=== PATIENT | male | born 1935 | race Caucasian/White ===

== ENCOUNTER 2016-05-22 22:28 | Inpatient (IN) | payer OTHER ==
[2016-05-22] MEDS ORDERED: ONDANSETRON 4 MG/2 ML VIAL IVP ONE (22:32)
[2016-05-22] MEDS ORDERED: NS 500 ML IV ONE (22:32)
[2016-05-22] MEDS ORDERED: NITROGLYCERIN 0.4 MG BTL SL ONE (22:33)
--- NOTE | 2016-05-22 22:38 | CPEKG ---
Heart Rate: 103 RR Interval: 583 P-R Interval: 168 QRSD Interval: 88 QT Interval: 360 QTC Interval: 471 P [place]: 0 QRS [place]: -56 T Wave [place]: 25 EKG Severity - ABNORMAL ECG - EKG Impression: SINUS TACHYCARDIA EKG Impression: PROBABLE INFERIOR INFARCT, OLD EKG Impression: CONSIDER ANTERIOR INFARCT EKG Impression: RIGHT ATRIAL ENLARGEMENT. Electronically Signed By: Cristiano Mata 23-May-2016 15:26:22
--- NOTE | 2016-05-22 22:40 | EDPHY ---
H & P HPI/ROS: HPI CHIEF COMPLAINT: Chest pain, shortness of breath, cardiac alert by EMS, STEMI HISTORY OF PRESENT ILLNESS: this patient 80-year-old male significant past medical history for coronary artery disease with 2 stents in 1999, obstructive sleep apnea, obesity, diabetes, hypertension who presents to the emergency room by EMS from assisted living facility where he lives independently with left- sided chest pressure. EMS performed an EKG in field and it showed ST elevation MD specifically in lead V1, V2, V3 with ST depression very subtle into 3 and aVF concerning for an acute ST-elevation MD. There is brought to the emergency room ER room to emergently by EMS he did receive 2 nitroglycerin in route his blood pressure was in the 200s initially however his blood pressure improved to the 160s. he now complains of left- sided chest pressure 5/10. It does not radiate he does have associated nausea with that he denies numbness or tingling. Past Medical History: Hypertension, hyperlipidemia, coronary artery disease with stents, obesity, wear CPAP at night, no daily oxygen, Past Surgical History: stent placement 1999 Social History: denies drugs alcohol tobacco products Family History: noncontributory ROS REVIEW OF SYSTEMS: A comprehensive 10 point review of systems is otherwise negative aside from elements mentioned in the history of present illness. Exam Constitutional no acute distress, triage nursing summary reviewed, vital signs reviewed, awake/alert. Eyes normal conjunctivae and sclera, EOMI, PERRLA. HENT normal inspection, atraumatic, moist mucus membranes, no epistaxis, neck supple/ no meningismus, no raccoon eyes. Respiratory clear to auscultation bilaterally, normal breath sounds, no respiratory distress, no wheezing. Cardiovascular rate normal, regular rhythm, no murmur, no edema, distal pulses normal. Gastrointestinal soft, non-tender, no rebound, no guarding, normal bowel sounds, no distension, no pulsatile mass. Genitourinary no CVA tenderness. Musculoskeletal no midline vertebral tenderness, full range of motion, no calf swelling, no tenderness of extremities, no meningismus, good pulses, neurovascularly intact. Skin pink, warm, & dry, no rash, skin atraumatic. Neurologic awake, alert and oriented x 3, AAOx3, moves all 4 extremities equally, motor intact, sensory intact, CN II-XII intact, normal cerebellar, normal vision, normal speech. Psychiatric normal mood/affect. Heme/Lymph/Immune no lymphadenopathy. Differential Diagnosis: includes but is not limited to in a particular order, ST elevation MD, ACS, CHF, pulmonary embolism, pneumonia, pneumothorax, PE Medical Decision Making: this patient was a STEMI activation in the field, upon arrival to the emergency room complaining of left-sided chest pressure he has an EKG that shows subtle ST depression to 3 in aVF and very little ST elevation in V1 V2 V3. given the patient's chest discomfort he will be prepped for cardiac catheterization. Re-evaluation: 1038: At this time I have ordered this patient IV fluids, IV morphine IV Zofran for pain control another dose of nitroglycerin his blood pressure this time is 160 systolic he does complain of left-sided chest pressure EKG interpretation by me on record in [facility] system. Impression Time of EKG [address] depression 2 in lead 2 3 AVF very subtle less than 1 mm, also shows very subtle ST elevation in V1 V2 V3 less than 1 mm. It is also noted he has S1 Q3 T3 on EKG this is similar to previous EKG however there was not a T-wave inversion seen on lead 3. This EKG does appear similar to previous EKG. Patient did receive full-dose aspirin and 2 nitroglycerin prior to arrival his pain is 5/10. I will medicate him with another dose of nitroglycerin IV Zofran IV morphine and re-evaluate him while we wait on Cardiology to evaluate him. 2250: Dr. Patterson with cardiology is at bedside evaluating the patient. ED x-ray chest one view: cardiomegaly, lung vega clear, this is a similar chest x-ray compared to his old x-ray 09/14/2014. 2309: This patient is being taken to the cardiac catheterization lab with Dr. Patterson for concern out of chest pain and ischemia. Source: Patient, EMS - Medical/Surgical History Hx Asthma: No Hx Chronic Respiratory Disease: Yes Hx Diabetes: Yes Hx Cardiac Disease: No Hx Renal Disease: No Hx Cirrhosis: No Hx Alcoholism: No Hx HIV/AIDS: No Hx Splenectomy or Spleen Trauma: No Other PMH: iddm,giant cell temporalartinitiis,appendectomy, on oxygen - Social History Smoking Status: Former smoker Constitutional: Initial Vital Signs Temperature (C) 36.6 C 05/22/16 22:28 Heart Rate 106 H 11/30/16 22:28 Respiratory Rate 16 05/22/16 22:28 Blood Pressure 163/86 H 05/22/16 22:28 O2 Sat (%) 93 05/22/16 22:28 O2 Delivery Mode Room Air O2 (L/minute) 2 Allergies/Adverse Reactions: atorvastatin calcium [From Lipitor] Allergy (Mild, Verified 05/22/16 22:38) Other-Enter Comments lisinopril [Lisinopril] Allergy (Mild, Verified 05/22/16 22:38) Diarrhea Home Medications: Medication Instructions Recorded Gemfibrozil [Lopid 600 MG (*)] 600 mg PO BIDAC 10/12/09 Cholecalciferol Vit D3 [Vitamin D3 1,000 units PO DAILY 04/01/14 (*)] Cyanocobalamin [Vitamin B12 (*)] 1,000 mcg PO DAILY 04/01/14 Insulin Regular, Human [HUMULIN R] 75 unit SC BID@,04/01/14 Insulin Regular, Human [HUMULIN R] 100 unit SC DAILY@08 04/01/14 Metformin HCl [Metformin 1000 mg] 1,000 mg PO BIDMEAL 04/01/14 Multivitamins [Multivitamin (*)] 1 tab PO DAILY 04/01/14 Tamsulosin HCl [Flomax 0.4 MG (*)] 0.4 mg PO HS 04/01/14 Docusate Sodium [Colace 100 MG (*)] 100 mg PO BID #14 cap 04/08/14 Losartan Potassium [Cozaar 50 mg 50 mg PO DAILY 01/31/16 (*)] Pravastatin Sodium [Pravachol] 40 mg PO DAILY 01/31/16 predniSONE [Vonnie] 5 mg PO DAILY 01/31/16 Ondansetron Odt [Zofran Odt] 4 mg PO Q4PRN PRN #20 tab 02/02/16 Medical Decision Making - Data Points Laboratory Results: Laboratory Results 05/22/16 22:43 05/22/16 22:43 05/22/16 05/22/16 22:53 22:43 WBC 6.99 10^3/uL (3.80-9.50) RBC 5.02 10^6/uL (4.40-6.38) Hgb 15.8 g/dL (13.7-17.5) Hct 44.9 % (40.0-51.0) MCV 89.4 fL (81.5-99.8) MCH 31.5 pg (27.9-34.1) MCHC 35.2 g/dL (32.4-36.7) RDW 12.1 % (11.5-15.2) Plt Count 287 10^3/uL (150-400) MPV 9.8 fL (8.7-11.7) Neut % (Auto) 60.5 % (39.3-74.2) Lymph % (Auto) 26.0 % (15.0-45.0) [place] % (Auto) 10.4 % (4.5-13.0) Eos % (Auto) 1.4 % (0.6-7.6) Baso % (Auto) 1.0 % (0.3-1.7) Nucleat RBC Rel Count 0.0 % (0.0-0.2) Absolute Neuts (auto) 4.22 10^3/uL (1.70-6.50) Absolute Lymphs (auto) 1.82 10^3/uL (1.00-3.00) Absolute Monos (auto) 0.73 10^3/uL (0.30-0.80) Absolute Eos (auto) 0.10 10^3/uL (0.03-0.40) Absolute Basos (auto) 0.07 10^3/uL (0.02-0.10) Absolute Nucleated RBC 0.00 10^3/uL (0-0.01) Immature Gran % 0.7 % (0.0-1.1) Immature Gran # 0.05 10^3/uL (0.00-0.10) PT 14.6 SEC REJ (12.0-15.0) INR 1.15 REJ (0.83-1.16) APTT 29.1 SEC REJ (23.0-38.0) D-Dimer Pending Sodium 138 mEq/L (134-144) Potassium 4.5 mEq/L (3.5-5.2) Chloride 103 mEq/L (97-110) Carbon Dioxide 22 mEq/l (22-31) Anion Gap 18 mEq/L (8-20) BUN 22 mg/dL (7-23) Creatinine 1.1 mg/dL (0.7-1.3) Estimated GFR > 60 Glucose 262 H mg/dL (70-100) Calcium 9.7 mg/dL (8.5-10.4) Magnesium 2.0 mg/dL (1.6-2.3) Total Bilirubin 0.9 mg/dL (0.1-1.4) Conjugated Bilirubin 0.4 mg/dL (0.0-0.5) Unconjugated Bilirubin 0.5 mg/dL (0.0-1.1) AST 33 IU/L (17-59) ALT 34 IU/L (21-72) Alkaline Phosphatase 77 IU/L (38-126) Creatine Kinase 70 IU/L (0-224) CK-MB (CK-2) Fraction Pending Troponin I Pending NT-Pro-B Natriuret Pep Pending Total Protein 6.9 g/dL (6.3-8.2) Albumin 4.0 g/dL (3.5-5.0) Lipase 190.0 IU/L (23-300) Medications Given: Discontinued Medications Sodium Chloride (Ns) 500 mls @ 0 mls/hr IV ONCE ONE PRN Reason: As Directed Stop: 05/22/16 22:33 Last Admin: 05/22/16 22:46 Dose: 500 mls Nitroglycerin (Nitrostat) 0.4 mg SL EDNOW ONE Stop: 05/22/16 22:34 Last Admin: 05/22/16 22:46 Dose: 0.4 mg Ondansetron HCl (Zofran) 4 mg IVP EDNOW ONE Stop: 05/22/16 22:33 Last Admin: 05/22/16 22:32 Dose: 4 mg Departure - Departure Disposition: [facility] Inpatient Acute Clinical Impression: Chest pain Qualifiers: Chest pain type: unspecified Qualifier Code: (R07.9) Chest pain, unspecified Condition: Fair
[2016-05-22 22:47] LABS: % IMMATURE GRANULYOCYTES 0.7 % (0.0-1.1); ABSOLUTE IMMATURE GRANULOCYTES 0.05 10^3/uL (0.00-0.10); ADD DIFF? NO; ADD MORPH? NO; ADD SCAN? NO; ATYPICAL LYMPHOCYTE FLAG 0 (0-99); FRAGMENT RBC FLAG 0 (0-99); HEMATOCRIT 44.9 % (40.0-51.0); HEMOGLOBIN 15.8 g/dL (13.7-17.5); LEFT SHIFT FLG 0 (0-99); LIPEMIA HEMOLYSIS FLAG 90 (0-99); MEAN CELL HEMOGLOBIN 31.5 pg (27.9-34.1); MEAN CELL HEMOGLOBIN CONCENTR. 35.2 g/dL (32.4-36.7); MEAN CELL VOLUME 89.4 fL (81.5-99.8); MEAN PLATELET VOLUME 9.8 fL (8.7-11.7); PLATELET CLUMPS FLAG 0 (0-99); PLATELET COUNT 287 10^3/uL (150-400); RED BLOOD CELL COUNT 5.02 10^6/uL (4.40-6.38); RED CELL DISTRIBUTION WIDTH 12.1 % (11.5-15.2)
[2016-05-22] MEDS ORDERED: LIDOCAINE 1% 30 ML SDV ONE (22:48)
[2016-05-22] MEDS ORDERED: fentaNYL 100 MCG/2 ML INJ ONE ×2 (22:49→23:32)
[2016-05-22] MEDS ORDERED: IOPAMIDOL (ISOVUE 370) 100 ML BTL IV ONE ×2 (22:50→23:31)
[2016-05-22] MEDS ORDERED: BIVALIRUDIN 250 MG/5 ML VIAL IV ONE (22:50)
[2016-05-22] MEDS ORDERED: MIDAZOLAM 2 MG/2 ML VIAL ONE (22:52)
[2016-05-22 22:59] LABS: ALANINE AMINOTRANSFERASE 34 IU/L (21-72); ALKALINE PHOSPHATASE 77 IU/L (38-126); ANION GAP 18 mEq/L (8-20); ASPARTATE AMINOTRANSFERASE 33 IU/L (17-59); BILIRUBIN,TOTAL 0.9 mg/dL (0.1-1.4); BILIRUBIN-CONJUGATED 0.4 mg/dL (0.0-0.5); BILIRUBIN-UNCONJUGATED 0.5 mg/dL (0.0-1.1); CALCIUM 9.7 mg/dL (8.5-10.4); CARBON DIOXIDE 22 mEq/l (22-31); CHLORIDE 103 mEq/L (97-110); CREATININE 1.1 mg/dL (0.7-1.3); GLOMERULAR FILTRATION RATE > 60; GLUCOSE 262 mg/dL (70-100); POTASSIUM 4.5 mEq/L (3.5-5.2); SODIUM 138 mEq/L (134-144); TOTAL PROTEIN 6.9 g/dL (6.3-8.2)
[2016-05-22 23:06] LABS: APTT 29.1 SEC (23.0-38.0); INR 1.15 (0.83-1.16); PROTIME(PATIENT) 14.6 SEC (12.0-15.0)
[2016-05-22] MEDS ORDERED: LABETALOL HCL 5 MG/ML 20 ML MDV ONE (23:31)
[2016-05-22] MEDS ORDERED: NITROGLYCERIN/D5W/250 ML BOTTLE IV ONE (23:38)
[2016-05-22] MEDS ORDERED: HEPARIN 10,000 UNIT/10 ML MDV ONE (23:55)
[2016-05-23] MEDS ORDERED: ATROPINE SULFATE 1 MG/10 ML SYR IVP PRN (00:18)
[2016-05-23] MEDS ORDERED: NITROGLYCERIN 0.4 MG BTL SL PRN (00:18)
[2016-05-23] MEDS ORDERED: OXYCODONE/APAP 5/325 TAB PO PRN (00:18)
[2016-05-23] MEDS ORDERED: HYDROCODONE/APAP 5/325 TAB PO PRN (00:18)
[2016-05-23] MEDS ORDERED: HEPARIN 10,000 UNIT/10 ML MDV IVP PRN (00:24)
[2016-05-23] MEDS ORDERED: HEPARIN 10,000 UNIT/10 ML MDV IVP ONE (00:24)
[2016-05-23] MEDS ORDERED: HEPARIN/DEXTROSE 500 ML IV SCH (00:30)
--- NOTE | 2016-05-23 01:20 | GHP ---
[f rep st] HISTORY AND PHYSICAL DATE OF ADMISSION: 05/22/2016 CHIEF COMPLAINT: We have been asked by Dr. Bearden to evaluate Mr. Mao with chest pain and an elevated troponin. HISTORY OF PRESENT ILLNESS: Mr. Mao is an 80-year-old gentleman with known coronary artery disease status post stenting of his left anterior descending coronary artery in 1999 who presented with a chest pain syndrome. The patient was in his usual state of health until the evening of admission when he started to experience chest pain while watching TV. The chest pain was described as a pressure in his chest radiating into his left arm. The chest pain was associated with nausea and diaphoresis but not emesis. When the chest discomfort did not improve he called EMS and was brought to the emergency department for further evaluation. In the emergency department he had an EKG performed, which demonstrated sinus tachycardia at a heart rate of 103. The patient had inferior ST-segment depression but no acute ST-segment elevation. His initial troponin returned elevated at 0.1. We are consulted to help in the further management of this patient. The patient was continuing to have symptoms of chest pain at the time of interview. The patient denies a previous history of chest pain, other than in 1999 when he was treated with percutaneous coronary intervention. The patient reports limited physical activity. He does have risk factors including age, hypertension, hyperlipidemia, and diabetes mellitus. PAST MEDICAL HISTORY: 1. Coronary artery disease. a. Status post stenting of his left anterior descending coronary artery in 1999. b. Nuclear stress test in March of 2015 demonstrated no evidence of ischemia or infarction and preserved left ventricular systolic function. 2. Hypertension. 3. Hyperlipidemia. 4. Diabetes mellitus requiring insulin. MEDICATIONS: Please see medicine reconciliation form. ALLERGIES: 1. Lipitor. 2. Lisinopril. SOCIAL HISTORY: The patient lives at home. He does not smoke. FAMILY HISTORY: Noncontributory. REVIEW OF SYSTEMS: A 10-point review of systems is negative except as noted in HPI. PHYSICAL EXAM: GENERAL: Patient is resting in the bed. He appears to be in mild distress at this time. VITAL SIGNS: Temperature is afebrile, pulse is 106 , blood pressure 163/86, SaO2 93% on room air. HEENT: Normocephalic, atraumatic. Extraocular muscles intact. Could not appreciate JVD secondary to neck plethora. LUNGS: Clear to auscultation. CARDIOVASCULAR: Regular rate and rhythm S1, S2. Could not appreciate any murmurs, rubs, or gallops. ABDOMEN : Obese, distended, nontender. EXTREMITIES: Mild lower extremity edema. SKIN : No evidence of rashes. NEURO: Patient is awake, alert, and oriented x3. Remainder of exam was abbreviated given acute nature of patient's condition. LABORATORY: Sodium 138, potassium 4.5, chloride 103, CO2 22, BUN 22, creatinine 1.1. Troponin 0.10. INR is 1.15. White blood cell count 6.99, hemoglobin 15.8, hematocrit 44.9, platelet count 287. ASSESSMENT AND PLAN: Mr. Mao is an 80-year-old gentleman with: 1. Acute coronary syndrome. Patient has known coronary artery disease. He presents with recurrent chest pain similar to his previous angina. His EKG demonstrates no acute ST elevation, however, patient does have inferior ST- segment depression. His initial troponin is mildly elevated. The patient has continued to have mild chest discomfort at this time. Reviewed risks and benefits of cardiac catheterization for risk stratification. We will arrange to have this performed immediately. 2. Hyperlipidemia. Patient is on pravastatin. We will plan on continuing current therapy and obtaining a fasting lipid profile to evaluate management. 3. Hypertension. Patient was markedly hypertensive on his way into the hospital with systolic blood pressures in the 200s. Patient reports his blood pressure has been previously well controlled. We will plan on initiating therapy with labetalol. Patient does report previous allergy to lisinopril. 4. Diabetes mellitus. Patient has a history of type 2 diabetes mellitus. He is on insulin therapy with 70/30. Will consult hospice to help with management. /[id number]/MODL MTDD
[2016-05-23 01:22] LABS: % IMMATURE GRANULYOCYTES 0.7 % (0.0-1.1); ABSOLUTE IMMATURE GRANULOCYTES 0.06 10^3/uL (0.00-0.10); ADD DIFF? NO; ADD MORPH? NO; ADD SCAN? NO; ATYPICAL LYMPHOCYTE FLAG 0 (0-99); FRAGMENT RBC FLAG 0 (0-99); HEMATOCRIT 38.9 % (40.0-51.0); HEMOGLOBIN 13.9 g/dL (13.7-17.5); LEFT SHIFT FLG 0 (0-99); LIPEMIA HEMOLYSIS FLAG 90 (0-99); MEAN CELL HEMOGLOBIN CONCENTR. 35.7 g/dL (32.4-36.7); MEAN CELL VOLUME 92.4 fL (81.5-99.8); MEAN PLATELET VOLUME 9.8 fL (8.7-11.7); PLATELET CLUMPS FLAG 0 (0-99); PLATELET COUNT 245 10^3/uL (150-400); RED BLOOD CELL COUNT 4.21 10^6/uL (4.40-6.38); RED CELL DISTRIBUTION WIDTH 12.1 % (11.5-15.2)
[2016-05-23 01:31] LABS: INR 1.01 (0.83-1.16); PROTIME(PATIENT) 13.2 SEC (12.0-15.0)
[2016-05-23 01:32] LABS: APTT 58.7 SEC (23.0-38.0)
[2016-05-23 04:35] LABS: % IMMATURE GRANULYOCYTES 0.7 % (0.0-1.1); ABSOLUTE IMMATURE GRANULOCYTES 0.06 10^3/uL (0.00-0.10); ADD DIFF? NO; ADD MORPH? NO; ADD SCAN? NO; ATYPICAL LYMPHOCYTE FLAG 0 (0-99); FRAGMENT RBC FLAG 0 (0-99); HEMATOCRIT 39.9 % (40.0-51.0); HEMOGLOBIN 13.9 g/dL (13.7-17.5); LEFT SHIFT FLG 0 (0-99); LIPEMIA HEMOLYSIS FLAG 90 (0-99); MEAN CELL HEMOGLOBIN 31.7 pg (27.9-34.1); MEAN CELL HEMOGLOBIN CONCENTR. 34.8 g/dL (32.4-36.7); MEAN CELL VOLUME 91.1 fL (81.5-99.8); MEAN PLATELET VOLUME 9.7 fL (8.7-11.7); PLATELET CLUMPS FLAG 0 (0-99); PLATELET COUNT 257 10^3/uL (150-400); RED BLOOD CELL COUNT 4.38 10^6/uL (4.40-6.38); RED CELL DISTRIBUTION WIDTH 12.2 % (11.5-15.2)
[2016-05-23 05:00] LABS: ANION GAP 16 mEq/L (8-20); CARBON DIOXIDE 23 mEq/l (22-31); CHLORIDE 106 mEq/L (97-110); GLOMERULAR FILTRATION RATE > 60; GLUCOSE 224 mg/dL (70-100); SODIUM 141 mEq/L (134-144)
[2016-05-23] MEDS: ONDANSETRON 4 MG/2 ML VIAL IVP PRN (05:36)
--- NOTE | 2016-05-23 06:35 | DX ---
AP Portable Chest May 22, 2016 Indication: Cardiac alert. Comparison: September 14, 2014. Findings: Lungs are clear. No significant pulmonary edema. No consolidation or effusion. Right lower lobe area of patchy density appears improved compared to the prior x-ray. Appearance of widening of t he mediastinum is also unchanged. Impression: Overall improved since August 2014 without acute cardiopulmonary process radiographically.
[2016-05-23] MEDS ORDERED: METOCLOPRAMIDE 10 MG/2 ML VIAL IVP ONE (07:09)
[2016-05-23] MEDS ORDERED: INSULIN REGULAR HUMAN 100 UNIT in NS 100 ML IV PRN (07:38)
[2016-05-23] MEDS ORDERED: NITROGLYCERIN/DEXTROSE 250 ML IV SCH (08:00)
[2016-05-23] MEDS ORDERED: NS 1,000 ML IV ONE (08:28)
[2016-05-23] MEDS ORDERED: INSULIN REGULAR HUMAN 100 UNIT in NS 100 ML IV ONE (08:28)
[2016-05-23] MEDS ORDERED: MUPIROCIN 2% 22 GM OINT NS ONE (08:28)
[2016-05-23] MEDS ORDERED: AMINOCAPROIC ACID 5 GM/20 ML VIAL IV ONE (08:28)
[2016-05-23] MEDS ORDERED: CITRATE DEXTROSE SOLN 500 ML BAG MISC ONE (08:28)
[2016-05-23] MEDS ORDERED: ceFAZolin 3 GM in D5W 100 ML IV ONE (08:28)
[2016-05-23] MEDS ORDERED: VERAPAMIL 5 MG, NITROGLYCERIN 2.5 MG, HEPARIN 500 UNIT, SODIUM BICARBONATE 0.2 MEQ in L... MISC ONE (08:28)
[2016-05-23] MEDS ORDERED: PHENYLEPHRINE HCL 50 MG in NS 250 ML IV ONE (08:28)
[2016-05-23] MEDS ORDERED: MANNITOL 25% 12.5 GM/50 ML VIAL IV ONE (08:28)
[2016-05-23] MEDS ORDERED: SODIUM BICARBONATE 20 MEQ, LIDOCAINE 1% 10 ML in NORMOSOL-R 1,000 ML MISC ONE (08:28)
[2016-05-23] MEDS ORDERED: NOREPINEPHRINE BITARTRATE 16 MG in NS 250 ML IV ONE (08:28)
--- NOTE | 2016-05-23 08:30 | CPIP ---
[f rep st] INVASIVE CARDIAC PROCEDURE DATE OF PROCEDURE: 05/22/2016 PROCEDURE: 1. Coronary angiography. 2. Left ventriculography. 3. Placement of intra-aortic balloon pump. INDICATION: Acute coronary syndrome with elevated troponin. ACCESS: Patient was prepped and draped in sterile fashion. 1% lidocaine was used to anesthetize the right inguinal region. A 6-Gabonese introducer sheath was placed selectively in the right common femo ral artery via modified Seldinger technique. The 6-Gabonese introducer sheath was later exchanged for an 8-Gabonese introducer sheath, the exchange wire technique. CORONARY ANGIOGRAPHY: A 5-Gabonese JL4 was advanced to the left main coronary artery and images obtain ed. The left main coronary artery bifurcated into an LAD and circumflex coronary arteries. The left main coronary artery appeared free of any significant disease. The left anterior descending coronar y artery is diffusely diseased. In the mid 1 segment, there was a single discrete 90% stenosis prese nt. In the mid 2 segment, there is a single discrete 80% stenosis present, and in the distal vessel there is a single discrete 70% stenosis present. The 2nd diagonal artery was the largest of the diag onal arteries. It had a proximal 70% stenosis present. The circumflex coronary artery was dominant. The circumflex coronary artery was a large vessel. The circumflex coronary artery had an ostial 50 % stenosis present, followed by proximal 80% stenosis, followed by a mid 70% stenosis. The 1st OM ar joanne was a large vessel. The 1st OM artery was subtotally occluded with JORDAN-3 flow. A 5-Gabonese JR4 was advanced to the right coronary artery was obtained. The right coronary artery was nondominant. The right coronary artery had a proximal 70% stenosis present. LEFT VENTRICULOGRAPHY: A 6-Gabonese pigtail catheter was advanced in the left ventricle and images obt ained. Left ventricle was normal in size with reduced systolic function. Estimated ejection fractio n was 40%. Anterior apical segments were hypokinetic. His left ventricular end-diastolic pressure i s elevated at 24 mmHg. INTRA-AORTIC BALLOON PUMP PLACEMENT: Intra-aortic balloon pump was placed via the right common femor al artery. A 40 cc intra-aortic balloon pump was placed without difficulty. COMPLICATIONS: None. CONCLUSIONS: 1. Three-vessel coronary artery disease. 2. Reduced left ventricular systolic function with an estimated ejection fraction of 40%. 3. Status post successful placement of intra-aortic balloon pump. 4. Plan is for surgical evaluation. /[id number]/MODL
[2016-05-23] MEDS ORDERED: ASPIRIN 81 MG CHEWABLE TAB PO SCH (09:00)
[2016-05-23] MEDS ORDERED: MUPIROCIN 2% 22 GM OINT NS SCH (09:00)
[2016-05-23] MEDS ORDERED: niCARdipine/NACL 200 ML IV SCH (09:00)
[2016-05-23] MEDS ORDERED: LABETALOL HCL 200 MG TAB PO SCH (09:00)
[2016-05-23] MEDS ORDERED: ALBUMIN 5% 250 ML BOTTLE IV ONE (09:32)
[2016-05-23] MEDS ORDERED: AMINOCAPROIC ACID 5 GM/20 ML VIAL ONE (09:33)
[2016-05-23] MEDS ORDERED: PROTAMINE SULFATE 50 MG/5 ML VIAL IVP ONE ×2 (09:33→14:34)
[2016-05-23] MEDS ORDERED: ADENOSINE 6 MG/2 ML VIAL ONE (09:33)
[2016-05-23] MEDS ORDERED: LIDOCAINE 2% 100 MG/5 ML SYR IVP ONE (09:33)
[2016-05-23] MEDS ORDERED: MILRINONE/DEXTROSE/100 ML BAG IV ONE (09:33)
[2016-05-23] MEDS ORDERED: niCARdipine/NACL/200 ML BAG IV ONE (09:33)
[2016-05-23] MEDS ORDERED: AMIODARONE HCL 150 MG/3 ML VIAL ONE (09:33)
[2016-05-23] MEDS ORDERED: CALCIUM CHLORIDE 1 GM/10 ML INJ ONE (09:33)
[2016-05-23] MEDS ORDERED: POTASSIUM Cl (KCl) 20 MEQ/50 ML BAG IV ONE (09:33)
[2016-05-23] MEDS ORDERED: NA BICARBONATE 50 MEQ/50 ML VIAL ONE ×2 (09:33→20:19)
[2016-05-23] MEDS ORDERED: DOPamine/DEXTROSE/250 ML BAG IV ONE (09:33)
[2016-05-23] MEDS ORDERED: methylPREDNISolone SOD SUCC 1 GM/8 ML VIAL ONE (09:34)
[2016-05-23] MEDS ORDERED: ceFAZolin 1 GM VIAL ONE (09:34)
[2016-05-23] MEDS ORDERED: HEPARIN 10,000 UNIT/10 ML MDV ONE ×2 (09:34→10:56)
[2016-05-23] MEDS ORDERED: MAGNESIUM SULFATE 1 GM/2 ML VIAL ONE (09:34)
[2016-05-23] MEDS: PRAVASTATIN SODIUM 40 MG TAB PO SCH (09:51)
--- NOTE | 2016-05-23 10:39 | US ---
Bilateral Duplex Carotid Sonography Clinical Indications: Syncope. Precardiac bypass surgery evaluation. Technique: The cervical portions of the carotid and vertebral arteries were imaged and interrogated by color and pulsed Doppler. Spectral analysis was performed. Findings: Right Carotid: The common carotid artery, bifurcation, and origin of the internal and external carot id artery are well imaged. Doppler velocity estimates and color Doppler spectra are normal. No evid ence of flow-limiting stenosis. Peak ICA systolic velocity is 93 cm/sec. Peak CCA systolic velocity i s 92 cm/sec. The ICA to CCA ratio is 1. There is moderate plaque at the bulb without flow-limiting st enosis. Left Carotid: The common carotid artery, bifurcation, and origin of the internal and external caroti d artery are well imaged. Doppler velocity estimates and color Doppler spectra are normal. No evide nce of flow-limiting stenosis. Peak ICA systolic velocity is 83 cm/sec. Peak CCA systolic velocity is 113 cm per second. The ICA to CCA ratio is 0.7. Again, moderate plaque is identified at the bulb, wi thout flow-limiting stenosis. Interestingly, for both carotid arteries, there is reversal of flow below the neutral velocity line d uring diastole. Query aortic insufficiency? Vertebral Arteries: Antegrade flow is shown by pulsed Doppler of each vertebral artery. Impression: 1. Bilateral plaque at the carotid bulb without flow-limiting carotid stenosis. 2. Reversal of flow during diastole for both carotid arteries. Query aortic insufficiency? Measurement of carotid stenosis is based on velocity parameters that correlate the residual internal carotid diameter with [place] Symptomatic Carotid Endarterectomy Trial (NASCET) based stenosis levels.
[2016-05-23 10:46] LABS: HEMOGLOBIN A1C 8.4 % (4.0-6.0)
--- NOTE | 2016-05-23 10:46 | GCON ---
[f rep st] CONSULTATION CRITICAL CARE CONSULTATION. DATE OF CONSULTATION: 05/23/2016 REFERRING PHYSICIAN: Davidson Patterson MD CHIEF COMPLAINT: Chest pain. HISTORY OF PRESENT ILLNESS: This 80-year-old male had coronary artery stenting to his left anterior descending artery in year 1999. He had no chest pain or problems since then, although he has been ve ry sedentary. He has had some problems with his hips and does use a cane. Patient was on a cruise l ast week where he developed some nausea and epigastric discomfort that was different than his previou s angina. Upon returning he did develop radiating chest pain going to his left arm that felt like a pressure and he also had nausea and diaphoresis but no emesis and no shortness of breath. He came to the Emergency Room, where he had some ST-segment depression. He was taken to the carpenter labor supervisor by Dr. Decker and 3-vessel coronary disease was found. His troponin is elevated. He denies shortness of evaristo th or wheezing. There has been no orthopnea or paroxysmal nocturnal dyspnea, but he did notice some pedal edema after returning from his cruise. The patient's risk factors include diabetes mellitus, h yperlipidemia, hypertension, and obstructive sleep apnea. He does use a CPAP mask at night. His cullen betes mellitus is taken care by an acid crane operator at the [facility] in [place]. The viola ent is obese and as noted above exerts himself very little. PAST MEDICAL HISTORY: 1. Coronary artery disease with a stent to his left anterior descending artery in the year 1999. 2. Hypertension. 3. Hyperlipidemia. 4. Diabetes mellitus type 1. 5. 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 This was fr om a fall. ALLERGIES TO MEDICATIONS: Lipitor and lisinopril. SOCIAL HISTORY: The patient has a 20 pack-year history of smoking tobacco, having quit 50 years ago. 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 He has no hobby exposure. He does not drink excessive alcohol or use any illicit drugs. FAMILY HISTORY: Without diabetes mellitus or early arteriosclerotic vascular disease. REVIEW OF SYSTEMS: Otherwise noncontributory x11 points. PHYSICAL EXAMINATION: GENERAL: The patient is relatively comfortable but states that he has 1 or 2/ 10 chest pain still at this point. Blood pressure is 108/56 with a pulse of 96, respiratory rate of 15, and an oxygen saturation of 94% on room air. He is afebrile. SKIN: Normal. HEAD: Without ext ernal evidence of trauma. EYES: Fundi not visualized. EARS: Canals clear. NOSE: Without septal deviation or polyps. MOUTH and PHARYNX: Clear without lesions. NECK: Supple. CHEST: Clear to au scultation and percussion. HEART: PMI 5th intercostal space, midclavicular line. S1 and S2 are nor mal. There is no S3, S4, or murmur. ABDOMEN: Soft, without organomegaly or masses. There is no te nderness. EXTREMITIES: Full range of motion without clubbing or cyanosis and I do not see any edema now that the patient complained of a few days ago. DATABASE: Chest x-ray shows clear lungs. The chemistry panel is normal except for blood sugar that has been elevated at 224 and 262 here and both flows are fasting. INR is 1.0. White blood count 830 0 with hematocrit of 39, and platelets of 257,000. IMPRESSION: 1. Three-vessel coronary artery disease. 2. Obesity. 3. Diabetes mellitus with poor control. 4. Hypertension. 5. Hyperlipidemia. 6. Obstructive sleep apnea. PLAN: The patient is going for surgery with Dr. Johnson and will have a bypass. Hemoglobin A1c is inna ng obtained. It is difficult to know whether he has any lung disease from his smoking with his left very limited exertion. It may take a bit longer than usual to get him off the ventilator. Blood sug ars will be controlled with intravenous insulin drip following his surgery. /[id number]/MODL
[2016-05-23] MEDS ORDERED: MIDAZOLAM 2 MG/2 ML VIAL ONE (12:04)
[2016-05-23] MEDS ORDERED: fentaNYL 250 MCG/5 ML INJ ONE ×2 (12:14→12:15)
[2016-05-23] MEDS ORDERED: PROPOFOL 200 MG/20 ML VIAL ONE (12:15)
[2016-05-23] MEDS ORDERED: ROCURONIUM 100 MG/10 ML VIAL ONE (12:16)
[2016-05-23] MEDS ORDERED: LIDOCAINE 2% 5 ML SDV ONE (12:16)
[2016-05-23] MEDS ORDERED: SUCCINYLCHOLINE CHLORIDE*ANESTHESIA ONLY*200 MG/10 ML SYR IVP ONE (12:20)
--- NOTE | 2016-05-23 12:24 | ECHO ---
[id number] + + [address] : : [place] [address] : : [phone] + + Adult Echocardiographic Report + -----+ :Name: ANDREEA MICHELLE RStudy Date: 05/23/2016 10:11 AM : : Hospital Admission Number: [id number] Location : 254: :: 1935 Gender: Male Height: 71 in : :Age: 80 yrs Race: WH Weight: 280 lb : :Reason For Study: Eval LV Fx / Valves : : BSA: 2.4 meters2 : :History: Pre OP CABG : + -----+ MMode/2D Measurements & Calculations IVSd: 1.00 cm LVIDd: 4.8 cm FS: 25.9 % Ao root diam: LVPWd: 1.2 cm LVIDs: 3.6 cm EDV(Teich): 3.6 cm 110.0 ml ACS: 1.9 cm ESV(Teich): 54.2 ml LA dimension: EF(Teich): 50.7 % 3.0 cm LVOT diam: 2.1 cmLVLd ap4: 7.9 cm SV(MOD-sp4): LVOT area: EDV(MOD-sp4): 30.0 ml 3.5 cm2 80.0 ml LVLs ap4: 7.2 cm ESV(MOD-sp4): 50.0 ml EF(MOD-sp4): 37.5 % Normal Measurement Values: + + :LVIDd (3.5-5.7cm) IVSd (0.6-1.1cm) LVPWd (0.6-1.1cm) Aortic Root (2.0-3.7cm)Left Atrium (1.5-4.0cm): :LV Vol(d) (76-115ml) LV Vol(s) (29-48ml) Ejec Fraction (50-65%)PV Duane (0.6- 1.2m/s) TV Duane (0.4-1.0m/s) : :MV E Duane (0.8-1.0m/s)MV A Duane (0.3-1.0m/s)LVOT Duane (0.7-1.2m/s) Asc Ao Duane ( 0.9-1.8m/s) : + + Doppler Measurements & Calculations MV E max duane: MV V2 max: Ao V2 max: AI max duane: 50.3 cm/sec 131.5 cm/sec 617.0 cm/sec 224.0 cm/sec MV A max duane: MV max PG: Ao max PG: AI max P.5 cm/sec 6.9 mmHg 64.6 mmHg 20.1 mmHg MV E/A: 0.43 MV V2 mean: Ao mean P.8 cm/sec 14.2 mmHg MV mean PG: Ao V2 mean: 2.4 mmHg 179.1 cm/sec MV V2 VTI: 25.8 cmAo V2 VTI: 49.2 cm MVA(VTI): 2.4 cm2 PRISCILA(I,D): 1.3 cm2 LV V1 mean PG: SV(LVOT): 62.7 ml PA V2 max: 4.0 mmHg 112.7 cm/sec LV V1 mean: PA max P.1 cm/sec 5.1 mmHg LV V1 VTI: 18.1 cm Left Ventricle The left ventricle is normal in size. There is normal left ventricular wall thickness. An intracavitary gradient is present. The peak velocity in the AV / LVOT CW is 6.47 m/s with a PG of 167 mmHg. Ejection Fraction = 35-40%. There is left ventricular apical akinesis. Right Ventricle The right ventricle is normal in size and function. Atria The left atrial size is normal. Right atrial size is normal. The interatrial septum is intact with no evidence for an atrial septal defect. Mitral Valve There is mild mitral annular calcification. There is systolic anterior motion of the mitral valve. There is no mitral valve stenosis. There is trace to mild mitral regurgitation. Tricuspid Valve Normal tricuspid valve. No tricuspid regurgitation. Aortic Valve Mild Aortic Valve Calcification. There is no aortic stenosis. There is mild chordal calcification. There is no aortic insufficiency. Pulmonic Valve The pulmonic valve is normal in structure and function. There is no pulmonic valvular regurgitation. Great Vessels The aortic root is normal size. Pericardium/Pleural trivial pericardial effusion. Conclusion Normal LV size. Moderately reduced LV systolic function at = 35-40%. An intracavitary gradient is present. The peak velocity in the AV / LVOT CW is 6.47 m/s with a PG of 167 mmHg. This is associated with chordal OLY. The right ventricle is normal in size and function. There is mild mitral annular calcification. There is trace to mild mitral regurgitation. Normal tricuspid valve Mild Aortic Valve Calcification There is no aortic stenosis. There is mild chordal calcification. The aortic root is normal size. There is systolic anterior motion of the mitral valve. trivial pericardial effusion. There is left ventricular apical akinesis. Final Reading Physician: Julisa Fernandez signed on 05/23/2016 12:23 PM Ordering Physician: Davidson Patterson Performed By: Ho Phan, PARAMJITCS
[2016-05-23] MEDS ORDERED: VERAPAMIL 5 MG/2 ML VIAL ONE (12:32)
[2016-05-23] MEDS ORDERED: SKIN ADHESIVE (DERMABOND) 1 EACH TP ONE (12:32)
[2016-05-23] MEDS ORDERED: MINERAL OIL 10 ML VIAL TP ONE (12:32)
[2016-05-23] MEDS ORDERED: PAPAVERINE HCL 60 MG/2 ML SDV ONE (12:32)
[2016-05-23] MEDS ORDERED: HYDROCORTISONE 100 MG/2 ML VIAL ONE (13:23)
[2016-05-23] MEDS ORDERED: ROCURONIUM 50 MG/5 ML VIAL ONE (13:36)
[2016-05-23] MEDS ORDERED: ESMOLOL HCL 100 MG/10 ML VIAL IV ONE (16:15)
[2016-05-23] MEDS ORDERED: ESMOLOL/NACL 250 ML IV SCH (17:00)
[2016-05-23] MEDS ORDERED: PROPOFOL/EMULSION 500 MG/50 ML BOTTLE IV ONE (17:10)
[2016-05-23] MEDS ORDERED: PROPOFOL/EMULSION 1,000 MG/100 ML BOTTLE IV ONE (17:29)
[2016-05-23] MEDS ORDERED: POTASSIUM Cl (KCl) 50 ML IV PRN (17:33)
[2016-05-23] MEDS ORDERED: METOCLOPRAMIDE 10 MG/2 ML VIAL IVP PRN (17:33)
[2016-05-23] MEDS ORDERED: MAGNESIUM HYDROXIDE 30 ML UDCUP PO PRN (17:33)
[2016-05-23] MEDS ORDERED: BISACODYL 10 MG SUPP PR PRN (17:33)
[2016-05-23] MEDS ORDERED: MAGNESIUM SULF 2 GM/WATER 50 ML IV ONE (17:33)
[2016-05-23] MEDS ORDERED: MEPERIDINE 25 MG/ML SYR IVP PRN (17:33)
[2016-05-23] MEDS ORDERED: PANTOPRAZOLE SODIUM 40 MG in NS 100 ML IV ONE (17:33)
[2016-05-23] MEDS ORDERED: CEPACOL LOZENGE PO PRN (17:33)
[2016-05-23] MEDS ORDERED: POLYETHYLENE GLYCOL 3350 17 GM PKT PO PRN (17:33)
[2016-05-23] MEDS ORDERED: SODIUM CL NASAL 45 ML BTL EACHNARE PRN (17:33)
[2016-05-23] MEDS ORDERED: ONDANSETRON DISINTEGRATING 4 MG TAB PO PRN (17:33)
[2016-05-23] MEDS ORDERED: ACETAMINOPHEN 325 MG TAB PO PRN (17:33)
[2016-05-23] MEDS ORDERED: LACTULOSE 20 GM/30 ML UDCUP PO PRN (17:33)
[2016-05-23] MEDS ORDERED: NS 1,000 ML IV SCH (17:45)
--- NOTE | 2016-05-23 19:05 | POSTOPPROG ---
Post Op Note Date of Operation: 05/23/16 Surgeon: William Johnson Buckle Assembler: Gerardo Anesthesiologist: Humble Anesthesia: GET(General Endotracheal) Pre-op Diagnosis: AMI, ischemic CM,CHF Post-op Diagnosis: same w Severe TR post pump Procedure: CAB 5 FLIMA-LAD, SVG-Dg, [id number],PLCX EVH TVA Inf/Abcess present in the surg proc area at time of surgery?: No EBL: 500-1000 Drains: Other (3 blakes)
--- NOTE | 2016-05-23 19:12 | DX ---
Chest, Single View May 23, 2016 History: Needle count. Comparison: May 22, 2016. Findings: Postsurgical changes are seen of open heart surgery and valvular replacement. Multiple va scular clips are seen overlying the mediastinum. No evidence for a radiopaque density to indicate a retained needle. An image was obtained of the needle as well confirming no radiopaque density that h ad the appearance of a needle. Life support tubes and lines are seen in place. No evidence for a pn eumothorax. The heart size is enlarged. Calcifications are seen in the aorta indicating atheroscler otic disease. Impression: No evidence for a radiopaque density to indicate a retained needle. Results called to the OR at 1848 hours on May 23, 2016.
--- NOTE | 2016-05-23 19:28 | CPEKG ---
Heart Rate: 73 RR Interval: 822 P-R Interval: 204 QRSD Interval: 90 QT Interval: 432 QTC Interval: 476 P Gazelle: 59 QRS Gazelle: 235 T Wave Gazelle: 129 EKG Severity - ABNORMAL ECG - EKG Impression: SINUS RHYTHM EKG Impression: RIGHT AXIS DEVIATION EKG Impression: LOW VOLTAGE THROUGHOUT EKG Impression: BORDERLINE R WAVE PROGRESSION, ANTERIOR LEADS EKG Impression: ABNORMAL T, CONSIDER ISCHEMIA, LATERAL LEADS EKG Impression: BORDERLINE PROLONGED QT INTERVAL Electronically Signed By: Alna Ingram 24-May-2016 11:36:38
[2016-05-23] MEDS: ALBUMIN 5% 250 ML IV PRN ×2 (19:30→20:13)
[2016-05-23 19:42] LABS: BASE EXCESS -6.6 mEq/L (-2.5-2.5); BICARBONATE 20 mEq/L (22-26); MEASURED OXYGEN SATURATION 96 % (92-95); PCO2 45 mmHg (34-38); PO2 99 mmHg (65-75); TCO2 21 mEq/L (23-27)
[2016-05-23 19:49] LABS: END TIDAL CO2 42; O2 CONCENTRATIION 60 % (0-100); P/F RATIO 165 RATIO; PATIENT RATE 25; SIMV YES
[2016-05-23 19:50] LABS: PIP 30.7; PRESSURE SUPPORT 7
--- NOTE | 2016-05-23 20:01 | DX ---
Chest, Single View, May 23, 2016 History: Status post open heart surgery. Intraaortic balloon pump. Findings: Postsurgical changes are seen of open heart surgery and valvular replacement. Heart size is enlarged. The pulmonary vascularity is mildly prominent. There is mild interstitial prominence bilat erally. Bilateral chest tubes are seen and a mediastinal drainage tube. No evidence for pneumothorax. Intraao rtic balloon pump is seen with its tip at the aortic arch. ET tube is seen in place with its tip 5.5 cm from the papito. Right IJ central line is seen in place with its tip in the superior vena cava. Impression: Postsurgical changes of a open heart surgery as above. Cardiomegaly with pulmonary vascul ar congestion and mild pulmonary edema. Life-support tubes and lines as above.
[2016-05-23] MEDS: ceFAZolin 3 GM in D5W 100 ML IV SCH (20:09)
--- NOTE | 2016-05-23 20:13 | GOP ---
[f rep st] OPERATIVE REPORT DATE OF OPERATION: 05/23/2016 SURGEON: William Johnson DO BLACK TOPPER: Aracelis Bazzi ANESTHESIA: [facility] [place]. PREOPERATIVE DIAGNOSIS: 1. Acute myocardial infarction with post infarction angina and ischemic cardiomyopathy with suggesti on of pseudo outflow tract obstruction due to hyperdynamic inferior basilar ventricular function. 2. Severe 3 vessel disease. 3. Morbid obesity. 4. Congestive heart failure with ischemic cardiomyopathy with an ejection fraction of approximately 30-35%. POSTOPERATIVE DIAGNOSIS: 1. Acute myocardial infarction with post infarction angina and ischemic cardiomyopathy with suggesti on of pseudo outflow tract obstruction due to hyperdynamic inferior basilar ventricular function. 2. Severe 3 vessel disease. 3. Morbid obesity. 4. Congestive heart failure with ischemic cardiomyopathy with an ejection fraction of approximately 30-35%. 5. Evidence of severe tricuspid insufficiency after coming off cardiopulmonary bypass and subsequent reinstitution of bypass with repair of the tricuspid valve. PROCEDURE PERFORMED: 1. Coronary bypass grafting x5 with free left internal mammary artery to the LAD with the proximal b rought off the vein graft to the diagonal. 2. A saphenous vein graft to the diagonal with the hui brought off the vein graft to the posterior lateral circumflex. 3. Saphenous vein graft to the 1st OM sequential to 2nd OM. 4. Vein graft to the posterior lateral circumflex. 5. Tricuspid valve annuloplasty with a #32 Murguia annuloplasty ring. 6. Endoscopic vein harvest. FINDINGS: Patient presented with what was thought to be ST-elevation myocardial infarction, and was taken to the blender laborer the night before surgery. He was found to have severe 3 vessel disease with at least moderate to moderate severe LV dysfunction. Subsequent echo in the morning revealed moderate MR as well as severe left ventricular outflow tract obstruction due to chordal OLY without evidence o f septal thickening and likely due to apical infarction and hyperdynamic basilar segments. He was on a balloon pump with ongoing chest pain and nitroglycerin, and was taken to the operating room urgent ly, at which time, he was intubated, monitoring lines were placed, and he was prepped and draped in s terile classical manner. Intraoperative transesophageal echo performed by Dr. Palmer confirmed the pr esence of OLY, likely due to hyperdynamic basilar segments and no evidence of septal hypertroph. A s ternotomy was performed. He was heparinized, cannulated in standard fashion. Cardiopulmonary bypass was begun after endoscopic vein was harvested from the left leg by Aracelis Bazzi, who 1st assisted throughout the procedure. There was evidence of plaque in the ascending aorta, and we cannulated pro ximal to that with echo guidance, avoiding any area of thickening or plaque. We were able to cross-c lamp the aorta and give antegrade and subsequently retrograde cardioplegia, topical hypothermia and s ystemic cooling. Initially, we grafted a posterior lateral circumflex vessel which was a 2.2 mm vess el with moderately diffuse disease with a good quality vein which was brought off the ascending aorta . We then proceeded with sequentially grafting the 1st and 2nd OM vessels which were 1.5 and 1.9 mm in diameter with good flow. That was brought off the ascending aorta in standard fashion. We then g rafted the diagonal which was a 1.4 mm vessel, and brought that off the hui of the vein graft to the posterior lateral circumflex due to a very huge pulmonary artery and marked amount of fat on his hea rt, necessitating extra length on the graft. It seated perfectly without any tension. We had taken the mammary down which was a good quality vessel; however, it was adherent to the bone and had to be resected as a free graft due to its dense adherence due to inflammation apparently from previous brok en ribs. For that reason, we had a short segment which was good quality and grafted to the distal LA D and then brought off the hui of the vein graft to the diagonal. We then removed the cross-clamp w ith suction on the ascending aortic vent. The patient spontaneously resumed cardiac activity. Dr. Jo Ann chacon came in and re-reviewed the echo and felt that by slowing his heart rate and filling him, that t he OLY was almost completely eliminated, and the hopes were that with resumption of his apical and an terior wall function, that the outflow tract obstruction would diminish. He still had mild to modera te MR, and at this point, the tricuspid valve was interrogated by Dr. Palmer and was found to have sev ere torrential TR. This was not appreciated preoperatively, and for that reason, we reinstituted byp ass with bicaval cannulas and tapes. We did not cross clamp the patient, him, and then di d an through which we secured a 32 mm Murguia annuloplasty ring with excellent coaptation of the leaflets. The atrium was closed. The patient was refilled and easily weaned from bypass. Ec ho revealed trace tricuspid insufficiency, mild to moderate MR, and an ejection fraction of 35%. Hep german was reversed with protamine. The cannula was removed and oversewn. Two ventricular pacing wire s, 2 pleural and 1 mediastinal drain were placed. The thymic fat and pericardium were closed. Chest was closed in standard fashion. Patient was returned to ICU in critical condition. DESCRIPTION OF PROCEDURE: /[id number]/MODL
[2016-05-23] MEDS ORDERED: NA BICARBONATE 50 MEQ/50 ML VIAL IV ONE (20:30)
[2016-05-23 21:31] LABS: BASE EXCESS -4.6 mEq/L (-2.5-2.5); BICARBONATE 20 mEq/L (22-26); MEASURED OXYGEN SATURATION 96 % (92-95); PCO2 38 mmHg (34-38); PO2 87 mmHg (65-75); TCO2 21 mEq/L (23-27)
[2016-05-23 21:34] LABS: O2 CONCENTRATIION 40 % (0-100); P/F RATIO 217 RATIO; PATIENT RATE 29; PRESSURE SUPPORT 7; SIMV YES
[2016-05-23 21:57] LABS: HEMATOCRIT 24.5 % (40.0-51.0); HEMOGLOBIN 8.2 g/dL (13.7-17.5)
[2016-05-23] MEDS ORDERED: ALBUMIN 5% 250 ML IV ONE (22:00)
[2016-05-23] MEDS: SENNOSIDES/DOCUSATE SODIUM TAB PO SCH (22:20)
[2016-05-23 23:34] LABS: HEMATOCRIT 29.3 % (40.0-51.0); HEMOGLOBIN 9.8 g/dL (13.7-17.5)
[2016-05-23] MEDS: MUPIROCIN 2% 22 GM OINT NS SCH (23:40)
[2016-05-24] MEDS: ONDANSETRON 4 MG/2 ML VIAL IVP PRN (00:04)
[2016-05-24] MEDS: fentaNYL 100 MCG/2 ML INJ IVP PRN ×4 (00:04→20:44)
[2016-05-24] MEDS ORDERED: ALBUMIN 5% 250 ML IV SCH (01:00)
[2016-05-24 02:15] LABS: HEMOGLOBIN 8.1 g/dL (13.7-17.5)
[2016-05-24] MEDS: ceFAZolin 3 GM in D5W 100 ML IV SCH (02:51)
[2016-05-24] MEDS: INSULIN REGULAR HUMAN 100 UNIT in NS 100 ML IV SCH ×2 (02:51→21:33)
[2016-05-24] MEDS: NOREPINEPHRINE BITARTRATE 16 MG in NS 250 ML IV SCH ×2 (02:52→10:25)
[2016-05-24 02:54] LABS: INR 1.69 (0.83-1.16); PROTIME(PATIENT) 19.9 SEC (12.0-15.0)
[2016-05-24 02:56] LABS: APTT 71.7 SEC (23.0-38.0)
[2016-05-24 05:08] LABS: HEMOGLOBIN 8.8 g/dL (13.7-17.5); MEAN CELL HEMOGLOBIN 31.7 pg (27.9-34.1); MEAN CELL HEMOGLOBIN CONCENTR. 33.8 g/dL (32.4-36.7); MEAN CELL VOLUME 93.5 fL (81.5-99.8); RED BLOOD CELL COUNT 2.78 10^6/uL (4.40-6.38); RED CELL DISTRIBUTION WIDTH 13.9 % (11.5-15.2)
[2016-05-24] MEDS: ASPIRIN 81 MG CHEWABLE TAB PO SCH (05:34)
[2016-05-24 05:42] LABS: ANION GAP 16 mEq/L (8-20); CALCIUM 6.4 mg/dL (8.5-10.4); CARBON DIOXIDE 22 mEq/l (22-31); CHLORIDE 117 mEq/L (97-110); CREATININE 1.4 mg/dL (0.7-1.3); GLOMERULAR FILTRATION RATE 49; GLUCOSE 143 mg/dL (70-100); POTASSIUM 4.9 mEq/L (3.5-5.2); SODIUM 150 mEq/L (134-144)
[2016-05-24] MEDS ORDERED: ASPIRIN 81 MG CHEWABLE TAB TUBE PRN (06:00)
[2016-05-24 08:17] LABS: BASE EXCESS -5.6 mEq/L (-2.5-2.5); BICARBONATE 19 mEq/L (22-26); MEASURED OXYGEN SATURATION 91 % (92-95); PCO2 37 mmHg (34-38); PO2 65 mmHg (65-75); TCO2 20 mEq/L (23-27)
[2016-05-24 08:19] LABS: O2 CONCENTRATIION 50 % (0-100); P/F RATIO 130 RATIO; PATIENT RATE 32; PRESSURE SUPPORT 7; SIMV YES
[2016-05-24 08:35] LABS: APTT 31.8 SEC (23.0-38.0); INR 1.4 (0.83-1.16); PROTIME(PATIENT) 17.1 SEC (12.0-15.0)
[2016-05-24] MEDS: SENNOSIDES/DOCUSATE SODIUM TAB PO SCH ×2 (08:55→19:58)
[2016-05-24] MEDS: PRAVASTATIN SODIUM 40 MG TAB PO SCH (08:55)
--- NOTE | 2016-05-24 09:10 | SOAPPROG ---
<Jamal Jacobs - Last Filed: 05/24/16 09:08> SOAP Progress Note Assessment/Plan: POD#1: 1. CABGx5 (Free FRANK-LAD, SVG-D1, Sequential SVG-OM1-OM2, SVG-PL) 2. TV repair with #32 Murguia annuloplasty 3. EVH Objective: Vital Signs Temp Pulse Resp BP Pulse Ox 37.6 C 81 29 H 97/38 L 91 L 05/24/16 09:00 05/24/16 09:00 05/24/16 09:00 05/24/16 09:00 05/24/16 09:00 Laboratory Results 05/24/16 04:55 05/24/16 04:55 05/23/16 05/24/16 05/25/16 05:59 05:59 05:59 Intake Total 147 3883 Output Total 770 4300 265 Balance -623 -417 -265 PT 17.1 SEC (12.0-15.0) H 05/24/16 08:00 INR 1.40 (0.83-1.16) H 05/24/16 08:00 ICD10 Worksheet Patient Problems: Problems Problem Status Diagnosed Acute blood loss anemia Acute CAD, multiple vessel Acute Chest pain Acute Chronic Disease Mgmt/Transitional Care Acute Fall Acute Intracranial hemorrhage Acute Ischemic cardiomyopathy Acute Mitral insufficiency Acute S/P CABG x 5 Acute 05/23/16 S/P tricuspid valve repair Acute 05/23/16 Scalp laceration Acute Severe tricuspid regurgitation Acute Obesity (BMI 30-39.9) Chronic <William Johnson - Last Filed: 05/24/16 10:46> SOAP Progress Note Assessment/Plan: Assessment: Plan: 05/24/16 10:45 CXR w blood in pleura coagulopathy corrrected will take back to wash out and eval for any omgoing source of bleeding daughter at bedside and agreeds Objective: Vital Signs Temp Pulse Resp BP Pulse Ox 37.6 C 83 29 H 113/44 L 92 05/24/16 10:00 05/24/16 10:00 05/24/16 10:00 05/24/16 10:00 05/24/16 10:00 Laboratory Results 05/24/16 04:55 05/24/16 04:55 05/23/16 05/24/16 05/25/16 05:59 05:59 05:59 Intake Total 147 0273 486 Output Total 770 5774 650 Balance -653 -359 -854 PT 17.1 SEC (12.0-15.0) H 05/24/16 08:00 INR 1.40 (0.83-1.16) H 05/24/16 08:00
[2016-05-24] MEDS ORDERED: SODIUM BICARBONATE 50 MEQ/50 ML SYR IVP ONE (09:18)
[2016-05-24] MEDS ORDERED: FUROSEMIDE 40 MG/4 ML VIAL IVP ONE ×2 (09:19→20:30)
[2016-05-24] MEDS ORDERED: FUROSEMIDE 40 MG/4 ML VIAL ONE ×2 (09:22→20:27)
[2016-05-24] MEDS ORDERED: NA BICARBONATE 50 MEQ/50 ML VIAL ONE (09:22)
[2016-05-24] MEDS ORDERED: NA BICARBONATE 50 MEQ/50 ML VIAL IV ONE (10:00)
[2016-05-24] MEDS: MUPIROCIN 2% 22 GM OINT NS SCH ×2 (10:08→21:32)
--- NOTE | 2016-05-24 10:34 | DX ---
Portable AP Supine Chest May 24, 2016 5:23 a.m. Clinical History: 80-year-old male in the ICU, status post open heart surgery. Comparison Study: Chest, dated May 23, 2016, at 7:46 p.m. Findings: Again noted are postoperative changes following median sternotomy and a cardiac valvular re placement. The distal tip of the intraaortic balloon pump is at the level of the aortic arch. Mediast inal drain, telemetry monitoring lead lines, an endotracheal tube, and a right IJ central venous cath eter are stable in positioning. The cardiac and mediastinal silhouette remain enlarged. The pulmonary vasculature is redistributed. There is a "haziness" in the right hemithorax, likely reflecting some posterior-layering pleural fluid, although some superimposed infiltrate and/or atelectasis is not exc luded. There is also left lower lobe opacity. There is no pneumothorax. Impression: 1. Postoperative change following open heart surgery with stable positioning of the interventional de vices, and stable cardiac and mediastinal silhouette enlargement. 2. Pulmonary vascular redistribution with new "haziness" in the right hemithorax suggestive of some p osterior-layering pleural fluid, although atelectasis and/or infiltrate is not excluded. 3. Left basilar subsegmental atelectasis.
[2016-05-24] MEDS: ceFAZolin 2 GM/DEXTROSE 100 ML IV SCH ×2 (10:41→17:14)
[2016-05-24] MEDS ORDERED: fentaNYL 100 MCG/2 ML INJ ONE (10:57)
[2016-05-24] MEDS ORDERED: MIDAZOLAM 2 MG/2 ML VIAL ONE ×2 (10:58)
[2016-05-24] MEDS ORDERED: PHENYLEPHRINE HCL 100 MCG/ML SYR ONE (11:00)
[2016-05-24] MEDS ORDERED: epHEDrine SULFATE 10 MG/ML SYR ONE ×2 (11:00)
[2016-05-24] MEDS ORDERED: VASOPRESSIN 20 UNIT/ML VIAL ONE (11:01)
[2016-05-24] MEDS ORDERED: HYDROCORTISONE 100 MG/2 ML VIAL ONE (11:03)
[2016-05-24] MEDS ORDERED: SODIUM BICARBONATE 50 MEQ/50 ML SYR ONE (11:28)
[2016-05-24] MEDS ORDERED: VANCOMYCIN 1 GM VIAL IV ONE (11:28)
--- NOTE | 2016-05-24 13:27 | POSTOPPROG ---
Post Op Note Date of Operation: 05/24/16 Surgeon: William Johnson Felt Finishing Supervisor: Reynaldo Anesthesia: GET(General Endotracheal) Pre-op Diagnosis: right hemothorax Procedure: reexploration Inf/Abcess present in the surg proc area at time of surgery?: No EBL: Greater than 1000
[2016-05-24] MEDS ORDERED: ceFAZolin 2 GM/DEXTROSE 100 ML IV SCH (14:00)
--- NOTE | 2016-05-24 14:00 | GOP ---
[f rep st] OPERATIVE REPORT DATE OF OPERATION: 05/24/2016 SURGEON: William Johnson DO TRANSITIONAL KINDERGARTEN TEACHER: JOSE Roldan. ANESTHESIOLOGIST: Tyrell Jackson MD. PREOPERATIVE DIAGNOSIS: Right hemothorax with suspected ongoing mediastinal bleeding. POSTOPERATIVE DIAGNOSIS: No evidence of bleeding; however, evidence of right hemothorax. PROCEDURE PERFORMED: FINDINGS: DESCRIPTION OF PROCEDURE: Patient had persistent oozing from the chest tubes. Chest x-ray suggested right hemothorax. For that reason, we took the patient back with the family's permission for re-exp loration. He was prepped and draped in sterile classical manner. The sternum was reopened, and we w ere met with approximately 2 L of clotted blood in the right chest. The pericardium was closed. The re was no intrapericardial bleeding or clot noted. No evidence of tamponade. Chest was copiously ir rigated. All surgical sites were inspected. I presume that he bled from a chest wall site, but at t he present time there was no ongoing bleeding. The chest was reclosed in the standard fashion with a Margauxek weave due to his obesity and osteoporosis, and returned to ICU in stable condition. /[id number]/MODL
[2016-05-24 14:01] LABS: HEMATOCRIT 22.4 % (40.0-51.0); HEMOGLOBIN 7.7 g/dL (13.7-17.5); MEAN CELL HEMOGLOBIN 31.2 pg (27.9-34.1); MEAN CELL HEMOGLOBIN CONCENTR. 34.4 g/dL (32.4-36.7); MEAN CELL VOLUME 90.7 fL (81.5-99.8); RED BLOOD CELL COUNT 2.47 10^6/uL (4.40-6.38); RED CELL DISTRIBUTION WIDTH 14.8 % (11.5-15.2)
--- NOTE | 2016-05-24 14:08 | PDINTPN ---
[facility] Director Progress Note Assessment/Plan: Assessment: #CABG X 5 and TV annuloplasty , bleeding Friday and back to surgery with 1L of blood in the right chest but no active bleeding source found #Respiratory Failure on vent at 60% FI02 #ROSEANNA #Obesity #DM #HTN #Hyperlipidemia #Remote TBI after a fall with punctate ICB Plan: Not able to extubate at this time Recheck labs sent Insulin drip Not on any sedation, has prn fentanyl 05/24/16 14:09 Subjective: quiet, not on any sedation. Objective: Vital Signs Temp Pulse Resp BP Pulse Ox 37.7 C 90 25 H 117/45 L 92 05/24/16 13:00 05/24/16 13:00 05/24/16 13:00 05/24/16 13:00 05/24/16 13:00 Laboratory Results 05/24/16 13:55 05/24/16 04:55 05/23/16 05/24/16 05/25/16 05:59 05:59 05:59 Intake Total 147 3883 1128 Output Total 770 4300 1475 Balance -623 -417 -347 PT 17.1 SEC (12.0-15.0) H 05/24/16 08:00 INR 1.40 (0.83-1.16) H 05/24/16 08:00 Physical Exam - Physical Exam General Appearance: no apparent distress EENT: ET tube Neck: non-tender Respiratory: lungs clear Cardiac/Chest: regular rate, rhythm Abdomen: other (obese) Back: Normal inspection Skin: warm/dry Lymphatic: no adenopathy Extremities: non-tender, No pedal edema Neuro/Psych: cognition abnormalities ICD10 Worksheet Patient Problems: Problems Problem Status Diagnosed Acute blood loss anemia Acute CAD, multiple vessel Acute Chest pain Acute Chronic Disease Mgmt/Transitional Care Acute Fall Acute Intracranial hemorrhage Acute Ischemic cardiomyopathy Acute Mitral insufficiency Acute S/P CABG x 5 Acute 05/23/16 S/P tricuspid valve repair Acute 05/23/16 Scalp laceration Acute Severe tricuspid regurgitation Acute Obesity (BMI 30-39.9) Chronic
[2016-05-24] MEDS ORDERED: NS 500 ML IV PRN (14:13)
[2016-05-24] MEDS ORDERED: DEXMEDETOMIDINE HCL 400 MCG in NS 100 ML IV SCH (14:30)
--- NOTE | 2016-05-24 14:31 | DX ---
Portable Chest, Single View, May 24, 2016 History: Status post exploration of chest. Follow up pulmonary status. Comparison: 24 May 2016 and 23 May 2016. Findings: Postsurgical changes are seen of open heart surgery. New skin jonatan are seen in the midli ne and sternotomy wire. Heart size is enlarged. The mediastinum is widened which could be secondary t o postoperative appearance, stable. Mediastinal drainage tube remains in place in the midline. Aortic balloon pump is seen with its tip at the aortic arch. ET tube and right IJ catheter in stable positi on. Interstitial prominence is seen bilaterally and peribronchial wall thickening. Mild opacification is seen in both lung bases with stable aeration. Bilateral chest tubes are seen in place with no celina dence for pneumothorax. Impression: New midline skin jonatan and sternotomy wires. Otherwise postoperative changes appear sta ble with stable cardiomegaly and prominence of the mediastinum. Life-support tubes and lines are stab le. Stable aeration. Probable atelectasis in both lung bases and pulmonary edema.
[2016-05-24 14:59] LABS: BASE EXCESS -4.7 mEq/L (-2.5-2.5); BICARBONATE 20 mEq/L (22-26); MEASURED OXYGEN SATURATION 94 % (92-95); PCO2 38 mmHg (34-38); PO2 71 mmHg (65-75); TCO2 21 mEq/L (23-27)
[2016-05-24 15:00] LABS: O2 CONCENTRATIION 60 % (0-100); P/F RATIO 118 RATIO; PATIENT RATE 28; PRESSURE SUPPORT 10; SIMV YES
[2016-05-24 16:13] LABS: HEMATOCRIT 28.3 % (40.0-51.0); HEMOGLOBIN 9.9 g/dL (13.7-17.5)
[2016-05-24] MEDS ORDERED: LIDOCAINE 1% 30 ML SDV ONE (16:19)
[2016-05-24 16:28] LABS: INR 1.28 (0.83-1.16)
[2016-05-24] MEDS: PANTOPRAZOLE SODIUM 40 MG TAB PO SCH (18:33)
[2016-05-25] MEDS: fentaNYL 100 MCG/2 ML INJ IVP PRN ×6 (00:03→13:15)
[2016-05-25] MEDS: ceFAZolin 2 GM/DEXTROSE 100 ML IV SCH (02:13)
[2016-05-25 02:29] LABS: % IMMATURE GRANULYOCYTES 0.6 % (0.0-1.1); ABSOLUTE IMMATURE GRANULOCYTES 0.08 10^3/uL (0.00-0.10); ABSOLUTE NRBC COUNT 0.13 10^3/uL (0-0.01); ADD DIFF? NO; ADD MORPH? NO; ADD SCAN? NO; ATYPICAL LYMPHOCYTE FLAG 0 (0-99); FRAGMENT RBC FLAG 0 (0-99); HEMATOCRIT 24.3 % (40.0-51.0); HEMOGLOBIN 8.6 g/dL (13.7-17.5); LEFT SHIFT FLG 30 (0-99); LIPEMIA HEMOLYSIS FLAG 90 (0-99); MEAN CELL HEMOGLOBIN 31.3 pg (27.9-34.1); MEAN CELL HEMOGLOBIN CONCENTR. 35.4 g/dL (32.4-36.7); MEAN CELL VOLUME 88.4 fL (81.5-99.8); MEAN PLATELET VOLUME 10.5 fL (8.7-11.7); PLATELET CLUMPS FLAG 10 (0-99); PLATELET COUNT 102 10^3/uL (150-400); RED BLOOD CELL COUNT 2.75 10^6/uL (4.40-6.38); RED CELL DISTRIBUTION WIDTH 15.7 % (11.5-15.2)
[2016-05-25 02:44] LABS: ANION GAP 15 mEq/L (8-20); CALCIUM 6.3 mg/dL (8.5-10.4); CARBON DIOXIDE 23 mEq/l (22-31); CHLORIDE 118 mEq/L (97-110); GLOMERULAR FILTRATION RATE 32; GLUCOSE 116 mg/dL (70-100); POTASSIUM 3.7 mEq/L (3.5-5.2); SODIUM 152 mEq/L (134-144)
[2016-05-25] MEDS ORDERED: POTASSIUM Cl (KCl) 100 ML IV ONE (03:30)
[2016-05-25 04:58] LABS: BASE EXCESS -1.4 mEq/L (-2.5-2.5); BICARBONATE 22 mEq/L (22-26); MEASURED OXYGEN SATURATION 95 % (92-95); PCO2 34 mmHg (34-38); PO2 76 mmHg (65-75); TCO2 23 mEq/L (23-27)
[2016-05-25 04:59] LABS: END TIDAL CO2 31; O2 CONCENTRATIION 60 % (0-100); P/F RATIO 126 RATIO; PATIENT RATE 31; PRESSURE SUPPORT 10; SIMV YES
[2016-05-25 05:00] LABS: PIP 26
[2016-05-25] MEDS: HEPARIN 5,000 UNIT/0.5 ML SYR SC SCH ×3 (05:23→22:32)
[2016-05-25] MEDS ORDERED: POTASSIUM Cl (KCl) 50 ML IV ONE ×2 (06:30→12:30)
--- NOTE | 2016-05-25 08:11 | PDINTPN ---
Tongue Lining Stitcher Progress Note Assessment/Plan: Assessment: #CABG X 5 and TV annuloplasty , bleeding Friday and back to surgery with 1L of blood in the right chest but no active bleeding source found. 500ml out of chest tubes overnight. BP soft on 8 of levophed. CVP is 8. #Respiratory Failure on vent at 60% FI02. he overbreathes the vent with his own TV only 200-400ml. No ET secretions. CXR slightly fluffy and ET tube too high #ROSEANNA #Obesity and very deconditioned, no walking at all before his surgery #DM controlled with IV insulin #HTN #Hyperlipidemia #Remote TBI after a fall with punctate ICB Plan: IV albumin Not able to extubate at this time Recheck labs sent Insulin drip On precedex at .3, has prn fentanyl Start albuterol Advance ET tube 2cm 05/25/16 08:13 05/25/16 08:14 Subjective: Mild sternal pain Objective: Vital Signs Temp Pulse Resp BP Pulse Ox 38.0 C 82 36 H 109/39 L 96 05/25/16 07:00 05/25/16 07:00 05/25/16 07:00 05/25/16 07:00 05/25/16 07:00 Laboratory Results 05/25/16 02:20 05/25/16 02:20 05/24/16 05/25/16 05/26/16 05:59 05:59 05:59 Intake Total 3883 2974 Output Total 4300 3525 Balance -417 -551 PT 16.0 SEC (12.0-15.0) H 05/24/16 16:00 INR 1.28 (0.83-1.16) H 05/24/16 16:00 Physical Exam - Physical Exam General Appearance: mild distress EENT: ET tube Neck: non-tender Respiratory: lungs clear Cardiac/Chest: regular rate, rhythm Abdomen: non-tender, soft Back: Normal inspection Skin: warm/dry Lymphatic: no adenopathy Extremities: non-tender, pedal edema (trace edema) Neuro/Psych: alert ICD10 Worksheet Patient Problems: Problems Problem Status Diagnosed Acute blood loss anemia Acute CAD, multiple vessel Acute Chest pain Acute Chronic Disease Mgmt/Transitional Care Acute Fall Acute Intracranial hemorrhage Acute Ischemic cardiomyopathy Acute Mitral insufficiency Acute S/P CABG x 5 Acute 05/23/16 S/P tricuspid valve repair Acute 05/23/16 Scalp laceration Acute Severe tricuspid regurgitation Acute Obesity (BMI 30-39.9) Chronic
[2016-05-25] MEDS: PANTOPRAZOLE SODIUM 40 MG TAB PO SCH (08:20)
[2016-05-25] MEDS: SENNOSIDES/DOCUSATE SODIUM TAB PO SCH ×2 (08:20→19:32)
[2016-05-25] MEDS: PRAVASTATIN SODIUM 40 MG TAB PO SCH (08:20)
[2016-05-25] MEDS: ASPIRIN 81 MG CHEWABLE TAB PO SCH (08:20)
--- NOTE | 2016-05-25 08:29 | SOAPPROG ---
SOAP Progress Note Assessment/Plan: POD#2: 1. CABGx5 (Free FRANK-LAD, SVG-D1, Sequential SVG-OM1-OM2, SVG-PL) 2. TV repair with #32 Murguia annuloplasty 3. EVH LLE POD#1: 1. Exploration and washout of chest, closure Problem List: 1. Acute ND, severe 3VD, post-infarction angina s/p urgent CABGx5 - IABP d/c yesterday without incident - Continue to wean Levophed (8 mcgs) as tolerated 2. Torrential TVR discovered intra-operatively s/p repair with #32 Murguia annuloplasty and subsequent trace TVR - Surgically stable - Coumadin with INR goal 2-3 x 3 months when appropriate 3. Ventilator dependent respiratory failure - Currently on 60% FIO2 without adequate spontaneous breathing - continue weaning management as per pulmonology 4. Acute blood loss anemia with coagulopathy s/p multiple blood product transfusions with re-exploration and washout of chest without signs of active bleeding - H/H stable post exploration - continue to monitor 5. MAGUI with adequate renal function - Monitor Cr, maintain higher perfusion pressures, avoid nephrotoxic medications 6. ICM with systolic (EF 30%) and diastolic dysfunction and class IV heart failure - CVP 10 this AM with decent UOP and no signs of overt fluid overload - Lasix/Fluids prn - Heart failure medications in future as tolerated 7. 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 - Stable as per intra-op ECHO and deemed unnecessary for surgical repair - will re-evaluate with future ECHO Subjective: Intubated Objective: Vital Signs Temp Pulse Resp BP Pulse Ox 38.0 C 82 36 H 109/39 L 96 05/25/16 07:00 05/25/16 07:00 05/25/16 07:00 05/25/16 07:00 05/25/16 07:00 Laboratory Results 05/25/16 02:20 05/25/16 02:20 05/24/16 05/25/16 05/26/16 05:59 05:59 05:59 Intake Total 3883 2974 Output Total 4300 0655 Balance -417 -551 PT 16.0 SEC (12.0-15.0) H 05/24/16 16:00 INR 1.28 (0.83-1.16) H 05/24/16 16:00 Physical Exam - Physical Exam General Appearance: mild distress Neck: normal inspection Respiratory: lungs clear, No crackles, No rhonchi, No wheezing Cardiac/Chest: regular rate, rhythm Abdomen: non-tender, soft, distended Skin: normal color, warm/dry Neuro/Psych: other (Follows commands ) ICD10 Worksheet Patient Problems: Problems Problem Status Diagnosed Acute blood loss anemia Acute CAD, multiple vessel Acute Chest pain Acute Chronic Disease [facility]/Transitional Care Acute Fall Acute Intracranial hemorrhage Acute Ischemic cardiomyopathy Acute Mitral insufficiency Acute S/P CABG x 5 Acute 05/23/16 S/P tricuspid valve repair Acute 05/23/16 Scalp laceration Acute Severe tricuspid regurgitation Acute Obesity (BMI 30-39.9) Chronic
[2016-05-25] MEDS: MUPIROCIN 2% 22 GM OINT NS SCH (08:44)
[2016-05-25] MEDS: ALBUMIN 5% 250 ML IV PRN ×2 (08:45→16:07)
[2016-05-25] MEDS: PANTOPRAZOLE SODIUM 40 MG in NS 100 ML IV SCH (08:48)
--- NOTE | 2016-05-25 09:08 | DX ---
Portable Chest May 25, 2016 at 0616 Hours History: Post coronary artery bypass. Comparison: May 24, 2016. Findings: Moderate enlargement of the cardiac silhouette and mediastinum again noted. Right internal jugular line in the superior vena cava. Endotracheal tube above the papito. Mediastinal clips and med jeremie sternotomy wires. Chest tubes bilateral lung bases. Mediastinal drain midthoracic region. No pneu mothorax. Mild pulmonary venous hypertension. Impression: Multiple tubes and lines without pneumothorax.
[2016-05-25] MEDS ORDERED: FUROSEMIDE 40 MG/4 ML VIAL IVP ONE (10:00)
[2016-05-25] MEDS ORDERED: POTASSIUM Cl (KCl) 20 MEQ/50 ML BAG IV ONE (10:18)
[2016-05-25] MEDS ORDERED: ALBUTEROL 60 PUFFS/8 GM MDI IH SCH (12:00)
[2016-05-25] MEDS ORDERED: ALBUTEROL 5 MG/ML INH 20 ML BTL IH SCH (12:00)
[2016-05-25] MEDS: ALBUTEROL 60 PUFFS/8 GM MDI IH SCH ×3 (12:14→20:03)
[2016-05-25] MEDS: fentaNYL/NACL 100 ML IV SCH (13:26)
[2016-05-25] MEDS: ACETAMINOPHEN 650 MG SUPP PR PRN ×2 (15:15→21:51)
[2016-05-25 16:38] LABS: HEMATOCRIT 26.5 % (40.0-51.0); HEMOGLOBIN 9.2 g/dL (13.7-17.5); MEAN CELL HEMOGLOBIN 30.9 pg (27.9-34.1); MEAN CELL HEMOGLOBIN CONCENTR. 34.7 g/dL (32.4-36.7); MEAN CELL VOLUME 88.9 fL (81.5-99.8); RED BLOOD CELL COUNT 2.98 10^6/uL (4.40-6.38); RED CELL DISTRIBUTION WIDTH 15.9 % (11.5-15.2)
[2016-05-25 16:55] LABS: ANION GAP 16 mEq/L (8-20); CALCIUM 6.3 mg/dL (8.5-10.4); CARBON DIOXIDE 23 mEq/l (22-31); CHLORIDE 119 mEq/L (97-110); GLOMERULAR FILTRATION RATE 32; GLUCOSE 102 mg/dL (70-100); SODIUM 154 mEq/L (134-144)
--- NOTE | 2016-05-25 19:14 | GPN ---
[f rep st] PROCEDURE NOTE DATE OF PROCEDURE: 05/24/2016 TIME OF PROCEDURE: Approximately 4 in the afternoon. PROCEDURE: Left radial arterial line placement. INDICATION: Requested by Dr. Johnson to place a radial arterial line in the patient secondary to ongoi ng need for pressors and no invasive arterial monitoring. DESCRIPTION OF PROCEDURE: The arterial line was discussed with the patient, who consented. The left wrist was placed in the ex tended position, over a roll, and secured to a board with tape. The wrist was carefully prepped with chlorhexidine and then draped out with 2 sterile towels. 1% lidocaine local anesthesia was infiltrat ed into the area. A 20-gauge Arrow short catheter, arterial line was used. The 1st attempt albert bloo d, but was unable to be advanced. On the 2nd attempt, there was good blood flow. The wire slid easily and the catheter entered easily into the radial artery. There was good wave form on the monitor. Th e catheter was sutured in place with 0 silk, secured with Opsite and tape. The patient's vital signs remained stable throughout. After the arterial line was placed, his left hand remained warm, with g ood capillary refill. COMPLICATIONS: None. PROCEDURE DURATION: 25 minutes. /[id number]/MODL
[2016-05-25] MEDS ORDERED: AMIODARONE HCL 150 MG/100 ML BAG (1.5 MG/ML) IV ONE (21:09)
[2016-05-25] MEDS ORDERED: HALOPERIDOL LACT 5 MG/ML INJ IM ONE (21:30)
[2016-05-25] MEDS ORDERED: AMIODARONE A.FIB-LOAD DOSE(ORDER 1/3) IV ONE (21:30)
[2016-05-25] MEDS ORDERED: AMIODARONE A.FIB-6HR INFSN (ORDER 2/3) IV ONE (21:30)
[2016-05-26] MEDS ORDERED: AMIODARONE A.FIB-18HR INFSN (ORDER 3/3) IV ONE (03:30)
[2016-05-26] MEDS: ALBUTEROL 60 PUFFS/8 GM MDI IH SCH ×5 (04:05→23:49)
[2016-05-26 05:13] LABS: BASE EXCESS -6.4 mEq/L (-2.5-2.5); BICARBONATE 18 mEq/L (22-26); MEASURED OXYGEN SATURATION 97 % (92-95); PCO2 36 mmHg (34-38); PO2 98 mmHg (65-75); TCO2 19 mEq/L (23-27)
[2016-05-26 05:15] LABS: END TIDAL CO2 35; O2 CONCENTRATIION 50 % (0-100); P/F RATIO 196 RATIO; PATIENT RATE 30; PIP 25; PRESSURE SUPPORT 10; SIMV YES
[2016-05-26 05:18] LABS: HEMATOCRIT 27.8 % (40.0-51.0); HEMOGLOBIN 9.4 g/dL (13.7-17.5); MEAN CELL HEMOGLOBIN 30.4 pg (27.9-34.1); MEAN CELL HEMOGLOBIN CONCENTR. 33.8 g/dL (32.4-36.7); RED BLOOD CELL COUNT 3.09 10^6/uL (4.40-6.38)
[2016-05-26] MEDS: HEPARIN 5,000 UNIT/0.5 ML SYR SC SCH ×3 (05:25→21:22)
[2016-05-26 05:41] LABS: ANION GAP 17 mEq/L (8-20); CALCIUM 6.4 mg/dL (8.5-10.4); CARBON DIOXIDE 20 mEq/l (22-31); CHLORIDE 120 mEq/L (97-110); CREATININE 1.9 mg/dL (0.7-1.3); GLOMERULAR FILTRATION RATE 34; GLUCOSE 173 mg/dL (70-100); POTASSIUM 4.1 mEq/L (3.5-5.2); SODIUM 153 mEq/L (134-144)
--- NOTE | 2016-05-26 08:20 | DX ---
Portable AP Upright Chest, at 6:17 a.m. Clinical History: 80-year-old male in the ICU for postop evaluation after open heart surgery. Comparison Study: Chest, dated May 25, 2016, at 6:16 a.m. Findings: The patient is rotated to the left. Telemetry monitoring lead lines are present. The endotr acheal tube, the right IJ central venous catheter, a central mediastinal drain, and bilateral chest t ubes are stable, as are median sternotomy wires and midline skin jonatan. The cardiac and mediastinal silhouette remains enlarged. There is a "haziness" over the right lower hemithorax, suggestive of so me posterior-layering pleural fluid; superimposed atelectasis and/or infiltrate at the lung bases not excluded. There is mild pulmonary venous hypertension. There is no pneumothorax. Impression: Radiographically similar to yesterday's study.
--- NOTE | 2016-05-26 08:24 | PDINTPN ---
Screener Operator Progress Note Assessment/Plan: Assessment: #CABG X 5 and TV annuloplasty , bleeding Friday and back to surgery with 1L of blood in the right chest but no active bleeding source found. BP soft on 2.5 of levophed. CVP is 9. #Respiratory Failure on vent at 40% FI02. He overbreathes the vent. No ET secretions. CXR still slightly fluffy and ET tube too high, but weight only up 1.5Kg. 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 with punctate ICB #New atrial flutter on amiodarone Plan: Start CPAP after decreasing the fentanyl from 100, and work to extubate this AM Recheck labs sent Insulin drip Off precedex which decreased his BP some Start albuterol Advance ET tube 2cm Nutrition: If he can be extubated he will be able to eat, if not will need a dobhoff 05/26/16 08:25 Subjective: Sleepy but nods and shakes his head Objective: Vital Signs Temp Pulse Resp BP Pulse Ox 37.9 C 107 H 27 H 130/51 H 97 05/26/16 08:00 05/26/16 08:00 05/26/16 08:00 05/26/16 08:00 05/26/16 08:00 Laboratory Results 05/26/16 05:00 05/26/16 05:00 05/25/16 05/26/16 05/27/16 05:59 05:59 05:59 Intake Total 4788 0767 Output Total 2638 0325 Balance -551 92 PT 16.0 SEC (12.0-15.0) H 05/24/16 16:00 INR 1.28 (0.83-1.16) H 05/24/16 16:00 Physical Exam - Physical Exam General Appearance: no apparent distress EENT: ET tube Neck: non-tender Respiratory: decreased breath sounds Cardiac/Chest: irregularly irregular, other (atrial flutter) Abdomen: non-tender, soft, other (obese) Back: Normal inspection Skin: warm/dry Lymphatic: no adenopathy Extremities: non-tender, No pedal edema Neuro/Psych: alert ICD10 Worksheet Patient Problems: Problems Problem Status Diagnosed Acute blood loss anemia Acute CAD, multiple vessel Acute Chest pain Acute Chronic Disease Mgmt/Transitional Care Acute Fall Acute Intracranial hemorrhage Acute Ischemic cardiomyopathy Acute Mitral insufficiency Acute S/P CABG x 5 Acute 05/23/16 S/P tricuspid valve repair Acute 05/23/16 Scalp laceration Acute Severe tricuspid regurgitation Acute Obesity (BMI 30-39.9) Chronic
[2016-05-26] MEDS: PANTOPRAZOLE SODIUM 40 MG in NS 100 ML IV SCH (09:00)
--- NOTE | 2016-05-26 09:19 | SOAPPROG ---
SOAP Progress Note Assessment/Plan: POD#3: 1. CABGx5 (Free FRANK-LAD, SVG-D1, Sequential SVG-OM1-OM2, SVG-PL) 2. TV repair with #32 Murguia annuloplasty 3. EVH LLE POD#4: 1. Exploration and washout of chest, closure Problem List: 1. Acute [place], severe 3VD, post-infarction angina s/p urgent CABGx5 - Adequate BP with Levophed 2.5 mcgs - will wean off - ASA - Statin/BB when appropriate 2. Torrential TVR discovered intra-operatively s/p repair with #32 Murguia annuloplasty and subsequent trace TVR - Will order f/u 2D ECHO Friday to re-evaluate - Coumadin with INR goal 2-3 x 3 months when appropriate 3. Ventilator dependent respiratory failure - Currently on 40% FIO2 with adequate spontaneous breathing for CPAP trial 4. Acute blood loss anemia with coagulopathy s/p multiple blood product transfusions with re-exploration and washout of chest without signs of active bleeding - H/H stable post exploration - continue to monitor 5. MAGUI with adequate renal function - Maintain higher perfusion pressures, avoid nephrotoxic medications - Monitor 6. ICM with systolic (EF 30%) and diastolic dysfunction and class IV heart failure - No signs of overt fluid overload - Lasix/Fluids prn - Heart failure medications in future as tolerated 7. 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 Post-op AF/Flutter - Continue amio gtt for - Consider CV 05/26/16 09:16 Subjective: Intubated Objective: Vital Signs Temp Pulse Resp BP Pulse Ox 37.9 C 94 31 H 136/55 H 96 05/26/16 09:00 05/26/16 09:00 05/26/16 09:00 05/26/16 09:00 05/26/16 09:00 Laboratory Results 05/26/16 05:00 05/26/16 05:00 05/25/16 05/26/16 05/27/16 05:59 05:59 05:59 Intake Total 2974 7577 Output Total 3525 2365 150 Balance -551 92 -150 PT 16.0 SEC (12.0-15.0) H 05/24/16 16:00 INR 1.28 (0.83-1.16) H 05/24/16 16:00 Physical Exam - Physical Exam General Appearance: no apparent distress Neck: normal inspection Respiratory: lungs clear, No crackles, No rhonchi, No wheezing Cardiac/Chest: other (Flutter) Abdomen: non-tender, soft, distended Skin: normal color Extremities: pedal edema (+1 B/L) Neuro/Psych: other (Follows commands) ICD10 Worksheet Patient Problems: Problems Problem Status Diagnosed Acute blood loss anemia Acute CAD, multiple vessel Acute Chest pain Acute Chronic Disease Mgmt/Transitional Care Acute Fall Acute Intracranial hemorrhage Acute Ischemic cardiomyopathy Acute Mitral insufficiency Acute S/P CABG x 5 Acute 05/23/16 S/P tricuspid valve repair Acute 05/23/16 Scalp laceration Acute Severe tricuspid regurgitation Acute Obesity (BMI 30-39.9) Chronic
[2016-05-26 09:31] LABS: BASE EXCESS -4.6 mEq/L (-2.5-2.5); BICARBONATE 20 mEq/L (22-26); MEASURED OXYGEN SATURATION 95 % (92-95); PCO2 37 mmHg (34-38); PO2 83 mmHg (65-75); TCO2 21 mEq/L (23-27)
[2016-05-26] MEDS: ASPIRIN 81 MG CHEWABLE TAB PO SCH (09:31)
[2016-05-26] MEDS: PRAVASTATIN SODIUM 40 MG TAB PO SCH (09:31)
[2016-05-26] MEDS: SENNOSIDES/DOCUSATE SODIUM TAB PO SCH ×2 (09:31→20:32)
[2016-05-26 09:34] LABS: CPAP YES; END TIDAL CO2 35; O2 CONCENTRATIION 40 % (0-100); P/F RATIO 207 RATIO; PATIENT RATE 31; PRESSURE SUPPORT 10
[2016-05-26] MEDS: IPRATROPIUM/ALBUTEROL 3 ML DEYVIAL IH SCH ×2 (11:11→17:41)
[2016-05-26] MEDS ORDERED: FLUMAZENIL 0.5 MG/5 ML MDV IVP ONE ×2 (16:23→17:00)
[2016-05-26] MEDS ORDERED: ALBUMIN 5% 500 ML BOTTLE IV ONE (16:28)
[2016-05-26] MEDS ORDERED: LIDOCAINE 1% 30 ML SDV MISC ONE (16:49)
[2016-05-26] MEDS ORDERED: LIDOCAINE 2% JELLY 5 ML TUBE TP ONE (16:49)
[2016-05-26] MEDS ORDERED: LIDOCAINE 2% JELLY 20 ML (UROJECT) ONE (16:55)
[2016-05-26] MEDS ORDERED: LIDOCAINE 1% 5 ML SDV ONE (16:55)
[2016-05-26] MEDS ORDERED: ALBUMIN 5% 500 ML IV ONE (17:00)
[2016-05-26] MEDS ORDERED: MIDAZOLAM 2 MG/2 ML VIAL IVP ONE (17:00)
[2016-05-26] MEDS ORDERED: ETOMIDATE 20 MG/10 ML VIAL IV ONE (17:00)
--- NOTE | 2016-05-26 17:21 | DX ---
Portable Chest May 26, 2016 at 1635 Hours History: Endotracheal tube placement. Comparison: Earlier today Findings: Endotracheal tube is 5 cm above the papito. Right internal jugular line in the superior nessa a cava. Moderate enlargement of the cardiac silhouette and mediastinum persist status post cardiac winters rgery. Median sternotomy wires, mediastinal clips, skin jonatan, and bilateral lower lobe chest tubes again noted. Small bilateral pleural effusions suspected. No pneumothorax. Impressions: 1. Endotracheal tube 5 cm above the papito. 2. Multiple tubes and lines without pneumothorax.
--- NOTE | 2016-05-26 17:27 | GPN ---
[f rep st] PROCEDURE NOTE DATE OF PROCEDURE: 05/26/2016 PREOPERATIVE DIAGNOSIS: Possible pneumonia. POSTOPERATIVE DIAGNOSIS: Some thick mucus in the left mainstem bronchus without clear evidence of pn eumonia. No endobronchial lesions seen. SUMMARY: The entire procedure was done using supplemental oxygen 100% on the ventilator. It was det ermined that there was not a risk to the staff for infection doing this in a nonnegative pressure kristin m. A proper timeout was done prior to the procedure to identify the patient and the procedure. He r eceived no supplemental conscious sedation. The fiberoptic bronchoscope was inserted through the existing endotracheal tube, and lower trachea, c l[place], and all segmental bronchi were visualized. The right lung was relatively clear except for lulú e irritated mucosa, presumably from suctioning through the endotracheal tube. There was thick white mucus present in the left mainstem, a small amount, and this was suctioned and sent for culture and s ensitivity. There was no blood loss. The patient tolerated the procedure well and his O2 saturation stayed above 95% during the entire pro cedure. He is being recovered in room 252. /[id number]/MODL
[2016-05-26] MEDS ORDERED: POTASSIUM Cl (KCl) 50 ML IV ONE ×3 (17:30→23:30)
[2016-05-26] MEDS ORDERED: FUROSEMIDE 40 MG/4 ML VIAL IVP ONE (18:00)
[2016-05-26] MEDS ORDERED: PROTOCOL POTASSIUM 1 DOSE MISC PRN (18:08)
[2016-05-26] MEDS: ACETAMINOPHEN 650 MG SUPP PR PRN (18:32)
[2016-05-26 18:49] LABS: BASE EXCESS -3.4 mEq/L (-2.5-2.5); BICARBONATE 20 mEq/L (22-26); MEASURED OXYGEN SATURATION 96 % (92-95); PCO2 36 mmHg (34-38); PO2 90 mmHg (65-75); TCO2 21 mEq/L (23-27)
[2016-05-26 18:51] LABS: END TIDAL CO2 32; O2 CONCENTRATIION 50 % (0-100); P/F RATIO 180 RATIO; SIMV YES
[2016-05-26 18:52] LABS: PATIENT RATE 37; PRESSURE SUPPORT 10
[2016-05-26] MEDS ORDERED: ETOMIDATE 40 MG/20 ML INJ ONE (19:05)
[2016-05-26] MEDS ORDERED: MIDAZOLAM 2 MG/2 ML VIAL ONE (19:06)
[2016-05-26] MEDS ORDERED: FUROSEMIDE 40 MG/4 ML VIAL ONE (20:04)
[2016-05-26] MEDS: AMIODARONE HCL 200 ML IV SCH (20:05)
[2016-05-26 20:20] LABS: HEMATOCRIT 31.3 % (40.0-51.0); HEMOGLOBIN 10.6 g/dL (13.7-17.5); MEAN CELL HEMOGLOBIN 30.8 pg (27.9-34.1); MEAN CELL HEMOGLOBIN CONCENTR. 33.9 g/dL (32.4-36.7); RED BLOOD CELL COUNT 3.44 10^6/uL (4.40-6.38); RED CELL DISTRIBUTION WIDTH 16.5 % (11.5-15.2)
[2016-05-26 20:38] LABS: ANION GAP 16 mEq/L (8-20); CALCIUM 6.7 mg/dL (8.5-10.4); CARBON DIOXIDE 21 mEq/l (22-31); CHLORIDE 123 mEq/L (97-110); CREATININE 1.7 mg/dL (0.7-1.3); GLOMERULAR FILTRATION RATE 39; GLUCOSE 128 mg/dL (70-100); SODIUM 156 mEq/L (134-144)
[2016-05-26] MEDS: INSULIN REGULAR HUMAN 100 UNIT in NS 100 ML IV SCH (20:55)
[2016-05-26] MEDS: fentaNYL/NACL 100 ML IV SCH (21:20)
[2016-05-27] MEDS: ACETAMINOPHEN 650 MG SUPP PR PRN ×2 (01:14→07:55)
[2016-05-27] MEDS ORDERED: FUROSEMIDE 40 MG/4 ML VIAL IVP ONE (03:00)
[2016-05-27] MEDS: ALBUTEROL 60 PUFFS/8 GM MDI IH SCH ×5 (04:04→20:34)
[2016-05-27 04:12] LABS: HEMATOCRIT 32.3 % (40.0-51.0); MEAN CELL HEMOGLOBIN CONCENTR. 34.1 g/dL (32.4-36.7); RED BLOOD CELL COUNT 3.55 10^6/uL (4.40-6.38); RED CELL DISTRIBUTION WIDTH 16.8 % (11.5-15.2)
[2016-05-27 04:24] LABS: ANION GAP 14 mEq/L (8-20); CALCIUM 6.9 mg/dL (8.5-10.4); CARBON DIOXIDE 23 mEq/l (22-31); CHLORIDE 124 mEq/L (97-110); CREATININE 1.8 mg/dL (0.7-1.3); GLOMERULAR FILTRATION RATE 36; GLUCOSE 103 mg/dL (70-100); POTASSIUM 4.1 mEq/L (3.5-5.2); SODIUM 157 mEq/L (134-144)
[2016-05-27 04:39] LABS: BASE EXCESS -2.6 mEq/L (-2.5-2.5); BICARBONATE 20 mEq/L (22-26); MEASURED OXYGEN SATURATION 95 % (92-95); PCO2 30 mmHg (34-38); PO2 82 mmHg (65-75); TCO2 21 mEq/L (23-27)
[2016-05-27 04:40] LABS: ASSIST CONTROL YES; O2 CONCENTRATIION 40 % (0-100); P/F RATIO 205 RATIO
[2016-05-27] MEDS: HEPARIN 5,000 UNIT/0.5 ML SYR SC SCH ×3 (05:47→21:33)
[2016-05-27] MEDS: AMIODARONE HCL 200 ML IV SCH ×2 (05:55→15:50)
--- NOTE | 2016-05-27 07:51 | SOAPPROG ---
SOAP Progress Note Assessment/Plan: Assessment: POD#4 Urgent CABGx5 (Free FRANK-LAD, SVG-D1, sequential SVG-OM1-OM2, SVG-PLC), TVA #32 MC3 ring, IABP 1:1. POD#3 Take back for expl, washout right CED. Sternal closure w Maria Victoria auguste. Acute [place], severe 3VD, post-infarction angina/IABP - s/p urgent CABGx5 compl by bleeding into rt chest requiring take-back. IABP support x 24h. Low dose pressor support thru yest. Secondary prevention with baby ASA, BB as allowed by BP and statin when eating well. ICM with systolic (EF 30%) and diastolic dysfunction (EDP 25) and class IV heart failure - No sig fluid overload. Diuresing well on bolus lasix. Staggered intro of heart failure regimen as appropriate. Torrential TR - Post CPB. Amenable to annuloplasty. Antithrombotic prophylaxis with Coumadin to INR 2-3 x 3 months when further along into recovery. 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 Surveillance per cardiology. Postoperative respiratory failure - Ventilator dependent. FIO2 40%. High minute ventilation. Bronch yest. Some thick mucus suctioned. No overt PNA. Nebs, mucolytics, steroids as per Pulm. Acute expected blood loss anemia with coagulopathy - Requiring massive transfusion and take back for expl bleeding. No active bleeding seen. No further transfusions since 12/4. H/H > 10/30 maintained. Postoperative MAGUI with electrolyte imbalance - Peak Cr of 2 on POD#2. Assoc w persistent hypernatremia (150 range). Likely prerenal while coagulopathic and actively bleeding. Care w fluid management. Post-op AF/Flutter - Variable ventricular rates. Started on Amio. Adjunctive BB as allowed by BP. [id number] score of 6. Antithrombotic prophylaxis as per TVA. DM2 - Suboptimal control by preop A1c of 8.4%. Postop hyperglycemia managed with insulin gtt. Plan: D5W at 100ml/h. Cont IV amio at 0.5mg/h. Sedation/vent per pulm. Nutrition per DHT. 05/27/16 07:44 Subjective: Intubated and sedated. Responsive to simple commands. ARBOLEDA. Objective: Vital Signs Temp Pulse Resp BP Pulse Ox 38.6 C H 108 H 36 H 127/53 H 91 L 05/27/16 06:00 05/27/16 06:00 05/27/16 06:00 05/27/16 06:00 05/27/16 06:00 Laboratory Results 05/27/16 03:58 05/27/16 03:58 05/26/16 05/27/16 05/28/16 05:59 05:59 05:59 Intake Total 2457 1778.8 Output Total 2365 3530 Balance 92 -1751.2 PT 16.0 SEC (12.0-15.0) H 05/24/16 16:00 INR 1.28 (0.83-1.16) H 05/24/16 16:00 Successfully weaned off levo yest. Extubated yest morning but then reintubated late afternoon for inc WOB. No sig findings per bronch. FIO2 40%. RRs 30s. CXR-> Small bilat pl effusions vs atelectasis, pl tubes appear in good position. CTOP thinning. Persistent AFl w VVR. No hypotension. Improved fluid balance. Stable Cr. Elev Na. Physical Exam - Physical Exam General Appearance: no apparent distress Respiratory: lungs clear (vent), other (blakes x 3 y-d to pleurovac, thin serosang drainage, no air leak) Cardiac/Chest: other (AFl w 2-4:1 block; Sternum grossly stable. Sternotomy and LLE venot CDI) Abdomen: soft Skin: warm/dry Extremities: swelling (1+ gen) ICD10 Worksheet Patient Problems: Problems Problem Status Diagnosed Acute blood loss anemia Acute CAD, multiple vessel Acute Chest pain Acute Chronic Disease Mgmt/Transitional Care Acute Fall Acute Intracranial hemorrhage Acute Ischemic cardiomyopathy Acute Mitral insufficiency Acute Postoperative atrial fibrillation Acute S/P CABG x 5 Acute 05/23/16 S/P tricuspid valve repair Acute 05/23/16 Scalp laceration Acute Severe tricuspid regurgitation Acute Obesity (BMI 30-39.9) Chronic
[2016-05-27] MEDS: PANTOPRAZOLE SODIUM 40 MG in NS 100 ML IV SCH (07:55)
[2016-05-27] MEDS: D5W 1,000 ML IV SCH ×2 (08:30→21:26)
--- NOTE | 2016-05-27 08:39 | DX ---
Portable Chest, Single View May 27, 2016 5:55 am Indication: In-patient. Follow up effusions. Comparison: May 26, 2016. Findings: The ET tube, right IJ central venous line, bilateral chest tubes, mediastinal drain, midlin e skin jonatan and mediastinal wire are all unchanged. Bibasilar groundglass opacities, likely representing a combination of atelectasis and small bilateral pleural effusions, are unchanged. Moderate cardiomegaly is unchanged. Impression: 1. Support devices in good position. 2. Bibasilar atelectasis and probable small bilateral pleural effusions are unchanged.
--- NOTE | 2016-05-27 09:31 | PDINTPN ---
Professor Of Genetics Progress Note Assessment/Plan: Assessment: #CABG X 5 and TV annuloplasty , bleeding Friday and back to surgery with 1L of blood in the right chest but no active bleeding source found. Off pressors. CVP is 10. #Respiratory Failure on vent at 40% FI02. Re-intubated last night. Minimal thick secretions on bronch. He overbreathes the vent, CO2 down, still has a high minute ventilation. No ET secretions. On Fentanyl PRN. 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 with punctate ICB #New atrial flutter on amiodarone. Rate OK Renal/Hypernatremia: Cr and Na up slightly: No edema, weight at pre-op Plan: Continue insulin, amiodarone gtts. Start D5. Continue on vent, unlikely to extubate today given high minute ventilation Place feeding tube, start TF and Free H2O. Follow Na and Cr D/W RN, RT, Dr. Johnson 45 minutes CC time. 05/27/16 09:47 Subjective: Intubated, sedated. Responds appropriately to simple questions. Objective: Vital Signs Temp Pulse Resp BP Pulse Ox 38.5 C H 96 31 H 94/44 L 94 05/27/16 08:56 05/27/16 08:56 05/27/16 08:56 05/27/16 08:56 05/27/16 08:56 Laboratory Results 05/27/16 03:58 05/27/16 03:58 05/26/16 05/27/16 05/28/16 05:59 05:59 05:59 Intake Total 2457 1778.8 Output Total 2365 3530 600 Balance 92 -1751.2 -600 PT 16.0 SEC (12.0-15.0) H 05/24/16 16:00 INR 1.28 (0.83-1.16) H 05/24/16 16:00 CXR: Basilar atelectasis, small right effusion. ETT OK. Images reviewed Laboratory Tests 05/27/16 04:30 pCO2 30 L pO2 82 H Total CO2 21 L ABG pH 7.45 O2 Concentration % 40 Set Respiration Rate 18 Tidal Volume 600 Physical Exam - Physical Exam General Appearance: other (sedated but arousable) EENT: normal ENT inspection Neck: full range of motion, normal inspection Respiratory: lungs clear, normal breath sounds Cardiac/Chest: regular rate, rhythm, No edema, No JVD Abdomen: normal bowel sounds, non-tender, soft Skin: normal color, warm/dry Extremities: normal inspection Neuro/Psych: oriented x 3 (sedated), motor weakness (moves all 4 extremities), No alert ICD10 Worksheet Patient Problems: Problems Problem Status Diagnosed Acute blood loss anemia Acute CAD, multiple vessel Acute Chest pain Acute Chronic Disease Mgmt/Transitional Care Acute Fall Acute Intracranial hemorrhage Acute Ischemic cardiomyopathy Acute Mitral insufficiency Acute Postoperative atrial fibrillation Acute S/P CABG x 5 Acute 05/23/16 S/P tricuspid valve repair Acute 05/23/16 Scalp laceration Acute Severe tricuspid regurgitation Acute Obesity (BMI 30-39.9) Chronic
--- NOTE | 2016-05-27 10:09 | WOCRNPDOC ---
WOCRN Advanced Assessment Note - Skin Integrity Problem, Advanced Assess Sacrum Pressure Injury Dressing Type: Open to Air Nena Wound Tissue: Erythema (extending about 2 cm cirucumferentially nena wound) , Non-blanching Site Measurement - Head-to-Toe Length X Width X Depth (cm): 4.5x8x0 Pressure Injury Stage: Deep Tissue Injury (DTI) Pressure Injury Present on Admit: No Skin Integrity Problem Comment: Area involves both the coccyx and the sacrum. Large area of non blanching purple skin. Agressive offloading at all times. Bariatric bed ordered. Covered with Digitick sacrum. Anni and Josselin Rn's in room for care. Bilateral heels non erythematic. Per RN's Juanito no skin issues on face/mouth.
[2016-05-27] MEDS: POTASSIUM Cl (KCl) 50 ML IV PRN ×2 (11:39→17:40)
[2016-05-27] MEDS: ASPIRIN 81 MG CHEWABLE TAB PO SCH (15:43)
[2016-05-27] MEDS: predniSONE 1 MG TAB PO SCH (15:43)
[2016-05-27] MEDS: SENNOSIDES/DOCUSATE SODIUM TAB PO SCH (15:43)
--- NOTE | 2016-05-27 17:43 | DX ---
Abdomen - single view dated May 27, 2016 17:07 Indication: Feeding tube placement. Comparison: Abdominal series dated April 11, 2014 and chest radiographs from earlier today. Findings: A feeding tube has been placed. The tip overlies the cardiac segment of the stomach. The ET tube, mediastinal drain, bilateral chest tubes, cardiomegaly, and mild interstitial edema are all un changed. Impression: Feeding tube tip in stomach.
[2016-05-27] MEDS: INSULIN REGULAR HUMAN 100 UNIT in NS 100 ML IV SCH (20:41)
[2016-05-27] MEDS: fentaNYL 100 MCG/2 ML INJ IVP PRN (21:33)
[2016-05-27] MEDS ORDERED: POTASSIUM Cl (KCl) 50 ML IV ONE (23:30)
[2016-05-28] MEDS: POTASSIUM Cl (KCl) 50 ML IV PRN ×2 (00:11→05:00)
[2016-05-28] MEDS: SENNOSIDES/DOCUSATE SODIUM TAB PO SCH ×2 (00:12→10:08)
[2016-05-28] MEDS: ALBUTEROL 60 PUFFS/8 GM MDI IH SCH ×6 (00:15→20:35)
[2016-05-28] MEDS: fentaNYL/NACL 100 ML IV SCH ×2 (02:54→23:52)
[2016-05-28] MEDS: AMIODARONE HCL 200 ML IV SCH (02:56)
[2016-05-28 04:25] LABS: BASE EXCESS -1.5 mEq/L (-2.5-2.5); BICARBONATE 21 mEq/L (22-26); MEASURED OXYGEN SATURATION 97 % (92-95); PCO2 32 mmHg (34-38); PO2 99 mmHg (65-75); TCO2 22 mEq/L (23-27)
[2016-05-28 04:30] LABS: ASSIST CONTROL YES; END TIDAL CO2 30; O2 CONCENTRATIION 40 % (0-100); P/F RATIO 247 RATIO; TOTAL RATE 34
[2016-05-28 04:34] LABS: HEMOGLOBIN 10.5 g/dL (13.7-17.5); MEAN CELL HEMOGLOBIN 30.9 pg (27.9-34.1); MEAN CELL HEMOGLOBIN CONCENTR. 33.9 g/dL (32.4-36.7); MEAN CELL VOLUME 91.2 fL (81.5-99.8); RED BLOOD CELL COUNT 3.4 10^6/uL (4.40-6.38)
[2016-05-28 04:50] LABS: ANION GAP 12 mEq/L (8-20); CALCIUM 7.5 mg/dL (8.5-10.4); CARBON DIOXIDE 23 mEq/l (22-31); CHLORIDE 124 mEq/L (97-110); CREATININE 1.6 mg/dL (0.7-1.3); GLOMERULAR FILTRATION RATE 42; GLUCOSE 121 mg/dL (70-100); POTASSIUM 3.9 mEq/L (3.5-5.2); SODIUM 155 mEq/L (134-144)
[2016-05-28 05:11] LABS: INR 1.59 (0.83-1.16)
[2016-05-28] MEDS: HEPARIN 5,000 UNIT/0.5 ML SYR SC SCH (05:44)
--- NOTE | 2016-05-28 08:28 | SOAPPROG ---
SOAP Progress Note Assessment/Plan: Assessment: POD#5 Urgent CABGx5 (Free FRANK-LAD, SVG-D1, sequential SVG-OM1-OM2, SVG-PLC), TVA #32 MC3 ring, IABP 1:1. POD#4 Take back for expl, washout right CED. Sternal closure w Maria Victoria auguste. Acute [place], severe 3VD, post-infarction angina/IABP - s/p urgent CABGx5 compl by bleeding into rt chest requiring take-back. IABP support x 24h. Low dose pressor support x 72h. Secondary prevention with baby ASA, BB as allowed by BP and statin when eating well. ICM with systolic (EF 30%) and diastolic dysfunction (EDP 25) and class IV heart failure - No sig fluid overload. Diuresing well on bolus lasix. Staggered intro of heart failure regimen as appropriate. Torrential TR - Post CPB. Amenable to annuloplasty. Antithrombotic prophylaxis with Eliquis x 3 months. 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 Surveillance per cardiology. Postoperative respiratory failure - Ventilator dependent. FIO2 40%. Persistent high minute ventilation. Probable trach/PEG if unable to extubate next 24- 48hrs. Some thick mucus suctioned per bronch. No overt PNA. Sputum cx neg. Nebs , mucolytics, steroids as per Pulm. Acute expected blood loss anemia with coagulopathy - Requiring massive transfusion and take back for expl bleeding. No active bleeding seen. No further transfusions since 12/4. Remains mildly autoanticoagulated with stable H /H > 10/30. Postoperative MAGUI with electrolyte imbalance - Peak Cr of 2 on POD#2. Assoc w persistent hypernatremia (150 range). Likely prerenal while coagulopathic and actively bleeding. Care w fluid management. Post-op AF/Flutter - Variable ventricular rates. Started on Amio. Adjunctive BB as allowed by BP. [id number] score of 6. Antithrombotic prophylaxis as per TVA. DM2 - Suboptimal control by preop A1c of 8.4%. Postop hyperglycemia managed with insulin gtt. Plan: D/C Vwires. Blakes to bulb suction. Cont D5W at 100ml/h. Switch IV access to PICC. Cont nutrition/pills per DHT. Transition IV amio to 400mg BID tube. Begin Eliquis 5 mg BID tonight. Sedation/vent/?trach per pulm. 05/28/16 08:17 Subjective: Lightly sedated on vent. Opens eyes, responds to simple commands. Objective: Vital Signs Temp Pulse Resp BP Pulse Ox 38.4 C H 132 H 36 H 131/62 H 97 05/28/16 07:00 05/28/16 07:00 05/28/16 07:00 05/28/16 07:00 05/28/16 07:00 Laboratory Results 05/28/16 04:18 05/28/16 04:18 05/27/16 05/28/16 05/29/16 05:59 05:59 05:59 Intake Total 1778.8 2900.7 Output Total 3530 2723 Balance -1751.2 177.7 PT 19.0 SEC (12.0-15.0) H 05/28/16 04:18 INR 1.59 (0.83-1.16) H 05/28/16 04:18 Rhythm AF/Fl w episodic RVR. Well tolerated. Vent FIO2 40% with RR 30s. TFs started and rate advancement in progress. CXR -> bibasilar atelectasis, pl tubes in good position. I/Os balanced. Cr cont to normalize. CTOP dissipating. Physical Exam - Physical Exam General Appearance: no apparent distress Respiratory: lungs clear (vent), other (Blakes x 3 y-d to pleurovac, serosang drainage, no AL) Cardiac/Chest: tachycardia (Afib/flutter), other (Sternum grossly stable. Sternal dressing CDI. LLE venot CDI) Abdomen: soft Skin: warm/dry Extremities: swelling (1+ gen) ICD10 Worksheet Patient Problems: Problems Problem Status Diagnosed Acute blood loss anemia Acute CAD, multiple vessel Acute Chest pain Acute Chronic Disease Mgmt/Transitional Care Acute Fall Acute Intracranial hemorrhage Acute Ischemic cardiomyopathy Acute Mitral insufficiency Acute Postoperative atrial fibrillation Acute S/P CABG x 5 Acute 05/23/16 S/P tricuspid valve repair Acute 05/23/16 Scalp laceration Acute Severe tricuspid regurgitation Acute Obesity (BMI 30-39.9) Chronic
--- NOTE | 2016-05-28 09:03 | DX ---
Portable AP Semiupright Chest May 28, 2016 5:56 a.m. Clinical History: 80-year-old male with chest congestion, atelectasis, and bilateral pleural effusion s, presenting for follow up. Comparison Study: Chest, dated May 27, 2016. Findings: The patient is slightly rotated to the left. The numerous interventional and monitoring dev ices are stable in position, with the exception that a Dobbhoff tube has been placed, extending infer iorly off the edge of the radiograph; however, it follows a normal anatomic course to the stomach. Th e cardiac and mediastinal silhouette remains prominent. There are bibasilar areas of pleuroparenchyma l consolidation which are stable. The pulmonary vasculature is stable. There are a couple of old heal ed left-sided rib fractures. Impression: Interim placement of a Dobbhoff feeding tube since yesterday's study; otherwise, no signi ficant interval change.
[2016-05-28] MEDS: D5W 1,000 ML IV SCH ×2 (09:45→21:05)
[2016-05-28] MEDS ORDERED: MAGNESIUM HYDROXIDE 30 ML UDCUP TUBE PRN (09:54)
[2016-05-28] MEDS ORDERED: ONDANSETRON DISINTEGRATING 4 MG TAB TUBE PRN (09:55)
[2016-05-28] MEDS: ASPIRIN 81 MG CHEWABLE TAB TUBE SCH (10:05)
[2016-05-28] MEDS: LANSOPRAZOLE SUSP 30MG/10ML UDSYR (Adult) TUBE SCH (10:06)
[2016-05-28] MEDS: AMIODARONE HCL 200 MG TAB TUBE SCH ×2 (10:06→21:06)
[2016-05-28] MEDS: SENNOSIDES 17.6 MG/10 ML UDL TUBE SCH ×2 (10:08→21:06)
[2016-05-28] MEDS: predniSONE 1 MG TAB PO SCH (10:14)
--- NOTE | 2016-05-28 11:47 | PDINTPN ---
[employer] Progress Note Assessment/Plan: Assessment: #CABG X 5 and TV annuloplasty , bleeding Friday and back to surgery with 1L of blood in the right chest but no active bleeding source found. Off pressors. CVP is 12. #Respiratory Failure on vent at 40% FI02. Re-intubated 05/26. Minimal thick secretions on bronch. He overbreathes the vent, CO2 down, still has a high minute ventilation. No ET secretions. On Fentanyl PRN. 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 with punctate ICB #New atrial flutter on amiodarone. Rate OK MAGUI: Cr stable, UO good. Renal/Hypernatremia: Cr and Na up slightly: No edema, weight at pre-op Plan: Continue insulin, amiodarone gtts. Continue D5, free H2O via dobhoff. Continue on vent, unlikely to extubate today given high minute ventilation Continue TF and Free H2O. Follow Na and Cr. Repeat lily D/W RN, RT, Dr. Johnson 40 minutes CC time. 05/28/16 11:52 Subjective: Intubated, sedated Objective: Vital Signs Temp Pulse Resp BP Pulse Ox 38.3 C 128 H 32 H 120/56 L 97 05/28/16 11:00 05/28/16 11:00 05/28/16 11:00 05/28/16 11:00 05/28/16 11:00 Laboratory Results 05/28/16 04:18 05/28/16 04:18 05/27/16 05/28/16 05/29/16 05:59 05:59 05:59 Intake Total 1778.8 2900.7 100 Output Total 3530 2723 270 Balance -1751.2 177.7 -170 PT 19.0 SEC (12.0-15.0) H 05/28/16 04:18 INR 1.59 (0.83-1.16) H 05/28/16 04:18 Laboratory Tests 05/28/16 04:18 pCO2 32 L pO2 99 H Total CO2 22 L ABG pH 7.44 O2 Concentration % 40 Respiration Rate 34 Set Respiration Rate 18 Assist Control YES Tidal Volume 600 CXR: No change. Images reviewed Physical Exam - Physical Exam General Appearance: no apparent distress, other (sedated), No alert EENT: normal ENT inspection Neck: normal inspection, No thyromegaly Respiratory: lungs clear, No respiratory distress Cardiac/Chest: regular rate, rhythm, edema (2+) Abdomen: non-tender, soft, organomegaly Skin: normal color, warm/dry Extremities: non-tender Neuro/Psych: No alert, No normal mood/affect ICD10 Worksheet Patient Problems: Problems Problem Status Diagnosed Acute blood loss anemia Acute CAD, multiple vessel Acute Chest pain Acute Chronic Disease Mgmt/Transitional Care Acute Fall Acute Intracranial hemorrhage Acute Ischemic cardiomyopathy Acute Mitral insufficiency Acute Postoperative atrial fibrillation Acute S/P CABG x 5 Acute 05/23/16 S/P tricuspid valve repair Acute 05/23/16 Scalp laceration Acute Severe tricuspid regurgitation Acute Obesity (BMI 30-39.9) Chronic
[2016-05-28] MEDS ORDERED: FUROSEMIDE 40 MG/4 ML VIAL IVP ONE (11:52)
[2016-05-28] MEDS: INSULIN REGULAR HUMAN 100 UNIT in NS 100 ML IV SCH (12:39)
[2016-05-28] MEDS: ACETAMINOPHEN 325 MG TAB TUBE PRN ×2 (13:19→20:22)
[2016-05-28] MEDS: INSULIN REGULAR HUMAN 100 UNIT/ML SC SCH ×2 (16:41→21:14)
[2016-05-28 17:49] LABS: POTASSIUM 4.1 mEq/L (3.5-5.2)
--- NOTE | 2016-05-28 19:33 | DX ---
Portable Semiupright AP Chest May 28, 2016, 1857 hours History: Assess new peripherally inserted central catheter. Findings: Telemetry leads obscure the chest. New peripherally inserted central catheter of the left arm terminates at the junction of superior vena cava and right atrium. Right jugular central cathet er reaches the superior vena cava. Endotracheal tube and esophagoenteric tube are unchanged. Bilate ral chest tubes and substernal drain are present. Sternotomy wires and skin clips overlie a large he art shadow. Bibasilar pulmonary consolidation is mild. Impression: New peripherally inserted central catheter of the left arm is ready to use. IR Call
--- NOTE | 2016-05-28 19:35 | IR ---
Ultrasound-guided Peripherally Inserted Central Catheter History: Acute myocardial infarction, ischemic cardiomyopathy, congestive heart failure, severe tric uspid regurgitation. Technique: Procedure was performed with the patient in the hospital bed. Following informed consent, the left arm was prepped and draped in sterile fashion. 1% Xylocaine was used for local anesthetic. All elements of maximal sterile barrier technique including cap, mask, sterile gown, sterile gloves , large sterile sheet, hand hygiene, and 2% chlorhexidine for cutaneous antisepsis, followed. Ultraso und transducer was placed in sterile sleeve and used for real time imaging guidance to enter the basi lic vein. Sterile coupling gel was used. 0.018 measuring wire was passed centrally, and the internal jugular vein was assessed sonographically to exclude retrograde malposition. A skin razia with scalp el blade was followed by removing the access needle. A 6.5-St Helenian peel-away sheath was followed by a 6-[place] Helenian triple lumen central catheter, trimmed to 51 cm length. The length of catheter was estimated from external measurements. The hub of the catheter was fixed to the skin using a sterile StatLock a dhesive device, and a sterile dressing was applied. The catheter irrigated easily. A portable chest radiograph was requested and will be reported separately. Findings: No sonographic evidence of malposition in the internal jugular vein. Impression: Ultrasound-guided 6-St Helenian triple lumen peripherally inserted central catheter; radiograp hic confirmation is pending. - - - - - - - - - - - - - - - - - - - - - - - - - - - - - - - - - - - - - - - - - - - (Crosscutting measures: Current medications, including all known prescriptions, [id number] med ications, herbal medications, and nutritional supplements are listed in the medical record. The viola ent does not smoke.) IR Call
[2016-05-28] MEDS: APIXABAN 5 MG TAB TUBE SCH (21:06)
[2016-05-28] MEDS: INSULIN GLARGINE 100 UNITS/ML SYRINGE SC SCH (21:13)
[2016-05-28] MEDS: fentaNYL 100 MCG/2 ML INJ IVP PRN (21:31)
[2016-05-29] MEDS: ALBUTEROL 60 PUFFS/8 GM MDI IH SCH ×7 (00:30→23:45)
[2016-05-29 00:55] LABS: POTASSIUM 4.2 mEq/L (3.5-5.2)
[2016-05-29] MEDS: INSULIN REGULAR HUMAN 100 UNIT/ML SC SCH ×5 (04:01→21:26)
[2016-05-29] MEDS: ACETAMINOPHEN 325 MG TAB TUBE PRN ×2 (04:37→19:34)
[2016-05-29 05:01] LABS: BASE EXCESS -2.2 mEq/L (-2.5-2.5); BICARBONATE 22 mEq/L (22-26); MEASURED OXYGEN SATURATION 96 % (92-95); PCO2 40 mmHg (34-38); PO2 90 mmHg (65-75); TCO2 23 mEq/L (23-27)
[2016-05-29 05:03] LABS: ASSIST CONTROL YES; END TIDAL CO2 40; O2 CONCENTRATIION 35 % (0-100); P/F RATIO 257 RATIO; TOTAL RATE 25
[2016-05-29] MEDS: fentaNYL/NACL 100 ML IV SCH (05:12)
[2016-05-29 05:16] LABS: HEMATOCRIT 30.8 % (40.0-51.0); HEMOGLOBIN 9.9 g/dL (13.7-17.5); MEAN CELL HEMOGLOBIN 30.1 pg (27.9-34.1); MEAN CELL HEMOGLOBIN CONCENTR. 32.1 g/dL (32.4-36.7); MEAN CELL VOLUME 93.6 fL (81.5-99.8); RED BLOOD CELL COUNT 3.29 10^6/uL (4.40-6.38); RED CELL DISTRIBUTION WIDTH 16.8 % (11.5-15.2)
[2016-05-29 05:46] LABS: ALANINE AMINOTRANSFERASE 98 IU/L (21-72); ALBUMIN 2.3 g/dL (3.5-5.0); ALKALINE PHOSPHATASE 529 IU/L (38-126); ANION GAP 12 mEq/L (8-20); ASPARTATE AMINOTRANSFERASE 150 IU/L (17-59); CALCIUM 8.1 mg/dL (8.5-10.4); CARBON DIOXIDE 25 mEq/l (22-31); CHLORIDE 116 mEq/L (97-110); CREATININE 1.6 mg/dL (0.7-1.3); GLOMERULAR FILTRATION RATE 42; GLUCOSE 270 mg/dL (70-100); POTASSIUM 4.2 mEq/L (3.5-5.2); SODIUM 149 mEq/L (134-144); TOTAL PROTEIN 4.6 g/dL (6.3-8.2)
[2016-05-29] MEDS: D5W 1,000 ML IV SCH (05:49)
--- NOTE | 2016-05-29 08:02 | SOAPPROG ---
<Jamal Jacobs - Last Filed: 05/29/16 07:58> SOAP Progress Note Assessment/Plan: POD#6: 1. CABGx5 (Free FRANK-LAD, SVG-D1, Sequential SVG-OM1-OM2, SVG-PL) 2. TV repair with #32 Murguia annuloplasty 3. EVH LLE POD#5: 1. Exploration and washout of chest, closure Problem List: 1. Acute [place], severe 3VD, post-infarction angina s/p urgent CABGx5 - BB/ASA 2. Torrential TVR discovered intra-operatively s/p repair with #32 Murguia annuloplasty and subsequent trace TVR - Eliquis as per AF for AC 3. Ventilator dependent respiratory failure - Currently on 35% FIO2 with controlled mechanical ventilation - CPAP trial for extubation - if fails, will need trach 4. Acute blood loss anemia with coagulopathy s/p multiple blood product transfusions with re-exploration and washout of chest without signs of active bleeding - H/H stable 5. MAGUI with adequate renal function - Recovering - Avoid nephrotoxic medications - Monitor 6. ICM with systolic (EF 30%) and diastolic dysfunction and class IV heart failure - Lasix/Fluids prn - Heart failure medications in future as tolerated 7. 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 Post-op AF/Flutter - Amio/BB/Eliquis - possible CV in future 9. h/o DM with hyperglycemia - Insulin management per gyn 05/26/16 09:16 05/29/16 07:58 Subjective: Intubated/Sedated Objective: Vital Signs Temp Pulse Resp BP Pulse Ox 38.1 C 118 H 24 H 120/58 L 97 05/29/16 06:00 05/29/16 07:47 05/29/16 06:00 05/29/16 06:00 05/29/16 07:47 Microbiology 05/26/16 16:50 - Final Sputum, Induced/Suctioned Sputum Culture - Final Laboratory Results 05/29/16 05:00 05/29/16 05:00 05/28/16 05/29/16 05/30/16 05:59 05:59 05:59 Intake Total 2900.7 4845 Output Total 2723 2445 Balance 177.7 2400 PT 19.0 SEC (12.0-15.0) H 05/28/16 04:18 INR 1.59 (0.83-1.16) H 05/28/16 04:18 Physical Exam - Physical Exam General Appearance: no apparent distress Neck: normal inspection Respiratory: other (Vented, on 35% without distress ) Cardiac/Chest: other (Flutter) Abdomen: soft Skin: normal color Neuro/Psych: other (Follows commands / Moves all 4 extremities ) ICD10 Worksheet Patient Problems: Problems Problem Status Diagnosed Acute blood loss anemia Acute CAD, multiple vessel Acute Chest pain Acute Chronic Disease Mgmt/Transitional Care Acute Fall Acute Intracranial hemorrhage Acute Ischemic cardiomyopathy Acute Mitral insufficiency Acute Postoperative atrial fibrillation Acute S/P CABG x 5 Acute 05/23/16 S/P tricuspid valve repair Acute 05/23/16 Scalp laceration Acute Severe tricuspid regurgitation Acute Obesity (BMI 30-39.9) Chronic <William Johnson - Last Filed: 05/29/16 11:45> SOAP Progress Note Assessment/Plan: Assessment: Plan: 05/29/16 11:44 d/w daughter not ready for extubation will try tomorrow, if fails trach should survive and return to meaningful life w some rehab Objective: Vital Signs Temp Pulse Resp BP Pulse Ox 38.1 C 118 H 24 H 120/58 L 97 05/29/16 06:00 05/29/16 07:47 05/29/16 06:00 05/29/16 06:00 05/29/16 07:47 Microbiology 05/26/16 16:50 - Final Sputum, Induced/Suctioned Sputum Culture - Final Laboratory Results 05/29/16 05:00 05/29/16 05:00 05/28/16 05/29/16 05/30/16 05:59 05:59 05:59 Intake Total 2900.7 4845 Output Total 2723 2445 Balance 177.7 2400 PT 19.0 SEC (12.0-15.0) H 05/28/16 04:18 INR 1.59 (0.83-1.16) H 05/28/16 04:18
[2016-05-29] MEDS: INSULIN GLARGINE 100 UNITS/ML SYRINGE SC SCH ×2 (08:38→20:33)
[2016-05-29] MEDS: FUROSEMIDE 40 MG/4 ML VIAL IVP SCH ×2 (08:38→15:11)
[2016-05-29] MEDS: AMIODARONE HCL 200 MG TAB TUBE SCH ×2 (08:38→19:33)
[2016-05-29] MEDS: ASPIRIN 81 MG CHEWABLE TAB TUBE SCH (08:38)
[2016-05-29] MEDS: SENNOSIDES 17.6 MG/10 ML UDL TUBE SCH ×2 (08:38→19:33)
[2016-05-29] MEDS: predniSONE 1 MG TAB TUBE SCH (08:38)
[2016-05-29] MEDS: APIXABAN 5 MG TAB TUBE SCH ×2 (08:39→19:33)
[2016-05-29] MEDS: METOPROLOL TARTRATE 25 MG TAB TUBE SCH ×2 (08:39→19:33)
[2016-05-29] MEDS: LANSOPRAZOLE SUSP 30MG/10ML UDSYR (Adult) TUBE SCH (08:41)
[2016-05-29] MEDS ORDERED: METOPROLOL TARTRATE 25 MG TAB PO SCH (09:00)
--- NOTE | 2016-05-29 09:02 | DX ---
AP Portable Chest May 29, 2016 0432 hours Clinical Indication: Effusions, atelectasis, and congestion. Comparison: May 28, 2016, 1856 hours. Findings: Multiple lines and leads are again seen over the chest. The right chest tube is unchanged. There is no pneumothorax. There are bibasilar effusions with atelectatic change. Endotracheal tube is in good position in the mid papito. The feeding tube terminates off the edge of the film. Other over lying wires are present. Mediastinal wires and midline jonatan are noted. Moderate cardiomegaly is ag ain present. The central line in the left neck has been removed. Impression: 1. Lines and tubes are in good position and interval removal of right IJ central line. 2. Bibasilar consolidation and pleural effusions, unchanged.
--- NOTE | 2016-05-29 09:39 | PDINTPN ---
[employer] Progress Note Assessment/Plan: Assessment: #CABG X 5 and TV annuloplasty , bleeding Friday and back to surgery with 1L of blood in the right chest but no active bleeding source found. Off pressors. CVP is 12. #Respiratory Failure on vent at 40% FI02. Re-intubated 05/26. Tolerating CPAP trial, but minute ventilation is a bit high. #ROSEANNA #Obesity and very deconditioned, no walking at all before his surgery #DM: Blood sugars elevated on change from IV to sq insulin #HTN at home #Hyperlipidemia #Remote TBI after a fall with punctate ICB #New atrial flutter on amiodarone. Rate [place] MAGUI: Cr stable, UO good. Renal/Hypernatremia: Cr and Na up slightly: No edema, weight at pre-op Plan: Continue amiodarone gtt. Increase free H2O via Dobhoff Restart metformin, increase insulin consider extubation today or tomorrow if he continues to do well on CPAP. D/W RN, RT, Dr. Johnson 40 minutes CC time. 05/29/16 09:39 Subjective: intubated. Coming off sedation. No complaints Objective: Vital Signs Temp Pulse Resp BP Pulse Ox 38.1 C 118 H 24 H 120/58 L 97 05/29/16 06:00 05/29/16 07:47 05/29/16 06:00 05/29/16 06:00 05/29/16 07:47 Microbiology 05/26/16 16:50 - Final Sputum, Induced/Suctioned Sputum Culture - Final Laboratory Results 05/29/16 05:00 05/29/16 05:00 05/28/16 05/29/16 05/30/16 05:59 05:59 05:59 Intake Total 2900.7 4845 Output Total 2723 2445 Balance 177.7 2400 PT 19.0 SEC (12.0-15.0) H 05/28/16 04:18 INR 1.59 (0.83-1.16) H 05/28/16 04:18 chest x-ray: Stable basilar infiltrate/effusions, Unchanged. Images reviewed Laboratory Tests 05/29/16 04:55 pCO2 40 H pO2 90 H ABG pH 7.36 Set Respiration Rate 18 Assist Control YES Tidal Volume 600 Physical Exam - Physical Exam General Appearance: alert, no apparent distress EENT: normal ENT inspection Neck: normal inspection Respiratory: crackles (bases) Cardiac/Chest: regular rate, rhythm, edema ( trace) Abdomen: normal bowel sounds, non-tender, soft Skin: normal color, warm/dry Extremities: normal inspection Neuro/Psych: alert, No motor weakness ICD10 Worksheet Patient Problems: Problems Problem Status Diagnosed Acute blood loss anemia Acute CAD, multiple vessel Acute Chest pain Acute Chronic Disease [facility]/Transitional Care Acute Fall Acute Intracranial hemorrhage Acute Ischemic cardiomyopathy Acute Mitral insufficiency Acute Postoperative atrial fibrillation Acute S/P CABG x 5 Acute 05/23/16 S/P tricuspid valve repair Acute 05/23/16 Scalp laceration Acute Severe tricuspid regurgitation Acute Obesity (BMI 30-39.9) Chronic
[2016-05-29] MEDS: fentaNYL 100 MCG/2 ML INJ IVP PRN ×3 (12:50→23:42)
[2016-05-29] MEDS: HYDROCODONE/APAP 5/325 TAB TUBE PRN (12:51)
[2016-05-29 13:15] LABS: POTASSIUM 4.8 mEq/L (3.5-5.2)
[2016-05-29] MEDS: ALTEPLASE 2 MG VIAL IVP PRN (15:47)
[2016-05-29 18:59] LABS: POTASSIUM 4.4 mEq/L (3.5-5.2)
[2016-05-29] MEDS ORDERED: FUROSEMIDE 40 MG/4 ML VIAL IVP ONE (20:58)
[2016-05-30] MEDS: INSULIN REGULAR HUMAN 100 UNIT/ML SC SCH ×6 (02:11→22:32)
[2016-05-30] MEDS: ALBUTEROL 60 PUFFS/8 GM MDI IH SCH ×5 (04:15→21:00)
[2016-05-30 04:42] LABS: HEMATOCRIT 30.5 % (40.0-51.0); HEMOGLOBIN 9.9 g/dL (13.7-17.5); MEAN CELL HEMOGLOBIN 30.7 pg (27.9-34.1); MEAN CELL HEMOGLOBIN CONCENTR. 32.5 g/dL (32.4-36.7); MEAN CELL VOLUME 94.4 fL (81.5-99.8); RED BLOOD CELL COUNT 3.23 10^6/uL (4.40-6.38); RED CELL DISTRIBUTION WIDTH 16.6 % (11.5-15.2)
[2016-05-30 05:06] LABS: ANION GAP 13 mEq/L (8-20); CALCIUM 8.5 mg/dL (8.5-10.4); CARBON DIOXIDE 28 mEq/l (22-31); CHLORIDE 114 mEq/L (97-110); CREATININE 1.7 mg/dL (0.7-1.3); GLOMERULAR FILTRATION RATE 39; GLUCOSE 126 mg/dL (70-100); POTASSIUM 3.8 mEq/L (3.5-5.2); SODIUM 151 mEq/L (134-144)
[2016-05-30 05:15] LABS: BASE EXCESS 2.4 mEq/L (-2.5-2.5); BICARBONATE 26 mEq/L (22-26); MEASURED OXYGEN SATURATION 96 % (92-95); PCO2 43 mmHg (34-38); PO2 86 mmHg (65-75); TCO2 28 mEq/L (23-27)
[2016-05-30 05:17] LABS: CPAP YES; END TIDAL CO2 42; O2 CONCENTRATIION 35 % (0-100); P/F RATIO 245 RATIO; PATIENT RATE 31; PRESSURE SUPPORT 10
[2016-05-30] MEDS ORDERED: POTASSIUM Cl (KCl) 50 ML IV ONE (07:33)
[2016-05-30] MEDS: FUROSEMIDE 40 MG/4 ML VIAL IVP SCH (07:40)
[2016-05-30] MEDS: SENNOSIDES 17.6 MG/10 ML UDL TUBE SCH ×2 (07:41→20:43)
[2016-05-30] MEDS: METOPROLOL TARTRATE 25 MG TAB TUBE SCH ×2 (07:42→20:43)
[2016-05-30] MEDS: LANSOPRAZOLE SUSP 30MG/10ML UDSYR (Adult) TUBE SCH (07:42)
[2016-05-30] MEDS: predniSONE 1 MG TAB TUBE SCH (07:42)
[2016-05-30] MEDS: ASPIRIN 81 MG CHEWABLE TAB TUBE SCH (07:43)
[2016-05-30] MEDS: AMIODARONE HCL 200 MG TAB TUBE SCH ×2 (07:43→20:42)
[2016-05-30] MEDS: APIXABAN 5 MG TAB TUBE SCH ×2 (07:43→20:42)
--- NOTE | 2016-05-30 08:09 | DX ---
Portable Chest, 6:12 a.m., 2 views Clinical Indications: Followup pleural effusion, post open heart surgery Comparison: yesterday 4:32 a.m. Findings: Since the right basilar chest tube has been removed, there is little if any change in righ t lower lung zone density associated with costophrenic angle blunting. The heart remains enlarged and the vascularity remains plethoric. A feeding tube remains in place with tip now seen in the stomach. A left arm PICC line remains in place with tip at the cavoatrial junction. Median sternotomy wires a nd midline skin jonatan remain in place. Impression: Little if any change since yesterday.
--- NOTE | 2016-05-30 08:55 | SOAPPROG ---
SOAP Progress Note Assessment/Plan: Assessment: POD#7 Urgent CABGx5 (Free FRANK-LAD, SVG-D1, sequential SVG-OM1-OM2, SVG-PLC), TVA #32 MC3 ring, IABP 1:1. POD#6 Take back for expl, washout right CED. Sternal closure w Maria Victoria auguste. Nutrition per DHT. IV access per LUE PICC. Acute [place], severe 3VD, post-infarction angina/IABP - s/p urgent CABGx5 compl by bleeding into rt chest requiring take-back. IABP support x 24h. Low dose pressor support x 72h. Tubes and wires out. Secondary prevention with baby ASA, BB as allowed by BP and statin when eating well. ICM with systolic (EF 30%) and diastolic dysfunction (EDP 25) and class IV heart failure - No sig fluid overload. Diuresing well on bolus lasix. Staggered intro of heart failure regimen as appropriate. Torrential TR - Post CPB. Amenable to annuloplasty. Antithrombotic prophylaxis with Eliquis x 3 months. 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 Surveillance per cardiology. Postoperative respiratory failure - Ventilator dependent. FIO2 35-40%. Persistent high minute ventilation limiting CPAP trials. Probable trach/PEG if unable to extubate next 24hrs. Some thick mucus suctioned per bronch. No overt PNA. Sputum cx neg. Nebs, mucolytics, steroids as per Pulm. Acute expected blood loss anemia with coagulopathy - Requiring massive transfusion and take back for expl bleeding. No active bleeding seen. No further transfusions since 12/4. Remains mildly autoanticoagulated with stable H /H > 9/30. Postoperative MAGUI with electrolyte imbalance - Peak Cr of 2 on POD#2. Assoc w persistent hypernatremia (150 range). Likely prerenal while coagulopathic and actively bleeding. Care w fluid management. Post-op AF/Flutter - Variable ventricular rates. Started on Amio. Adjunctive BB as allowed by BP. [id number] score of 6. Antithrombotic prophylaxis as per TVA. DM2 - Suboptimal control by preop A1c of 8.4%. Postop hyperglycemia managed with insulin gtt, transitioning to basal insulin per ICU. Plan: Agree with inc free water flushes instead of D5W. Hold diuresis. Cont amio 400mg BID tube. Cont Eliquis 5 mg BID tonight. Vent wean/?trach per pulm. 05/30/16 08:49 Subjective: Off sedation, on vent. Alert, NAD, nodding head appropriately to questions, compliant with simple commands, MAEE Objective: Vital Signs Temp Pulse Resp BP Pulse Ox 38.1 C 116 H 28 H 107/65 96 05/30/16 07:55 05/30/16 08:00 05/30/16 07:55 05/30/16 07:55 05/30/16 08:00 Laboratory Results 05/30/16 04:30 05/30/16 04:30 05/29/16 05/30/16 05/31/16 05:59 05:59 05:59 Intake Total 4845 2944 Output Total 2445 4445 100 Balance 2400 -1501 -100 PT 19.0 SEC (12.0-15.0) H 05/28/16 04:18 INR 1.59 (0.83-1.16) H 05/28/16 04:18 Rhythm predom AFl. Periodic RVR without sustained hypotension. BP still a bit labile for BB. Vent 35% FIO2. CPAP alt w AC. Vigorous diuresis on BID lasix w climbing BUN/Cr. Wt overall neg 2kg. Holding CVP 10-14. CXR -> bibasilar atelectasis Physical Exam - Physical Exam General Appearance: no apparent distress Respiratory: lungs clear (vent) Cardiac/Chest: tachycardia, other (Sternum grossly stable. Sternotomy and LLE venotomy CDI. Sternot jonatan intact) Abdomen: soft Skin: warm/dry Extremities: other (no visible swelling) ICD10 Worksheet Patient Problems: Problems Problem Status Diagnosed Acute blood loss anemia Acute CAD, multiple vessel Acute Chest pain Acute Chronic Disease Mgmt/Transitional Care Acute Fall Acute Intracranial hemorrhage Acute Ischemic cardiomyopathy Acute Mitral insufficiency Acute Postoperative atrial fibrillation Acute S/P CABG x 5 Acute 05/23/16 S/P tricuspid valve repair Acute 05/23/16 Scalp laceration Acute Severe tricuspid regurgitation Acute Obesity (BMI 30-39.9) Chronic
--- NOTE | 2016-05-30 09:52 | PDINTPN ---
Back Joiner Progress Note Assessment/Plan: Assessment: #CABG X 5 and TV annuloplasty , bleeding Friday and back to surgery with 1L of blood in the right chest but no active bleeding source found. Off pressors. CVP is 7. #Respiratory Failure on vent at 40% FI02. Re-intubated 05/26. Tolerating CPAP trial, but minute ventilation is still a bit high. #ROSEANNA #Obesity and very deconditioned, no walking at all before his surgery #DM: Blood sugars better but still elevated on change from IV to sq insulin. 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 Rate [place] MAGUI: Cr stable, UO good. Renal/Hypernatremia: Cr and Na up slightly: No edema, weight at pre-op Plan: Continue amiodarone gtt. Continue free H2O via Dobhoff Will resume metformin, follow renal fx. consider extubation today or tomorrow if he continues to do well on CPAP. D/W RN, RT, Dr. Johnson 45 minutes CC time. 05/30/16 09:56 05/30/16 10:59 Subjective: Intubated, feels OK, a bit dyspneic on CPAP when sitting up in chair. Objective: Vital Signs Temp Pulse Resp BP Pulse Ox 38.1 C 112 H 28 H 98/54 L 96 05/30/16 07:55 05/30/16 09:00 05/30/16 09:00 05/30/16 09:00 05/30/16 09:00 Laboratory Results 05/30/16 04:30 05/30/16 04:30 05/29/16 05/30/16 05/31/16 05:59 05:59 05:59 Intake Total 4845 2944 Output Total 2445 4445 300 Balance 2400 -1501 -300 PT 19.0 SEC (12.0-15.0) H 05/28/16 04:18 INR 1.59 (0.83-1.16) H 05/28/16 04:18 CXR: Slightly improved bases. Images reviewed Laboratory Tests 05/30/16 05:00 pCO2 43 H pO2 86 H Total CO2 28 H ABG pH 7.41 ABG O2 Saturation 96 H End Tidal CO2 42 PEEP 5 CPAP YES Physical Exam - Physical Exam General Appearance: alert, no apparent distress EENT: normal ENT inspection, ET tube Neck: normal inspection Respiratory: lungs clear, normal breath sounds Cardiac/Chest: regular rate, rhythm, No edema Abdomen: normal bowel sounds, non-tender, soft Skin: normal color, warm/dry Extremities: normal inspection Neuro/Psych: alert, motor weakness (improved diffuse weakness) ICD10 Worksheet Patient Problems: Problems Problem Status Diagnosed Acute blood loss anemia Acute CAD, multiple vessel Acute Chest pain Acute Chronic Disease [facility]/Transitional Care Acute Fall Acute Intracranial hemorrhage Acute Ischemic cardiomyopathy Acute Mitral insufficiency Acute Postoperative atrial fibrillation Acute S/P CABG x 5 Acute 05/23/16 S/P tricuspid valve repair Acute 05/23/16 Scalp laceration Acute Severe tricuspid regurgitation Acute Obesity (BMI 30-39.9) Chronic
[2016-05-30] MEDS: INSULIN GLARGINE 100 UNITS/ML SYRINGE SC SCH ×2 (10:02→20:46)
--- NOTE | 2016-05-30 14:05 | WOCRNPDOC ---
WOCRN Advanced Assessment Note - Skin Integrity Problem, Advanced Assess Sacrum Pressure Injury Dressing Type: Allevyn Life Exudate Amount: Minimal Exudate Characteristic(s): Serosanguinous Integumentary Issue Intervention: Visualized Under Dressing Nena Wound Tissue: Erythema Nena Wound Swelling: None Wound Bed Color: [place], Purple Wound Bed Constitution: Smooth Tissue Site Measurement - Head-to-Toe Length X Width X Depth (cm): 2.5x3x0.1 (open area ) 5x7x0 (DTI) Pressure Injury Stage: Deep Tissue Injury (DTI) Pressure Injury Present on Admit: No Skin Integrity Problem Comment: Evolving DTI now with a partial thickness opening. Continue to offload aggressively. Pt on Bariatric TAPS with [facility] Bariatric Bed from [facility]. Cassidy CORTES in room assisted with care. Wound care will round 06/03 or 06/04 to reassess.
[2016-05-30] MEDS: fentaNYL 100 MCG/2 ML INJ IVP PRN ×2 (15:10→17:09)
[2016-05-30 18:16] LABS: POTASSIUM 4.2 mEq/L (3.5-5.2)
[2016-05-30] MEDS: metFORMIN HCL 500 MG TAB PO SCH (18:29)
[2016-05-30] MEDS: ACETAMINOPHEN 325 MG TAB TUBE PRN (19:41)
[2016-05-31] MEDS: ALBUTEROL 60 PUFFS/8 GM MDI IH SCH ×7 (00:14→23:57)
[2016-05-31 01:13] LABS: POTASSIUM 3.7 mEq/L (3.5-5.2)
[2016-05-31] MEDS ORDERED: POTASSIUM Cl (KCl) 50 ML IV ONE ×2 (02:14→19:07)
[2016-05-31] MEDS: INSULIN REGULAR HUMAN 100 UNIT/ML SC SCH ×6 (02:19→22:02)
[2016-05-31] MEDS: HYDROCODONE/APAP 5/325 TAB TUBE PRN ×2 (02:59→08:13)
[2016-05-31 04:44] LABS: BASE EXCESS 3.6 mEq/L (-2.5-2.5); BICARBONATE 27 mEq/L (22-26); CPAP YES; MEASURED OXYGEN SATURATION 95 % (92-95); PCO2 40 mmHg (34-38); PO2 80 mmHg (65-75); TCO2 28 mEq/L (23-27)
[2016-05-31 04:45] LABS: END TIDAL CO2 42; O2 CONCENTRATIION 35 % (0-100); P/F RATIO 228 RATIO; PATIENT RATE 32; PRESSURE SUPPORT 7
[2016-05-31 05:59] LABS: ANION GAP 11 mEq/L (8-20); CALCIUM 8.9 mg/dL (8.5-10.4); CARBON DIOXIDE 31 mEq/l (22-31); CHLORIDE 116 mEq/L (97-110); CREATININE 1.9 mg/dL (0.7-1.3); GLOMERULAR FILTRATION RATE 34; GLUCOSE 145 mg/dL (70-100); POTASSIUM 4.1 mEq/L (3.5-5.2); SODIUM 154 mEq/L (134-144)
--- NOTE | 2016-05-31 07:56 | SOAPPROG ---
SOAP Progress Note Assessment/Plan: POD#8: 1. CABGx5 (Free FRANK-LAD, SVG-D1, Sequential SVG-OM1-OM2, SVG-PL) 2. TV repair with #32 Murguia annuloplasty 3. EVH LLE POD#7: 1. Exploration and washout of chest, closure Problem List: 1. Acute [place], severe 3VD, post-infarction angina s/p urgent CABGx5 - BB d/c due to hypotension - Continue Eliquis for antithrombotic therapy 2. Torrential TVR discovered intra-operatively s/p repair with #32 Murguia annuloplasty and subsequent trace TVR - Eliquis for AC 3. Ventilator dependent respiratory failure - Currently on controlled mechanical ventilation - Extubation trial today and trach if fails 4. Acute blood loss anemia with coagulopathy s/p multiple blood product transfusions with re-exploration and washout of chest without signs of active bleeding - H/H stable 5. MAGUI - Lasix held d/t rising BUN/Cr - Avoid nephrotoxic medications - Monitor 6. ICM with systolic (EF 30%) and diastolic dysfunction and class IV heart failure - Lasix/Fluids prn - Heart failure medications in future as tolerated 7. 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 Post-op AF/Flutter - Amio/Eliquis - possible CV in future 9. h/o DM with hyperglycemia - Management per past due accounts clerk 05/26/16 09:16 05/29/16 07:58 05/31/16 07:50 Subjective: No pain. Objective: Vital Signs Temp Pulse Resp BP Pulse Ox 38.3 C 127 H 27 H 90/57 L 95 05/31/16 06:00 05/31/16 06:00 05/31/16 06:00 05/31/16 06:00 05/31/16 06:00 Laboratory Results 05/30/16 04:30 05/31/16 05:33 05/30/16 05/31/16 06/01/16 05:59 05:59 05:59 Intake Total 2944 2234 Output Total 4486 2225 Balance -1501 9 PT 19.0 SEC (12.0-15.0) H 05/28/16 04:18 INR 1.59 (0.83-1.16) H 05/28/16 04:18 Physical Exam - Physical Exam General Appearance: no apparent distress Neck: normal inspection Respiratory: other (Tachypneic ) Cardiac/Chest: other (Flutter) Abdomen: soft Skin: normal color, warm/dry Extremities: No swelling Neuro/Psych: alert (Follows commands / Moves all extremities) ICD10 Worksheet Patient Problems: Problems Problem Status Diagnosed Acute blood loss anemia Acute CAD, multiple vessel Acute Chest pain Acute Chronic Disease [facility]/Transitional Care Acute Fall Acute Intracranial hemorrhage Acute Ischemic cardiomyopathy Acute Mitral insufficiency Acute Postoperative atrial fibrillation Acute S/P CABG x 5 Acute 05/23/16 S/P tricuspid valve repair Acute 05/23/16 Scalp laceration Acute Severe tricuspid regurgitation Acute Obesity (BMI 30-39.9) Chronic
[2016-05-31] MEDS: LANSOPRAZOLE SUSP 30MG/10ML UDSYR (Adult) TUBE SCH (08:13)
[2016-05-31] MEDS: INSULIN GLARGINE 100 UNITS/ML SYRINGE SC SCH ×2 (08:13→20:04)
[2016-05-31] MEDS: SENNOSIDES 17.6 MG/10 ML UDL TUBE SCH ×2 (08:13→20:03)
[2016-05-31] MEDS: metFORMIN HCL 500 MG TAB PO SCH ×2 (08:14→18:17)
[2016-05-31] MEDS: predniSONE 1 MG TAB TUBE SCH (08:14)
[2016-05-31] MEDS: APIXABAN 5 MG TAB TUBE SCH ×2 (08:14→20:03)
[2016-05-31] MEDS: AMIODARONE HCL 200 MG TAB TUBE SCH ×2 (08:14→20:03)
[2016-05-31] MEDS: ASPIRIN 81 MG CHEWABLE TAB TUBE SCH (08:14)
--- NOTE | 2016-05-31 08:22 | DX ---
Portable Chest May 31, 2016 0608 hours History: Right pleural effusion. Dyspnea. Comparison: May 30, 2016. Findings: Moderate cardiomegaly. Median sternotomy wires and mediastinal clips. Possible small right pleural effusion. Given the differences in technique, there is no significant interval change. Impression: No significant interval change.
[2016-05-31] MEDS ORDERED: ALBUMIN 25% 200 ML IV ONE (09:46)
--- NOTE | 2016-05-31 09:50 | PDINTPN ---
Pulp Bleacher Progress Note Assessment/Plan: Assessment: #CABG X 5 and TV annuloplasty , bleeding Friday and back to surgery with 1L of blood in the right chest but no active bleeding source found. Off pressors. CVP is 7. #Respiratory Failure on vent at 40% FI02. Re-intubated 05/26. Tolerating CPAP trial, but minute ventilation is still a bit high. #ROSEANNA #Obesity and very deconditioned, no walking at all before his surgery #DM: Blood sugars better but still elevated on change from IV to sq insulin. 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 Rate OK MAGUI: Cr stable, UO good. Renal/Hypernatremia: Cr and Na up slightly: No edema, weight at pre-op Plan: Continue amiodarone gtt. Continue free H2O via Dobhoff Will resume metformin, follow renal fx. consider extubation today or tomorrow if he continues to do well on CPAP. D/W RN, RT, Dr. Johnson 45 minutes CC time. 05/30/16 09:56 05/30/16 10:59 Subjective: Feels a bit stronger. Increased cough. Objective: Vital Signs Temp Pulse Resp BP Pulse Ox 38.5 C H 121 H 29 H 94/56 L 94 05/31/16 08:00 05/31/16 08:30 05/31/16 08:00 05/31/16 08:00 05/31/16 08:30 Laboratory Results 05/30/16 04:30 05/31/16 05:33 05/30/16 05/31/16 06/01/16 05:59 05:59 05:59 Intake Total 2944 2234 Output Total 4445 2225 Balance -1501 9 PT 19.0 SEC (12.0-15.0) H 05/28/16 04:18 INR 1.59 (0.83-1.16) H 05/28/16 04:18 CXR: Stable. Images reviewed Physical Exam - Physical Exam General Appearance: alert, no apparent distress EENT: normal ENT inspection, ET tube Neck: normal inspection Respiratory: lungs clear, normal breath sounds Cardiac/Chest: regular rate, rhythm, No edema Abdomen: normal bowel sounds, non-tender Skin: normal color, warm/dry Extremities: normal inspection Neuro/Psych: alert, normal mood/affect, oriented x 3 ICD10 Worksheet Patient Problems: Problems Problem Status Diagnosed Acute blood loss anemia Acute CAD, multiple vessel Acute Chest pain Acute Chronic Disease Mgmt/Transitional Care Acute Fall Acute Intracranial hemorrhage Acute Ischemic cardiomyopathy Acute Mitral insufficiency Acute Postoperative atrial fibrillation Acute S/P CABG x 5 Acute 05/23/16 S/P tricuspid valve repair Acute 05/23/16 Scalp laceration Acute Severe tricuspid regurgitation Acute Obesity (BMI 30-39.9) Chronic
[2016-05-31] MEDS ORDERED: PROPOFOL 200 MG/20 ML VIAL ONE (11:35)
--- NOTE | 2016-05-31 12:12 | PDTEE1 ---
ARACELI Cardioversion Procedure Procedure: Electrical Cardioversion, Transesophageal Echo Indications: Other (atrial flutter) Anticoagulation: Eliquis Procedural Details: Pads were placed in anterior-posterior position. ARACELI probe was advanced and standard images obtained. There is no evidence of left atrial or left atrial appendage thrombus. Synchronized cardioversion attempt #1: 200J Results: Normal sinus rhythm Conclusions: Successful ARACELI Cardioversion Patient Problems: Problems Problem Status Diagnosed Acute blood loss anemia Acute CAD, multiple vessel Acute Chest pain Acute Chronic Disease Mgmt/Transitional Care Acute Fall Acute Intracranial hemorrhage Acute Ischemic cardiomyopathy Acute Mitral insufficiency Acute Postoperative atrial fibrillation Acute S/P CABG x 5 Acute 05/23/16 S/P tricuspid valve repair Acute 05/23/16 Scalp laceration Acute Severe tricuspid regurgitation Acute Obesity (BMI 30-39.9) Chronic
[2016-05-31 18:43] LABS: POTASSIUM 3.8 mEq/L (3.5-5.2)
[2016-06-01] MEDS: HYDROCODONE/APAP 5/325 TAB TUBE PRN ×3 (00:21→22:23)
[2016-06-01] MEDS ORDERED: LIDOCAINE 2% JELLY 20 ML (UROJECT) ONE ×2 (02:51→04:22)
[2016-06-01] MEDS: fentaNYL 100 MCG/2 ML INJ IVP PRN ×4 (02:56→22:40)
[2016-06-01] MEDS: ALBUTEROL 60 PUFFS/8 GM MDI IH SCH ×5 (04:16→19:51)
[2016-06-01] MEDS: INSULIN REGULAR HUMAN 100 UNIT/ML SC SCH ×6 (04:18→22:46)
[2016-06-01 04:32] LABS: BICARBONATE 27 mEq/L (22-26); MEASURED OXYGEN SATURATION 90 % (92-95); PCO2 38 mmHg (34-38); PO2 61 mmHg (65-75); TCO2 28 mEq/L (23-27)
[2016-06-01 04:34] LABS: ASSIST CONTROL YES
[2016-06-01 04:35] LABS: END TIDAL CO2 36; O2 CONCENTRATIION 35 % (0-100); P/F RATIO 174 RATIO; TOTAL RATE 22
[2016-06-01 06:12] LABS: ALANINE AMINOTRANSFERASE 57 IU/L (21-72); ALBUMIN 2.5 g/dL (3.5-5.0); ALKALINE PHOSPHATASE 416 IU/L (38-126); ANION GAP 13 mEq/L (8-20); BILIRUBIN,TOTAL 1.4 mg/dL (0.1-1.4); CALCIUM 8.9 mg/dL (8.5-10.4); CARBON DIOXIDE 29 mEq/l (22-31); CHLORIDE 115 mEq/L (97-110); GLOMERULAR FILTRATION RATE 32; GLUCOSE 149 mg/dL (70-100); POTASSIUM 4.2 mEq/L (3.5-5.2); SODIUM 153 mEq/L (134-144); TOTAL PROTEIN 4.8 g/dL (6.3-8.2)
[2016-06-01 06:13] LABS: ASPARTATE AMINOTRANSFERASE 57 IU/L (17-59)
--- NOTE | 2016-06-01 08:52 | DX ---
Portable Chest June 01, 2016 0617 hours History: Intubated, recent open heart surgery. Comparison: Portable chest May 31, 2016. Findings: Endotracheal tube tip is 5 cm above the papito, in good position. Feeding tube tip extends off the inferior margin of the study. Left PICC tip is last visualized at the cavoatrial junction. H azy bibasilar opacities and mild bibasilar consolidation suggesting effusions and atelectasis are equ ivocally increased. Enlargement of the cardiomediastinal silhouette is stable. The bones are stable. Impression: Equivocal increase in bibasilar atelectasis and small effusions.
--- NOTE | 2016-06-01 08:59 | SOAPPROG ---
SOAP Progress Note Assessment/Plan: Assessment: POD#9 Urgent CABGx5 (Free FRANK-LAD, SVG-D1, sequential SVG-OM1-OM2, SVG-PLC), TVA #32 MC3 ring, IABP 1:1. POD#8 Take back for expl, washout right CED. Sternal closure w jonatan Greer. Nutrition per DHT. IV access per LUE PICC. Acute IA, severe 3VD, post-infarction angina/IABP - s/p urgent CABGx5 compl by bleeding into rt chest requiring take-back. IABP support x 24h. Low dose pressor support x 72h. Tubes and wires out. Secondary prevention with baby ASA, BB as allowed by BP and statin when eating well. ICM with systolic (EF 30%) and diastolic dysfunction (EDP 25) and class IV heart failure - No sig fluid overload. Diuresing well on bolus lasix. Staggered intro of heart failure regimen as appropriate. Torrential TR - Post CPB. Amenable to annuloplasty. Antithrombotic prophylaxis with Eliquis x 3 months. 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 Surveillance per cardiology. Postoperative respiratory failure - Ventilator dependent. FIO2 35-40%. Persistent high minute ventilation limiting CPAP trials. Probable trach/PEG if unable to extubate soon. No overt PNA per BAL sputum. Nebs, mucolytics, steroids as per Pulm. Acute expected blood loss anemia with coagulopathy - Requiring massive transfusion and take back for expl bleeding. No active bleeding seen. No further transfusions since 12/4. H/H > 9/30 maintained. Postoperative MAGUI with electrolyte imbalance - Peak Cr of 2 on POD#2. Assoc w persistent hypernatremia (150 range). Likely prerenal while coagulopathic and actively bleeding. Care w fluid management. Liberalized BP for now. Urology to assess bello drainage for inc hematuria w clots. Post-op AF/Flutter - Variable ventricular rates. Started on Amio. Adjunctive BB stopped d/t BP lability. Successful DC CVSN per cards yest. Amio no longer felt to be indicated. [id number] score of 6. Antithrombotic prophylaxis as per TVA. DM2 - Suboptimal control by preop A1c of 8.4%. Postop hyperglycemia managed with insulin gtt, transitioning to basal insulin per ICU. Plan: Stop amio. Cont Eliquis 5 mg BID. Vent wean/?trach timing per pulm. 06/01/16 08:27 Subjective: Awake, alert, responsive, on vent. Objective: Vital Signs Temp Pulse Resp BP Pulse Ox 36.0 C 75 25 H 123/39 H 98 06/01/16 06:00 06/01/16 08:08 06/01/16 06:00 06/01/16 06:00 06/01/16 08:08 Laboratory Results 05/30/16 04:30 06/01/16 05:08 05/31/16 06/01/16 06/02/16 05:59 05:59 05:59 Intake Total 2234 2182 Output Total 2225 820 Balance 9 1362 PT 19.0 SEC (12.0-15.0) H 05/28/16 04:18 INR 1.59 (0.83-1.16) H 05/28/16 04:18 Successful cardioversion of Aflutter yest. Rare short runs since, generally maintaining HRs 60s-70s. Vent FIO2 35-40%. Tires on CPAP. Os>Is w TFs and inc flushes. Na and renal fx yet to respond. CXR-> bibasilar atelectasis, mild pulm vasc congestion Physical Exam - Physical Exam General Appearance: alert, no apparent distress Respiratory: other (vent) Cardiac/Chest: regular rate, rhythm, other (Sternum grossly stable. Sternotomy and LLE venotomy CDI. Sternal jonatan intact.) Abdomen: soft Skin: warm/dry Extremities: swelling (1+ gen) ICD10 Worksheet Patient Problems: Problems Problem Status Diagnosed Acute blood loss anemia Acute CAD, multiple vessel Acute Chest pain Acute Chronic Disease Mgmt/Transitional Care Acute Fall Acute Intracranial hemorrhage Acute Ischemic cardiomyopathy Acute Mitral insufficiency Acute Postoperative atrial fibrillation Acute S/P CABG x 5 Acute 05/23/16 S/P tricuspid valve repair Acute 05/23/16 Scalp laceration Acute Severe tricuspid regurgitation Acute Obesity (BMI 30-39.9) Chronic
--- NOTE | 2016-06-01 09:13 | PDINTPN ---
Mingler Operator Progress Note Assessment/Plan: Assessment: #CABG X 5 and TV annuloplasty , bleeding Friday and back to surgery with 1L of blood in the right chest but no active bleeding source found. Off pressors. CVP is 8. #Respiratory Failure on vent at 35% FI02. Re-intubated 05/26. Tolerating CPAP trials, but minute ventilation is still a bit high. #ROSEANNA #Obesity and very deconditioned, no walking at all before his surgery #DM: Blood sugars better but still elevated on change from IV to sq insulin. Was on Metformin as outpatient, initially held, now restarted #HTN at home #Hyperlipidemia #Remote TBI after a fall with punctate ICB #New atrial flutter on amiodarone. Cardioverted and in NSR. MAGUI: Cr slightly up, Na down slightly but still high, UO down and having hematuria, I>O. Plan: Continue amiodarone gtt. Continue free H2O via Dobhoff Will increase metformin and Lantus, follow renal fx. Recheck BMP this afternoon, consider lasix. consider extubation today or tomorrow if he continues to do well on CPAP. 40 minutes CC time. 06/01/16 09:19 Subjective: Intubated, a bit dyspneic on vent. Objective: Vital Signs Temp Pulse Resp BP Pulse Ox 36.0 C 75 25 H 123/39 H 98 06/01/16 06:00 06/01/16 08:08 06/01/16 06:00 06/01/16 06:00 06/01/16 08:08 Laboratory Results 05/30/16 04:30 06/01/16 05:08 05/31/16 06/01/16 06/02/16 05:59 05:59 05:59 Intake Total 2234 2182 Output Total 2225 820 Balance 9 1362 PT 19.0 SEC (12.0-15.0) H 05/28/16 04:18 INR 1.59 (0.83-1.16) H 05/28/16 04:18 CXR: Stable. Images reviewed Physical Exam - Physical Exam General Appearance: alert, no apparent distress EENT: normal ENT inspection Neck: normal inspection Respiratory: lungs clear, normal breath sounds Cardiac/Chest: regular rate, rhythm, No edema Abdomen: normal bowel sounds, non-tender Skin: normal color, warm/dry Extremities: normal inspection Neuro/Psych: alert, normal mood/affect, No motor weakness ICD10 Worksheet Patient Problems: Problems Problem Status Diagnosed Acute blood loss anemia Acute CAD, multiple vessel Acute Chest pain Acute Chronic Disease Mgmt/Transitional Care Acute Fall Acute Intracranial hemorrhage Acute Ischemic cardiomyopathy Acute Mitral insufficiency Acute Postoperative atrial fibrillation Acute S/P CABG x 5 Acute 05/23/16 S/P tricuspid valve repair Acute 05/23/16 Scalp laceration Acute Severe tricuspid regurgitation Acute Obesity (BMI 30-39.9) Chronic
[2016-06-01] MEDS ORDERED: INSULIN GLARGINE 100 UNITS/ML SYRINGE SC SCH ×2 (09:19)
[2016-06-01] MEDS: ASPIRIN 81 MG CHEWABLE TAB TUBE SCH (09:49)
[2016-06-01] MEDS: APIXABAN 5 MG TAB TUBE SCH ×2 (09:49→22:23)
[2016-06-01] MEDS: predniSONE 1 MG TAB TUBE SCH (09:50)
[2016-06-01] MEDS: SENNOSIDES 17.6 MG/10 ML UDL TUBE SCH ×2 (09:50→22:23)
[2016-06-01] MEDS: ALBUMIN 25% 100 ML IV SCH ×3 (09:53→22:44)
[2016-06-01] MEDS: LANSOPRAZOLE SUSP 30MG/10ML UDSYR (Adult) TUBE SCH (10:11)
--- NOTE | 2016-06-01 11:31 | PDCARPN ---
Cardiology Progress Note Assessment/Plan: 1. Acute OH, status post CABG x5. Systolic heart failure, left ventricular ejection fraction 30%. 2. Torrential tricuspid regurgitation status post repair of tricuspid valve 3. Atrial fibrillation and atrial flutter post surgery, currently in sinus rhythm 4. Difficult extubation, currently on ventilator, management per Dr. Conti. 5. Renal insufficiency 6. Obesity and deconditioning 7. HTN 8. HLD 9. DM - [id number] Score is 6, on apixaban - currently maintaining sinus rhythm, short episodes of atrial flutter. Will stop amiodarone, if recurrent, will need short-term amiodarone for 1 month - Will start low dose Coreg, up titrate as necessary and tolerated for rate control. Coreg will also help with rate control with atrial arrhythmias. Holding off on Shashank inhibitors at this time because of renal insufficiency. 06/01/16 11:37 Subjective: intubated, awake and alert, communicating with hand gestures. Denies any new complaints. Reviewed/Discussed With: other (CT surgery PA ) Time Spent With Patient: 15 minutes Objective: Vital Signs (8 Hrs) Temp Pulse Resp BP Pulse Ox 06/01/16 08:08 75 98 06/01/16 06:00 36.0 C 73 25 H 123/39 H 99 06/01/16 04:00 36.6 C 68 22 H 106/37 L 94 Intake/Output (24 Hrs) 05/30/16 05/31/16 06/01/16 11:59 11:59 11:59 Intake Total 2944 2234 2182 Output Total 4330 1725 670 Balance -7045 881 8197 Intake: IV Intake (ml) 134 63 Tube Feeding (ml) 2444 1599 1268 Tube Flush (ml) 500 501 851 Output: Urine (ml) 4330 1725 670 Catheter 4330 1725 670 Other: Weight 125.1 kg 123 kg 123 kg Output Comment Catheter Urine has been leaking around bello Bladder Scan Volume (ml) Catheter 370 Result Diagrams: 05/30/16 04:30 06/01/16 05:08 Telemetry: Predominantly sinus rhythm, short episodes of atrial tachycardia/atrial flutter ICD10 Worksheet Patient Problems: Problems Problem Status Diagnosed Acute blood loss anemia Acute CAD, multiple vessel Acute Chest pain Acute Chronic Disease Mgmt/Transitional Care Acute Fall Acute Intracranial hemorrhage Acute Ischemic cardiomyopathy Acute Mitral insufficiency Acute Postoperative atrial fibrillation Acute S/P CABG x 5 Acute 05/23/16 S/P tricuspid valve repair Acute 05/23/16 Scalp laceration Acute Severe tricuspid regurgitation Acute Obesity (BMI 30-39.9) Chronic
--- NOTE | 2016-06-01 12:25 | SOAPPROG ---
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 Reviewed in office cysto pictures prior to the hospital visit today Objective: Vital Signs Temp Pulse Resp BP Pulse Ox 36.0 C 82 30 H 123/39 H 96 06/01/16 06:00 06/01/16 11:35 06/01/16 11:35 06/01/16 06:00 06/01/16 11:35 Laboratory Results 05/30/16 04:30 06/01/16 05:08 05/31/16 06/01/16 06/02/16 05:59 05:59 05:59 Intake Total 2234 2182 Output Total 2225 820 Balance 9 1362 PT 19.0 SEC (12.0-15.0) H 05/28/16 04:18 INR 1.59 (0.83-1.16) H 05/28/16 04:18 Physical Exam - Physical Exam General Appearance: WD/WN, other (intubated sitting in chair) Neck: supple Respiratory: other (intubated) Abdomen: soft Rectal: other (catheter in place) Back: No CVA tenderness Skin: warm/dry Neuro/Psych: oriented x 3 ICD10 Worksheet Patient Problems: Problems Problem Status Diagnosed Acute blood loss anemia Acute Adenocarcinoma of prostate Acute CAD, multiple vessel Acute Chest pain Acute Chronic Disease Mgmt/Transitional Care Acute Fall Acute 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
[2016-06-01 13:32] LABS: POTASSIUM 4.2 mEq/L (3.5-5.2)
[2016-06-01] MEDS: CARVEDILOL 3.125 MG TAB PO SCH ×2 (14:00→20:25)
[2016-06-01] MEDS ORDERED: CARVEDILOL 3.125 MG TAB ONE (14:22)
[2016-06-01 14:35] LABS: ANION GAP 22 mEq/L (8-20); CALCIUM 8.6 mg/dL (8.5-10.4); CARBON DIOXIDE 27 mEq/l (22-31); CHLORIDE 108 mEq/L (97-110); CREATININE 2.2 mg/dL (0.7-1.3); GLOMERULAR FILTRATION RATE 29; GLUCOSE 181 mg/dL (70-100); POTASSIUM 4.2 mEq/L (3.5-5.2); SODIUM 153 mEq/L (134-144)
--- NOTE | 2016-06-01 15:05 | GCON ---
[f rep st] CONSULTATION DATE OF CONSULTATION: 06/01/2016 HISTORY OF PRESENT ILLNESS: This is a gentleman who has undergone cardiovascular surgery and postope ratively, in an anticoagulated state, has had gross hematuria requiring catheterization and inability to irrigate his catheter and provided large urinary retention, and they have asked me to see him. I have reviewed his office charts, and it shows that he has had radiation for prostate cancer and has irradiation cystitis with large hemorrhagic vessels as probably the source of his bleeding related to catheter trauma, irradiation cystitis, and anticoagulation. I have reviewed his cardiac history, an d present review of systems have all been reviewed. PHYSICAL EXAM: GENERAL: He is sitting in a chair, intubated. ABDOMEN: Normal with obesity and lulú e suprapubic tenderness. Catheter 3-way is in place with the irrigating port being capped with a Too olive syringe and the drainage port having a catheter bag. With manipulation of the catheter and irrig ating, I could eventually get the catheter draining. The bladder drained and so postvoid residual wa s 50 mL. I have discussed the findings with them. So, he has had catheter irrigation of clots to evacuate tho se clots, as well as the recommendation to continue catheter drainage and if need be irrigate p.r.n. to empty the clots. I do not feel that he is a candidate at the present time for cystoscopy and fulg uration of any sites in the bladder because of his postop cardiac surgery, anticoagulated state, and irradiation cystitis. /[id number]/MODL
[2016-06-01] MEDS ORDERED: ALBUMIN 5% 500 ML BOTTLE IV ONE (17:54)
[2016-06-01] MEDS ORDERED: ALBUMIN 5% 500 ML IV ONE (18:00)
[2016-06-01] MEDS: metFORMIN HCL 500 MG TAB PO SCH ×2 (18:38→20:24)
[2016-06-01] MEDS ORDERED: DOPamine/DEXTROSE/250 ML BAG IV ONE (19:30)
[2016-06-01] MEDS: ALTEPLASE 2 MG VIAL IVP PRN (19:47)
[2016-06-01] MEDS ORDERED: FUROSEMIDE 40 MG/4 ML VIAL IVP ONE (20:00)
[2016-06-01] MEDS: INSULIN GLARGINE 100 UNITS/ML SYRINGE SC SCH (20:25)
[2016-06-01] MEDS: AMIODARONE HCL 200 MG TAB TUBE SCH (20:25)
[2016-06-02] MEDS: ALBUMIN 25% 100 ML IV SCH ×3 (00:27→14:54)
[2016-06-02] MEDS: ALBUTEROL 60 PUFFS/8 GM MDI IH SCH ×3 (01:19→08:08)
[2016-06-02] MEDS: INSULIN REGULAR HUMAN 100 UNIT/ML SC SCH ×6 (02:08→21:41)
[2016-06-02 05:06] LABS: BASE EXCESS 3.1 mEq/L (-2.5-2.5); BICARBONATE 27 mEq/L (22-26); MEASURED OXYGEN SATURATION 91 % (92-95); PCO2 42 mmHg (34-38); PO2 62 mmHg (65-75); TCO2 29 mEq/L (23-27)
[2016-06-02] MEDS: fentaNYL 100 MCG/2 ML INJ IVP PRN ×2 (05:09→10:44)
[2016-06-02 05:15] LABS: ASSIST CONTROL YES; END TIDAL CO2 38; O2 CONCENTRATIION 40 % (0-100); P/F RATIO 155 RATIO; TOTAL RATE 18
[2016-06-02 05:38] LABS: HEMATOCRIT 25.1 % (40.0-51.0); MEAN CELL HEMOGLOBIN 30.1 pg (27.9-34.1); MEAN CELL HEMOGLOBIN CONCENTR. 31.9 g/dL (32.4-36.7); MEAN CELL VOLUME 94.4 fL (81.5-99.8); RED BLOOD CELL COUNT 2.66 10^6/uL (4.40-6.38); RED CELL DISTRIBUTION WIDTH 15.6 % (11.5-15.2)
[2016-06-02 05:48] LABS: ALBUMIN 2.8 g/dL (3.5-5.0); ANION GAP 15 mEq/L (8-20); CALCIUM 8.7 mg/dL (8.5-10.4); CARBON DIOXIDE 29 mEq/l (22-31); CHLORIDE 110 mEq/L (97-110); CREATININE 2.4 mg/dL (0.7-1.3); GLOMERULAR FILTRATION RATE 26; GLUCOSE 160 mg/dL (70-100); POTASSIUM 4.2 mEq/L (3.5-5.2); SODIUM 150 mEq/L (134-144)
[2016-06-02] MEDS: metFORMIN HCL 500 MG TAB PO SCH (07:32)
--- NOTE | 2016-06-02 08:22 | PDCARPN ---
Cardiology Progress Note Assessment/Plan: 1. Acute OR, status post CABG x5. Systolic heart failure, left ventricular ejection fraction 30%. 2. Torrential tricuspid regurgitation status post repair of tricuspid valve 3. Atrial fibrillation and atrial flutter post surgery, currently in sinus rhythm 4. Difficult extubation, currently on ventilator, management per Dr. Conti. 5. Renal insufficiency 6. Obesity and deconditioning 7. HTN 8. HLD 9. DM 10. Hematuria - [id number] Score is 6, on apixaban (Eliquis). Pt age >80, Cr >1.5, will reduce Eliquis to 2.5 mg BID - currently maintaining sinus rhythm, sp cardioversion. Did not tolerate low dose Coreg. - events over last 24 h noted, developed hematuria and hypotension. - will sign off, please call us if needed. 06/02/16 08:21 Reviewed/Discussed With: other (Dr. Johnson) Objective: Vital Signs (8 Hrs) Temp Pulse Resp BP Pulse Ox 06/02/16 08:12 63 22 H 98 06/02/16 08:00 37.7 C 62 20 117/49 L 99 06/02/16 07:00 36.4 C 65 17 115/51 L 99 06/02/16 06:00 74 20 104/43 L 96 06/02/16 05:00 71 20 111/38 L 96 06/02/16 04:00 36.4 C 60 18 103/49 L 95 06/02/16 03:00 71 20 113/40 L 95 06/02/16 02:00 36.4 C 72 18 105/38 L 94 06/02/16 01:00 73 20 102/46 L 95 Intake/Output (24 Hrs) 05/31/16 06/01/16 06/02/16 11:59 11:59 11:59 Intake Total 2234 2182 4901 Output Total 8204 877 0874 Balance 509 1512 1136 Intake: IV Intake (ml) 134 63 IV Infused (ml) 1285 Albumin 5% 250 ml @ As 250 Directed IV PRN PRN Rx#: [id number] Albumin 25% 100 ml @ As 400 Directed IV Q6HRS [facility] Rx# :[id number] Albumin 5% 500 ml @ As 500 Directed IV ONCE ONE Rx#: [id number] DOPamine/DEXTROSE 250 ml 135 @ Titrate IV CONT [facility] Rx# :[id number] Tube Feeding (ml) 1590 1268 1716 Tube Flush (ml) 937 653 2251 Packed Red Blood Cells ( 350 ml) Output: Urine (ml) 8317 633 6378 Catheter 3241 099 5034 Other: Weight 123 kg 123 kg 124.6 kg Output Comment Catheter Urine has been leaking around bello Bladder Scan Volume (ml) Catheter 370 Result Diagrams: 06/02/16 05:05 06/02/16 05:05 ICD10 Worksheet Patient Problems: Problems Problem Status Diagnosed Acute blood loss anemia Acute Adenocarcinoma of prostate Acute CAD, multiple vessel Acute Chest pain Acute Chronic Disease Mgmt/Transitional Care Acute Fall Acute 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
[2016-06-02] MEDS: predniSONE 1 MG TAB TUBE SCH (08:23)
[2016-06-02] MEDS: ASPIRIN 81 MG CHEWABLE TAB TUBE SCH (08:23)
[2016-06-02] MEDS: LANSOPRAZOLE SUSP 30MG/10ML UDSYR (Adult) TUBE SCH (08:36)
[2016-06-02] MEDS ORDERED: APIXABAN 2.5 MG TAB TUBE SCH (09:00)
--- NOTE | 2016-06-02 09:05 | PDINTPN ---
Concrete Float Maker Progress Note Assessment/Plan: Assessment: #CABG X 5 and TV annuloplasty , bleeding Friday and back to surgery with 1L of blood in the right chest but no active bleeding source found. Off pressors. CVP is 8. #Respiratory Failure on vent at 35% FI02. Re-intubated 05/26. Tolerating CPAP trials, minute ventilation a bit high but improved. #ROSEANNA #Obesity and very deconditioned, no walking at all before his surgery #DM: Blood sugars better but still elevated on change from IV to sq insulin. Was on Metformin as outpatient, initially held, now restarted, but Cr now increased. #HTN at home #Hyperlipidemia #Remote TBI after a fall with punctate ICB #New atrial flutter on amiodarone. Cardioverted and in NSR. MAGUI: Cr slightly up from a day ago, stable since then, Na down slightly with increased TF flushes, but still high, UO down and having hematuria, I>O. Anemia: Likely due to hematuria and hamstring ecchymoses. S/P PRBCx2 06/01 night. Eliquis dose just decreased. Nutrition: On TF. Residuals up today. Plan: Continue amiodarone gtt. Continue free H2O via Dobhoff Transfuse 1 more PRBC Will increase Lantus. Hold metformin due to GFR now <30. Follow renal fx. Will hold TF, follow residuals prior to extubation attempt. Consider extubation today or tomorrow if he continues to do well on CPAP. 40 minutes CC time. 06/02/16 09:22 06/02/16 09:24 Subjective: Intubated, alert. Denies pain. Objective: Vital Signs Temp Pulse Resp BP Pulse Ox 37.7 C 63 22 H 117/49 L 98 06/02/16 08:00 06/02/16 08:12 06/02/16 08:12 06/02/16 08:00 06/02/16 08:12 Laboratory Results 06/02/16 05:05 06/02/16 05:05 06/01/16 06/02/16 06/03/16 05:59 05:59 05:59 Intake Total 2182 4901 Output Total 820 3765 Balance 1362 1136 PT 19.0 SEC (12.0-15.0) H 12/06/16 04:18 INR 1.59 (0.83-1.16) H 05/28/16 04:18 Laboratory Tests 06/02/16 04:55 pCO2 42 H pO2 62 L Total CO2 29 H ABG pH 7.43 Respiration Rate 18 Assist Control YES Tidal Volume 600 Physical Exam - Physical Exam General Appearance: alert, no apparent distress EENT: normal ENT inspection Neck: normal inspection Respiratory: lungs clear, normal breath sounds Cardiac/Chest: regular rate, rhythm, edema Abdomen: normal bowel sounds, non-tender Skin: normal color, warm/dry Extremities: other (hamstring ecchymoses) Neuro/Psych: alert, normal mood/affect, oriented x 3 ICD10 Worksheet Patient Problems: Problems Problem Status Diagnosed Acute blood loss anemia Acute Adenocarcinoma of prostate Acute CAD, multiple vessel Acute Chest pain Acute Chronic Disease Mgmt/Transitional Care Acute Fall Acute 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
--- NOTE | 2016-06-02 09:32 | SOAPPROG ---
Addendum entered and electronically signed by Keyona Carrillo PA 12/ 10:22: Eliquis to be held while actively hematuric. Original Note: SOAP Progress Note Assessment/Plan: Assessment: POD#10 Urgent CABGx5 (Free FRANK-LAD, SVG-D1, sequential SVG-OM1-OM2 , SVG-PLC), TVA #32 MC3 ring, IABP 1:1. POD#9 Take back for expl, washout right CED. Sternal closure w jonatan Greer. Nutrition per DHT. IV access per E PICC. Acute AR, severe 3VD, post-infarction angina/IABP - s/p urgent CABGx5 compl by bleeding into rt chest requiring take-back. IABP support x 24h. Low dose pressor support x 72h. Tubes and wires out. Secondary prevention with baby ASA, BB as allowed by BP and statin when eating well. ICM with systolic (EF 30%) and diastolic dysfunction (EDP 25) and class IV heart failure - No sig fluid overload. Diuresing well on bolus lasix. Staggered intro of heart failure regimen as appropriate. Torrential TR - Post CPB. Amenable to annuloplasty. Antithrombotic prophylaxis with Eliquis x 3 months. 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 Surveillance per cardiology. Postoperative respiratory failure - Ventilator dependent. FIO2 35-40%. Improving tolerance of CPAP trials and pulm planning to extubate today. No overt PNA per BAL sputum. Nebs, mucolytics, steroids as per Pulm. Acute expected blood loss anemia with coagulopathy - Requiring massive transfusion and take back for expl bleeding. Stable H/H 12/4 thru yest when recurrent losses d/t issues. Postoperative MAGUI with electrolyte imbalance - Peak Cr of 2 on POD#2. Assoc w persistent hypernatremia (150 range). Likely prerenal while coagulopathic and actively bleeding. Care w fluid management. Liberalized BP for now. Post-op AF/Flutter - Variable ventricular rates. Started on Amio. Adjunctive BB stopped d/t BP lability. Successful DC CVSN per cards 12/. Amio no longer felt to be indicated. [id number] score of 6. Antithrombotic prophylaxis as per TVA. DM2 - Suboptimal control by preop A1c of 8.4%. Postop hyperglycemia managed with insulin gtt, transitioning to basal insulin per ICU. Hematuria - with clots and urinary retention. 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 Bladder decompression re- established with 3 way bello and irrigation. Transfused 1u PRBC. Cysto when further along into recovery. Plan: Transfuse PRBC x 1. Cont Eliquis 5 mg BID. Extubation per pulm. 06/02/16 09:27 Subjective: Awake and alert on the vent. Thumbs up to extubation plans. Objective: Vital Signs Temp Pulse Resp BP Pulse Ox 37.7 C 65 20 119/46 L 98 06/02/16 08:00 06/02/16 09:00 06/02/16 09:00 06/02/16 09:00 06/02/16 09:00 Laboratory Results 06/02/16 05:05 06/02/16 05:05 06/01/16 06/02/16 06/03/16 05:59 05:59 05:59 Intake Total 2182 4901 Output Total 820 3765 Balance 1362 1136 PT 19.0 SEC (12.0-15.0) H 05/28/16 04:18 INR 1.59 (0.83-1.16) H 05/28/16 04:18 Seen by urology yest. Bello clots cleared and urine flow re-established. Txd 1u PRBC. Holding SR. Improved tolerance of CPAP w decr resp rates. Renal fx yet to plateau. Post transfusion Hct marginal. Physical Exam - Physical Exam General Appearance: alert, no apparent distress Respiratory: lungs clear (vent) Cardiac/Chest: regular rate, rhythm, other (Sternum grossly stable. 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
[2016-06-02] MEDS: SENNOSIDES 17.6 MG/10 ML UDL TUBE SCH ×2 (10:31→21:27)
--- NOTE | 2016-06-02 11:01 | SOAPPROG ---
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 Plan: irrigated cath of clots and discussed issues with staff and family member 06/02/16 11:00 Subjective: post op Objective: Vital Signs Temp Pulse Resp BP Pulse Ox 37.7 C 66 14 119/46 L 93 06/02/16 08:00 06/02/16 10:00 06/02/16 10:00 06/02/16 10:00 06/02/16 10:00 Microbiology 05/31/16 12:00 - Final Sputum, Induced/Suctioned Sputum Culture - Final Laboratory Results 06/02/16 05:05 06/02/16 05:05 06/01/16 06/02/16 06/03/16 05:59 05:59 05:59 Intake Total 2182 4901 Output Total 820 3765 Balance 1362 1136 PT 19.0 SEC (12.0-15.0) H 05/28/16 04:18 INR 1.59 (0.83-1.16) H 05/28/16 04:18 Physical Exam - Physical Exam General Appearance: alert Abdomen: soft ICD10 Worksheet Patient Problems: Problems Problem Status Diagnosed Acute blood loss anemia Acute Adenocarcinoma of prostate Acute CAD, multiple vessel Acute Chest pain Acute Chronic Disease Mgmt/Transitional Care Acute Fall Acute 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
[2016-06-02] MEDS ORDERED: ALBUMIN 25% 100 ML SOLN IV ONE (14:52)
[2016-06-02] MEDS: ALBUTEROL 3 ML DEYVIAL IH SCH ×2 (16:03→22:02)
[2016-06-02 18:05] LABS: ANION GAP 18 mEq/L (8-20); CALCIUM 8.7 mg/dL (8.5-10.4); CARBON DIOXIDE 28 mEq/l (22-31); CHLORIDE 108 mEq/L (97-110); CREATININE 2.5 mg/dL (0.7-1.3); GLOMERULAR FILTRATION RATE 25; GLUCOSE 131 mg/dL (70-100); SODIUM 150 mEq/L (134-144)
[2016-06-02 20:32] LABS: IONIZED CALCIUM 1.21 MMOL/L (1.12-1.30)
[2016-06-02 20:33] LABS: HEMATOCRIT 30.4 % (40.0-51.0)
[2016-06-02 20:45] LABS: ALBUMIN 3.1 g/dL (3.5-5.0); ANION GAP 16 mEq/L (8-20); CALCIUM 8.7 mg/dL (8.5-10.4); CARBON DIOXIDE 28 mEq/l (22-31); CHLORIDE 108 mEq/L (97-110); CREATININE 2.5 mg/dL (0.7-1.3); GLOMERULAR FILTRATION RATE 25; GLUCOSE 132 mg/dL (70-100); MAGNESIUM 2.5 mg/dL (1.6-2.3); SODIUM 148 mEq/L (134-144)
[2016-06-02] MEDS: ONDANSETRON 4 MG/2 ML VIAL IVP PRN (21:26)
[2016-06-02] MEDS: ACETAMINOPHEN 325 MG TAB TUBE PRN (21:27)
[2016-06-02] MEDS: INSULIN GLARGINE 100 UNITS/ML SYRINGE SC SCH (21:28)
[2016-06-02] MEDS ORDERED: PEPPERMINT OIL MISC ONE (21:30)
[2016-06-02] MEDS ORDERED: LIDOCAINE 2% JELLY 20 ML (UROJECT) ONE (22:07)
[2016-06-02] MEDS ORDERED: FUROSEMIDE 40 MG/4 ML VIAL ONE (22:45)
[2016-06-02] MEDS ORDERED: SUCCINYLCHOLINE CHLORIDE*ANESTHESIA ONLY*200 MG/10 ML SYR IVP ONE (23:33)
[2016-06-02] MEDS ORDERED: ETOMIDATE 40 MG/20 ML INJ ONE (23:33)
--- NOTE | 2016-06-03 00:04 | DX ---
Portable Chest at 2333 hours History: Recent open heart surgery, new respiratory distress. Comparison: Portable chest June 01, 2016 at 0617 hours. Findings: Endotracheal tube tip is 5.2 cm above the papito in good position. Left PICC is last visib le at the cavoatrial junction. Feeding tube tip extends off the inferior margin of the study. There i s slight increase in hazy bibasilar opacities, right greater than left, suggesting increasing effusio ns and atelectasis. Enlarged cardiomediastinal silhouette is stable. The bones are stable. Artificial valve and sternotomy wires are noted. Impression: Increasing basilar opacities suggesting increased effusions and atelectasis.
[2016-06-03] MEDS ORDERED: D5W 1/2 NS 1,000 ML IV ONE (00:10)
--- NOTE | 2016-06-03 02:22 | EDPHY ---
Inpatient Procedure Narrative: INTUBATION Procedure: Rapid sequence intubation. Indication for the procedure was hypoxia and respiratory distress. The patient was preoxygenated with 100% oxygen by face mask. The patient was given the following IV medications: Etomidate, succinylcholine, . The patient was orally endotracheally intubated using the glide scope with a 7.5 ETT. Tracheal intubation was confirmed with misting on the tube; breath sounds were auscultated equally bilaterally; appropriate color change with [place] Tidal CO2 detector. Chest X-ray shows ETT in good position. The procedure was performed by myself.
[2016-06-03] MEDS: INSULIN REGULAR HUMAN 100 UNIT/ML SC SCH ×6 (03:12→22:52)
[2016-06-03 04:50] LABS: BASE EXCESS 0.2 mEq/L (-2.5-2.5); BICARBONATE 24 mEq/L (22-26); MEASURED OXYGEN SATURATION 92 % (92-95); PCO2 39 mmHg (34-38); PO2 63 mmHg (65-75); TCO2 25 mEq/L (23-27)
[2016-06-03 04:53] LABS: ASSIST CONTROL YES; O2 CONCENTRATIION 50 % (0-100); P/F RATIO 126 RATIO; TOTAL RATE 18
[2016-06-03] MEDS: ALBUTEROL 60 PUFFS/8 GM MDI IH SCH ×4 (04:56→19:48)
[2016-06-03] MEDS: ALBUTEROL 3 ML DEYVIAL IH SCH (05:13)
[2016-06-03 05:53] LABS: HEMATOCRIT 26.6 % (40.0-51.0); HEMOGLOBIN 8.9 g/dL (13.7-17.5); MEAN CELL HEMOGLOBIN 31.1 pg (27.9-34.1); MEAN CELL HEMOGLOBIN CONCENTR. 33.5 g/dL (32.4-36.7); RED BLOOD CELL COUNT 2.86 10^6/uL (4.40-6.38); RED CELL DISTRIBUTION WIDTH 15.7 % (11.5-15.2)
[2016-06-03 06:15] LABS: ALANINE AMINOTRANSFERASE 40 IU/L (21-72); ALBUMIN 2.8 g/dL (3.5-5.0); ALKALINE PHOSPHATASE 227 IU/L (38-126); ANION GAP 15 mEq/L (8-20); ASPARTATE AMINOTRANSFERASE 29 IU/L (17-59); BILIRUBIN,TOTAL 1.9 mg/dL (0.1-1.4); CARBON DIOXIDE 27 mEq/l (22-31); CHLORIDE 110 mEq/L (97-110); CREATININE 2.8 mg/dL (0.7-1.3); GLOMERULAR FILTRATION RATE 22; GLUCOSE 190 mg/dL (70-100); POTASSIUM 4.2 mEq/L (3.5-5.2); SODIUM 148 mEq/L (134-144); TOTAL PROTEIN 4.9 g/dL (6.3-8.2)
--- NOTE | 2016-06-03 07:47 | SOAPPROG ---
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 irrigated and draining well with maintainence Plan: continues to have catheter and associated hematuria and discussed issues with staff and family member 06/03/16 07:46 Subjective: doing ok, pain minimal on ventilator Objective: Vital Signs Temp Pulse Resp BP Pulse Ox 36.8 C 74 24 H 139/39 H 96 06/03/16 04:00 06/03/16 06:00 06/03/16 06:00 06/03/16 06:00 06/03/16 06:00 Microbiology 05/31/16 12:00 - Final Sputum, Induced/Suctioned Sputum Culture - Final Laboratory Results 06/03/16 05:30 06/03/16 05:30 06/02/16 06/03/16 06/04/16 05:59 05:59 05:59 Intake Total 4901 2388 Output Total 3765 1740 Balance 1136 648 PT 19.0 SEC (12.0-15.0) H 05/28/16 04:18 INR 1.59 (0.83-1.16) H 05/28/16 04:18 Physical Exam - Physical Exam General Appearance: alert Respiratory: other (on vent) Abdomen: soft Male Genitalia: normal genitalia (catheter irrigated well with maintainence) Back: No CVA tenderness Extremities: No calf tenderness Neuro/Psych: alert (responds appropriately to questions) ICD10 Worksheet Patient Problems: Problems Problem Status Diagnosed Acute blood loss anemia Acute Adenocarcinoma of prostate Acute CAD, multiple vessel Acute Chest pain Acute Chronic Disease Mgmt/Transitional Care Acute Fall Acute 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
--- NOTE | 2016-06-03 07:56 | DX ---
Portable Chest, 6:04 a.m. Clinical Indications: Followup pneumonia Comparison: June 02, 2016 Findings: Considering satellite communications operator radiographic technique there is little if any change in pneumonia and bilateral pleural effusions. ET tube and feeding tube remain in place. EKG leads and a left arm PICC line again overlie the chest. Midline sternotomy sutures and a single sternotomy wire remain in place . CABG clips and a valve replacement ring also remain overlying the enlarged heart. Impression: Little if any change.
--- NOTE | 2016-06-03 08:34 | SOAPPROG ---
SOAP Progress Note Assessment/Plan: POD#11: 1. CABGx5 (Free FRANK-LAD, SVG-D1, Sequential SVG-OM1-OM2, SVG-PL) 2. TV repair with #32 Murguia annuloplasty 3. EVH LLE POD#10: 1. Exploration and washout of chest, closure 1. Acute [place], severe 3VD, post-infarction angina s/p urgent CABGx5 - Continue dopamine 3 mcg/kg/min for inotropic support 2. Torrential TVR discovered intra-operatively s/p repair with #32 Murguia annuloplasty and subsequent trace TVR - Eliquis for AC (on hold due to hematuria) 3. Ventilator dependent respiratory failure - Reintubated / (third time) - Plan for tracheostomy 4. Acute blood loss anemia with coagulopathy/hematuria - 1U PRBC this AM - Will continue to monitor 5. ARF - Cr rising likely secondary due to obstructive nephropathy - Continue FC with PRN clot irrigation 6. ICM with systolic (EF 30%) and diastolic dysfunction and class IV heart failure - Lasix/Fluids prn - Heart failure medications in future as tolerated 7. 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 Post-op AF/Flutter s/p CV - Eliquis 2.5 mg BID for AC 9. h/o DM with hyperglycemia - Management per manager of selection and assessment 10. 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 and trauma - FC/PRN irrigation as per urology - Hold AC - Possible future cystoscopy 06/03/16 11:46 Subjective: Pain well-controlled. Objective: Vital Signs Temp Pulse Resp BP Pulse Ox 36.6 C 76 29 H 136/54 H 96 06/03/16 08:00 06/03/16 08:15 06/03/16 08:15 06/03/16 08:00 06/03/16 08:15 Microbiology 05/31/16 12:00 - Final Sputum, Induced/Suctioned Sputum Culture - Final Laboratory Results 06/03/16 05:30 06/03/16 05:30 06/02/16 06/03/16 06/04/16 05:59 05:59 05:59 Intake Total 4901 2388 Output Total 4595 1740 Balance 1136 648 PT 19.0 SEC (12.0-15.0) H 05/28/16 04:18 INR 1.59 (0.83-1.16) H 05/28/16 04:18 Physical Exam - Physical Exam General Appearance: alert, no apparent distress EENT: No scleral icterus (R), No scleral icterus (L) Neck: normal inspection Respiratory: lungs clear, No respiratory distress, No crackles, No rhonchi, No wheezing Cardiac/Chest: regular rate, rhythm Abdomen: non-tender, soft, No distended Skin: normal color, warm/dry Extremities: normal range of motion Neuro/Psych: alert, other (Moves all extremities ) ICD10 Worksheet Patient Problems: Problems Problem Status Diagnosed Acute blood loss anemia Acute Adenocarcinoma of prostate Acute CAD, multiple vessel Acute Chest pain Acute Chronic Disease Mgmt/Transitional Care Acute Fall Acute 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
[2016-06-03] MEDS: LANSOPRAZOLE SUSP 30MG/10ML UDSYR (Adult) TUBE SCH (08:41)
[2016-06-03] MEDS: INSULIN GLARGINE 100 UNITS/ML SYRINGE SC SCH ×2 (08:41→20:37)
[2016-06-03] MEDS: SENNOSIDES 17.6 MG/10 ML UDL TUBE SCH ×2 (08:42→20:29)
[2016-06-03] MEDS: predniSONE 1 MG TAB TUBE SCH (08:42)
[2016-06-03] MEDS: ASPIRIN 81 MG CHEWABLE TAB TUBE SCH (08:42)
[2016-06-03] MEDS ORDERED: 1/2 NS 1,000 ML IV SCH (10:00)
[2016-06-03] MEDS: METOCLOPRAMIDE 10 MG/2 ML VIAL IVP SCH ×3 (10:09→20:39)
[2016-06-03 13:12] LABS: POTASSIUM 3.6 mEq/L (3.5-5.2)
[2016-06-03] MEDS ORDERED: *PHM DO NOT USE-METOCLOPRAMIDE 0.1 MG/ML IV NEWBORN SYR IV SCH (14:00)
[2016-06-03] MEDS: D50W 25 GM/50 ML SYR IVP PRN (14:18)
--- NOTE | 2016-06-03 14:24 | WOCRNPDOC ---
WOCRN Advanced Assessment Note - Skin Integrity Problem, Advanced Assess Sacrum Pressure Injury Dressing Type: [employer] Life Dressing Description: Clean/Dry, Intact Exudate Amount: Minimal Exudate Characteristic(s): Thick Integumentary Issue Intervention: Visualized Under Dressing Nena Wound Tissue: Erythema, Non-blanching Nena Wound Swelling: None Wound Bed Color: Brown, Yellow Wound Bed Constitution: Adhered Slough, Unstable Eschar Wound Edges: Attached Site Measurement - Head-to-Toe Length X Width X Depth (cm): [id number] Pressure Injury Stage: Unstageable Pressure Injury Present on Admit: No Skin Integrity Problem Comment: Deep Tissue injury with rapid evolution into an unstagable pressure injury. There are still dark areas that are deep tissue injury surrounding the slough. Offload sacrum at all times. Turn patient side to side. Heels should be in offloading boots at all times when in bed. Orders adjusted to initiate autolytic debridement of sacral necrosis. Will likely need sharp debridement in the future.
[2016-06-03] MEDS: POTASSIUM Cl (KCl) 50 ML IV PRN ×2 (14:26→14:27)
--- NOTE | 2016-06-03 15:02 | PDINTPN ---
[place] Progress Note Assessment/Plan: Assessment: #CABG X 5 and TV annuloplasty 05/30. #Respiratory Failure, on vent. Re-intubated last p.m.. For tracheostomy tomorrow morning #ROSEANNA -not an issue currently, for trach #Obesity and very deconditioned, no walking at all before his surgery #DM: Blood sugars better but still elevated at times. On insulin coverage. #Hx HTN, Hyperlipidemia #Remote TBI after a fall with punctate ICB #New atrial flutter on amiodarone. Cardioverted and in NSR. #MAGUI: Creatinine rising, 2.8 today. May have a component of ATN associated with surgery verses pre renal? #Anemia: Likely due to hematuria and hamstring ecchymoses. S/P PRBCx2 06/01 night. On Eliquis. No evidence of active bleeding #Nutrition: On TFs, but appears to have an ileus, hypoactive bowel sounds. Plan: Continue amiodarone gtt. Continue free H2O via [place] Continue insulin Will hold TFs for surgery tomorrow, start Reglan tomorrow Tracheostomy in the a.m.. Per Dr. Johnson 40 minutes of critical care time spent directly with the patient. Discussed with cardiovascular surgery, respiratory, family, the ICU multi disciplinary team. Subjective: Re-intubated last night. Sedated, on the ventilator. Objective: Vital Signs Temp Pulse Resp BP Pulse Ox 36.5 C 70 22 H 113/42 L 96 06/03/16 12:00 06/03/16 13:00 06/03/16 13:00 06/03/16 13:00 06/03/16 13:00 Microbiology 05/31/16 12:00 - Final Sputum, Induced/Suctioned Sputum Culture - Final Laboratory Results 06/03/16 05:30 06/03/16 12:45 06/02/16 06/03/16 06/04/16 05:59 05:59 05:59 Intake Total 4901 2388 Output Total 2065 1740 Balance 1136 648 PT 19.0 SEC (12.0-15.0) H 05/28/16 04:18 INR 1.59 (0.83-1.16) H 05/28/16 04:18 Laboratory Tests 06/03/16 06/03/16 06/03/16 04:40 05:30 09:56 pCO2 39 H pO2 63 L ABG pH 7.41 Set Respiration Rate 18 Assist Control YES Tidal Volume 600 PEEP 7 Sodium 148 H Potassium 4.2 Chloride 110 Carbon Dioxide 27 Anion Gap 15 BUN 100 H Creatinine 2.8 H Estimated GFR 22 Glucose 190 H POC Glucose 102 H Calcium 8.0 L Total Bilirubin 1.9 H AST 29 ALT 40 Albumin 2.8 L CXR: Pleural effusions and bibasilar atelectasis/infiltrates persist. About the same from 24 hours previously. ETT in good position. Other lines and tubes in good position. Physical Exam - Physical Exam General Appearance: other (Sedated, on ventilator, appears comfortable) EENT: PERRL/EOMI, ET tube, other (NG feeding tube in place) Neck: No normal inspection (Large neck, excessive tissues) Respiratory: lungs clear (Anteriorly), decreased breath sounds (At bases), other (Some purulent-looking secretions), No rhonchi Cardiac/Chest: regular rate, rhythm (Distant heart tones) Abdomen: distended, No normal bowel sounds (Decreased, few), No soft Male Genitalia: other Skin: warm/dry, pallor Extremities: pedal edema Neuro/Psych: no motor/sensory deficits (Difficult to assess, moves all extremities), cognition abnormalities (Can't assess) ICD10 Worksheet Patient Problems: Problems Problem Status Diagnosed Acute blood loss anemia Acute Adenocarcinoma of prostate Acute CAD, multiple vessel Acute Chest pain Acute Chronic Disease Mgmt/Transitional Care Acute Fall Acute 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
[2016-06-03 19:01] LABS: POTASSIUM 4.3 mEq/L (3.5-5.2)
[2016-06-04 00:12] LABS: GLUCOSE 88 mg/dL (70-100); POTASSIUM 3.7 mEq/L (3.5-5.2)
[2016-06-04] MEDS ORDERED: POTASSIUM Cl (KCl) 50 ML IV ONE (02:28)
[2016-06-04] MEDS: INSULIN REGULAR HUMAN 100 UNIT/ML SC SCH ×6 (03:08→23:27)
[2016-06-04] MEDS: ALBUTEROL 60 PUFFS/8 GM MDI IH SCH ×4 (04:05→22:12)
[2016-06-04 05:15] LABS: BASE EXCESS -5.3 mEq/L (-2.5-2.5); BICARBONATE 19 mEq/L (22-26); MEASURED OXYGEN SATURATION 89 % (92-95); PCO2 35 mmHg (34-38); PO2 61 mmHg (65-75); TCO2 20 mEq/L (23-27)
[2016-06-04 05:16] LABS: ASSIST CONTROL YES; END TIDAL CO2 30; O2 CONCENTRATIION 50 % (0-100); P/F RATIO 122 RATIO; TOTAL RATE 22
[2016-06-04 05:37] LABS: HEMATOCRIT 28.1 % (40.0-51.0); HEMOGLOBIN 9.3 g/dL (13.7-17.5); MEAN CELL HEMOGLOBIN CONCENTR. 33.1 g/dL (32.4-36.7); MEAN CELL VOLUME 93.7 fL (81.5-99.8)
[2016-06-04 05:39] LABS: ANION GAP 16 mEq/L (8-20); CALCIUM 6.7 mg/dL (8.5-10.4); CARBON DIOXIDE 20 mEq/l (22-31); CHLORIDE 111 mEq/L (97-110); CREATININE 2.9 mg/dL (0.7-1.3); GLOMERULAR FILTRATION RATE 21; GLUCOSE 95 mg/dL (70-100); POTASSIUM 4.5 mEq/L (3.5-5.2); SODIUM 142 mEq/L (134-144)
[2016-06-04] MEDS ORDERED: ceFAZolin 3 GM in D5W 100 ML IV ONE (06:00)
[2016-06-04] MEDS: METOCLOPRAMIDE 10 MG/2 ML VIAL IVP SCH ×2 (06:01→18:02)
--- NOTE | 2016-06-04 07:16 | SOAPPROG ---
SOAP Progress Note Assessment/Plan: POD#12: 1. CABGx5 (Free FRANK-LAD, SVG-D1, Sequential SVG-OM1-OM2, SVG-PL) 2. TV repair with #32 Murguia annuloplasty 3. EVH LLE POD#11: 1. Exploration and washout of chest, closure 1. Acute [place], severe 3VD, post-infarction angina s/p urgent CABGx5 - Continue dopamine 3 mcg/kg/min for inotropic support 2. Torrential TVR discovered intra-operatively s/p repair with #32 Murguia annuloplasty and subsequent trace TVR - Eliquis for AC (on hold due to hematuria) 3. Ventilator dependent respiratory failure - Tracheostomy today 4. Acute blood loss anemia with coagulopathy/hematuria - Adequate response to 1U PRBC yesterday 5. ARF - Cr rising likely secondary due to obstructive nephropathy - Continue FC with PRN clot irrigation 6. ICM with systolic (EF 30%) and diastolic dysfunction and class IV heart failure - Lasix/Fluids prn - Heart failure medications in future as tolerated 7. 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 Post-op AF/Flutter s/p CV - Eliquis 2.5 mg BID for AC (currently on hold secondary to hematuria) 9. h/o DM with hyperglycemia - Management per geoint analyst 10. 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 and trauma - FC/PRN irrigation as per urology - Hold AC - Possible future cystoscopy 06/03/16 11:46 06/04/16 07:14 Subjective: Comfortable Objective: Vital Signs Temp Pulse Resp BP Pulse Ox 36.5 C 80 21 H 122/45 H 96 06/03/16 16:00 06/04/16 06:00 06/04/16 06:00 06/04/16 06:00 06/04/16 06:00 Laboratory Results 06/04/16 05:00 06/04/16 05:00 06/03/16 06/04/16 06/05/16 05:59 05:59 05:59 Intake Total 2388 2376 Output Total 1740 1795 Balance 648 581 PT 19.0 SEC (12.0-15.0) H 05/28/16 04:18 INR 1.59 (0.83-1.16) H 05/28/16 04:18 Physical Exam - Physical Exam General Appearance: no apparent distress EENT: No scleral icterus (R), No scleral icterus (L) Neck: normal inspection Respiratory: lungs clear, No respiratory distress Cardiac/Chest: regular rate, rhythm Abdomen: non-tender, soft, No distended Skin: normal color, warm/dry Extremities: pedal edema (Trace edema B/L) Neuro/Psych: alert ICD10 Worksheet Patient Problems: Problems Problem Status Diagnosed Acute blood loss anemia Acute Adenocarcinoma of prostate Acute CAD, multiple vessel Acute Chest pain Acute Chronic Disease Mgmt/Transitional Care Acute Fall Acute 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
[2016-06-04] MEDS ORDERED: fentaNYL 100 MCG/2 ML INJ ONE (07:33)
[2016-06-04] MEDS ORDERED: ROCURONIUM 50 MG/5 ML VIAL ONE (07:39)
[2016-06-04] MEDS ORDERED: VASOPRESSIN 20 UNIT/ML VIAL ONE (07:44)
[2016-06-04] MEDS ORDERED: PROPOFOL/EMULSION 500 MG/50 ML BOTTLE IV ONE (08:00)
--- NOTE | 2016-06-04 09:25 | DX ---
Portable Chest, Single View June 04, 2016 6:27 a.m. Indication: Follow up pleural effusion. Comparison: June 03, 2016. Findings: The ET tube, feeding tube, left PICC, sternotomy wires, and anterior line of surgical clips are all unchanged. Cardiomegaly, mild widening of the mediastinum, cephalization of the pulmonary vasculature, bibasilar consolidation and pleural effusions are all unchanged. Impression: 1. Support devices in good position. 2. Mild CHF and bibasilar consolidation, likely atelectasis, are unchanged. 3. Small pleural effusions, unchanged.
[2016-06-04] MEDS: LANSOPRAZOLE SUSP 30MG/10ML UDSYR (Adult) TUBE SCH (10:09)
[2016-06-04] MEDS: INSULIN GLARGINE 100 UNITS/ML SYRINGE SC SCH ×2 (10:09→21:09)
[2016-06-04] MEDS: SENNOSIDES 17.6 MG/10 ML UDL TUBE SCH ×2 (10:09→21:09)
[2016-06-04] MEDS ORDERED: VANCOMYCIN 1.5 GM in D5W 250 ML IV SCH (10:30)
[2016-06-04] MEDS ORDERED: VANCOMYCIN 1.5 GM in D5W 250 ML IV ONE (10:30)
--- NOTE | 2016-06-04 10:57 | GOP ---
[f rep st] OPERATIVE REPORT DATE OF OPERATION: 06/04/2016 SURGEON: William Johnson DO LUMBER CUTTER: Keyona Carrillo, AUGUST ANESTHESIA: General. PREOPERATIVE DIAGNOSIS: Respiratory failure. POSTOPERATIVE DIAGNOSIS: Respiratory failure. PROCEDURE PERFORMED: Tracheostomy. FINDINGS: DESCRIPTION OF PROCEDURE: Under general anesthetic, the patient's neck was prepped and draped in russ rile classical manner. A transverse incision was placed at the base of the neck. Patient had a very morbidly obese habitus with very short bull neck. We excised down through the pretracheal fascia an d the platysma muscle with the Bovie with suture ligation of any venous bleeders. We then identified the thyroid isthmus, which was divided with the Bovie and oversewn. Because of the intrathoracic na ture of most of his tracheal rings, I grasped the cricoid and excised horizontally below it as the tr acheal cuff was decompressed and did a T incision going inferiorly through the 1st tracheal ring. Co pious secretions, which were malodorous, were removed. We then grasped each edge and placed a long 8 mm nonfenestrated tracheal catheter with a cuff with resumption of general anesthesia and oxygenatio n. No difficulties were encountered. The skin over the lateral edges was reapproximated with nylon sutures. The cuff was doubly secured in place with sutures for the first 48 hours. Patient was retu rned to ICU in stable condition. /[id number]/MODL
[2016-06-04] MEDS: predniSONE 1 MG TAB TUBE SCH (11:04)
[2016-06-04 11:32] LABS: POTASSIUM 5.1 mEq/L (3.5-5.2)
--- NOTE | 2016-06-04 12:26 | DX ---
Portable Supine Abdomen History: Ileus. Comparison: Portable chest June 04, 2016, abdomen May 27, 2016. Findings: Feeding tube tip is in the stomach. There is limited bowel gas. There is mild air distentio n of the cecum, which measures 8 cm. There is no free air. No definite renal or ureteral calcificatio ns are identified. Degenerative change is present in the spine. Atherosclerosis is present. Impression: 1. Limited bowel gas with mild distention of the cecum. 2. Feeding tube tip in the stomach.
--- NOTE | 2016-06-04 12:32 | US ---
Retroperitoneal Ultrasound (Bladder Only Per Request) Indications: Urinary retention. History of prostate cancer and radiation treatment 10 years ago. Comparison: CT abdomen and pelvis April 01, 2014. Findings: The urinary bladder is nearly completely filled with heterogeneous complex material with m ixed echogenicity numerous echogenic foci that may represent gas introduced by the obscured Vargas cat heter balloon. Soft tissue does not have internal blood flow on color Doppler imaging suggesting this all may represent a complex hematoma. The bladder volume is 614 mL. The estimated size of the comple x material within the urinary bladder is 12.5 x 10.4 x 9.0 cm. Ureteral jets could not be visualized. Limited imaging superior to the urinary bladder reveals loculated ascites. Impression: 1. Complex avascular soft tissue fills and distends the urinary bladder. Differential diagnosis inclu manish organized hematoma and less likely malignancy. 2. Limited visualization of complex ascites.
[2016-06-04] MEDS: PIPERACILLIN/TAZO 2.25 GM/DEX 50 ML IV SCH ×2 (12:35→18:02)
[2016-06-04] MEDS ORDERED: IOPAMIDOL (ISOVUE-300) 50 ML VIAL IV ONE ×2 (12:54→12:59)
[2016-06-04] MEDS: PANTOPRAZOLE SODIUM 40 MG in NS 100 ML IV SCH (13:09)
[2016-06-04] MEDS ORDERED: NOREPINEPHRINE BITARTRATE 16 MG in NS 250 ML IV SCH (13:30)
[2016-06-04] MEDS ORDERED: BISACODYL 10 MG SUPP PR ONE (13:55)
--- NOTE | 2016-06-04 14:09 | PDINTPN ---
Pull Worker Progress Note Assessment/Plan: Assessment: #CABG X 5 and TV annuloplasty 05/30. #Respiratory Failure, on vent. Status post tracheostomy #Pneumonia. Purulent secretions. Cultures negative so far, suspect anaerobic pneumonia, aspiration. To start broad-spectrum antibiotics adjusted for renal failure. #Hypotension. Blood pressure is on the low side. On dopamine. #ROSEANNA -not an issue currently, s/p trach #Obesity and very deconditioned, no walking at all before his surgery #DM: Blood sugars better but still elevated at times. On insulin coverage. #Hx HTN, Hyperlipidemia #Remote TBI after a fall with punctate ICB #New atrial flutter on amiodarone. Cardioverted and in NSR. #MAGUI: Creatinine rising, 2.9 today. Urology involved regarding possible bladder outlet obstruction, bleeding, obstructed Vargas, etc. May need surgery. #Anemia: Likely due to hematuria and hamstring ecchymoses. S/P PRBCx2. Eliquis on hold. No evidence of active bleeding other than the hematuria. #Nutrition: TFs on hold, has an ileus, very hypoactive bowel sounds. Plan: Continue vent support, supportive care. For possible bladder surgery. Per Urology. Follow chest x-ray, laboratory, blood gas. Continue dopamine, fluids. Consider renal consult tomorrow if BUN and creatinine continue to rise. 50 minutes of critical care time spent directly with the patient. Discussed with cardiovascular surgery, respiratory, family, the ICU multi disciplinary team. Subjective: Sedated, on the ventilator, status post tracheostomy, weekly arousable and responsive, doing okay. Objective: Vital Signs Temp Pulse Resp BP Pulse Ox 36.9 C 79 24 H 107/37 L 97 06/04/16 10:00 06/04/16 13:15 06/04/16 13:15 06/04/16 13:15 06/04/16 13:15 Laboratory Results 06/04/16 05:00 06/04/16 11:16 06/03/16 06/04/16 06/05/16 05:59 05:59 05:59 Intake Total 2388 2376 Output Total 1740 1795 Balance 648 581 PT 19.0 SEC (12.0-15.0) H 05/28/16 04:18 INR 1.59 (0.83-1.16) H 05/28/16 04:18 Laboratory Tests 06/04/16 06/04/16 05:00 05:10 pCO2 35 pO2 61 L ABG pH 7.36 O2 Concentration % 50 Set Respiration Rate 18 Assist Control YES Tidal Volume 600 End Tidal CO2 30 PEEP 8 Sodium 142 Potassium 4.5 Chloride 111 H Carbon Dioxide 20 L D BUN 87 H Creatinine 2.9 H Glucose 95 Calcium 6.7 L D CXR: Bilateral infiltrates, right greater than left, persist. Large heart. Lines and tubes in appropriate position. Physical Exam - Physical Exam General Appearance: no apparent distress, obese, other (On ventilator, a rales is and responds appropriately.) EENT: PERRL/EOMI, ET tube (Removed, tracheostomy in place now), other (NG in place) Neck: No normal inspection (Trach in place. No bleeding. Some purulent secretions in to) Respiratory: lungs clear (Anteriorly), decreased breath sounds (And excursions. Quiet at the bases), rhonchi (A few central rhonchi are present with inspiration/expiration.), No pleural rub Cardiac/Chest: regular rate, rhythm (Distant heart tones) Abdomen: non-tender, distended, No normal bowel sounds (Very quiet, perhaps a few bowel sounds occasionally. No gas, no BM. 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
--- NOTE | 2016-06-04 14:32 | CT ---
CT pelvis with contrast History: Blood clots in the bladder, abdominal pain, suspect bladder rupture. Technique: 400 mL diluted 10% Isovue-300 in sterile saline was injected via the Vargas catheter into the bladder and then CT imaging of the pelvis was performed. Findings: There is pneumoperitoneum in the anterior mid abdomen measuring 18 x 2.3 cm in axial dimen bekcy. Blood clot in the bladder surrounding the Vargas catheter measuring 12 x 9 x 8 cm with air-fluid level in the bladder. There is contrast extravasating from the bladder into the superior right side into the peritoneal cavity on image 100 series 3, consistent with bladder rupture. There is a large a mount of free fluid throughout the abdomen and pelvis. No bowel obstruction. Residual contrast scatte red within the colon from previous studies. Moderate atherosclerotic calcifications in the aorta and iliac arteries. No significant adenopathy. Partial visualization of the kidneys demonstrates a 7-mm c alyceal calculus in the left kidney. There is degenerative disk disease and facet arthropathy in the lower lumbar spine. Impression: 1. Blood clot in the bladder measuring 12 x 9 x 8 cm, although bladder mass cannot be entirely exclud ed. 2. Bladder leak/rupture along the anterior right superior margin with contrast extravasating into the anterior right side of the peritoneal cavity of the pelvis. 3. Large amount of fluid throughout the abdomen and pelvis, which may represent urine or ascites. 4. Atherosclerotic aortic and iliac arteries without aneurysm. 5. Nonobstructive left nephrolithiasis partially visualized. Findings and recommendations discussed with Dr. William Sands at 1420 hours today. Cosign: Dr. Lance Shipman.
[2016-06-04] MEDS ORDERED: HYDROGEN PEROXIDE 236 ML BOTTLE TP ONE (15:26)
--- NOTE | 2016-06-04 18:06 | SOAPPROG ---
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 reported bladder scan of 1000 ml and sonogram noted no volume in bladder other than clot. Irrigated bladder and no return, CAT cystogram noted air in bladder, air in peritoneum, fluid accumulation in peritoneal cavity and contrast from cystogram around loop of bowel. Plan: bladder perforation and plan for surgical repair and evacuation of clot from bladder. 06/04/16 18:03 Subjective: abdominal pain, on ventilator, reviewed I and O with nursing staff and OR nursing staff Objective: Vital Signs Temp Pulse Resp BP Pulse Ox 35.8 C L 82 25 H 94/43 L 96 06/04/16 17:30 06/04/16 17:30 06/04/16 17:30 06/04/16 17:30 06/04/16 17:00 Laboratory Results 06/04/16 05:00 06/04/16 11:16 06/03/16 06/04/16 06/05/16 05:59 05:59 05:59 Intake Total 2388 2376 Output Total 1740 1795 Balance 648 581 PT 19.0 SEC (12.0-15.0) H 05/28/16 04:18 INR 1.59 (0.83-1.16) H 05/28/16 04:18 Physical Exam - Physical Exam General Appearance: alert Neck: other (trach) Respiratory: other (on vent) Abdomen: distended (tympanitic), guarding, No rebound Male Genitalia: normal genitalia (cath in place, removed and replaced and small clot in eye of cath. 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
[2016-06-04 18:25] LABS: POTASSIUM 5.7 mEq/L (3.5-5.2)
[2016-06-04] MEDS ORDERED: fentaNYL 250 MCG/5 ML INJ ONE (18:46)
[2016-06-04] MEDS ORDERED: PHENYLEPHRINE HCL 100 MCG/ML SYR ONE (18:47)
[2016-06-04] MEDS ORDERED: epHEDrine SULFATE 10 MG/ML SYR ONE (18:48)
[2016-06-04] MEDS ORDERED: CEFAZOLIN 2 GM/DEXTROSE/100 ML BAG IV ONE (19:35)
--- NOTE | 2016-06-04 20:59 | POSTOPPROG ---
Post Op Note Date of Operation: 06/04/16 Surgeon: William Sands [employer] Supervisor: Edouard Anesthesiologist: Jarad Anesthesia: GET(General Endotracheal) Pre-op Diagnosis: bladder perforation, bladder clot, peritoneal urinary ascites related ruptu Post-op Diagnosis: same Indication: same Procedure: closure of bladder, evac clots , evacuate peritoneal urine and fluids Findings: as above--dictated Inf/Abcess present in the surg proc area at time of surgery?: No Complications: none Drains: Other (malecot SP cath and [address] way bello) Specimen(s): none
--- NOTE | 2016-06-04 21:49 | GOP ---
[f rep st] OPERATIVE REPORT DATE OF OPERATION: 06/04/2016 SURGEON: William Sands MD [employer]IES GRADER SURGEON: Alan Nunn MD ANESTHESIA: MD Jarad PREOPERATIVE DIAGNOSIS: Bladder perforation with peritoneal urinoma. POSTOPERATIVE DIAGNOSIS: Bladder perforation with peritoneal urinoma. PROCEDURE PERFORMED: Laparotomy with drainage of 5700 cc of intraperitoneal fluid and open cystotomy of the bladder, evacuation of blood clot from the bladder, placement of a Malecot suprapubic tube, and then closure of the cystotomy and fulguration of a single bladder varix that was bleeding after manipulation of bladder. FINDINGS: Bladder perforation on the right side of the bladder with intraabdominal peritoneal urinary ascites and organized large urinary bladder blood clot. SPECIMENS: Basically the fluid aspirated from his bladder and peritoneum, and evacuation of the clots.. I talked with the family, which I did preoperatively and talked with them postoperatively about the issues at hand, and then follow the patient for his postoperative course. DESCRIPTION OF PROCEDURE: Kateryna underwent general anesthesia after appropriate timeout. He had a midline abdominal incision carried through skin, linea alba, and just above the supraumbilical site. Placed a sump sucker in and then after draining the abdominal cavity of a lot of clear fluid, was able to open the incision up to the suprapubic site and drained out 5700 mL of fluid. At that point, I could easily identify the rupture of the bladder to the right dome area and then opened the top of the bladder so increased cystotomy size, and evacuated all the organized clot out of the bladder. Inspection of bladder had 1 single bleeding telangiectatic vessel at the base after manipulation of the remaining bladder at the base, and the base of the prostate and base of the bladder had extreme radiation changes. The dome of the bladder was quite mobile and thin. So, after evacuating the clots and confirming no bleeding sites in the bladder, placed a Malecot tube in the suprapubic site and brought that out through just above the pubic bone, and it was sewn in place with a 3-0 Vicryl and at the skin sewn in place with an 0 silk, and then the peritoneal space was closed. I elected not to drain that and then irrigated the abdominal cavity. Dr. Nunn performed abdominal exploration and felt that the patient had no significant cholelithiasis or liver abnormality. The colon had significant fecal constipation, and irrigated and made sure there were no bleeding sites or other pathology identified. There was no bowel injury and inspection of the bladder, irrigating it revealed that it was watertight. Then, at that point the linea alba was approximated with #1 PDS and appeared to be not ischemic and not under tension. It was well closed. The subcutaneous fat was hemostatic and then skin jonatan were placed to approximate the skin edges. Sterile dressing placed. Catheters were drained into a bag and irrigated well. A small amount of pinkish color to the fluid on irrigation. At the present time, will elect to keep both catheter draining the bladder and will attempt not to have any irrigation or continuous bladder irrigation in this patient postoperatively. CC: Edouard /[id number]/MODL MTDD
[2016-06-04] MEDS ORDERED: D50W 25 GM/50 ML SYR IVP ONE (22:00)
[2016-06-04 22:09] LABS: BASE EXCESS -13.1 mEq/L (-2.5-2.5); BICARBONATE 15 mEq/L (22-26); MEASURED OXYGEN SATURATION 89 % (92-95); PCO2 41 mmHg (34-38); PO2 64 mmHg (65-75); TCO2 16 mEq/L (23-27)
[2016-06-04 22:10] LABS: ASSIST CONTROL YES; P/F RATIO 91 RATIO
[2016-06-04 22:11] LABS: END TIDAL CO2 38; O2 CONCENTRATIION 70 % (0-100); TOTAL RATE 18
[2016-06-04] MEDS ORDERED: NA BICARBONATE 50 MEQ/50 ML VIAL ONE ×2 (22:16→22:24)
[2016-06-04] MEDS ORDERED: NALOXONE HCL 0.4 MG/ML INJ IVP ONE (22:17)
[2016-06-04] MEDS ORDERED: ALBUMIN 5% 500 ML IV ONE (22:17)
[2016-06-04] MEDS ORDERED: NA BICARBONATE 50 MEQ/50 ML VIAL IV ONE ×2 (22:17→23:45)
[2016-06-04] MEDS ORDERED: NALOXONE HCL 0.4 MG/ML INJ ONE (22:24)
[2016-06-04] MEDS ORDERED: ALBUMIN 5% 500 ML BOTTLE IV ONE (22:24)
[2016-06-04 23:25] LABS: BASE EXCESS -7.9 mEq/L (-2.5-2.5); BICARBONATE 18 mEq/L (22-26); MEASURED OXYGEN SATURATION 92 % (92-95); PCO2 41 mmHg (34-38); PO2 66 mmHg (65-75); TCO2 19 mEq/L (23-27)
[2016-06-04 23:28] LABS: O2 CONCENTRATIION 70 % (0-100); P/F RATIO 94 RATIO; PATIENT RATE 22; SIMV YES
[2016-06-04 23:29] LABS: PIP 30; PRESSURE SUPPORT 10
[2016-06-04] MEDS ORDERED: FUROSEMIDE 40 MG/4 ML VIAL IVP ONE (23:45)
[2016-06-04 23:49] LABS: ANION GAP 15 mEq/L (8-16); CALCIUM 7.5 mg/dL (8.5-10.4); CARBON DIOXIDE 19 mEq/l (22-31); CHLORIDE 112 mEq/L (97-110); CREATININE 3.7 mg/dL (0.7-1.3); GLOMERULAR FILTRATION RATE 16; GLUCOSE 83 mg/dL (70-100); POTASSIUM 4.9 mEq/L (3.5-5.2); SODIUM 146 mEq/L (134-144)
[2016-06-05] MEDS ORDERED: ALBUMIN 5% 250 ML IV ONE ×2 (00:02→00:15)
[2016-06-05] MEDS ORDERED: NA BICARBONATE 50 MEQ/50 ML VIAL IV ONE ×3 (00:30→05:30)
[2016-06-05] MEDS: METOCLOPRAMIDE 10 MG/2 ML VIAL IVP SCH ×4 (00:32→17:10)
[2016-06-05] MEDS: PIPERACILLIN/TAZO 2.25 GM/DEX 50 ML IV SCH ×4 (00:32→17:10)
[2016-06-05 01:21] LABS: BASE EXCESS -4.8 mEq/L (-2.5-2.5); BICARBONATE 20 mEq/L (22-26); HEMATOCRIT 30.5 % (40.0-51.0); HEMOGLOBIN 10.2 g/dL (13.7-17.5); MEASURED OXYGEN SATURATION 90 % (92-95); PCO2 41 mmHg (34-38); PO2 60 mmHg (65-75); TCO2 22 mEq/L (23-27)
[2016-06-05 01:23] LABS: O2 CONCENTRATIION 70 % (0-100); P/F RATIO 85 RATIO; PATIENT RATE 24; PRESSURE SUPPORT 10; SIMV YES
[2016-06-05 01:30] LABS: INR 2.27 (0.83-1.16); PROTIME(PATIENT) 25.2 SEC (12.0-15.0)
[2016-06-05] MEDS ORDERED: NA BICARBONATE 50 MEQ/50 ML VIAL IV PRN (01:30)
--- NOTE | 2016-06-05 01:32 | PDINTPN ---
Short Order Fry Cook Progress Note Assessment/Plan: Assessment: 06-05-16 1330 I was called as the patient is anuric with small amounts of blood from his bello and suprapubic catheter. CVP is 22 and BP supported with pressors. Potassium is down to 4.9 from 5.7 and creatinine has risen from 3.5 to 3.7. Glucose was 45 at 11pm bu up to 96 after D50W. He has received IV bicarbonate with an improvement in his pH to 7.32, and also I increased his vent rate from 22 to 24, with a pC02 still at 41. Renal US does not show hydro, and the bladder is small with small clots. Plan: I was concerned about urinary obstruction from clots causing his anuria, but it is more likely ATN. His CVP has been pushed to 24 and his is off IV maintenance fluids. Will repeat BMP and INR, hold long acting insulin for now and rely on SS insulin. He is in pulmonary edema and may need dialysis to remove fluid tomorrow. #CABG X 5 and TV annuloplasty , bleeding Friday and back to surgery with 1L of blood in the right chest but no active bleeding source found. BP soft on 2.5 of levophed. CVP is 9. #Respiratory Failure on vent at 40% FI02. He overbreathes the vent. No ET secretions. CXR still slightly fluffy and ET tube too high, but weight only up 1.5Kg. 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 with punctate ICB #New atrial flutter on amiodarone Plan: Start CPAP after decreasing the fentanyl from 100, and work to extubate this AM Recheck labs sent Insulin drip Off precedex which decreased his BP some Start albuterol Advance ET tube 2cm Nutrition: If he can be extubated he will be able to eat, if not will need a dobhoff 05/26/16 08:25 06/05/16 01:29 06/05/16 01:32 Objective: Vital Signs Temp Pulse Resp BP Pulse Ox 36.3 C 95 24 H 112/46 L 95 06/04/16 23:00 06/05/16 01:00 06/05/16 01:00 06/05/16 01:00 06/05/16 01:00 Laboratory Results 06/05/16 01:00 06/03/16 06/04/16 06/05/16 05:59 05:59 05:59 Intake Total 2388 2376 1499 Output Total 1740 1795 10 Balance 880 628 6982 PT 19.0 SEC (12.0-15.0) H 05/28/16 04:18 INR 1.59 (0.83-1.16) H 05/28/16 04:18 ICD10 Worksheet Patient Problems: Problems Problem Status Diagnosed Acute blood loss anemia Acute Adenocarcinoma of prostate Acute CAD, multiple vessel Acute Chest pain Acute Chronic Disease Mgmt/Transitional Care Acute Fall Acute 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
[2016-06-05 01:52] LABS: ANION GAP 19 mEq/L (8-16); CALCIUM 7.3 mg/dL (8.5-10.4); CARBON DIOXIDE 21 mEq/l (22-31); CHLORIDE 114 mEq/L (97-110); CREATININE 3.7 mg/dL (0.7-1.3); GLOMERULAR FILTRATION RATE 16; GLUCOSE 77 mg/dL (70-100); POTASSIUM 4.9 mEq/L (3.5-5.2); SODIUM 154 mEq/L (134-144)
[2016-06-05 02:21] LABS: BASE EXCESS -6.2 mEq/L (-2.5-2.5); BICARBONATE 19 mEq/L (22-26); MEASURED OXYGEN SATURATION 92 % (92-95); PCO2 37 mmHg (34-38); PO2 63 mmHg (65-75); TCO2 20 mEq/L (23-27)
[2016-06-05 02:22] LABS: O2 CONCENTRATIION 70 % (0-100); P/F RATIO 90 RATIO; PATIENT RATE 26; PRESSURE SUPPORT 10; SIMV YES
[2016-06-05] MEDS ORDERED: NA BICARBONATE 50 MEQ/50 ML VIAL ONE ×2 (02:31→05:35)
[2016-06-05 03:11] LABS: BASE EXCESS -4.1 mEq/L (-2.5-2.5); BICARBONATE 21 mEq/L (22-26); MEASURED OXYGEN SATURATION 92 % (92-95); PCO2 39 mmHg (34-38); PO2 64 mmHg (65-75); TCO2 22 mEq/L (23-27)
[2016-06-05 03:12] LABS: O2 CONCENTRATIION 70 % (0-100); P/F RATIO 91 RATIO; PATIENT RATE 26; PRESSURE SUPPORT 10; SIMV YES
[2016-06-05] MEDS: ALBUTEROL 60 PUFFS/8 GM MDI IH SCH ×4 (04:05→20:10)
[2016-06-05 04:12] LABS: BASE EXCESS -4.8 mEq/L (-2.5-2.5); BICARBONATE 20 mEq/L (22-26); MEASURED OXYGEN SATURATION 92 % (92-95); PCO2 39 mmHg (34-38); PO2 64 mmHg (65-75); TCO2 21 mEq/L (23-27)
[2016-06-05 04:13] LABS: O2 CONCENTRATIION 70 % (0-100); P/F RATIO 91 RATIO; PATIENT RATE 26; PRESSURE SUPPORT 10
[2016-06-05 04:16] LABS: HEMOGLOBIN 10.3 g/dL (13.7-17.5); MEAN CELL HEMOGLOBIN 30.7 pg (27.9-34.1); MEAN CELL HEMOGLOBIN CONCENTR. 33.2 g/dL (32.4-36.7); MEAN CELL VOLUME 92.3 fL (81.5-99.8); RED BLOOD CELL COUNT 3.36 10^6/uL (4.40-6.38); RED CELL DISTRIBUTION WIDTH 16.4 % (11.5-15.2)
[2016-06-05 04:24] LABS: APTT 44.5 SEC (23.0-38.0); INR 2.37 (0.83-1.16); PROTIME(PATIENT) 26.1 SEC (12.0-15.0)
[2016-06-05 04:37] LABS: ALANINE AMINOTRANSFERASE 35 IU/L (21-72); ALBUMIN 2.7 g/dL (3.5-5.0); ALKALINE PHOSPHATASE 177 IU/L (38-126); ANION GAP 16 mEq/L (8-16); ASPARTATE AMINOTRANSFERASE 66 IU/L (17-59); BILIRUBIN,TOTAL 3.5 mg/dL (0.1-1.4); BILIRUBIN-CONJUGATED 2.9 mg/dL (0.0-0.5); BILIRUBIN-UNCONJUGATED 0.6 mg/dL (0.0-1.1); CALCIUM 7.2 mg/dL (8.5-10.4); CARBON DIOXIDE 22 mEq/l (22-31); CHLORIDE 113 mEq/L (97-110); CREATININE 3.7 mg/dL (0.7-1.3); GLOMERULAR FILTRATION RATE 16; GLUCOSE 78 mg/dL (70-100); POTASSIUM 4.9 mEq/L (3.5-5.2); SODIUM 151 mEq/L (134-144); TOTAL PROTEIN 4.8 g/dL (6.3-8.2)
[2016-06-05] MEDS: INSULIN REGULAR HUMAN 100 UNIT/ML SC SCH ×6 (04:58→22:45)
[2016-06-05 05:16] LABS: BASE EXCESS -5.5 mEq/L (-2.5-2.5); BICARBONATE 19 mEq/L (22-26); MEASURED OXYGEN SATURATION 94 % (92-95); PCO2 38 mmHg (34-38); PO2 74 mmHg (65-75); TCO2 21 mEq/L (23-27)
[2016-06-05 05:17] LABS: SIMV YES
[2016-06-05 05:18] LABS: O2 CONCENTRATIION 70 % (0-100); P/F RATIO 105 RATIO; PATIENT RATE 26; PRESSURE SUPPORT 10
[2016-06-05 06:23] LABS: BASE EXCESS -3.5 mEq/L (-2.5-2.5); BICARBONATE 21 mEq/L (22-26); MEASURED OXYGEN SATURATION 92 % (92-95); PCO2 38 mmHg (34-38); PO2 65 mmHg (65-75); TCO2 22 mEq/L (23-27)
[2016-06-05 06:27] LABS: O2 CONCENTRATIION 70 % (0-100); P/F RATIO 92 RATIO; PATIENT RATE 26; SIMV YES
[2016-06-05 06:28] LABS: PRESSURE SUPPORT 10
[2016-06-05] MEDS ORDERED: AMIODARONE HCL 100 ML IV ONE (07:14)
[2016-06-05] MEDS ORDERED: AMIODARONE HCL 200 ML IV ONE (07:14)
--- NOTE | 2016-06-05 07:16 | SOAPPROG ---
SOAP Progress Note Assessment/Plan: POD #13: CABGx5 (Free FRANK-LAD, SVG-D1, Sequential SVG-OM1-OM2, SVG-PL), TV repair with #32 Murguia annuloplasty, EVH LLE POD #12: Exploration and washout of clots in chest, closure POD #1: Tracheostomy POD #1: Laparotomy, evacuation of fluid/clots, repair of bladder rupture, fulguration of varix, suprapubic catheter placement Drips: Levo 10 mcgs, Dopamine 10 mcgs Bladder perforation with bleeding varix s/p repair with post-op shock - Wean drips as tolerated, monitor ABGs - Surgical mgmt as per urology Bladder perforation with bleeding varix s/p repair - Mgmt as per urology ARF - Monitor, plan for possible HD Post-op AF/Flutter s/p CV now in AF - Amio bolus/gtt - Eliquis 2.5 mg BID for AC (held) Acute blood loss anemia with coagulopathy/bleeding bladder varix/malnutrition - Monitor, tranfuse prn Acute MA, severe 3VD, post-infarction angina s/p urgent CABGx5 - Eliquis for antithrombotic therapy - BB/statin when appropriate Torrential TVR discovered intra-operatively s/p repair with #32 Murguia annuloplasty and subsequent trace TVR - Eliquis (held) for AC 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 - Deemed unnecessary for surgical repair, stable ICM with systolic (EF 30%) and diastolic dysfunction and class IV heart failure - Lasix/Fluids prn - Heart failure medications in future as tolerated h/o DM with hyperglycemia - Management per acoustics teacher Subjective: Comfortable Objective: Vital Signs Temp Pulse Resp BP Pulse Ox 36.3 C 104 H 26 H 107/47 L 95 06/05/16 05:00 06/05/16 06:00 06/05/16 06:00 06/05/16 06:00 06/05/16 06:00 Laboratory Results 06/05/16 04:00 06/05/16 04:00 06/04/16 06/05/16 06/06/16 05:59 05:59 05:59 Intake Total 2376 3902 Output Total 1795 75 30 Balance 581 3827 -30 PT 26.1 SEC (12.0-15.0) H 06/05/16 04:00 INR 2.37 (0.83-1.16) H 06/05/16 04:00 Physical Exam - Physical Exam General Appearance: alert, no apparent distress, obese EENT: No scleral icterus (R), No scleral icterus (L) Neck: normal inspection Respiratory: No respiratory distress Cardiac/Chest: irregularly irregular Abdomen: non-tender, soft, distended, other (SPC in place / Laparotomy site with C/D/I dressing ) Skin: warm/dry Extremities: pedal edema Neuro/Psych: alert ICD10 Worksheet Patient Problems: Problems Problem Status Diagnosed Acute blood loss anemia Acute Adenocarcinoma of prostate Acute CAD, multiple vessel Acute Chest pain Acute Chronic Disease Mgmt/Transitional Care Acute Fall Acute 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
--- NOTE | 2016-06-05 07:28 | SOAPPROG ---
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 Creat reviewed and consider renal sono and bladder sono to assess possible hydronephrosis and / or recurrence of clot Plan: continues to have catheter and associated hematuria, irrigated well by me 06/05/16 07:25 Subjective: no bladder pain, abdomen tender Objective: Vital Signs Temp Pulse Resp BP Pulse Ox 36.3 C 104 H 26 H 107/47 L 95 06/05/16 05:00 06/05/16 06:00 06/05/16 06:00 06/05/16 06:00 06/05/16 06:00 Laboratory Results 06/05/16 04:00 06/05/16 04:00 06/04/16 06/05/16 06/06/16 05:59 05:59 05:59 Intake Total 2376 3902 Output Total 1795 75 30 Balance 581 3827 -30 PT 26.1 SEC (12.0-15.0) H 06/05/16 04:00 INR 2.37 (0.83-1.16) H 06/05/16 04:00 Physical Exam - Physical Exam General Appearance: alert Respiratory: other (ventilator) Abdomen: soft, other (incision dressing ok, tender abdomen yet no rebound or guarding) Male Genitalia: normal genitalia (cath ok, SP site dressing ok) Back: No CVA tenderness Extremities: swelling Neuro/Psych: alert ICD10 Worksheet Patient Problems: Problems Problem Status Diagnosed Acute blood loss anemia Acute Adenocarcinoma of prostate Acute CAD, multiple vessel Acute Chest pain Acute Chronic Disease Mgmt/Transitional Care Acute Fall Acute 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
[2016-06-05 08:17] LABS: BASE EXCESS -3.7 mEq/L (-2.5-2.5); BICARBONATE 21 mEq/L (22-26); MEASURED OXYGEN SATURATION 93 % (92-95); PCO2 36 mmHg (34-38); PO2 65 mmHg (65-75); TCO2 22 mEq/L (23-27)
[2016-06-05 08:18] LABS: ASSIST CONTROL YES; END TIDAL CO2 35; O2 CONCENTRATIION 80 % (0-100); P/F RATIO 81 RATIO
--- NOTE | 2016-06-05 08:42 | DX ---
Portable Chest, Single View June 05, 2016 6:08 a.m. Indication: Follow up pleural effusions. Comparison: Portable chest June 04, 2016. Findings: The ET tube has been removed and a tracheostomy tube has been placed. The feeding tube, lef t PICC, midline sternotomy wires and skin jonatan, and telemetry leads are all unchanged. Moderate cardiomegaly, diffuse pulmonary edema, small bilateral pleural effusions, and bibasilar cons olidation, likely compressive atelectasis, are all unchanged. Impression: 1. New tracheostomy tube. Good aeration. 2. Remainder of support devices in good position. 3. Interstitial edema, small bilateral pleural effusions, and bibasilar compressive atelectasis are u nchanged.
[2016-06-05] MEDS: PANTOPRAZOLE SODIUM 40 MG in NS 100 ML IV SCH (09:31)
[2016-06-05] MEDS: SENNOSIDES 17.6 MG/10 ML UDL TUBE SCH ×2 (09:34→20:50)
[2016-06-05] MEDS: predniSONE 1 MG TAB TUBE SCH (09:34)
[2016-06-05 10:06] LABS: BASE EXCESS -2.2 mEq/L (-2.5-2.5); BICARBONATE 22 mEq/L (22-26); MEASURED OXYGEN SATURATION 94 % (92-95); TCO2 23 mEq/L (23-27)
[2016-06-05 10:07] LABS: ASSIST CONTROL YES; O2 CONCENTRATIION 80 % (0-100)
[2016-06-05 10:09] LABS: P/F RATIO 85 RATIO; PCO2 35 mmHg (34-38); PO2 68 mmHg (65-75)
--- NOTE | 2016-06-05 10:36 | US ---
Ultrasound Abdomen Retroperitoneum Complete Clinical Indications: Bladder rupture post repair. Low urine output. Suspect urinary tract obstructi on. Findings: The right kidney measures 12.5 x 6.6 x 6.7 cm. The left kidney measures 12.9 x 5.8 x 5.8 cm. Both kidneys demonstrate no hydronephrosis, definite shadowing calculi, or perinephric fluid. Ri ght renal cortical thickness 1.1 cm and left renal cortical thickness 1.1 cm. Bilateral renal cortica l thinning. Bladder volume is 25 mL. Within the bladder, there is intraluminal thrombus. The ureteral jets are no t visualized. Minimal right pleural effusion. A small amount of free fluid in the pelvis improved since preoperativ e study. Impression: 1. No hydronephrosis. 2. Bladder is contracted with Vargas in place and demonstrates 25 mL of blood clot within the bladder. 3. Bilateral renal cortical thinning suggesting mild atrophy. 4. Small amount of free fluid in the pelvis improved since previous study. 5. Possible minimal right pleural effusion. Findings and recommendations discussed with patient's nurse at 0158 hours today.
[2016-06-05 11:37] LABS: ANION GAP 17 mEq/L (8-16); CALCIUM 7.1 mg/dL (8.5-10.4); CARBON DIOXIDE 22 mEq/l (22-31); CHLORIDE 112 mEq/L (97-110); CREATININE 3.8 mg/dL (0.7-1.3); GLOMERULAR FILTRATION RATE 15; GLUCOSE 90 mg/dL (70-100); POTASSIUM 4.9 mEq/L (3.5-5.2); SODIUM 151 mEq/L (134-144)
[2016-06-05 12:20] LABS: BASE EXCESS -2.2 mEq/L (-2.5-2.5); BICARBONATE 22 mEq/L (22-26); MEASURED OXYGEN SATURATION 93 % (92-95); PCO2 36 mmHg (34-38); PO2 66 mmHg (65-75); TCO2 23 mEq/L (23-27)
[2016-06-05 12:21] LABS: ASSIST CONTROL YES; END TIDAL CO2 34; O2 CONCENTRATIION 80 % (0-100); P/F RATIO 82 RATIO
[2016-06-05 12:22] LABS: TOTAL RATE 27
[2016-06-05] MEDS ORDERED: D10W 1,000 ML IV PRN (14:27)
[2016-06-05 14:30] LABS: BASE EXCESS -1.7 mEq/L (-2.5-2.5); BICARBONATE 22 mEq/L (22-26); MEASURED OXYGEN SATURATION 93 % (92-95); PCO2 35 mmHg (34-38); PO2 68 mmHg (65-75); TCO2 23 mEq/L (23-27)
[2016-06-05] MEDS ORDERED: AMIODARONE HCL 540 MG in D5W 300 ML IV ONE (14:30)
[2016-06-05 14:37] LABS: O2 CONCENTRATIION 80 % (0-100); P/F RATIO 85 RATIO
[2016-06-05 14:38] LABS: ASSIST CONTROL YES
--- NOTE | 2016-06-05 16:27 | PDINTPN ---
[employer] Progress Note Assessment/Plan: Assessment: #CABG X 5 and TV annuloplasty 05/30. #Respiratory Failure, on vent. Status post tracheostomy. On increased oxygen to 80% since surgery last night #Pneumonia. Purulent secretions. Cultures negative so far, suspect anaerobic pneumonia, aspiration. On broad-spectrum antibiotics adjusted for renal failure. MS growing in sputum. Will hold further vancomycin, continue Zosyn. Plural effusions and atelectasis also present. #Hypotension. Blood pressure is on the low side. On dopamine and Levophed postoperatively. #ROSEANNA -not an issue currently, s/p trach #Obesity and very deconditioned, no walking at all before his surgery #DM: On insulin coverage. #Hx HTN, Hyperlipidemia #Remote TBI after a fall with punctate ICB #New atrial flutter on amiodarone. Cardioverted and in NSR. #MAGUI: Creatinine rising, 3.8 today. Status post bladder repair and abdominal exploration last night. Ruptured bladder with fluid in the abdomen. #Anemia: Likely due to hematuria and hamstring ecchymoses. S/P PRBCx2. Eliquis on hold. No evidence of active bleeding other than the hematuria. #Nutrition: TFs on hold, significant ileus present preoperatively yesterday will be worse now following abdominal surgery. Will start TPN.. Plan: Continue vent support, supportive care. Start TPN. Continue bladder irrigation per Urology Follow chest x-ray, laboratory, blood gas. Continue dopamine, Levophed as needed, fluids. Consider renal consult if BUN and creatinine continue to rise. 55 minutes of critical care time spent directly with the patient. Discussed with cardiovascular surgery, respiratory, family, the ICU multi disciplinary team. Subjective: Sedated, on the ventilator. Arouses weekly, response weekly. Objective: Vital Signs Temp Pulse Resp BP Pulse Ox 36.4 C 92 26 H 111/43 L 94 06/05/16 08:00 06/05/16 14:29 06/05/16 14:00 06/05/16 14:29 06/05/16 14:00 Microbiology 06/03/16 15:57 - Final Sputum, Induced/Suctioned Sputum Culture - Final Staphylococcus Aureus Laboratory Results 06/05/16 04:00 06/05/16 11:05 12/13/16 12/14/16 12/15/16 05:59 05:59 05:59 Intake Total 7566 3902 Output Total 1795 75 680 Balance 581 3827 -680 PT 26.1 SEC (12.0-15.0) H 06/05/16 04:00 INR 2.37 (0.83-1.16) H 06/05/16 04:00 Laboratory Tests 06/05/16 06/05/16 06/05/16 04:00 11:05 14:15 PT 26.1 H INR 2.37 H APTT 44.5 H pCO2 35 pO2 68 ABG pH 7.42 ABG O2 Saturation 93 Set Respiration Rate 26 Assist Control YES Tidal Volume 600 PEEP 5 Creatinine 3.8 H Calcium 7.1 L Random Vancomycin 9.1 CXR: Tracheostomy tube looks good. Other lines and tubes in good position. Bilateral effusions and associated atelectasis and/or infiltrates are present, without significant change compared with yesterday. Physical Exam - Physical Exam General Appearance: no apparent distress, obese, other (Sedated, on ventilator) EENT: PERRL/EOMI, ET tube (Tracheostomy tube), other (NG to suction) Neck: No normal inspection (Large neck. Tracheostomy in place.) Respiratory: lungs clear (Anteriorly), decreased breath sounds (At bases), No rhonchi (Decreased secretions) Cardiac/Chest: regular rate, rhythm (Distant) Abdomen: distended, other (Status post abdominal surgery and bladder repair last night, abdomen bound and dressed, not examined visually.), No normal bowel sounds (Absent), No non-tender (Tender), No soft (Firm) Male Genitalia: other Skin: normal color, warm/dry Lymphatic: no adenopathy Extremities: pedal edema, swelling (Anasarca present) Neuro/Psych: no motor/sensory deficits (Moves all extremities equally), No cognition abnormalities (Responds appropriately at times) ICD10 Worksheet Patient Problems: Problems Problem Status Diagnosed Acute blood loss anemia Acute Adenocarcinoma of prostate Acute CAD, multiple vessel Acute Chest pain Acute Chronic Disease Mgmt/Transitional Care Acute Fall Acute 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
--- NOTE | 2016-06-05 16:49 | WOCRNPDOC ---
WOCRN Advanced Assessment Note - Skin Integrity Problem, Advanced Assess Right Groin Surgical Wound/Incision Dressing Type: Allevyn Life, Honey Alginate Dressing Description: Not Intact, Soiled Exudate Amount: Moderate Exudate Color: Red Exudate Characteristic(s): Sanguinous Integumentary Issue Intervention: Dressing Changed Nena Wound Tissue: Ecchymotic (at distal lumbar/proximal coccyx area adjacent to adherent eschar covering coccyx.), Erythema (Non-blanchable; @ perimeter and bilateral distal buttocks) Wound Bed Color: Brown, Lipscomb, Purple, Red, Yellow Wound Bed Constitution: Smooth Tissue, Adhered Slough, Unstable Eschar Wound Edges: Irregular Site Odor: Slight (musky) Pressure Injury Stage: Unstageable ( ), Deep Tissue Injury (DTI) Skin Integrity Problem Comment: Mixed slough-eschar occluding approx 90% of wound bed surface. Deep Tissue Injury appearance in tissues at distal lumbar/ proximal coccyx, and at bilateral distal buttocks, adjacent to wound margin. Cleaned entire site using sterile gauze and NS to visualize, resulting in active bleeding from exposed portions of base; supervised and assisted dressing change by RNs Ivory and Micha, and assisted w/repositioning patient turn to left side for pressure redistribution.
[2016-06-05] MEDS: NOREPINEPHRINE BITARTRATE 16 MG in D5W 250 ML IV SCH (17:02)
[2016-06-05 17:34] LABS: BICARBONATE 23 mEq/L (22-26); MEASURED OXYGEN SATURATION 93 % (92-95); PCO2 35 mmHg (34-38); PO2 69 mmHg (65-75); TCO2 24 mEq/L (23-27)
[2016-06-05 17:35] LABS: O2 CONCENTRATIION 80 % (0-100); P/F RATIO 86 RATIO; TOTAL RATE 30
[2016-06-05 17:40] LABS: INR 2.72 (0.83-1.16); PROTIME(PATIENT) 29.2 SEC (12.0-15.0)
[2016-06-05 17:41] LABS: APTT 53.1 SEC (23.0-38.0)
[2016-06-05 17:46] LABS: ALANINE AMINOTRANSFERASE 29 IU/L (21-72); ALBUMIN 2.4 g/dL (3.5-5.0); ALKALINE PHOSPHATASE 190 IU/L (38-126); ANION GAP 17 mEq/L (8-16); ASPARTATE AMINOTRANSFERASE 54 IU/L (17-59); BILIRUBIN,TOTAL 2.5 mg/dL (0.1-1.4); CALCIUM 7.2 mg/dL (8.5-10.4); CARBON DIOXIDE 24 mEq/l (22-31); CHLORIDE 110 mEq/L (97-110); CREATININE 3.8 mg/dL (0.7-1.3); GLOMERULAR FILTRATION RATE 15; GLUCOSE 101 mg/dL (70-100); POTASSIUM 4.5 mEq/L (3.5-5.2); SODIUM 151 mEq/L (134-144); TOTAL PROTEIN 4.6 g/dL (6.3-8.2); TRIGLYCERIDE 130 mg/dL (40-150)
[2016-06-05 18:08] LABS: % IMMATURE GRANULYOCYTES 1.1 % (0.0-1.1); ABSOLUTE IMMATURE GRANULOCYTES 0.16 10^3/uL (0.00-0.10); ABSOLUTE NRBC COUNT 0.07 10^3/uL (0-0.01); ADD DIFF? NO; ADD MORPH? NO; ADD SCAN? YES; ATYPICAL LYMPHOCYTE FLAG 0 (0-99); FRAGMENT RBC FLAG 0 (0-99); HEMATOCRIT 29.3 % (40.0-51.0); HEMOGLOBIN 9.8 g/dL (13.7-17.5); LIPEMIA HEMOLYSIS FLAG 80 (0-99); MEAN CELL HEMOGLOBIN 30.1 pg (27.9-34.1); MEAN CELL HEMOGLOBIN CONCENTR. 33.4 g/dL (32.4-36.7); MEAN CELL VOLUME 89.9 fL (81.5-99.8); MEAN PLATELET VOLUME 10.2 fL (8.7-11.7); NRBC-AUTO% 0.5 % (0.0-0.2); PLATELET CLUMPS FLAG 0 (0-99); PLATELET COUNT 394 10^3/uL (150-400); RED BLOOD CELL COUNT 3.26 10^6/uL (4.40-6.38); RED CELL DISTRIBUTION WIDTH 15.9 % (11.5-15.2)
[2016-06-05 18:12] LABS: BILIRUBIN-CONJUGATED 1.8 mg/dL (0.0-0.5); BILIRUBIN-UNCONJUGATED 0.7 mg/dL (0.0-1.1)
[2016-06-05 18:14] LABS: LEFT SHIFT FLG 300 (0-99)
[2016-06-05] MEDS ORDERED: FUROSEMIDE 100 MG/10 ML VIAL ONE ×2 (19:23→22:35)
[2016-06-05] MEDS ORDERED: FUROSEMIDE 40 MG/4 ML VIAL IVP ONE (19:30)
[2016-06-05 19:40] LABS: SCAN POSITIVE
[2016-06-05 20:23] LABS: PLATELET ESTIMATE ADEQUATE (ADEQ)
[2016-06-05 20:24] LABS: TOXIC GRANULATION PRESENT
[2016-06-05 20:25] LABS: POLYCHROMASIA 1+
[2016-06-05 20:29] LABS: LARGE PLATELETS PRESENT
[2016-06-05] MEDS: TPN 1 EA BAG IV SCH (20:50)
[2016-06-05] MEDS ORDERED: FUROSEMIDE 100 MG/10 ML VIAL IVP ONE (23:00)
[2016-06-06] MEDS: METOCLOPRAMIDE 10 MG/2 ML VIAL IVP SCH ×4 (00:11→18:24)
[2016-06-06] MEDS: PIPERACILLIN/TAZO 2.25 GM/DEX 50 ML IV SCH ×4 (00:15→18:24)
[2016-06-06 00:17] LABS: GLUCOSE 148 mg/dL (70-100); POTASSIUM 4.1 mEq/L (3.5-5.2)
[2016-06-06] MEDS: ALBUTEROL 60 PUFFS/8 GM MDI IH SCH ×4 (03:38→20:02)
[2016-06-06] MEDS: INSULIN REGULAR HUMAN 100 UNIT/ML SC SCH ×6 (04:24→23:29)
[2016-06-06 05:02] LABS: BASE EXCESS -2.3 mEq/L (-2.5-2.5); BICARBONATE 21 mEq/L (22-26); MEASURED OXYGEN SATURATION 98 % (92-95); PCO2 34 mmHg (34-38); PO2 107 mmHg (65-75); TCO2 22 mEq/L (23-27)
[2016-06-06 05:04] LABS: ABSOLUTE NRBC COUNT 0.06 10^3/uL (0-0.01); ADD MORPH? NO; ATYPICAL LYMPHOCYTE FLAG 0 (0-99); FRAGMENT RBC FLAG 0 (0-99); HEMATOCRIT 27.8 % (40.0-51.0); HEMOGLOBIN 9.3 g/dL (13.7-17.5); LIPEMIA HEMOLYSIS FLAG 80 (0-99); MEAN CELL HEMOGLOBIN 30.6 pg (27.9-34.1); MEAN CELL HEMOGLOBIN CONCENTR. 33.5 g/dL (32.4-36.7); MEAN CELL VOLUME 91.4 fL (81.5-99.8); MEAN PLATELET VOLUME 10.4 fL (8.7-11.7); NRBC-AUTO% 0.4 % (0.0-0.2); O2 CONCENTRATIION 70 % (0-100); P/F RATIO 152 RATIO; PLATELET CLUMPS FLAG 10 (0-99); PLATELET COUNT 388 10^3/uL (150-400); RED BLOOD CELL COUNT 3.04 10^6/uL (4.40-6.38); RED CELL DISTRIBUTION WIDTH 16.1 % (11.5-15.2); SIMV YES
[2016-06-06 05:05] LABS: PATIENT RATE 26; PRESSURE SUPPORT 10
[2016-06-06 05:08] LABS: LEFT SHIFT FLG 300 (0-99)
[2016-06-06 05:09] LABS: ADD DIFF? YES; ADD SCAN? NO
[2016-06-06 05:14] LABS: INR 2.95 (0.83-1.16); PROTIME(PATIENT) 31.1 SEC (12.0-15.0)
[2016-06-06 05:15] LABS: APTT 60.7 SEC (23.0-38.0)
[2016-06-06 05:47] LABS: LARGE PLATELETS PRESENT; PLATELET ESTIMATE ADEQUATE (ADEQ); POLYCHROMASIA 1+; TOXIC GRANULATION PRESENT; TOXIC VACUOLIZATION PRESENT
[2016-06-06 05:59] LABS: ALANINE AMINOTRANSFERASE 23 IU/L (21-72); ALBUMIN 2.2 g/dL (3.5-5.0); ALKALINE PHOSPHATASE 184 IU/L (38-126); ANION GAP 16 mEq/L (8-16); ASPARTATE AMINOTRANSFERASE 39 IU/L (17-59); BILIRUBIN,TOTAL 2.2 mg/dL (0.1-1.4); CALCIUM 7.1 mg/dL (8.5-10.4); CARBON DIOXIDE 23 mEq/l (22-31); CHLORIDE 113 mEq/L (97-110); CREATININE 3.7 mg/dL (0.7-1.3); GLOMERULAR FILTRATION RATE 16; GLUCOSE 214 mg/dL (70-100); POTASSIUM 4.1 mEq/L (3.5-5.2); SODIUM 152 mEq/L (134-144); TOTAL PROTEIN 4.2 g/dL (6.3-8.2)
[2016-06-06 06:24] LABS: BILIRUBIN-CONJUGATED 1.7 mg/dL (0.0-0.5); BILIRUBIN-UNCONJUGATED 0.5 mg/dL (0.0-1.1)
--- NOTE | 2016-06-06 07:35 | DX ---
Portable Chest, 5:35 a.m. Clinical Indications: Followup bilateral pleural effusions Comparison: yesterday Findings: The trach tube, feeding tube and midline skin jonatan along with a single sternotomy wire remain in place. Multiple EKG leads again overlie the chest. There is persistent bilateral pulmonary edema, with perhaps early improvement in the left upper lobe. There is little if any change in bilate ral pleural effusions. Left basilar consolidation is unchanged. Impression: Little change since yesterday.
--- NOTE | 2016-06-06 07:35 | SOAPPROG ---
SOAP Progress Note Assessment/Plan: POD #14: CABGx5 (Free FRANK-LAD, SVG-D1, Sequential SVG-OM1-OM2, SVG-PL), TV repair with #32 Murguia annuloplasty, EVH LLE POD #13: Exploration and washout of clots in chest, closure POD #2: Tracheostomy POD #2: Laparotomy, evacuation of fluid/clots, repair of bladder rupture, fulguration of varix, suprapubic catheter placement Bladder perforation with bleeding varix s/p repair with improvement in post-op shock - Wean Levo as tolerated - Vargas/suprapubic catheter mgmt as per urology Post-op ileus - NGT to suction - TPN ARF - Plateau in Cr with > 2L of UOP past 24 hrs - Continue to monitor Post-op AF/Flutter s/p CV now in AF - Cont Amio - Eliquis 2.5 mg BID for AC (held) Acute blood loss anemia with coagulopathy/bleeding bladder varix/malnutrition - Monitor, tranfuse prn Acute MN, severe 3VD, post-infarction angina s/p urgent CABGx5 - Eliquis for antithrombotic therapy - BB/statin when appropriate Torrential TVR discovered intra-operatively s/p repair with #32 Murguia annuloplasty and subsequent trace TVR - Eliquis (held) for AC 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 Would like his mouth moistened. Objective: Vital Signs Temp Pulse Resp BP Pulse Ox 36.4 C 94 26 H 135/47 H 96 06/05/16 08:00 06/06/16 06:00 06/06/16 06:00 06/06/16 06:00 06/06/16 06:00 Microbiology 06/03/16 15:57 - Final Sputum, Induced/Suctioned Sputum Culture - Final Staphylococcus Aureus Laboratory Results 06/06/16 04:50 06/06/16 04:50 06/05/16 06/06/16 06/07/16 05:59 05:59 05:59 Intake Total 3902 1710 Output Total 75 2835 Balance 3827 -1125 PT 31.1 SEC (12.0-15.0) H 06/06/16 04:50 INR 2.95 (0.83-1.16) H 06/06/16 04:50 Physical Exam - Physical Exam General Appearance: alert, no apparent distress EENT: No scleral icterus (R), No scleral icterus (L) Neck: normal inspection Respiratory: normal breath sounds, No lungs clear, No respiratory distress, No accessory muscle use, No crackles, No rhonchi, No wheezing Cardiac/Chest: irregularly irregular Abdomen: non-tender, soft, No distended Skin: normal color, warm/dry Extremities: pedal edema (+1 edema B/L ) Neuro/Psych: alert, other (Follows commands / Moves all extremities ) ICD10 Worksheet Patient Problems: Problems Problem Status Diagnosed Acute blood loss anemia Acute Adenocarcinoma of prostate Acute CAD, multiple vessel Acute Chest pain Acute Chronic Disease Mgmt/Transitional Care Acute Fall Acute 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
[2016-06-06] MEDS: SENNOSIDES 17.6 MG/10 ML UDL TUBE SCH ×2 (09:12→21:21)
[2016-06-06] MEDS: predniSONE 1 MG TAB TUBE SCH (09:12)
[2016-06-06] MEDS: AMIODARONE HCL 200 ML IV SCH ×2 (09:12→21:24)
[2016-06-06] MEDS: FUROSEMIDE 40 MG/4 ML VIAL IVP SCH ×2 (09:12→14:52)
[2016-06-06 09:14] LABS: ALANINE AMINOTRANSFERASE 28 IU/L (21-72); ALBUMIN 2.2 g/dL (3.5-5.0); ALKALINE PHOSPHATASE 199 IU/L (38-126); ANION GAP 16 mEq/L (8-16); ASPARTATE AMINOTRANSFERASE 37 IU/L (17-59); BILIRUBIN,TOTAL 2.2 mg/dL (0.1-1.4); CALCIUM 7.2 mg/dL (8.5-10.4); CARBON DIOXIDE 24 mEq/l (22-31); CHLORIDE 112 mEq/L (97-110); CREATININE 3.7 mg/dL (0.7-1.3); GLOMERULAR FILTRATION RATE 16; GLUCOSE 222 mg/dL (70-100); POTASSIUM 3.6 mEq/L (3.5-5.2); SODIUM 152 mEq/L (134-144); TOTAL PROTEIN 4.3 g/dL (6.3-8.2)
[2016-06-06 09:27] LABS: BILIRUBIN-CONJUGATED 1.6 mg/dL (0.0-0.5); BILIRUBIN-UNCONJUGATED 0.6 mg/dL (0.0-1.1)
--- NOTE | 2016-06-06 10:44 | SOAPPROG ---
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 renal sono normal from AM the 14th and bladder clot minimal Plan: continues to have catheter and associated hematuria 06/06/16 10:42 Subjective: stable Objective: Vital Signs Temp Pulse Resp BP Pulse Ox 36.4 C 98 34 H 131/44 H 96 06/06/16 07:00 06/06/16 09:00 06/06/16 09:00 06/06/16 09:00 06/06/16 09:00 Microbiology 06/03/16 15:57 - Final Sputum, Induced/Suctioned Sputum Culture - Final Staphylococcus Aureus Laboratory Results 06/06/16 04:50 06/06/16 08:15 06/05/16 06/06/16 06/07/16 05:59 05:59 05:59 Intake Total 3902 1710 Output Total 75 2835 380 Balance 3827 -1125 -380 PT 31.1 SEC (12.0-15.0) H 06/06/16 04:50 INR 2.95 (0.83-1.16) H 06/06/16 04:50 ICD10 Worksheet Patient Problems: Problems Problem Status Diagnosed Acute blood loss anemia Acute Adenocarcinoma of prostate Acute CAD, multiple vessel Acute Chest pain Acute Chronic Disease Mgmt/Transitional Care Acute Fall Acute 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
[2016-06-06] MEDS: PANTOPRAZOLE SODIUM 40 MG in NS 100 ML IV SCH (11:24)
--- NOTE | 2016-06-06 13:24 | PDINTPN ---
[employer] Progress Note Assessment/Plan: Assessment: #CABG X 5 and TV annuloplasty 05/30. #Respiratory Failure, on vent. Status post tracheostomy. Oxygenation improved : Currently on 55%. #Pneumonia. Purulent secretions. Cultures negative so far, suspect anaerobic pneumonia, aspiration. On Zosyn antibiotics adjusted for renal failure. MS growing in sputum. Plural effusions and atelectasis also present. #Hypotension. Blood pressure is on the low side. On Levophed postoperatively. #ROSEANNA -not an issue currently, s/p trach #Obesity and very deconditioned, no walking at all before his surgery #DM: On insulin coverage. #Hx HTN, Hyperlipidemia #Remote TBI after a fall with punctate ICB #Atrial flutter - on amiodarone. Cardioverted and in NSR. #MAGUI: Creatinine no stable to slightly improved, 3.7 today. Status post bladder repair and abdominal exploration last night. Ruptured bladder with fluid in the abdomen. Urine output appears to be increasing with Lasix now that obstruction has resolved. Hopefully BUN/creatinine will start to come down. #Anemia: Likely due to hematuria and hamstring ecchymoses. Getting 2 units today. Eliquis on hold. No evidence of active bleeding other than the hematuria. #Nutrition: TFs on hold, significant ileus present preoperatively. On TPN. #Hypernatremia: Sodium 152 this morning. On hypertonic fluids. Will follow. Plan: Continue vent support, supportive care. Continue antibiotics Continue TPN, D5W. Blood today. Continue bladder irrigation per Urology Follow chest x-ray, laboratory, blood gas. Continue Levophed as needed to maintain an MAP of 65. 45 minutes of critical care time spent directly with the patient. Discussed with cardiovascular surgery, respiratory, the ICU multi disciplinary team. Subjective: On ventilator. Up in chair. Arousable, responds. On intermittent bladder irrigation. Objective: Vital Signs Temp Pulse Resp BP Pulse Ox 36.4 C 125 H 30 H 114/54 L 94 06/06/16 07:00 06/06/16 13:00 06/06/16 13:00 06/06/16 13:00 06/06/16 13:00 Microbiology 06/03/16 15:57 - Final Sputum, Induced/Suctioned Sputum Culture - Final Staphylococcus Aureus Laboratory Results 06/06/16 04:50 06/06/16 08:15 06/05/16 06/06/16 06/07/16 05:59 05:59 05:59 Intake Total 3902 1710 Output Total 75 2835 990 Balance 3827 -1125 -990 PT 31.1 SEC (12.0-15.0) H 06/06/16 04:50 INR 2.95 (0.83-1.16) H 06/06/16 04:50 Laboratory Tests 06/06/16 06/06/16 04:50 08:15 PT 31.1 H INR 2.95 H APTT 60.7 H pCO2 34 pO2 107 H ABG pH 7.42 O2 Concentration % 70 Actual Respiration Rate 26 Tidal Volume 600 PEEP 8 Pressure Support 10 Calcium 7.2 L Total Bilirubin 2.2 H AST 37 ALT 28 Albumin 2.2 L CXR: Unchanged. Bilateral infiltrates/atelectasis with effusions. Large heart , large mediastinum. Lines and tubes in appropriate position. Physical Exam - Physical Exam General Appearance: no apparent distress, obese, other (Sedated, arouses) EENT: PERRL/EOMI, ET tube, other (NG to suction, clamped at times) Neck: normal inspection (Large neck, tracheostomy to. Site looks good.) Respiratory: lungs clear, decreased breath sounds (At the bases), No rhonchi, No wheezing Cardiac/Chest: regular rate, rhythm (With ectopy.), systolic murmur, No friction rub Abdomen: distended, other, No normal bowel sounds (Few present), No non-tender ( Mildly tender), No soft (Firm, but softer compared with the last 2 days, less distended) Male Genitalia: other (Vargas and suprapubic catheters in place. 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
[2016-06-06] MEDS ORDERED: POTASSIUM Cl (KCl) 50 ML IV ONE (13:30)
[2016-06-06] MEDS: D5W 1,000 ML IV SCH (13:46)
[2016-06-06 16:06] LABS: HEMOGLOBIN 10.1 g/dL (13.7-17.5)
[2016-06-06 16:25] LABS: ANION GAP 17 mEq/L (8-16); CALCIUM 7.4 mg/dL (8.5-10.4); CARBON DIOXIDE 24 mEq/l (22-31); CHLORIDE 109 mEq/L (97-110); CREATININE 3.4 mg/dL (0.7-1.3); GLOMERULAR FILTRATION RATE 17; GLUCOSE 211 mg/dL (70-100); POTASSIUM 3.5 mEq/L (3.5-5.2); SODIUM 150 mEq/L (134-144)
[2016-06-06] MEDS: POTASSIUM Cl (KCl) 50 ML IV PRN (16:42)
[2016-06-06] MEDS: ALBUMIN 5% 250 ML IV PRN (19:29)
[2016-06-06] MEDS: TPN 1 EA BAG IV SCH (21:19)
[2016-06-06] MEDS: NOREPINEPHRINE BITARTRATE 16 MG in D5W 250 ML IV SCH (21:20)
[2016-06-07] MEDS: METOCLOPRAMIDE 10 MG/2 ML VIAL IVP SCH ×5 (00:24→23:39)
[2016-06-07] MEDS: PIPERACILLIN/TAZO 2.25 GM/DEX 50 ML IV SCH ×5 (00:24→23:34)
[2016-06-07 00:39] LABS: POTASSIUM 3.5 mEq/L (3.5-5.2)
[2016-06-07] MEDS: POTASSIUM Cl (KCl) 50 ML IV PRN ×4 (02:15→17:00)
[2016-06-07] MEDS: INSULIN REGULAR HUMAN 100 UNIT/ML SC SCH ×6 (02:27→22:14)
[2016-06-07] MEDS: POTASSIUM Cl (KCl) 50 ML IV SCH ×6 (02:28→14:37)
[2016-06-07] MEDS: ALBUTEROL 60 PUFFS/8 GM MDI IH SCH ×4 (04:11→19:32)
[2016-06-07 05:20] LABS: BASE EXCESS 0.7 mEq/L (-2.5-2.5); BICARBONATE 24 mEq/L (22-26); MEASURED OXYGEN SATURATION 92 % (92-95); PCO2 34 mmHg (34-38); PO2 64 mmHg (65-75); TCO2 25 mEq/L (23-27)
[2016-06-07 05:21] LABS: ASSIST CONTROL YES; END TIDAL CO2 32; O2 CONCENTRATIION 55 % (0-100); P/F RATIO 116 RATIO; TOTAL RATE 27
[2016-06-07 05:22] LABS: ABSOLUTE NRBC COUNT 0.08 10^3/uL (0-0.01); ADD MORPH? NO; ADD SCAN? YES; ATYPICAL LYMPHOCYTE FLAG 20 (0-99); FRAGMENT RBC FLAG 0 (0-99); HEMATOCRIT 27.2 % (40.0-51.0); HEMOGLOBIN 9.3 g/dL (13.7-17.5); LIPEMIA HEMOLYSIS FLAG 90 (0-99); MEAN CELL HEMOGLOBIN 30.8 pg (27.9-34.1); MEAN CELL HEMOGLOBIN CONCENTR. 34.2 g/dL (32.4-36.7); MEAN CELL VOLUME 90.1 fL (81.5-99.8); MEAN PLATELET VOLUME 10.3 fL (8.7-11.7); NRBC-AUTO% 0.6 % (0.0-0.2); PLATELET CLUMPS FLAG 0 (0-99); PLATELET COUNT 346 10^3/uL (150-400); RED BLOOD CELL COUNT 3.02 10^6/uL (4.40-6.38); RED CELL DISTRIBUTION WIDTH 15.9 % (11.5-15.2)
[2016-06-07 05:23] LABS: LEFT SHIFT FLG 100 (0-99)
[2016-06-07 05:47] LABS: ALANINE AMINOTRANSFERASE 21 IU/L (21-72); ALBUMIN 2.2 g/dL (3.5-5.0); ALKALINE PHOSPHATASE 237 IU/L (38-126); ANION GAP 16 mEq/L (8-16); ASPARTATE AMINOTRANSFERASE 32 IU/L (17-59); BILIRUBIN,TOTAL 2.2 mg/dL (0.1-1.4); CALCIUM 7.8 mg/dL (8.5-10.4); CARBON DIOXIDE 25 mEq/l (22-31); CHLORIDE 111 mEq/L (97-110); GLOMERULAR FILTRATION RATE 20; GLUCOSE 209 mg/dL (70-100); POTASSIUM 3.7 mEq/L (3.5-5.2); SODIUM 152 mEq/L (134-144); TOTAL PROTEIN 4.4 g/dL (6.3-8.2)
[2016-06-07] MEDS ORDERED: POTASSIUM Cl (KCl) 50 ML IV ONE ×2 (05:50→19:41)
[2016-06-07 05:56] LABS: BILIRUBIN-CONJUGATED 1.5 mg/dL (0.0-0.5); BILIRUBIN-UNCONJUGATED 0.7 mg/dL (0.0-1.1)
[2016-06-07] MEDS: D5W 1,000 ML IV SCH ×3 (05:59→22:18)
[2016-06-07 06:42] LABS: ADD DIFF? YES; SCAN POSITIVE
[2016-06-07 06:47] LABS: GIANT PLATELETS PRESENT; PLATELET ESTIMATE ADEQUATE (ADEQ); POLYCHROMASIA 1+; TOXIC GRANULATION PRESENT; TOXIC VACUOLIZATION PRESENT
--- NOTE | 2016-06-07 08:20 | DX ---
Portable chest x-ray 0623 hours. History: Followup effusions. Findings: Comparison to June 06, 2016. Feeding tube, tracheostomy, and PICC line remain in place. Heart size remains moderately enlarged. Pu lmonary vasculature is prominent centrally. Postoperative changes are noted from prior open-heart kerry julius. There is stable haziness involving the mid to lower lungs bilaterally compatible with effusions along with stable patchy bilateral alveolar infiltrates mid to lower lungs. There are no new areas o f consolidation. Impression: 1. Moderate CHF pattern stable in appearance. 2. Interventional tubes in stable position. 3. Recent open-heart surgery.
[2016-06-07 08:44] LABS: POTASSIUM 3.9 mEq/L (3.5-5.2)
--- NOTE | 2016-06-07 09:08 | SOAPPROG ---
SOAP Progress Note Assessment/Plan: Assessment: POD#15 Urgent CABGx5 (Free FRANK-LAD, SVG-D1, sequential SVG-OM1-OM2 , SVG-PLC), TVA #32 MC3 ring, IABP 1:1. POD#14 Take back for expl, washout right CED. Sternal closure w Maria Victoria auguste, jonatan. POD#3 Laparotomy, repair of bladder rupture, fulguration of bladder varix, drainage of intraperitoneal fluid, placement of suprapubic catheter. POD#3 Tracheostomy. IV access per LUE PICC. Nutrition per TPN. Acute ME, severe 3VD, post-infarction angina/IABP - s/p urgent CABGx5 compl by bleeding into rt chest requiring take-back. IABP support x 24h. Low dose pressor support x 72h. Tubes and wires out. Secondary prevention with BB as allowed by BP, statin when eating well, and Eliquis as per elev [id number] score. ICM with systolic (EF 30%) and diastolic dysfunction (EDP 25) and class IV heart failure - Diuresing moderate volume overload with bolus lasix. Staggered intro of heart failure regimen as appropriate. Torrential TR - Post CPB. Amenable to annuloplasty. Antithrombotic prophylaxis as per PAF. 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 Surveillance per cardiology. Postoperative respiratory failure - Ventilator dependent, failing extubation 12/ . Purulent malodorous secretions. PNA suspected. Abx, mucolytics, steroids, vent management per ICU. Acute expected blood loss anemia with coagulopathy - Requiring massive transfusion and take back for expl bleeding. Stable H/H 05/26 to 06/01. Recurrent losses d/t issues. Anticoag on hold. Postoperative renal failure with electrolyte imbalance - Early postop MAGUI evolving into failure d/t obstructive uropathy. Care w fluids. BP support for MAP > 70 with pressors. Post-op AF/Flutter - Variable ventricular rates. Started on Amio. Adjunctive BB stopped d/t BP lability. Successful DC CVSN per cards 05/31. Recurrent PAF as of yest and Amio restarted. [id number] score of 6. Antithrombotic prophylaxis with Eliquis when appropriate. DM2 - Suboptimal control by preop A1c of 8.4%. Postop hyperglycemia management with insulin gtt. Transition to basal insulin/SSI per ICU. 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 PENN and progressive renal insuff d/t clots. Eliquis held. Blood losses repleted w PRBCs. [address] bello and cont irrigation compl by bladder perf and shock. Bladder successfully repaired. Ongoing irrigation and serial bladder scans per urology. Gradual improvement in renal fx anticipated. Post-op ileus - TFs on hold. Nutrition switched to TPN. Plan: Supportive care as per multidisciplinary team. Transfuse prn H/H < 10/30. Maintain MAPs > 70. 06/07/16 09:00 Subjective: Awake and alert on vent. Sore after am PT (did wt bear). Objective: Vital Signs Temp Pulse Resp BP Pulse Ox 36.6 C 67 30 H 127/44 H 95 06/07/16 05:00 06/07/16 08:06 06/07/16 08:06 06/07/16 06:48 06/07/16 08:06 Laboratory Results 06/07/16 05:09 06/07/16 08:00 06/06/16 06/07/16 06/08/16 05:59 05:59 05:59 Intake Total 1710 3574 Output Total 2835 3470 400 Balance -1125 104 -400 PT 31.1 SEC (12.0-15.0) H 06/06/16 04:50 INR 2.95 (0.83-1.16) H 06/06/16 04:50 Levo and dopa at 3 mcg. Adequate UOP with CVP 15-18, MAP > 70. HR controlled. CXR-> bilat interstitial infiltrates c/w fluid overload. Balanced I/Os. Adequate UOP. Cr down to 3. INR remains elev. Physical Exam - Physical Exam General Appearance: no apparent distress Respiratory: normal breath sounds (vent) Cardiac/Chest: regular rate, rhythm, other (Sternum grossly stable. Sternotomy and LLE venot CDI. 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
[2016-06-07] MEDS: PANTOPRAZOLE SODIUM 40 MG in NS 100 ML IV SCH (09:27)
[2016-06-07] MEDS: FUROSEMIDE 40 MG/4 ML VIAL IVP SCH ×2 (09:27→16:21)
[2016-06-07] MEDS: SENNOSIDES 17.6 MG/10 ML UDL TUBE SCH ×2 (09:28→20:09)
[2016-06-07] MEDS: predniSONE 1 MG TAB TUBE SCH (09:28)
[2016-06-07] MEDS: AMIODARONE HCL 200 ML IV SCH (10:59)
[2016-06-07] MEDS: INSULIN GLARGINE 100 UNITS/ML SYRINGE SC SCH ×2 (12:20→20:09)
[2016-06-07] MEDS ORDERED: ALBUMIN 5% 500 ML BOTTLE IV ONE (12:35)
--- NOTE | 2016-06-07 13:00 | PDINTPN ---
[employer] Accounts Supervisor Progress Note Assessment/Plan: Assessment: #CABG X 5 and TV annuloplasty 05/30. #Respiratory Failure, on vent. Status post tracheostomy. Oxygenation improved : Currently on 55%. #Pneumonia. Purulent secretions. Cultures negative, suspect anaerobic pneumonia, aspiration. On Zosyn adjusted for renal failure. MSSA in sputum. Plural effusions and atelectasis/infiltrates also present. Increased secretions today which she cannot clear well. #Hypotension. Blood pressure is on the low side. On Levophed and dopamine. Weaning the latter. #ROSEANNA -not an issue currently, s/p trach #Obesity and very deconditioned, no walking much before his surgery #DM: On insulin coverage but requiring significant amounts of insulin coverage as well as in the TPN. Will add Lantus. #Hx HTN, Hyperlipidemia #Remote TBI after a fall with punctate ICB #Atrial flutter - on amiodarone. Cardioverted and in NSR. #MAGUI: Creatinine improved, 3.0 today. Status post bladder repair and abdominal exploration. Ruptured bladder with fluid in the abdomen was present. Urine output appears to be increasing with Lasix now that obstruction has resolved, but may be falling off currently. #Anemia: Hct 27. Likely due to hematuria at this point. Eliquis on hold. No evidence of active bleeding other than the hematuria. #Nutrition: TFs on hold, significant ileus present preoperatively. On TPN. #Hypernatremia: Sodium 152 this morning. On hypotonic fluids. Will follow. Plan: Continue vent support, supportive care. Therapeutic bronchoscopy today. Continue antibiotics Continue TPN, D5W. Add Lantus 15 twice daily for now Blood today again if hematocrit continues to drift down. Continue bladder irrigation per Urology. Continue Lasix. Follow chest x-ray, laboratory, blood gas. Continue Levophed as needed to maintain an MAP of 65. 45 minutes of critical care time spent directly with the patient, not including bronchoscopy. Discussed with the patient's son, patient is a some extent, cardiovascular surgery, respiratory, the ICU multi disciplinary team. Subjective: Up in the chair. On the ventilator. Appears reasonably comfortable. Indicates he is doing okay. Some abdominal pain. Objective: Vital Signs Temp Pulse Resp BP Pulse Ox 36.6 C 66 67 H 136/44 H 93 06/07/16 05:00 06/07/16 11:42 06/07/16 11:42 06/07/16 11:00 06/07/16 11:42 Laboratory Results 06/07/16 05:09 06/06/16 06/07/16 06/08/16 05:59 05:59 05:59 Intake Total 1710 3574 Output Total 2835 1440 647 Balance -1125 104 -647 PT 31.1 SEC (12.0-15.0) H 06/06/16 04:50 INR 2.95 (0.83-1.16) H 06/06/16 04:50 Laboratory Tests 06/07/16 05:09 pCO2 34 pO2 64 L ABG pH 7.45 O2 Concentration % 55 Set Respiration Rate 26 Assist Control YES Tidal Volume 600 End Tidal CO2 32 PEEP 8 Sodium 152 H Potassium 3.7 Chloride 111 H Carbon Dioxide 25 BUN 95 H Creatinine 3.0 H Glucose 209 H Calcium 7.8 L Phosphorus 4.3 D Total Bilirubin 2.2 H AST 32 ALT 21 Albumin 2.2 L CXR: Effusions are present bilaterally with associated pulmonary infiltrates, large cardiac silhouette. Lines and tubes in good position. Physical Exam - Physical Exam General Appearance: alert, no apparent distress, obese EENT: ET tube (Tracheostomy), other (Debby) Neck: other (Large neck. Trach tube in place. Site looks okay.) Respiratory: lungs clear (Anteriorly), decreased breath sounds (At bases, with dullness. Few rales. Few central rhonchi.), rales, rhonchi Cardiac/Chest: regular rate, rhythm (Distant heart tones) Abdomen: distended (Obese), other (And she has high residuals, 2 feedings on hold.), No normal bowel sounds (No bowel sounds heard currently.), No non- tender (Lower abdominal tenderness over the bladder.), No soft Male Genitalia: other (Vargas catheter in place along with suprapubic catheter, bloody drainage. 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
[2016-06-07 13:02] LABS: POTASSIUM 3.6 mEq/L (3.5-5.2)
[2016-06-07] MEDS ORDERED: FUROSEMIDE 100 MG/10 ML VIAL IVP ONE (13:13)
[2016-06-07] MEDS ORDERED: LIDOCAINE 1% 30 ML SDV MISC ONE (13:17)
[2016-06-07] MEDS ORDERED: LIDOCAINE 2% JELLY 5 ML TUBE TP ONE (13:17)
[2016-06-07 13:46] LABS: HEMATOCRIT 28.4 % (40.0-51.0); HEMOGLOBIN 9.4 g/dL (13.7-17.5)
[2016-06-07] MEDS ORDERED: ALBUMIN 5% 500 ML IV ONE (14:00)
[2016-06-07 14:13] LABS: GLUCOSE 146 mg/dL (70-100); SODIUM 150 mEq/L (134-144)
[2016-06-07] MEDS: ALTEPLASE 2 MG VIAL IVP PRN (14:13)
[2016-06-07] MEDS ORDERED: LORazepam 2 MG/ML INJ ONE (14:26)
[2016-06-07] MEDS ORDERED: LIDOCAINE 2% JELLY 20 ML (UROJECT) ONE (14:28)
[2016-06-07] MEDS ORDERED: MIDAZOLAM 2 MG/2 ML VIAL ONE (15:12)
[2016-06-07] MEDS ORDERED: MIDAZOLAM 2 MG/2 ML VIAL IVP ONE (15:35)
--- NOTE | 2016-06-07 16:13 | GPN ---
[f rep st] PROCEDURE NOTE NAME OF PROCEDURE: Therapeutic bronchoscopy. INDICATION: Remove secretions in a patient status post tracheostomy, on the ventilator, status post open heart surgery. He has changes consistent with bilateral pneumonia and secretions which he canno t clear. DESCRIPTION OF PROCEDURE: The procedure was done in the intensive care unit. Informed consent was o btained from the patient. Appropriate time-out was performed. Barrier masks were worn. Topical ane sthesia included approximately 12 cc 1% lidocaine. Conscious sedation was accomplished with 2 mg of IV Versed. The fiberoptic bronchoscope was passed via an adapter on the end of the patient's tracheostomy tube i nto the trachea and into the lower tracheobronchial tree bilaterally. All areas were observed to at least the segmental level. There were thick secretions in the trachea which extended into the left l ower lobe was well as the right lower lobe. Secretions were removed with suction and lavage. Underl kayla anatomy was normal. The airways were relatively small, erythematous, and edematous. The patient tolerated the procedure well. Vital signs and oxygen saturations on the ventilator remai rayo stable throughout the procedure. A routine culture from deep bronchial washings bilaterally was sent. There were no complications. /[id number]/MODL
[2016-06-07 16:33] LABS: POTASSIUM 3.8 mEq/L (3.5-5.2)
[2016-06-07 19:26] LABS: POTASSIUM 3.8 mEq/L (3.5-5.2)
[2016-06-07] MEDS: TPN 1 EA BAG IV SCH (21:26)
[2016-06-07] MEDS ORDERED: ACETAMINOPHEN 650 MG/20.3 ML UDCUP ONE (21:34)
[2016-06-07] MEDS: ACETAMINOPHEN 650 MG/20.3 ML UDCUP TUBE PRN (21:55)
[2016-06-08] MEDS: AMIODARONE HCL 200 ML IV SCH ×2 (02:18→14:17)
[2016-06-08] MEDS: INSULIN REGULAR HUMAN 100 UNIT/ML SC SCH ×6 (02:26→22:13)
[2016-06-08] MEDS: ALBUTEROL 60 PUFFS/8 GM MDI IH SCH ×5 (05:01→20:52)
[2016-06-08 05:16] LABS: BICARBONATE 23 mEq/L (22-26); MEASURED OXYGEN SATURATION 94 % (92-95); PCO2 34 mmHg (34-38); PO2 70 mmHg (65-75); TCO2 25 mEq/L (23-27)
[2016-06-08 05:17] LABS: ASSIST CONTROL YES; END TIDAL CO2 33; O2 CONCENTRATIION 50 % (0-100); P/F RATIO 140 RATIO; TOTAL RATE 28
[2016-06-08 05:23] LABS: % IMMATURE GRANULYOCYTES 1.7 % (0.0-1.1); ABSOLUTE IMMATURE GRANULOCYTES 0.17 10^3/uL (0.00-0.10); ADD DIFF? NO; ADD MORPH? NO; ADD SCAN? NO; ATYPICAL LYMPHOCYTE FLAG 30 (0-99); FRAGMENT RBC FLAG 0 (0-99); HEMATOCRIT 26.7 % (40.0-51.0); HEMOGLOBIN 8.7 g/dL (13.7-17.5); LEFT SHIFT FLG 80 (0-99); LIPEMIA HEMOLYSIS FLAG 80 (0-99); MEAN CELL HEMOGLOBIN 30.4 pg (27.9-34.1); MEAN CELL HEMOGLOBIN CONCENTR. 32.6 g/dL (32.4-36.7); MEAN CELL VOLUME 93.4 fL (81.5-99.8); MEAN PLATELET VOLUME 10.1 fL (8.7-11.7); PLATELET CLUMPS FLAG 10 (0-99); PLATELET COUNT 293 10^3/uL (150-400); RED BLOOD CELL COUNT 2.86 10^6/uL (4.40-6.38); RED CELL DISTRIBUTION WIDTH 15.8 % (11.5-15.2)
[2016-06-08 05:33] LABS: ALANINE AMINOTRANSFERASE 24 IU/L (21-72); ALBUMIN 2.3 g/dL (3.5-5.0); ALKALINE PHOSPHATASE 402 IU/L (38-126); ANION GAP 12 mEq/L (8-16); ASPARTATE AMINOTRANSFERASE 36 IU/L (17-59); BILIRUBIN,TOTAL 2.1 mg/dL (0.1-1.4); CALCIUM 8.2 mg/dL (8.5-10.4); CARBON DIOXIDE 25 mEq/l (22-31); CHLORIDE 111 mEq/L (97-110); CREATININE 2.8 mg/dL (0.7-1.3); GLOMERULAR FILTRATION RATE 22; GLUCOSE 153 mg/dL (70-100); POTASSIUM 3.6 mEq/L (3.5-5.2); SODIUM 148 mEq/L (134-144); TOTAL PROTEIN 4.6 g/dL (6.3-8.2)
[2016-06-08 05:40] LABS: BILIRUBIN-CONJUGATED 1.4 mg/dL (0.0-0.5); BILIRUBIN-UNCONJUGATED 0.7 mg/dL (0.0-1.1)
[2016-06-08] MEDS: PIPERACILLIN/TAZO 2.25 GM/DEX 50 ML IV SCH ×3 (06:31→17:41)
[2016-06-08] MEDS: METOCLOPRAMIDE 10 MG/2 ML VIAL IVP SCH ×3 (06:31→17:40)
[2016-06-08] MEDS: ACETAMINOPHEN 650 MG/20.3 ML UDCUP TUBE PRN ×2 (06:41→08:40)
[2016-06-08] MEDS ORDERED: POTASSIUM Cl (KCl) 50 ML IV SCH (07:00)
[2016-06-08] MEDS: POTASSIUM Cl (KCl) 50 ML IV SCH ×3 (07:47→08:56)
--- NOTE | 2016-06-08 07:53 | DX ---
Portable Chest, 6:23 a.m. Clinical Indications: Followup CHF and pleural effusions Findings: Comparison: yesterday and May 2015 increasing grayness in the right lower lung suggests increasi ng right pleural fluid. A left pleural effusion is little if at all changed. Dense left lower lobe co nsolidation with incomplete air bronchograms remains. Cardiomegaly, trachea ostomy appliance, feeding tube an left arm PICC line remain in place. Impression: Suspect increase in right pleural effusion.
[2016-06-08] MEDS: D5W 1,000 ML IV SCH (08:34)
[2016-06-08] MEDS: INSULIN GLARGINE 100 UNITS/ML SYRINGE SC SCH ×2 (08:35→20:53)
[2016-06-08] MEDS: PANTOPRAZOLE SODIUM 40 MG in NS 100 ML IV SCH (08:35)
[2016-06-08] MEDS: SENNOSIDES 17.6 MG/10 ML UDL TUBE SCH ×2 (08:41→20:53)
[2016-06-08] MEDS: predniSONE 1 MG TAB TUBE SCH (08:42)
[2016-06-08] MEDS ORDERED: FUROSEMIDE 40 MG/4 ML VIAL IVP ONE (09:00)
--- NOTE | 2016-06-08 10:29 | CT ---
CT Scan of the Abdomen and Pelvis (Without IV Contrast) Clinical Indications: Status post bladder repair for bladder rupture. Elevated creatinine. Comparison: CT pelvis urogram June 04, 2016, portable chest x-ray earlier today 6:[address] abdo men and pelvis April 01, 2014 Technique: No intravenous contrast was given. Multidetector helical CT imaging is performed from th e diaphragm to the symphysis pubis. Dose reduction techniques were utilized. Findings: Abdomen: There are bilateral pleural effusions and adjacent basilar consolidation with air bronchogr ams present in the left lower lobe greater than in the right lower lobe. There is a very small perica rdial effusion. There is coronary artery disease. The patient has had prior CABG surgery. There is ca lcification of aortic valve leaflets. An NG tube is present with tip in the stomach. There is bilateral nonobstructive nephrolithiasis, wit h a single stone in each kidney measuring 7 mm. These stones have increased in size since 2013. There is an unusual round solid , fat containing, lesion in in the right upper pole peripelvic fat that me asures 2.5 x 2.1 cm and is intimately associated with the upper pole infundibular area. This potentia lly could represent an angiomyolipoma that is not obviously changed since 2013.. A 5.8 x 5.1 cm low-d ensity mass associated with the upper pole of the left kidney has average Hounsfield units of 5-6 and is consistent with a stable cyst since 2013. The gallbladder is distended consistent with a fasting state. The liver has a subtle micronodular con tour suggesting the possibility of cirrhosis. No calcifications are seen in the gallbladder and ther e is no secondary evidence for cholecystitis. The pancreas and spleen are normal. The adrenal gland s are normal. There is atherosclerotic disease of the normal-sized abdominal aorta. Pelvis: There are both Vargas and cystostomy catheters in the urinary bladder. There is still a large blood clot in the bladder. There is dramatically less free fluid (previously urine?) in the abdomen and pelvis. Impression: 1. Only a small amount or free fluid remains in the abdomen and pelvis. 2. Still a large blood clot in the urinary bladder. 3. Bibasilar consolidation and pleural effusions. 4. Bilateral nonobstructive nephrolithiasis.
--- NOTE | 2016-06-08 10:36 | PDINTPN ---
Heel Breaster Progress Note Assessment/Plan: Assessment: #CABG X 5 and TV annuloplasty 05/30. #Respiratory Failure, on vent. Status post tracheostomy. Oxygenation improved : Currently on 45%. #Pneumonia. Purulent secretions. Cultures negative, suspect anaerobic pneumonia, aspiration. On Zosyn adjusted for renal failure. MSSA in sputum. Plural effusions and atelectasis/infiltrates also present. #Hypotension. Blood pressure is on the low side. On Levophed. Dopamine off. #ROSEANNA -not an issue currently, s/p trach #Obesity and very deconditioned, no walking much before his surgery #DM: On insulin coverage but requiring significant amounts of insulin coverage as well as in the TPN. Will add Lantus. #Hx HTN, Hyperlipidemia #Remote TBI after a fall with punctate ICB #Atrial flutter - on amiodarone. Cardioverted and in NSR. #MAGUI: Creatinine improved, 2.8 today. Status post bladder repair and abdominal exploration. Ruptured bladder with fluid in the abdomen was present. Urine output appears to be increasing with Lasix now that obstruction has resolved, but may be falling off. #Anemia: Hct 26 post 1 unit yesterday. For blood today. Likely due to hematuria at this point. Eliquis on hold. No evidence of active bleeding other than the hematuria. Last INR significantly elevated, will reverse in recheck. #Nutrition: TFs on hold, significant ileus present preoperatively. On TPN. #Hypernatremia: Sodium 148 this morning. On hypotonic fluids. Will follow. #Sacral Decubitus: Wound Care involved. Plan: Continue vent support, supportive care. Continue antibiotics. FFP today. DDAVP x 24 hrs, then reassess. May help bleeding if uremic as well as sodium. Continue TPN, D5W. Cont Lantus 15 twice daily for now, and add more insulin to the TPN. Blood today: 1 u. Continue bladder irrigation per Urology. Continue Lasix prn. Follow urine output as possible. Follow chest x-ray, laboratory, blood gas. Continue Levophed as needed to maintain an MAP of 65. 50 minutes of critical care time spent directly with the patient, not including bronchoscopy. Discussed with patient to some extent, cardiovascular surgery, respiratory, pharmacy, the ICU multi disciplinary team. Subjective: Indicates he is doing okay. Awake, alert, responsive. Wants to be up in the chair. Objective: Vital Signs Temp Pulse Resp BP Pulse Ox 36.4 C 61 30 H 140/42 H 96 06/08/16 05:00 06/08/16 08:15 06/08/16 07:00 06/08/16 07:00 06/08/16 08:15 Microbiology 06/07/16 15:34 - Final Sputum, Induced/Suctioned Laboratory Results 06/08/16 05:00 06/08/16 05:00 06/07/16 06/08/16 06/09/16 05:59 05:59 05:59 Intake Total 3574 3805.3 Output Total 3470 3055 Balance 104 750.3 PT 31.1 SEC (12.0-15.0) H 06/06/16 04:50 INR 2.95 (0.83-1.16) H 06/06/16 04:50 Laboratory Tests 06/08/16 05:00 pCO2 34 pO2 70 ABG pH 7.45 ABG O2 Saturation 94 O2 Concentration % 50 Set Respiration Rate 26 Assist Control YES Tidal Volume 600 End Tidal CO2 33 PEEP 8 Calcium 8.2 L Phosphorus 3.6 Total Bilirubin 2.1 H AST 36 ALT 24 Albumin 2.3 L CXR: ABOUT THE SAME TO SLIGHTLY BETTER Bronch culture: Minimal oral justin so far. Physical Exam - Physical Exam General Appearance: no apparent distress, obese, other (On ventilator) EENT: PERRL/EOMI, ET tube (Tracheostomy to), other Neck: No normal inspection (, trach in place) Respiratory: lungs clear (In anteriorly), decreased breath sounds (At bases bilaterally, coarse), rales (Few), No rhonchi, No wheezing Cardiac/Chest: regular rate, rhythm Abdomen: distended, other (Not tolerating tube feedings, increased residuals), No normal bowel sounds (Quiet, no bowel sounds), No non-tender, No soft Male Genitalia: other (Vargas catheter in suprapubic in place. 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
--- NOTE | 2016-06-08 11:31 | SOAPPROG ---
SOAP Progress Note Assessment/Plan: Assessment: POD#16 Urgent CABGx5 (Free FRANK-LAD, SVG-D1, sequential SVG-OM1-OM2 , SVG-PLC), TVA #32 MC3 ring, IABP 1:1. POD#15 Take back for expl, washout right CED. Sternal closure w Maria Victoria wetimo, jonatan. POD#4 Laparotomy, repair of bladder rupture, fulguration of bladder varix, drainage of intraperitoneal fluid, placement of suprapubic catheter. POD#4 Tracheostomy. IV access per LUE PICC. Nutrition per TPN. Acute MD, severe 3VD, post-infarction angina/IABP - s/p urgent CABGx5 compl by bleeding into rt chest requiring take-back. IABP support x 24h. Low dose pressor support x 72h. Tubes and wires out. Secondary prevention with BB as allowed by BP, statin when eating well, and Eliquis as per elev [id number] score. ICM with systolic (EF 30%) and diastolic dysfunction (EDP 25) and class IV heart failure - Diuresing moderate volume overload with bolus lasix. Staggered intro of heart failure regimen as appropriate. Torrential TR - Post CPB. Amenable to annuloplasty. Antithrombotic prophylaxis as per PAF. 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 Surveillance per cardiology. Postoperative respiratory failure - Ventilator dependent, failing extubation . Purulent malodorous secretions. PNA suspected. Abx, mucolytics, steroids, therapeutic bronchs, vent management per ICU. Acute expected blood loss anemia with coagulopathy - Requiring massive transfusion and take back for expl bleeding. Stable H/H 05/26 to 06/01. Recurrent losses d/t issues. Anticoag on hold but remains auto- anticoagulated w INR > 2 since 06/05. Postoperative renal failure with electrolyte imbalance - Early postop MAGUI evolving into failure d/t obstructive uropathy. Steady improvement post bladder repair. Care w fluids. BP support for MAP > 70 with pressors. Post-op AF/Flutter - Variable ventricular rates. Started on Amio. Adjunctive BB stopped d/t BP lability. Successful DC CVSN per cards 05/31. Recurrent PAF as of 06/06 and Amio restarted. [id number] score of 6. Antithrombotic prophylaxis with Eliquis when appropriate. DM2 - Suboptimal control by preop A1c of 8.4%. Postop hyperglycemia management with insulin gtt. Transition to basal insulin/SSI per ICU. 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 PENN and progressive renal insuff d/t clots. Eliquis held. Blood losses repleted w PRBCs. [address] bello and cont irrigation compl by bladder perf and shock. Bladder successfully repaired. Ongoing irrigation and serial bladder scans per urology. Abd CT scan today notable for large (? residual) clot in bladder. Ongoing hematuria o/w likely to coagulopathy. Post-op ileus - TFs on hold. Nutrition switched to TPN. Plan: Supportive care as per multidisciplinary team. Transfuse prn H/H < 10/30. Correction of INR (with DDAVP, Vit K, or FFP) to <2. Maintain MAPs > 70 w levophed. 06/08/16 11:30 Subjective: Awake and alert on vent. Endorses with a nod "feeling ok". Objective: Vital Signs Temp Pulse Resp BP Pulse Ox 36.4 C 61 30 H 140/42 H 96 06/08/16 05:00 06/08/16 08:15 06/08/16 07:00 06/08/16 07:00 06/08/16 08:15 Microbiology 06/07/16 15:34 - Final Sputum, Induced/Suctioned Laboratory Results 06/08/16 05:00 06/08/16 05:00 06/07/16 06/08/16 06/09/16 05:59 05:59 05:59 Intake Total 3574 3805.3 100 Output Total 3470 3055 140 Balance 104 750.3 -40 PT 31.1 SEC (12.0-15.0) H 06/06/16 04:50 INR 2.95 (0.83-1.16) H 06/06/16 04:50 Therapeutic BAL with clearance of thick secretions yest. Off dopamine. Levo down to 2.5mcg. Vent down to FIO2 45%. Controlled HR on amio. Vigorous UOP, falling BUN/Cr. H/H yet to plateau. TFs remain on hold for high residuals. Physical Exam - Physical Exam General Appearance: alert, no apparent distress Respiratory: lungs clear (vent) Cardiac/Chest: regular rate, rhythm, other (Sternum grossly stable. 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
[2016-06-08] MEDS: DESMOPRESSIN ACETATE 4 MCG/ML INJ IVP SCH ×2 (12:55→20:53)
[2016-06-08] MEDS ORDERED: LORazepam 2 MG/ML INJ IVP PRN (14:02)
[2016-06-08 14:47] LABS: SODIUM 147 mEq/L (134-144)
[2016-06-08] MEDS: FUROSEMIDE 40 MG/4 ML VIAL IVP SCH (15:37)
[2016-06-08 16:55] LABS: INR 1.32 (0.83-1.16); PROTIME(PATIENT) 16.4 SEC (12.0-15.0)
[2016-06-08 16:56] LABS: APTT 40.2 SEC (23.0-38.0)
[2016-06-08] MEDS: TPN 1 EA BAG IV SCH (20:53)
[2016-06-09] MEDS: PIPERACILLIN/TAZO 2.25 GM/DEX 50 ML IV SCH ×5 (00:23→23:07)
[2016-06-09] MEDS: METOCLOPRAMIDE 10 MG/2 ML VIAL IVP SCH ×5 (00:23→23:07)
[2016-06-09] MEDS: AMIODARONE HCL 200 ML IV SCH ×2 (01:07→11:27)
[2016-06-09] MEDS: D5W 1,000 ML IV SCH (01:31)
[2016-06-09] MEDS: INSULIN REGULAR HUMAN 100 UNIT/ML SC SCH ×6 (02:16→22:11)
[2016-06-09] MEDS: ALBUTEROL 60 PUFFS/8 GM MDI IH SCH ×4 (04:17→20:56)
[2016-06-09 04:20] LABS: BASE EXCESS 0.2 mEq/L (-2.5-2.5); BICARBONATE 24 mEq/L (22-26); MEASURED OXYGEN SATURATION 95 % (92-95); PCO2 36 mmHg (34-38); PO2 74 mmHg (65-75); TCO2 25 mEq/L (23-27)
[2016-06-09 04:21] LABS: ASSIST CONTROL YES; END TIDAL CO2 33; O2 CONCENTRATIION 45 % (0-100); P/F RATIO 164 RATIO; TOTAL RATE 32
[2016-06-09 06:04] LABS: INR 1.29 (0.83-1.16); PROTIME(PATIENT) 16.1 SEC (12.0-15.0)
[2016-06-09 06:05] LABS: APTT 43.8 SEC (23.0-38.0)
[2016-06-09 06:23] LABS: MAGNESIUM 1.7 mg/dL (1.6-2.3)
[2016-06-09 06:29] LABS: POTASSIUM 3.4 mEq/L (3.5-5.2)
[2016-06-09 08:01] LABS: HEMATOCRIT 28.2 % (40.0-51.0); HEMOGLOBIN 9.3 g/dL (13.7-17.5); MEAN CELL HEMOGLOBIN 30.2 pg (27.9-34.1); MEAN CELL VOLUME 91.6 fL (81.5-99.8); RED BLOOD CELL COUNT 3.08 10^6/uL (4.40-6.38); RED CELL DISTRIBUTION WIDTH 15.9 % (11.5-15.2)
[2016-06-09] MEDS: SENNOSIDES 17.6 MG/10 ML UDL TUBE SCH ×2 (08:51→21:03)
[2016-06-09 08:53] LABS: ALANINE AMINOTRANSFERASE 31 IU/L (21-72); ALBUMIN 2.3 g/dL (3.5-5.0); ALKALINE PHOSPHATASE 370 IU/L (38-126); ANION GAP 11 mEq/L (8-16); ASPARTATE AMINOTRANSFERASE 32 IU/L (17-59); BILIRUBIN,TOTAL 1.8 mg/dL (0.1-1.4); CALCIUM 8.2 mg/dL (8.5-10.4); CARBON DIOXIDE 26 mEq/l (22-31); CHLORIDE 108 mEq/L (97-110); CREATININE 2.7 mg/dL (0.7-1.3); GLOMERULAR FILTRATION RATE 23; GLUCOSE 146 mg/dL (70-100); MAGNESIUM 1.6 mg/dL (1.6-2.3); POTASSIUM 3.4 mEq/L (3.5-5.2); SODIUM 145 mEq/L (134-144); TOTAL PROTEIN 4.8 g/dL (6.3-8.2)
[2016-06-09] MEDS: predniSONE 1 MG TAB TUBE SCH (08:57)
[2016-06-09] MEDS: POTASSIUM Cl (KCl) 50 ML IV SCH ×6 (09:01→20:19)
[2016-06-09] MEDS: INSULIN GLARGINE 100 UNITS/ML SYRINGE SC SCH ×2 (09:02→21:03)
[2016-06-09] MEDS: FUROSEMIDE 40 MG/4 ML VIAL IVP SCH ×2 (09:02→14:31)
[2016-06-09] MEDS: PANTOPRAZOLE SODIUM 40 MG in NS 100 ML IV SCH (09:05)
[2016-06-09] MEDS: DESMOPRESSIN ACETATE 4 MCG/ML INJ IVP SCH (09:05)
--- NOTE | 2016-06-09 09:29 | DX ---
Chest, Single View June 09, 2016 History: Congestive heart failure and effusions. Follow-up. Shortness of breath. Comparisons: 08 June 2016 and 07 June 2016. Findings: Postsurgical changes are seen of prior surgery, which are stable. Heart size is enlarged an d stable. Pulmonary vascularity is prominent. Interstitial prominence is seen bilaterally. There is i ncreasing haziness in the right lung with layering fluid laterally. The patient is tilted to the righ t and is semiupright. Opacification is also seen at left lower lobe which could represent atelectasis , infiltrate, and/or effusion. Left PIC line and tracheostomy tube are in stable position. Feeding tu be is seen off the edge of the film. Impression: Increasing haziness in the right lung suggesting increasing pleural effusion and atelecta sis. Otherwise stable.
--- NOTE | 2016-06-09 10:44 | PDINTPN ---
Movie Producer Progress Note Assessment/Plan: Assessment: #CABG X 5 and TV annuloplasty 05/30. #Respiratory Failure, on vent. Status post tracheostomy. Oxygenation improved : Currently on 45%. #Pneumonia. Purulent secretions. Cultures negative, suspect anaerobic pneumonia, aspiration. On Zosyn adjusted for renal failure. MSSA in sputum. Plural effusions and atelectasis/infiltrates also present. #Hypotension. Blood pressure is on the low side. On Levophed. Dopamine off. #ROSEANNA -not an issue currently, s/p trach #Obesity and very deconditioned, no walking much before his surgery #DM: On insulin coverage but requiring significant amounts of insulin coverage as well as in the TPN. Will add Lantus. #Hx HTN, Hyperlipidemia #Remote TBI after a fall with punctate ICB #Atrial flutter - on amiodarone. Cardioverted and in NSR. #MAGUI: Creatinine improved, 2.8 today. Status post bladder repair and abdominal exploration. Ruptured bladder with fluid in the abdomen was present. Urine output appears to be increasing with Lasix now that obstruction has resolved, but may be falling off. #Anemia: Hct 26 post 1 unit yesterday. For blood today. Likely due to hematuria at this point. Eliquis on hold. No evidence of active bleeding other than the hematuria. Last INR significantly elevated, will reverse in recheck. #Nutrition: TFs on hold, significant ileus present preoperatively. On TPN. #Hypernatremia: Sodium 148 this morning. On hypotonic fluids. Will follow. #Sacral Decubitus: Wound Care involved. Plan: Continue vent support, supportive care. Continue antibiotics. FFP today. DDAVP x 24 hrs, then reassess. May help bleeding if uremic as well as sodium. Continue TPN, D5W. Cont Lantus 15 twice daily for now, and add more insulin to the TPN. Blood today: 1 u. Continue bladder irrigation per Urology. Continue Lasix prn. Follow urine output as possible. Follow chest x-ray, laboratory, blood gas. Continue Levophed as needed to maintain an MAP of 65. 50 minutes of critical care time spent directly with the patient, not including bronchoscopy. Discussed with patient to some extent, cardiovascular surgery, respiratory, pharmacy, the ICU multi disciplinary team. Objective: Vital Signs Temp Pulse Resp BP Pulse Ox 37.1 C 66 29 H 169/46 H 97 06/09/16 08:00 06/09/16 09:00 06/09/16 09:00 06/09/16 09:00 06/09/16 09:00 Microbiology 06/07/16 15:34 - Final Sputum, Induced/Suctioned Laboratory Results 06/09/16 07:45 06/09/16 05:48 06/08/16 06/09/16 06/10/16 05:59 05:59 05:59 Intake Total 3805.3 3633 Output Total 3055 3367 110 Balance 750.3 266 -110 PT 16.1 SEC (12.0-15.0) H 06/09/16 05:48 INR 1.29 (0.83-1.16) H 06/09/16 05:48 Laboratory Tests 06/06/16 06/08/16 06/09/16 04:50 05:00 04:10 PT 31.1 H INR 2.95 H APTT 60.7 H pCO2 34 36 pO2 74 ABG pH 7.44 ABG O2 Saturation 95 O2 Concentration % 45 Respiration Rate 32 Set Respiration Rate 26 Assist Control YES Tidal Volume 600 End Tidal CO2 33 PEEP 8 Calcium Phosphorus Magnesium Total Bilirubin AST ALT Albumin 06/09/16 05:48 PT 16.1 H INR 1.29 H APTT 43.8 H pCO2 pO2 ABG pH ABG O2 Saturation O2 Concentration % Respiration Rate Set Respiration Rate Assist Control Tidal Volume End Tidal CO2 PEEP Calcium 8.2 L Phosphorus 3.2 Magnesium 1.6 Total Bilirubin 1.8 H AST 32 ALT 31 Albumin 2.3 L CXR - No sig changes. Lines and tubes in good position. 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
--- NOTE | 2016-06-09 11:05 | SOAPPROG ---
SOAP Progress Note Assessment/Plan: Assessment: POD#17 Urgent CABGx5 (Free FRANK-LAD, SVG-D1, sequential SVG-OM1-OM2 , SVG-PLC), TVA #32 MC3 ring, IABP 1:1. POD#16 Take back for expl, washout right CED. Sternal closure w Maria Victoria auguste, jonatan. POD#5 Laparotomy, repair of bladder rupture, fulguration of bladder varix, drainage of intraperitoneal fluid, placement of suprapubic catheter. POD#5 Tracheostomy. IV access per LUE PICC. Nutrition per TPN. Acute ME, severe 3VD, post-infarction angina/IABP - s/p urgent CABGx5 compl by bleeding into rt chest requiring take-back. IABP support x 24h. Low dose pressor support x 72h. Tubes and wires out. Secondary prevention with BB as allowed by BP, statin when eating well, and Eliquis (as per rhythm) when appropriate. ICM with systolic (EF 30%) and diastolic dysfunction (EDP 25) and class IV heart failure - Diuresing moderate volume overload with bolus lasix. Staggered intro of heart failure regimen as appropriate. Torrential TR - Post CPB. Amenable to annuloplasty. Antithrombotic prophylaxis as per PAF. 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 Surveillance per cardiology. Postoperative respiratory failure - Ventilator dependent, failing extubation . Purulent malodorous secretions. PNA suspected. Abx, mucolytics, steroids, therapeutic bronchs, vent management per ICU. Acute expected blood loss anemia with coagulopathy - Requiring massive transfusion and take back for expl bleeding. Stable H/H 05/26 to 06/01. Recurrent losses d/t issues. Anticoagulation on hold. Elevated INR (> 2 from 1214-06/08) corrected. Postoperative renal failure with electrolyte imbalance - Early postop MAGUI evolving into failure d/t obstructive uropathy. Steady improvement post bladder repair. Care w fluids. BP support for MAP > 70. Post-op AF/Flutter - Variable ventricular rates. Started on Amio. Adjunctive BB stopped d/t BP lability. Successful DC CVSN per cards 05/31. Recurrent PAF as of 06/06 and Amio restarted. [id number] score of 6. Antithrombotic prophylaxis with Eliquis when appropriate. DM2 - Suboptimal control by preop A1c of 8.4%. Postop hyperglycemia management with insulin gtt. Transition to basal insulin/SSI per ICU. 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 PENN and progressive renal insuff d/t clots. Eliquis held. Blood losses repleted w PRBCs. [address] bello and cont irrigation compl by bladder perf and shock. Bladder successfully repaired. Ongoing irrigation and serial bladder scans per urology. Anticipate decr hematuria w correction of coagulopathy. Post-op ileus - TFs on hold. Nutrition switched to TPN. Plan: Supportive care as per multidisciplinary team. Remove chest jonatan. Transfuse prn H/H < 10/30. Stop D5W. Stop DDAVP. US guided rt thoracentesis. 06/09/16 11:01 Subjective: Awake, alert on vent. Follows commands. Objective: Vital Signs Temp Pulse Resp BP Pulse Ox 37.1 C 66 29 H 160/46 H 95 06/09/16 08:00 06/09/16 10:00 06/09/16 10:00 06/09/16 10:00 06/09/16 10:00 Microbiology 06/07/16 15:34 - Final Sputum, Induced/Suctioned Laboratory Results 06/09/16 07:45 06/09/16 05:48 06/08/16 06/09/16 06/10/16 05:59 05:59 05:59 Intake Total 3805.3 3633 Output Total 3055 3367 110 Balance 750.3 266 -110 PT 16.1 SEC (12.0-15.0) H 06/09/16 05:48 INR 1.29 (0.83-1.16) H 06/09/16 05:48 Bladder caths manipulated by urology and some clot expressed. TFs remain on hold for inc residuals. Levophed off. HR and BP/MAP stable. CXR-> sugg inc rt pl eff. Na better. I/Os balanced. Renal fx stable. Physical Exam - Physical Exam General Appearance: alert, no apparent distress Respiratory: other (vent) Cardiac/Chest: regular rate, rhythm, other (Sternum grossly stable. 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
--- NOTE | 2016-06-09 12:40 | US ---
Ultrasound Right Chest History: Evaluate size of pleural effusion. Comparison: Chest x-ray dated 09 June 2016. Findings: There is a small right pleural effusion dependent in the right lower hemithorax. The thickn ess of the effusion is 2-3 cm. There is mild atelectasis in the right lower lobe. Impression: Small right pleural effusion.
[2016-06-09 13:11] LABS: POTASSIUM 3.8 mEq/L (3.5-5.2)
[2016-06-09] MEDS ORDERED: POTASSIUM Cl (KCl) 50 ML IV ONE (14:03)
[2016-06-09] MEDS ORDERED: NOREPINEPHRINE BITARTRATE 16 MG in D5W 250 ML IV SCH (15:00)
--- NOTE | 2016-06-09 15:51 | PDINTPN ---
[facility] [employer] Progress Note Assessment/Plan: Assessment: #CABG X 5 and TV annuloplasty 05/30. #Respiratory Failure, on vent. Status post tracheostomy. Oxygenation improved : Currently on 45%. #Pneumonia. Purulent secretions. Cultures negative, suspect anaerobic pneumonia, aspiration. On Zosyn adjusted for renal failure. MSSA in sputum. Plural effusions and atelectasis/infiltrates also present. Thoracentesis on the right is requested but cardiovascular surgery. #Hypotension. Blood pressure is on the low side. On Levophed. Dopamine off. #ROSEANNA -not an issue currently, s/p trach #Obesity/deconditioning. Present prior to surgery. #DM: On insulin coverage but requiring significant amounts of insulin coverage as well as in the TPN, in Lantus #Atrial flutter - on amiodarone. Cardioverted and in NSR. #MAGUI: Creatinine improved, 2.8 today. Status post bladder repair and abdominal exploration. Ruptured bladder with fluid in the abdomen was present. Urine output appears to be increasing with Lasix now that obstruction has resolved, but may be falling off. #Anemia: Hct 28 post 1 unit yesterday. For blood today. Eliquis on hold. No evidence of active bleeding other than the hematuria. INR 1.28 today. #Nutrition: TFs on hold, significant ileus present preoperatively. On TPN. #Hypernatremia: Sodium 145 this morning. On hypotonic fluids.Was on DDAVP yesterday, off currently. Will follow. #Sacral Decubitus: Wound Care involved. Plan: Continue vent support, supportive care. Continue antibiotics. FFP today. Continue TPN, D5W. Cont insulins... Thoracentesis attempt today On the right side. Continue bladder irrigation per Urology. Continue Lasix prn. Follow urine output as possible. Follow chest x-ray, laboratory, blood gas. Continue Levophed as needed to maintain an MAP of 65. 45 minutes of critical care time spent directly with the patient, not including Thoracentesis. Discussed with cardiovascular surgery, respiratory, pharmacy , the ICU multi disciplinary team. Subjective: Lightly sedated, on the ventilator. Appears relatively comfortable. Arousable , responsive. Objective: Vital Signs Temp Pulse Resp BP Pulse Ox 36.8 C 67 26 H 137/42 H 97 06/09/16 11:57 06/09/16 15:00 06/09/16 15:00 06/09/16 15:00 06/09/16 15:00 Microbiology 06/07/16 15:34 - Final Sputum, Induced/Suctioned Sputum Culture - Final Laboratory Results 06/09/16 07:45 06/09/16 12:45 06/08/16 06/09/16 06/10/16 05:59 05:59 05:59 Intake Total 3805.3 3633 Output Total 3055 3367 1430 Balance 750.3 266 -1430 PT 16.1 SEC (12.0-15.0) H 06/09/16 05:48 INR 1.29 (0.83-1.16) H 06/09/16 05:48 Laboratory Tests 06/09/16 06/09/16 04:10 05:48 pCO2 36 pO2 74 ABG pH 7.44 O2 Concentration % 45 Set Respiration Rate 26 Assist Control YES Tidal Volume 600 End Tidal CO2 33 PEEP 8 Sodium 145 H Potassium 3.4 L Chloride 108 Carbon Dioxide 26 BUN 85 H Creatinine 2.7 H Glucose 146 H Calcium 8.2 L Phosphorus 3.2 Magnesium 1.6 Total Bilirubin 1.8 H AST 32 ALT 31 Albumin 2.3 L CXR: Bilateral infiltrates/atelectasis persist. Right-sided and possibly left- sided pleural effusions are present. Lines and tubes appear to be in good position. Ultrasound of the right chest. A small to possibly moderate effusion is present. Physical Exam - Physical Exam General Appearance: no apparent distress, obese, other (Sedated, arouses, response) EENT: PERRL/EOMI, ET tube (Tracheostomy tube in place), other (Feeding tube is present) Neck: No normal inspection (Large neck, tracheostomy, site without infection) Respiratory: lungs clear (Anteriorly), decreased breath sounds (At the bases), rales (Few), other (Decreased secretions), No rhonchi, No wheezing Cardiac/Chest: regular rate, rhythm (Distant heart tones) Abdomen: distended (Obese), No normal bowel sounds (Quiet), No non-tender, No soft Male Genitalia: other (Vargas catheter and suprapubic catheters in place. Drainage less bloody. 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
--- NOTE | 2016-06-09 16:33 | WOCRNPDOC ---
WOCRN Advanced Assessment Note - Skin Integrity Problem, Advanced Assess Sacrum Pressure Injury Dressing Type: Allevyn Life, Honey Gauze Dressing Description: Clean/Dry, Intact Exudate Amount: None Integumentary Issue Intervention: Dressing Changed Nena Wound Tissue: Erythema Wound Bed Color: Brown, Yellow Wound Bed Constitution: Adhered Slough (70%), Stable Eschar (30%) Wound Edges: Attached Site Measurement - Head-to-Toe Length X Width X Depth (cm): 7x7x0 Pressure Injury Stage: Unstageable Lymphedema Present: No Skin Integrity Problem Comment: Wound is continuing to evolve. Now 100% necrotic tissue. Cleaned with ns and gauze. Honey gauze to slough and eschar. Covered with new Allevyn Life. Wound care will round again 06/14.
--- NOTE | 2016-06-09 17:59 | GPN ---
[f rep st] PROCEDURE NOTE PROCEDURE: Thoracentesis. REASON FOR PROCEDURE: Increasing right-sided pleural effusion in a patient who is status post open h eart surgery with renal failure and fluid retention. PROCEDURE NOTE: The procedure was done in the intensive care unit. Informed consent was obtained fr om the family. Appropriate time-out was performed. Sterile procedure was used throughout. Following chlorhexidine cleaning of the skin and 1% lidocaine, approximately 5 cc for local anesthesi a, a thoracentesis catheter was advanced into the patient's right pleural effusion via interspace, ap proximately 8-9. This area was previously marked by ultrasound as the location of the patient's pleu ral effusion. Approximately 900 cc of bloody/serous nonclotting fluid was removed from the right dun[address] st without difficulty. A sample was sent for culture. No other studies were done. The patient tole rated the procedure well. There were no complications. Chest x-ray is pending at the time of this d ictation. IMPRESSION: Successful large volume thoracentesis. /[id number]/MODL
--- NOTE | 2016-06-09 18:07 | DX ---
Portable Chest, 17:47, 2 views Clinical Indications: Status post right thoracentesis of approximately 900 mL, evaluate for post thor acentesis pneumothorax Comparison: June 09, 2016 6:31 a.m. Findings: A right pleural effusion is significantly smaller. No post thoracentesis pneumothorax is i dentified. Cardiomegaly and pulmonary vascular plethora remain. Blunting of the left costophrenic gut ter is stable. A feeding tube remains with tip in the stomach. A tracheostomy an left arm PICC line r emain in place. Median sternotomy wires, CABG clips and midline skin jonatan remain. Impression: Improved right pleural effusion without pneumothorax.
[2016-06-09 18:21] LABS: POTASSIUM 3.6 mEq/L (3.5-5.2)
[2016-06-09] MEDS: TPN 1 EA BAG IV SCH (21:04)
[2016-06-10] MEDS: INSULIN REGULAR HUMAN 100 UNIT/ML SC SCH ×6 (03:16→22:05)
[2016-06-10] MEDS: ALBUTEROL 60 PUFFS/8 GM MDI IH SCH ×4 (03:59→20:03)
[2016-06-10 04:16] LABS: ABSOLUTE NRBC COUNT 0.04 10^3/uL (0-0.01); ADD DIFF? YES; ADD MORPH? NO; ADD SCAN? NO; ATYPICAL LYMPHOCYTE FLAG 30 (0-99); FRAGMENT RBC FLAG 0 (0-99); HEMATOCRIT 27.9 % (40.0-51.0); HEMOGLOBIN 9.1 g/dL (13.7-17.5); LEFT SHIFT FLG 50 (0-99); LIPEMIA HEMOLYSIS FLAG 80 (0-99); MEAN CELL HEMOGLOBIN 29.9 pg (27.9-34.1); MEAN CELL HEMOGLOBIN CONCENTR. 32.6 g/dL (32.4-36.7); MEAN CELL VOLUME 91.8 fL (81.5-99.8); MEAN PLATELET VOLUME 10.1 fL (8.7-11.7); NRBC-AUTO% 0.5 % (0.0-0.2); PLATELET CLUMPS FLAG 20 (0-99); PLATELET COUNT 290 10^3/uL (150-400); RED BLOOD CELL COUNT 3.04 10^6/uL (4.40-6.38); RED CELL DISTRIBUTION WIDTH 15.8 % (11.5-15.2)
[2016-06-10 04:25] LABS: INR 1.33 (0.83-1.16); PROTIME(PATIENT) 16.5 SEC (12.0-15.0)
[2016-06-10 04:26] LABS: APTT 46.7 SEC (23.0-38.0)
[2016-06-10 04:53] LABS: ALANINE AMINOTRANSFERASE 25 IU/L (21-72); ALBUMIN 2.3 g/dL (3.5-5.0); ALKALINE PHOSPHATASE 334 IU/L (38-126); ANION GAP 11 mEq/L (8-16); ASPARTATE AMINOTRANSFERASE 28 IU/L (17-59); BILIRUBIN,TOTAL 1.6 mg/dL (0.1-1.4); CALCIUM 8.2 mg/dL (8.5-10.4); CARBON DIOXIDE 27 mEq/l (22-31); CHLORIDE 107 mEq/L (97-110); CREATININE 2.6 mg/dL (0.7-1.3); GLOMERULAR FILTRATION RATE 24; GLUCOSE 117 mg/dL (70-100); POTASSIUM 3.4 mEq/L (3.5-5.2); SODIUM 145 mEq/L (134-144); TOTAL PROTEIN 4.8 g/dL (6.3-8.2); TRIGLYCERIDE 183 mg/dL (40-150)
[2016-06-10 05:28] LABS: POLYCHROMASIA 1+
[2016-06-10 05:29] LABS: PLATELET ESTIMATE ADEQUATE (ADEQ); TOXIC GRANULATION PRESENT; TOXIC VACUOLIZATION PRESENT
[2016-06-10] MEDS: PIPERACILLIN/TAZO 2.25 GM/DEX 50 ML IV SCH ×4 (05:29→23:09)
[2016-06-10] MEDS: POTASSIUM Cl (KCl) 50 ML IV SCH ×6 (05:29→17:25)
[2016-06-10] MEDS: METOCLOPRAMIDE 10 MG/2 ML VIAL IVP SCH ×4 (05:30→23:09)
[2016-06-10 05:34] LABS: BASE EXCESS 1.3 mEq/L (-2.5-2.5); BICARBONATE 24 mEq/L (22-26); MEASURED OXYGEN SATURATION 96 % (92-95); PCO2 35 mmHg (34-38); PO2 83 mmHg (65-75); TCO2 25 mEq/L (23-27)
[2016-06-10 05:36] LABS: ASSIST CONTROL YES; END TIDAL CO2 34; O2 CONCENTRATIION 40 % (0-100); P/F RATIO 207 RATIO
[2016-06-10 05:37] LABS: TOTAL RATE 26
--- NOTE | 2016-06-10 08:41 | DX ---
Portable AP Chest June 10, 2016 0620 hours Clinical Indications: Follow up. Comparison: June 09, 2016 at 1746 hours. Findings: The tracheostomy, left-sided PICC, enteric feeding tube, mediastinal wires, and midline sta ples are unchanged. Cardiomegaly with pulmonary vascular congestion is stable. Retrocardiac infiltrat e versus effusion is again noted. Impression: 1. Stable lines and tubes. 2. Persistent left pleural effusion. 3. Cardiomegaly and pulmonary vascular congestion are unchanged.
[2016-06-10] MEDS: FUROSEMIDE 40 MG/4 ML VIAL IVP SCH ×2 (08:49→14:52)
[2016-06-10] MEDS: PANTOPRAZOLE SODIUM 40 MG in NS 100 ML IV SCH (08:49)
--- NOTE | 2016-06-10 09:30 | PDINTPN ---
[facility] Progress Note Assessment/Plan: Assessment: #CABG X 5 and TV annuloplasty 05/30. #Respiratory Failure, on vent. Status post tracheostomy. Oxygenation improved : Currently on 40%. #Pneumonia. Purulent secretions. Cultures negative, suspect anaerobic pneumonia, aspiration. On Zosyn adjusted for renal failure. MSSA in sputum. Plural effusions and atelectasis/infiltrates also present. Thoracentesis performed #Hypotension. Blood pressure is on the low side. On Levophed. Dopamine off. #ROSEANNA -not an issue currently, s/p trach #Obesity/deconditioning. Present prior to surgery. #DM: On insulin coverage but requiring significant amounts of insulin coverage as well as in the TPN, in Lantus #Atrial flutter - on amiodarone. Cardioverted and in NSR. #MAGUI: Creatinine improved today. Status post bladder repair and abdominal exploration. Ruptured bladder with fluid in the abdomen was present. Urine output appears to be increasing with Lasix now that obstruction has resolved, but may be falling off. #Anemia: Hct stable. Eliquis on hold. No evidence of active bleeding other than the hematuria. INR unchanged at 1.3 #Nutrition: TFs on hold, significant ileus present preoperatively. On TPN. #Hypernatremia: Sodium 145 this morning. On hypotonic fluids. Was on DDAVP yesterday, off currently. Will follow. #Sacral Decubitus: Wound Care involved. Plan: Continue vent support, supportive care. Bronchoscopy, then trials of CPAP as tolerated. Continue antibiotics. FFP today. Continue TPN, D5W. Cont insulin: SSI, Lantus and in TPN Continue bladder irrigation per Urology. Continue Lasix prn. Follow urine output as possible. Follow chest x-ray, laboratory, blood gas. Continue Levophed as needed to maintain an MAP of 65. D/W RT, RT, family, Dr. Johnson 40 minutes CC time. 06/10/16 11:30 Subjective: Alert on vent. Comfortable, no complaints Objective: Vital Signs Temp Pulse Resp BP Pulse Ox 36.5 C 70 28 H 135/48 H 100 06/10/16 07:00 06/10/16 09:00 06/10/16 09:00 06/10/16 09:00 06/10/16 09:00 Microbiology 06/09/16 17:30 Gram Stain - Final Pleural Fluid - Aspirate 06/07/16 15:34 - Final Sputum, Induced/Suctioned Sputum Culture - Final Laboratory Results 06/10/16 04:00 06/10/16 04:00 06/09/16 06/10/16 06/11/16 05:59 05:59 05:59 Intake Total 3633 2817.3 Output Total 3367 6658 810 Balance 266 -3840.7 -810 PT 16.5 SEC (12.0-15.0) H 06/10/16 04:00 INR 1.33 (0.83-1.16) H 06/10/16 04:00 CXR: Improved right effusion. Persistent pulmonary edema pattern. Images reviewed. 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
[2016-06-10] MEDS: AMIODARONE HCL 200 ML IV SCH ×2 (09:53→21:46)
[2016-06-10] MEDS: predniSONE 1 MG TAB TUBE SCH (09:54)
[2016-06-10] MEDS: SENNOSIDES 17.6 MG/10 ML UDL TUBE SCH ×2 (09:55→21:38)
--- NOTE | 2016-06-10 10:02 | GPROG ---
[f rep st] PROGRESS NOTE DATE OF SERVICE: 06/08/2016 ASSESSMENT AND PLAN: 1. Coronary artery bypass grafting x5 and annuloplasty on 05/30. 2. Hematuria, severe, due to perforated bladder with reconstruction of this and evacuation of this. He has hematuria, and the CT scan noted a clot. I presented to evacuate his bladder, and evaluate the clot. At the bedside, I performed irrigation for over 30 minutes and obtained pink urine with small amounts of clots. I do believe there is a clot in the bladder ; however, this looks old to me, and is something that I think will resolve over time. His urine output improved significantly, and I think this is just a small clot obstructing one of his catheters. PLAN: 1. Continue to irritate the bladder q. shift as needed. 2. Continue Lasix. This is a 35-minute progress note of critical care time spent directly with the patient. SUBJECTIVE: He is lightly sedated. He is arousable and responsive. VITAL SIGNS: Afebrile. Pulse of 67. Respiratory rate is 26. Blood pressure 130s over 40s. His urine output is picking up. His white count is 9.6, and INR is 1.2. His creatinine is 2.7. ABDOMEN: Soft. It is moderately distended. He does have an ileus. GENERAL APPEARANCE: No acute distress. HEENT: Normocephalic, atraumatic. NECK: Supple. No lymphadenopathy. Respiratory rate with decreased breath sounds. ABDOMEN: The incision is clean with a small amount of serosanguineous drainage. GENITALIA: Vargas and SPT was in place. SKIN: Normal, clear, and dry. EXTREMITIES: No pedal edema. Normal mood and affect. /[id number]/MODL MTDD
[2016-06-10] MEDS ORDERED: NOREPINEPHRINE BITARTRATE 16 MG in D5W 234 ML IV SCH (10:33)
--- NOTE | 2016-06-10 10:38 | SOAPPROG ---
SOAP Progress Note Assessment/Plan: Assessment: POD#18 Urgent CABGx5 (Free FRANK-LAD, SVG-D1, sequential SVG-OM1-OM2 , SVG-PLC), TVA #32 MC3 ring, IABP 1:1. POD#17 Take back for expl, washout right CED. Sternal closure w Robicsek weave, jonatan. POD#6 Laparotomy, repair of bladder rupture, fulguration of bladder varix, drainage of intraperitoneal fluid, placement of suprapubic catheter. POD#6 Tracheostomy. IV access per LUE PICC. Nutrition per TPN. Acute NH, severe 3VD, post-infarction angina/IABP - s/p urgent CABGx5 compl by bleeding into rt chest requiring take-back. IABP support x 24h. Low dose pressor support x 72h. Tubes, wires, and jonatan out. Secondary prevention with BB as allowed by BP, statin when eating well, and Eliquis (as per rhythm) when appropriate. ICM with systolic (EF 30%) and diastolic dysfunction (EDP 25) and class IV heart failure - Diuresing moderate volume overload with bolus lasix. Small- moderate bilat pleural effusions, R>L. 900ml rt thoracentesis yest. Staggered intro of heart failure regimen as appropriate. Torrential TR - Post CPB. Amenable to annuloplasty. Antithrombotic prophylaxis as per PAF. 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 Surveillance per cardiology. Postoperative respiratory failure - Ventilator dependent, failing extubation 12/ . Trach placed. Purulent malodorous secretions. PNA suspected. Abx, mucolytics , steroids, therapeutic bronchs, vent management per ICU. Acute expected blood loss anemia with coagulopathy - Requiring massive transfusion and take back for expl bleeding. Stable H/H 05/26 to 06/01. Recurrent losses d/t issues. Anticoagulation on hold. Elevated INR (> 2 from 06/05-06/08) corrected. Maintaining H/H > 03/19. Postoperative renal failure with electrolyte imbalance - Early postop MAGUI evolving into failure d/t obstructive uropathy. Slow but steady improvement post bladder repair. Care w fluids. BP support for MAP > 65. Post-op AF/Flutter - Variable ventricular rates. Started on Amio. Adjunctive BB stopped d/t BP lability. Successful DC CVSN per cards 05/31. Recurrent PAF as of 06/06 and Amio restarted. [id number] score of 6. Antithrombotic prophylaxis with Eliquis when appropriate. DM2 - Suboptimal control by preop A1c of 8.4%. Postop hyperglycemia management with insulin gtt. Transition to basal insulin/SSI per ICU. 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 PENN and progressive renal insuff d/t clots. Eliquis held. Blood losses repleted w PRBCs. [address] bello and cont irrigation compl by bladder perf and shock. Bladder successfully repaired. Ongoing irrigation and serial bladder scans per urology. Anticipate decr hematuria w correction of coagulopathy. Post-op ileus - TFs on hold. Nutrition switched to TPN. Recovering bowel sounds , but NGT residuals remain elev. Eventual gastrostomy tube likely. Plan: Supportive care as per multidisciplinary team. Wean levo. Accept SBP > 100. Payton out tomorrow. 06/10/16 10:04 Subjective: Sleepy but arousable. Objective: Vital Signs Temp Pulse Resp BP Pulse Ox 36.5 C 69 26 H 143/47 H 100 06/10/16 07:00 06/10/16 10:00 06/10/16 10:00 06/10/16 10:00 06/10/16 10:00 Microbiology 06/09/16 17:30 Gram Stain - Final Pleural Fluid - Aspirate 06/07/16 15:34 - Final Sputum, Induced/Suctioned Sputum Culture - Final Laboratory Results 06/10/16 04:00 06/10/16 04:00 06/09/16 06/10/16 06/11/16 05:59 05:59 05:59 Intake Total 3633 2817.3 Output Total 3367 6658 1080 Balance 266 -3840.7 -1080 PT 16.5 SEC (12.0-15.0) H 06/10/16 04:00 INR 1.33 (0.83-1.16) H 06/10/16 04:00 Levo off for several hours yest, restarted at 1 mcg for MAP < 65. Vigorous diuresis in progress. Renal fx stable. 900 ml fluid tapped off rt lung with small residual effusion by CXR. Cx of aspirate pending. FIO2 down to 40%. Holding H/H and INR. Physical Exam - Physical Exam General Appearance: no apparent distress Neck: other (thick christina-trach mucous) Respiratory: lungs clear (anteriorly) Cardiac/Chest: regular rate, rhythm, other (Sternum grossly stable. 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
[2016-06-10] MEDS ORDERED: MAGNESIUM SULF 1 GM/DEXTROSE 100 ML IV ONE (11:00)
[2016-06-10] MEDS: ALTEPLASE 2 MG VIAL IVP PRN (11:10)
[2016-06-10] MEDS: INSULIN GLARGINE 100 UNITS/ML SYRINGE SC SCH ×2 (11:27→21:45)
[2016-06-10] MEDS ORDERED: LIDOCAINE 1% 30 ML SDV MISC ONE (11:41)
[2016-06-10] MEDS ORDERED: LIDOCAINE 2% JELLY 5 ML TUBE TP ONE (11:41)
--- NOTE | 2016-06-10 12:22 | GPROG ---
[f rep st] PROGRESS NOTE DATE OF SERVICE: 06/09/2016 ASSESSMENT AND PLAN: Hematuria due to small clot in the bladder, and I was assessing his Vargas outpu t from his SP tube and his Vargas. Both have improved. Both are pink. There is likely a small clot in the bladder per the imaging study; however, I do not think this is something that requires surgical intervention, and we will simply nusrat mccrary with bladder irrigation. His creatinine is improved at 2.7 today, and his abdomen is less disten ded, but he still has an ileus. His Eliquis is still on hold. Again, I believe this is old clot in hi s bladder. I would continue the bladder irrigation. PLAN: Continue bladder irrigation. OBJECTIVE: VITAL SIGNS: He is afebrile. His pulse is in the 70s. Respiratory rate is 26. Blood press ure is 130s over 40s. Pulse ox is 97. His white count is in the 9s. His last creatinine is 2.7. His u rine output is improving. ABDOMEN: Distended. NECK: Normal on inspection. HEENT: His is trached. GENE RAL APPEARANCE: No acute distress. GENITALIA: The Vargas and SP tubes are in place. The dressings are clean. SKIN: No rashes or lesions. EXTREMITIES: No pedal edema. PSYCHOLOGICAL: No motor deficits. /[id number]/MODL
[2016-06-10] MEDS ORDERED: PROTOCOL POTASSIUM 1 DOSE MISC PRN (14:06)
[2016-06-10 14:37] LABS: POTASSIUM 3.5 mEq/L (3.5-5.2)
--- NOTE | 2016-06-10 15:53 | GPN ---
[f rep st] PROCEDURE NOTE DATE OF PROCEDURE: 06/10/2016 PROCEDURE: Flexible fiberoptic bronchoscopy. INDICATIONS: Respiratory failure with retained secretions. DESCRIPTION OF PROCEDURE: The risks and benefits of the procedure were explained to the patient's fa walt and the patient, who agreed to proceed. The entire procedure was performed in the intensive car e unit, with the patient under blood pressure, EKG, and oximetry monitoring. It was my assessment th at there was no risk of airborne infection from the procedure. Two cc of 1% lidocaine were instilled into the patient's endotracheal tube. The bronchoscope was advanced through the endotracheal tube, into the trachea. There were some inflammatory changes in the tracheal wall, with minimal bleeding. The bronchoscope was advanced to the mainstem bronchi. In the right mainstem bronchus, there were s ome scattered mucoid secretions that were largely occluding the right lower lobe. These were easily suctioned, and minimal scattered secretions were suctioned from the basal segments. The upper lobe a nd middle lobe were clear of secretions. I then turned to the left-sided airways, where some bloody purulent secretions were removed from the left lower lobe. The upper lobe was clear of secretions. A small volume lavage was performed of both lower lobes. All airways were patent at the end of the p rocedure. The specimen will be sent for Gram stain and culture. COMPLICATIONS: There were no complications apparent at the end of the procedure. /[id number]/MODL
[2016-06-10 20:55] LABS: POTASSIUM 3.8 mEq/L (3.5-5.2)
[2016-06-10] MEDS: TPN 1 EA BAG IV SCH (21:39)
[2016-06-10] MEDS ORDERED: POTASSIUM Cl (KCl) 50 ML IV ONE (22:05)
[2016-06-11] MEDS: ALBUTEROL 60 PUFFS/8 GM MDI IH SCH ×5 (03:49→20:25)
[2016-06-11 04:25] LABS: ABSOLUTE NRBC COUNT 0.02 10^3/uL (0-0.01); ADD DIFF? YES; ADD MORPH? NO; ADD SCAN? NO; ATYPICAL LYMPHOCYTE FLAG 30 (0-99); FRAGMENT RBC FLAG 0 (0-99); HEMATOCRIT 27.3 % (40.0-51.0); LEFT SHIFT FLG 30 (0-99); LIPEMIA HEMOLYSIS FLAG 80 (0-99); MEAN CELL HEMOGLOBIN 30.6 pg (27.9-34.1); MEAN CELL VOLUME 92.9 fL (81.5-99.8); MEAN PLATELET VOLUME 10.2 fL (8.7-11.7); NRBC-AUTO% 0.2 % (0.0-0.2); PLATELET CLUMPS FLAG 0 (0-99); PLATELET COUNT 280 10^3/uL (150-400); RED BLOOD CELL COUNT 2.94 10^6/uL (4.40-6.38); RED CELL DISTRIBUTION WIDTH 15.9 % (11.5-15.2)
[2016-06-11 04:36] LABS: INR 1.39 (0.83-1.16)
[2016-06-11 04:37] LABS: APTT 46.4 SEC (23.0-38.0)
[2016-06-11 04:39] LABS: ALANINE AMINOTRANSFERASE 28 IU/L (21-72); ALBUMIN 2.3 g/dL (3.5-5.0); ALKALINE PHOSPHATASE 274 IU/L (38-126); ANION GAP 9 mEq/L (8-16); ASPARTATE AMINOTRANSFERASE 23 IU/L (17-59); BILIRUBIN,TOTAL 1.6 mg/dL (0.1-1.4); CALCIUM 8.1 mg/dL (8.5-10.4); CARBON DIOXIDE 29 mEq/l (22-31); CHLORIDE 108 mEq/L (97-110); CREATININE 2.5 mg/dL (0.7-1.3); GLOMERULAR FILTRATION RATE 25; GLUCOSE 93 mg/dL (70-100); POTASSIUM 3.7 mEq/L (3.5-5.2); SODIUM 146 mEq/L (134-144); TOTAL PROTEIN 4.9 g/dL (6.3-8.2)
[2016-06-11] MEDS: INSULIN REGULAR HUMAN 100 UNIT/ML SC SCH ×6 (04:45→22:43)
[2016-06-11] MEDS ORDERED: POTASSIUM Cl (KCl) 50 ML IV ONE (04:50)
[2016-06-11 05:19] LABS: PLATELET ESTIMATE ADEQUATE (ADEQ); POLYCHROMASIA 1+
[2016-06-11] MEDS: METOCLOPRAMIDE 10 MG/2 ML VIAL IVP SCH ×3 (06:13→18:51)
[2016-06-11] MEDS: PIPERACILLIN/TAZO 2.25 GM/DEX 50 ML IV SCH ×3 (06:13→17:36)
[2016-06-11] MEDS: AMIODARONE HCL 200 ML IV SCH ×2 (08:46→20:31)
--- NOTE | 2016-06-11 09:09 | SOAPPROG ---
SOAP Progress Note Assessment/Plan: Assessment: POD#19 Urgent CABGx5 (Free FRANK-LAD, SVG-D1, sequential SVG-OM1-OM2 , SVG-PLC), TVA #32 MC3 ring, IABP 1:1. POD#18 Take back for expl, washout right CED. Sternal closure w Robshandaek weave, jonatan. POD#7 Laparotomy, repair of bladder rupture, fulguration of bladder varix, drainage of intraperitoneal fluid, placement of suprapubic catheter. POD#7 Tracheostomy. IV access per LUE PICC. Nutrition per TPN. Acute AK, severe 3VD, post-infarction angina/IABP - s/p urgent CABGx5 compl by bleeding into rt chest requiring take-back. IABP support x 24h. Low dose pressor support x 72h. Tubes, wires, and jonatan out. Secondary prevention with BB as allowed by BP, statin when eating well, and Eliquis (as per rhythm) when appropriate. ICM with systolic (EF 30%) and diastolic dysfunction (EDP 25) and class IV heart failure - Diuresing moderate volume overload with bolus lasix. Small- moderate bilat pleural effusions, R>L. 900ml rt thoracentesis yest. Staggered intro of heart failure regimen as appropriate. Torrential TR - Post CPB. Amenable to annuloplasty. Antithrombotic prophylaxis as per PAF. 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 Surveillance per cardiology. Postoperative respiratory failure - Ventilator dependent, failing extubation 12/ . Trach placed. Purulent malodorous secretions. PNA suspected. Abx, mucolytics , steroids, therapeutic bronchs, vent management per ICU. Acute expected blood loss anemia with coagulopathy - Requiring massive transfusion and take back for expl bleeding. Stable H/H / to 06/01. Recurrent losses d/t issues. Anticoagulation on hold. Elevated INR (> 2 from 06/05-06/08) corrected. Maintaining H/H. Postoperative renal failure with electrolyte imbalance - Early postop MAGUI evolving into failure d/t obstructive uropathy. Slow but steady improvement post bladder repair. Care w fluids. BP support for MAP > 65. Post-op AF/Flutter - Variable ventricular rates. Started on Amio. Adjunctive BB stopped d/t BP lability. Successful DC CVSN per cards 05/31. Recurrent PAF as of 06/06 and Amio restarted. [id number] score of 6. Antithrombotic prophylaxis with Eliquis when appropriate. DM2 - Suboptimal control by preop A1c of 8.4%. Postop hyperglycemia management with insulin gtt. Transition to basal insulin/SSI per ICU. 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 PENN and progressive renal insuff d/t clots. Eliquis held. Blood losses repleted w PRBCs. [address] bello and cont irrigation compl by bladder perf and shock. Bladder successfully repaired. Ongoing irrigation and serial bladder scans per urology. Hematuria resolved. Post-op ileus - TFs on hold. Nutrition switched to TPN. Recovering bowel sounds , but NGT residuals remain elev. Subjective: Comfortable. Objective: Vital Signs Temp Pulse Resp BP Pulse Ox 36.6 C 66 27 H 121/37 H 99 06/11/16 04:00 06/11/16 08:42 06/11/16 08:42 06/11/16 08:42 06/11/16 08:42 Microbiology 06/10/16 15:00 Gram Stain - Final Lung Bilateral - Bronchial Washings 06/09/16 17:30 Gram Stain - Final Pleural Fluid - Aspirate Laboratory Results 06/11/16 04:10 06/11/16 04:10 06/10/16 06/11/16 06/12/16 05:59 05:59 05:59 Intake Total 2817.3 2628 25 Output Total 6658 4285 605 Balance -3840.7 -1657 -580 PT 17.0 SEC (12.0-15.0) H 06/11/16 04:10 INR 1.39 (0.83-1.16) H 06/11/16 04:10 Physical Exam - Physical Exam General Appearance: alert, no apparent distress EENT: No scleral icterus (R), No scleral icterus (L) Neck: normal inspection Respiratory: lungs clear, No respiratory distress Cardiac/Chest: regular rate, rhythm, No systolic murmur Abdomen: non-tender, soft, No distended Skin: normal color, warm/dry Extremities: pedal edema (Trace B/L ) Neuro/Psych: alert, other (Follows commands / Moves all 4 extremities ) ICD10 Worksheet Patient Problems: Problems Problem Status Diagnosed Acute blood loss anemia Acute Adenocarcinoma of prostate Acute CAD, multiple vessel Acute Chest pain Acute Chronic Disease Mgmt/Transitional Care Acute Fall Acute 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
--- NOTE | 2016-06-11 09:14 | PDINTPN ---
Shot Examiner Progress Note Assessment/Plan: Assessment: #CABG X 5 and TV annuloplasty 05/30. #Respiratory Failure, on vent. Status post tracheostomy. Oxygenation improved : Currently on 40%, tolerating reduced PS. #Pneumonia. Purulent secretions. Cultures negative, suspect anaerobic pneumonia, aspiration. On Zosyn adjusted for renal failure. MSSA in sputum. Plural effusions and atelectasis/infiltrates also present. Thoracentesis performed #Hypotension. Blood pressure is on the low side. On Levophed. Dopamine off. #ROSEANNA -not an issue currently, s/p trach #Obesity/deconditioning. Present prior to surgery. #DM: On insulin coverage but requiring significant amounts of insulin coverage as well as in the TPN, in Lantus. BSs in low-mid 100s #Atrial flutter - on amiodarone. Cardioverted and in NSR. #MAGUI: Creatinine improved today. Status post bladder repair and abdominal exploration. Ruptured bladder with fluid in the abdomen was present. Urine output appears to be increasing with Lasix now that obstruction has resolved, but may be falling off. #Anemia: Hct stable. Eliquis on hold. No evidence of active bleeding other than the hematuria. INR unchanged at 1.3 #Nutrition: TFs on hold, significant ileus present preoperatively. On TPN. #Hypernatremia: Sodium 146 this morning. On hypotonic fluids. Was on DDAVP yesterday, off currently. Will follow. #Sacral Decubitus: Wound Care involved. Plan: Continue vent support, supportive care. Trials of CPAP, trach collar as tolerated. Continue antibiotics. Continue TPN, D5W. Cont insulin: SSI, Lantus and in TPN Continue bladder irrigation per Urology. Continue Lasix. Follow urine output as possible. Follow chest x-ray, laboratory, blood gas. Continue Levophed as needed to maintain an MAP of 65. D/W RT, RT, family, Dr. Johnson 45 minutes CC time. 06/11/16 09:14 Subjective: Sleeping, arousable, no complaints Objective: Vital Signs Temp Pulse Resp BP Pulse Ox 36.6 C 66 27 H 121/37 H 99 06/11/16 04:00 06/11/16 08:42 06/11/16 08:42 06/11/16 08:42 12/20/16 08:42 Microbiology 06/10/16 15:00 Gram Stain - Final Lung Bilateral - Bronchial Washings 06/09/16 17:30 Gram Stain - Final Pleural Fluid - Aspirate Laboratory Results 06/11/16 04:10 06/11/16 04:10 06/10/16 06/11/16 06/12/16 05:59 05:59 05:59 Intake Total 2817.3 2628 25 Output Total 6658 4285 605 Balance -3840.7 -1657 -580 PT 17.0 SEC (12.0-15.0) H 06/11/16 04:10 INR 1.39 (0.83-1.16) H 06/11/16 04:10 Physical Exam - Physical Exam General Appearance: No alert (sleeping, arousable) EENT: normal ENT inspection Neck: normal inspection Respiratory: lungs clear, normal breath sounds Cardiac/Chest: regular rate, rhythm, No edema Abdomen: non-tender, soft, No normal bowel sounds (absent) Skin: normal color, warm/dry Extremities: normal inspection Neuro/Psych: No alert (sleepy but arousable) ICD10 Worksheet Patient Problems: Problems Problem Status Diagnosed Acute blood loss anemia Acute Adenocarcinoma of prostate Acute CAD, multiple vessel Acute Chest pain Acute Chronic Disease Mgmt/Transitional Care Acute Fall Acute 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
[2016-06-11] MEDS: FUROSEMIDE 40 MG/4 ML VIAL IVP SCH ×2 (09:19→15:07)
[2016-06-11] MEDS: PANTOPRAZOLE SODIUM 40 MG in NS 100 ML IV SCH (09:20)
[2016-06-11] MEDS: SENNOSIDES 17.6 MG/10 ML UDL TUBE SCH ×2 (09:21→20:31)
[2016-06-11] MEDS: predniSONE 1 MG TAB TUBE SCH (09:21)
[2016-06-11] MEDS: INSULIN GLARGINE 100 UNITS/ML SYRINGE SC SCH ×2 (09:22→20:31)
[2016-06-11 12:25] LABS: POTASSIUM 5.5 mEq/L (3.5-5.2)
[2016-06-11 18:50] LABS: POTASSIUM 4.6 mEq/L (3.5-5.2)
[2016-06-11] MEDS: TPN 1 EA BAG IV SCH (20:31)
[2016-06-12] MEDS: PIPERACILLIN/TAZO 2.25 GM/DEX 50 ML IV SCH ×5 (00:44→23:59)
[2016-06-12] MEDS: METOCLOPRAMIDE 10 MG/2 ML VIAL IVP SCH ×5 (00:44→23:59)
[2016-06-12] MEDS: INSULIN REGULAR HUMAN 100 UNIT/ML SC SCH ×6 (02:22→22:19)
[2016-06-12] MEDS: ALBUTEROL 60 PUFFS/8 GM MDI IH SCH ×4 (04:32→20:00)
[2016-06-12 04:50] LABS: POTASSIUM 3.5 mEq/L (3.5-5.2)
[2016-06-12] MEDS: AMIODARONE HCL 200 ML IV SCH ×2 (07:01→18:38)
[2016-06-12] MEDS: POTASSIUM Cl (KCl) 50 ML IV PRN (07:45)
--- NOTE | 2016-06-12 09:07 | SOAPPROG ---
SOAP Progress Note Assessment/Plan: Assessment: POD#20 Urgent CABGx5 (Free FRANK-LAD, SVG-D1, sequential SVG-OM1-OM2 , SVG-PLC), TVA #32 MC3 ring, IABP 1:1. POD#19 Take back for expl, washout right CED. Sternal closure w Robshandaek weave, jonatan. POD#8 Laparotomy, repair of bladder rupture, fulguration of bladder varix, drainage of intraperitoneal fluid, placement of suprapubic catheter. POD#8 Tracheostomy. IV access per LUE PICC. Nutrition per TPN. Acute MA, severe 3VD, post-infarction angina/IABP - s/p urgent CABGx5 compl by bleeding into rt chest requiring take-back. IABP support x 24h. Low dose pressor support x 72h. Tubes, wires, and jonatan out. Secondary prevention with BB as allowed by BP, statin when eating well, and Eliquis (as per rhythm) when appropriate. ICM with systolic (EF 30%) and diastolic dysfunction (EDP 25) and class IV heart failure - Diuresing moderate volume overload with bolus lasix. Small- moderate bilat pleural effusions, R>L. 900ml rt thoracentesis on 1218. Need for left thoracentesis anticipated. Staggered intro of heart failure regimen as appropriate. Torrential TR - Post CPB. Amenable to annuloplasty. Antithrombotic prophylaxis as per PAF. 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 Surveillance per cardiology. Postoperative respiratory failure - Ventilator dependent, failing extubation . Trach placed. Purulent malodorous secretions. PNA suspected. Abx, mucolytics , steroids, therapeutic bronchs, vent management per ICU. CPAP trials started. Acute expected blood loss anemia with coagulopathy - Requiring massive transfusion and take back for expl bleeding. Stable H/H 05/26 to 06/01. Recurrent losses d/t issues. Anticoagulation on hold. Elevated INR (> 2 from 06/05-06/08) corrected. Maintaining H/H > 03/19. Postoperative renal failure with electrolyte imbalance - Early postop MAGUI evolving into failure d/t obstructive uropathy. Slow but steady improvement post bladder repair. Care w fluids. BP support for MAP > 60. Post-op AF/Flutter - Variable ventricular rates. Started on Amio. Adjunctive BB stopped d/t BP lability. Successful DC CVSN per cards 05/31. Recurrent PAF as of 06/06 and Amio restarted. QTc stable. [id number] score of 6. Antithrombotic prophylaxis with Eliquis when appropriate. DM2 - Suboptimal control by preop A1c of 8.4%. Postop hyperglycemia management with insulin gtt. Transition to basal insulin/SSI per ICU. 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 PENN and progressive renal insuff d/t clots. Eliquis held. Blood losses repleted w PRBCs. [address] bello and cont irrigation compl by bladder perf and shock. Bladder successfully repaired. Ongoing irrigation and serial bladder scans per urology. Anticipate decr hematuria w correction of coagulopathy. Post-op ileus - Resolving with NG decompression. TF challenge starting. Nutrition per TPN until TF rates adequate. Eventual gastrostomy tube when further along into recovery. Plan: Supportive care as per multidisciplinary team. Reduce IV lasix to 40mg BID. Start TFs @ 25ml/h. Dispo - LTAC before end of year. 06/12/16 09:05 Subjective: Awake and alert sitting in recliner. Improved communication with pen and tablet. No acute c/o. Objective: Vital Signs Temp Pulse Resp BP Pulse Ox 36.6 C 63 26 H 118/38 L 96 06/12/16 08:00 06/12/16 08:35 06/12/16 08:35 06/12/16 08:35 06/12/16 08:35 Microbiology 06/09/16 17:30 Gram Stain - Final Pleural Fluid - Aspirate 06/10/16 15:00 Gram Stain - Final Lung Bilateral - Bronchial Washings Laboratory Results 06/11/16 04:10 06/12/16 04:15 06/11/16 06/12/16 06/13/16 05:59 05:59 05:59 Intake Total 2622 0759 Output Total 9597 3740 Balance -1657 -1931 PT 17.0 SEC (12.0-15.0) H 06/11/16 04:10 INR 1.39 (0.83-1.16) H 06/11/16 04:10 Successfully weaned off levo. Holden out yest. Rhythm stable. Vent FIO2 40%. Tolerating 1h CPAP trials. Vigorous diuresis. Bowel sounds in all quadrants. Min NGT residuals. 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
[2016-06-12] MEDS: PANTOPRAZOLE SODIUM 40 MG in NS 100 ML IV SCH (09:20)
--- NOTE | 2016-06-12 09:39 | PDINTPN ---
Price Checker Progress Note Assessment/Plan: Assessment: #CABG X 5 and TV annuloplasty 05/30. #Respiratory Failure, on vent. Status post tracheostomy. Oxygenation improved : Currently on 40%, tolerating reduced PS. #Pneumonia. Purulent secretions. Cultures negative, suspect anaerobic pneumonia, aspiration. On Zosyn adjusted for renal failure. MSSA in sputum. Plural effusions and atelectasis/infiltrates also present. Thoracentesis performed #Hypotension. Blood pressure is on the low side. On Levophed. Dopamine off. #ROSEANNA -not an issue currently, s/p trach #Obesity/deconditioning. Present prior to surgery. #DM: On insulin coverage but requiring significant amounts of insulin coverage as well as in the TPN, in Lantus. BSs in low-mid 100s #Atrial flutter - on amiodarone. Cardioverted and in NSR. #MAGUI: Creatinine improved today. Status post bladder repair and abdominal exploration. Ruptured bladder with fluid in the abdomen was present. Urine output appears to be increasing with Lasix now that obstruction has resolved, but may be falling off. #Anemia: Hct stable. Eliquis on hold. No evidence of active bleeding other than the hematuria. INR unchanged at 1.3 #Nutrition: TFs on hold, significant ileus present preoperatively. On TPN. #Hypernatremia: Sodium 145 this morning. On hypotonic fluids. Was on DDAVP, off currently. Will follow. #Sacral Decubitus: Wound Care involved. Plan: Continue vent support, supportive care. Trials of CPAP, trach collar as tolerated. Continue antibiotics. Continue TPN, D5W. Cont insulin: SSI, Lantus and in TPN Continue bladder irrigation per Urology. Continue Lasix. Follow urine output as possible. Follow chest x-ray, laboratory, blood gas. Continue Levophed as needed to maintain an MAP of 65. D/W RT, RT, family, Dr. Johnson 40 minutes CC time. 06/12/16 15:46 Subjective: Denies pain, dyspnea. Objective: Vital Signs Temp Pulse Resp BP Pulse Ox 36.6 C 63 26 H 118/38 L 96 06/12/16 08:00 06/12/16 08:35 06/12/16 08:35 06/12/16 08:35 06/12/16 08:35 Microbiology 06/09/16 17:30 Gram Stain - Final Pleural Fluid - Aspirate 06/10/16 15:00 Gram Stain - Final Lung Bilateral - Bronchial Washings Laboratory Results 06/11/16 04:10 06/12/16 04:15 06/11/16 06/12/16 06/13/16 05:59 05:59 05:59 Intake Total 2628 2869 Output Total 4285 4800 Balance -1657 -1931 PT 17.0 SEC (12.0-15.0) H 06/11/16 04:10 INR 1.39 (0.83-1.16) H 06/11/16 04:10 Laboratory Tests 06/12/16 11:05 pO2 70 Total CO2 26 O2 Concentration % 40 Laboratory Tests 06/12/16 11:05 pCO2 37 pO2 70 Total CO2 26 ABG pH 7.45 O2 Concentration % 40 CXR: Increased right effusion. Images reviewed. Physical Exam - Physical Exam General Appearance: alert, no apparent distress EENT: normal ENT inspection Neck: other (trach OK) Respiratory: chest non-tender, lungs clear, normal breath sounds Cardiac/Chest: regular rate, rhythm, No edema Abdomen: normal bowel sounds, non-tender, soft Skin: normal color, warm/dry Extremities: normal inspection Neuro/Psych: alert, normal mood/affect, oriented x 3 ICD10 Worksheet Patient Problems: Problems Problem Status Diagnosed Acute blood loss anemia Acute Adenocarcinoma of prostate Acute CAD, multiple vessel Acute Chest pain Acute Chronic Disease Mgmt/Transitional Care Acute Fall Acute 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
[2016-06-12 09:49] LABS: % IMMATURE GRANULYOCYTES 2.2 % (0.0-1.1); ABSOLUTE IMMATURE GRANULOCYTES 0.19 10^3/uL (0.00-0.10); ADD DIFF? NO; ADD MORPH? NO; ADD SCAN? NO; ATYPICAL LYMPHOCYTE FLAG 30 (0-99); FRAGMENT RBC FLAG 0 (0-99); HEMATOCRIT 30.8 % (40.0-51.0); LEFT SHIFT FLG 20 (0-99); LIPEMIA HEMOLYSIS FLAG 80 (0-99); MEAN CELL HEMOGLOBIN 32.3 pg (27.9-34.1); MEAN CELL HEMOGLOBIN CONCENTR. 32.5 g/dL (32.4-36.7); MEAN CELL VOLUME 99.4 fL (81.5-99.8); MEAN PLATELET VOLUME 10.6 fL (8.7-11.7); PLATELET CLUMPS FLAG 10 (0-99); PLATELET COUNT 291 10^3/uL (150-400); RED CELL DISTRIBUTION WIDTH 16.5 % (11.5-15.2)
--- NOTE | 2016-06-12 10:14 | DX ---
Portable Chest, 9:59 am Clinical Indications: Followup CHF Comparison: June 10 Findings: Right pleural effusion is increasing. Left pleural effusion and dense left lower lobe cons olidation remains. The heart remains enlarged. Inspiratory phase has slightly improved. A tracheostom y appliance, left arm PICC line and a feeding tube remain in place. A valve replacement, CABG clips a nd median sternotomy wires remain. Midline skin jonatan have been removed. EKG leads overlie the ches t. Impression: Increasing right pleural effusion.
[2016-06-12] MEDS: SENNOSIDES 17.6 MG/10 ML UDL TUBE SCH ×2 (10:24→22:08)
[2016-06-12] MEDS: predniSONE 1 MG TAB TUBE SCH (10:25)
[2016-06-12] MEDS: INSULIN GLARGINE 100 UNITS/ML SYRINGE SC SCH ×2 (10:53→22:08)
[2016-06-12] MEDS: FUROSEMIDE 40 MG/4 ML VIAL IVP SCH ×3 (10:54→19:43)
[2016-06-12 11:11] LABS: BASE EXCESS 1.4 mEq/L (-2.5-2.5); BICARBONATE 25 mEq/L (22-26); MEASURED OXYGEN SATURATION 94 % (92-95); PCO2 37 mmHg (34-38); PO2 70 mmHg (65-75); TCO2 26 mEq/L (23-27)
[2016-06-12 11:12] LABS: O2 CONCENTRATIION 40 % (0-100); P/F RATIO 175 RATIO
[2016-06-12 11:38] LABS: ANION GAP 13 mEq/L (8-16); CALCIUM 8.6 mg/dL (8.5-10.4); CARBON DIOXIDE 25 mEq/l (22-31); CHLORIDE 107 mEq/L (97-110); CREATININE 2.5 mg/dL (0.7-1.3); GLOMERULAR FILTRATION RATE 25; GLUCOSE 143 mg/dL (70-100); POTASSIUM 3.6 mEq/L (3.5-5.2); SODIUM 145 mEq/L (134-144)
--- NOTE | 2016-06-12 14:53 | WOCRNPDOC ---
WOCRN Advanced Assessment Note - Skin Integrity Problem, Advanced Assess Sacrum Pressure Injury Dressing Type: Allevyn Life Dressing Description: Clean/Dry, Intact Exudate Amount: None Integumentary Issue Intervention: Dressing Changed Nena Wound Tissue: Erythema Nena Wound Swelling: None Wound Bed Color: Brown, Yellow Wound Bed Constitution: Adhered Slough, Unstable Eschar Wound Edges: Attached Pressure Injury Stage: Unstageable Pressure Injury Present on Admit: No Skin Integrity Problem Comment: Allevyn Life dressing over wound. Education with SOPHIA Gambino about wound orders and the need for wound moisture. Applied skin prep nena wound and then wound gel to wound bed. Covered wound with Medihoney HCS dressing that was in room to facilitate autolytic debridement of wound. Wound will benefit from sharp debridment in the future. Continue turns Q2. Up in chair only for one hour at a time, up to 3 times per day. Will round again Saturday 06/16.
[2016-06-12 20:40] LABS: HEMATOCRIT 30.4 % (40.0-51.0); HEMOGLOBIN 9.9 g/dL (13.7-17.5); MEAN CELL HEMOGLOBIN 30.7 pg (27.9-34.1); MEAN CELL HEMOGLOBIN CONCENTR. 32.6 g/dL (32.4-36.7); MEAN CELL VOLUME 94.1 fL (81.5-99.8); RED BLOOD CELL COUNT 3.23 10^6/uL (4.40-6.38); RED CELL DISTRIBUTION WIDTH 15.8 % (11.5-15.2)
[2016-06-12] MEDS: TPN 1 EA BAG IV SCH (22:08)
[2016-06-13 00:02] LABS: ANION GAP 12 mEq/L (8-16); CALCIUM 8.3 mg/dL (8.5-10.4); CARBON DIOXIDE 28 mEq/l (22-31); CHLORIDE 108 mEq/L (97-110); CREATININE 2.3 mg/dL (0.7-1.3); GLOMERULAR FILTRATION RATE 27; GLUCOSE 98 mg/dL (70-100); POTASSIUM 3.5 mEq/L (3.5-5.2); SODIUM 148 mEq/L (134-144)
[2016-06-13] MEDS: INSULIN REGULAR HUMAN 100 UNIT/ML SC SCH ×5 (01:41→20:04)
[2016-06-13 04:15] LABS: % IMMATURE GRANULYOCYTES 1.8 % (0.0-1.1); ABSOLUTE IMMATURE GRANULOCYTES 0.15 10^3/uL (0.00-0.10); ADD DIFF? NO; ADD MORPH? NO; ADD SCAN? NO; ATYPICAL LYMPHOCYTE FLAG 20 (0-99); FRAGMENT RBC FLAG 0 (0-99); HEMATOCRIT 29.6 % (40.0-51.0); HEMOGLOBIN 9.5 g/dL (13.7-17.5); LEFT SHIFT FLG 10 (0-99); LIPEMIA HEMOLYSIS FLAG 80 (0-99); MEAN CELL HEMOGLOBIN 30.4 pg (27.9-34.1); MEAN CELL HEMOGLOBIN CONCENTR. 32.1 g/dL (32.4-36.7); MEAN CELL VOLUME 94.9 fL (81.5-99.8); PLATELET CLUMPS FLAG 0 (0-99); PLATELET COUNT 303 10^3/uL (150-400); RED BLOOD CELL COUNT 3.12 10^6/uL (4.40-6.38); RED CELL DISTRIBUTION WIDTH 15.7 % (11.5-15.2)
[2016-06-13] MEDS: ALBUTEROL 60 PUFFS/8 GM MDI IH SCH ×4 (04:20→21:04)
[2016-06-13 04:44] LABS: ANION GAP 13 mEq/L (8-16); CALCIUM 8.4 mg/dL (8.5-10.4); CARBON DIOXIDE 26 mEq/l (22-31); CHLORIDE 108 mEq/L (97-110); CREATININE 2.3 mg/dL (0.7-1.3); GLOMERULAR FILTRATION RATE 27; GLUCOSE 129 mg/dL (70-100); POTASSIUM 3.6 mEq/L (3.5-5.2); SODIUM 147 mEq/L (134-144)
[2016-06-13] MEDS: AMIODARONE HCL 200 ML IV SCH ×2 (04:50→14:19)
[2016-06-13] MEDS: METOCLOPRAMIDE 10 MG/2 ML VIAL IVP SCH ×3 (05:59→17:30)
[2016-06-13] MEDS: PIPERACILLIN/TAZO 2.25 GM/DEX 50 ML IV SCH ×3 (05:59→17:30)
--- NOTE | 2016-06-13 08:23 | SOAPPROG ---
SOAP Progress Note Assessment/Plan: POD#21 Urgent CABGx5 (Free FRANK-LAD, SVG-D1, sequential SVG-OM1-OM2, SVG-PLC), TVA #32 MC3 ring, IABP 1:1. POD#20 Take back for expl, washout right CED. Sternal closure w Maria Victoria wetimo, jonatan. POD#9 Laparotomy, repair of bladder rupture, fulguration of bladder varix, drainage of intraperitoneal fluid, placement of suprapubic catheter. POD#9 Tracheostomy. IV access per LUE PICC. Nutrition per TPN. Acute [place], severe 3VD, post-infarction angina/IABP - s/p urgent CABGx5 compl by bleeding into rt chest requiring take-back. IABP support x 24h. Low dose pressor support x 72h. Tubes, wires, and jonatan out. Secondary prevention with BB as allowed by BP. Statin and Eliquis when appropriate. ICM with systolic (EF 30%) and diastolic dysfunction (EDP 25) and class IV heart failure. Lasix decreased today. Large B/L pleural effusions - plan for thoracentesis today. Staggered intro of heart failure regimen as appropriate. Torrential TR - Post CPB. Amenable to annuloplasty. Antithrombotic prophylaxis as per PAF. 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 Surveillance per cardiology. Postoperative respiratory failure - Ventilator dependent, failing extubation 12/ . Trach placed. Purulent malodorous secretions. PNA suspected. Abx, mucolytics , steroids, therapeutic bronchs, vent management per ICU. Acute expected blood loss anemia with coagulopathy - Requiring massive transfusion and take back for expl bleeding. Recurrent losses d/t issues. Anticoagulation on hold. Elevated INR (> 2 from 06/05-06/08) corrected. Maintaining H/H. Postoperative renal failure with electrolyte imbalance - Early postop MAGUI evolving into failure d/t obstructive uropathy. Steady improvement post bladder repair. Post-op AF/Flutter - Variable ventricular rates. Started on Amio. Adjunctive BB stopped d/t BP lability. Successful DC CVSN per cards 05/31. Recurrent PAF as of 06/06 and Amio restarted. [id number] score of 6. Antithrombotic prophylaxis with Eliquis when appropriate. DM2 - Suboptimal control by preop A1c of 8.4%. Postop hyperglycemia management with insulin gtt. Transition to basal insulin/SSI per ICU. 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 PENN and progressive renal insuff d/t clots. Eliquis held. Blood losses repleted w PRBCs. [address] bello and cont irrigation compl by bladder perf and shock. Bladder successfully repaired. Ongoing irrigation and mgmt per urology. Post-op ileus - TF restarted 06/12. Nutrition per TPN until TF rates adequate. Eventual gastrostomy tube when further along into recovery. Subjective: Comfortable. Objective: Vital Signs Temp Pulse Resp BP Pulse Ox 36.3 C 71 31 H 118/35 L 97 06/13/16 08:00 06/13/16 08:11 06/13/16 08:11 06/13/16 08:00 06/13/16 08:11 Microbiology 06/10/16 15:00 Gram Stain - Final Lung Bilateral - Bronchial Washings 06/09/16 17:30 Gram Stain - Final Pleural Fluid - Aspirate Body Fluid Culture - Final Laboratory Results 06/13/16 04:06 06/13/16 04:06 06/12/16 06/13/16 06/14/16 05:59 05:59 05:59 Intake Total 2869 2171 Output Total 4800 3300 Balance -1931 -1129 PT 17.0 SEC (12.0-15.0) H 06/11/16 04:10 INR 1.39 (0.83-1.16) H 06/11/16 04:10 Physical Exam - Physical Exam General Appearance: alert, no apparent distress EENT: No scleral icterus (R), No scleral icterus (L) Neck: normal inspection, other (Trach in place ) Respiratory: No respiratory distress, No accessory muscle use Cardiac/Chest: regular rate, rhythm Abdomen: non-tender, soft, distended Skin: normal color, warm/dry Extremities: pedal edema (Trace edema B/L) Neuro/Psych: alert, other (Follows commands and moves all extremities.) ICD10 Worksheet Patient Problems: Problems Problem Status Diagnosed Acute blood loss anemia Acute Adenocarcinoma of prostate Acute CAD, multiple vessel Acute Chest pain Acute Chronic Disease Mgmt/Transitional Care Acute Fall Acute 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
--- NOTE | 2016-06-13 08:28 | DX ---
AP Chest June 13, 2016 0624 hours Indication: CHF. Comparison: June 12, 2016, 0959 hours. Findings: Heart size remains enlarged. The interstitial markings remain prominent. Pleural effusions are unchanged. There are multiple overlying lines and leads. Tracheostomy is in adequate position. PI CC is in adequate position. Feeding tube terminates off the edge of the film and takes a normal cours e. Median sternotomy with valve replacement is unchanged. Old rib fractures are noted on the left in the upper chest posteriorly. Impression: 1. Stable CHF. 2. Unchanged lines and tubes in good position.
[2016-06-13] MEDS: INSULIN GLARGINE 100 UNITS/ML SYRINGE SC SCH ×2 (09:30→21:05)
[2016-06-13] MEDS: SENNOSIDES 17.6 MG/10 ML UDL TUBE SCH ×2 (09:30→20:10)
[2016-06-13] MEDS: PANTOPRAZOLE SODIUM 40 MG in NS 100 ML IV SCH (09:30)
[2016-06-13] MEDS: predniSONE 1 MG TAB TUBE SCH (09:30)
[2016-06-13] MEDS: POTASSIUM Cl (KCl) 50 ML IV SCH ×2 (09:31→09:33)
[2016-06-13] MEDS: FUROSEMIDE 40 MG/4 ML VIAL IVP SCH (09:32)
[2016-06-13] MEDS ORDERED: FUROSEMIDE 40 MG/4 ML VIAL IVP ONE (09:50)
[2016-06-13] MEDS ORDERED: ALBUMIN 25% 200 ML IV ONE (09:50)
--- NOTE | 2016-06-13 09:52 | CT ---
CT Scan of the Urinary Tract (Abdomen and Pelvis Without Contrast) June 13, 2016 Indication: Follow up bladder repair. Evaluate bladder hematoma. Technique: Multidetector helical CT imaging was performed from the kidneys to the urinary bladder wi thout contrast. Dose reduction techniques were utilized. Comparison: CT pelvis dated June 04 and June 08, 2016. Findings: The suprapubic bladder catheter and Vargas catheter balloon remain well seated in the bladd er lumen. The heterogeneously dense residual hematoma in the bladder lumen has minimally decreased in volume and now measures 5 x 4 x 3 cm. Small nondependent gas within the bladder lumen has minimally decreased. Amorphous stranding and fluid along the anterior dome of the urinary bladder have decrease d. Fluid in the left paracolic gutter is unchanged. Small increased fluid along the surface of the ri ght lobe of the liver. No organized fluid collection or abscess has developed. The bowel pattern is within normal limits. The tip of the feeding tube resides in the stomach. No obs truction or adynamic ileus. Bilateral nephrolithiasis and left renal cysts are unchanged. No hydronephrosis or ureteral calculi. The noncontrast liver, spleen, pancreas, gallbladder, and adrenal glands are within normal limits and unchanged. Bilateral small to moderate pleural effusions and bibasilar compressive atelectasis have not significantly changed. The pleural effusions have lentiform configuration suggesting a component of loculation. The abdominal aorta is normal caliber with moderate calcified plaque. Impression: 1. Minimal decreased size of clot in bladder lumen. 2. Minimal residual postsurgical stranding and fluid. No organized fluid collection or evidence of ev olving abscess. 3. No obstruction or adynamic ileus. 4. Small bilateral probably loculated pleural effusions with associated bibasilar compressive atelect asis are unchanged. 5. Bilateral nephrolithiasis, unchanged. No genitourinary obstruction or ureteral calculi. Attention: This CT examination is specifically designed to evaluate patients who are clinically susp ected of having acute obstructive uropathy. This examination does not use radiographic contrast, and as such, provides only a limited evaluation of the abdomen, pelvis and retroperitoneum. If there i s further clinical suspicion for pathologic conditions other than obstructive uropathy, a complete CT evaluation of the abdomen and pelvis utilizing intravenous, oral, and rectal contrast should be cons idered.
--- NOTE | 2016-06-13 09:56 | PDINTPN ---
Marine Animal Trainer Progress Note Assessment/Plan: Assessment: #CABG X 5 and TV annuloplasty 05/30. #Respiratory Failure, on vent. Status post tracheostomy. Oxygenation improved : Currently on 40%, tolerating reduced PS. Likely due to persistent pulmonary edema, obesity, deconditioning, pneumonia, resolving peritonitis. #Pneumonia. Purulent secretions. Cultures negative, suspect anaerobic pneumonia, aspiration. On Zosyn adjusted for renal failure. MSSA in sputum. Plural effusions and atelectasis/infiltrates also present. Thoracentesis performed #Hypotension. Blood pressure is on the low side. Off pressors. #ROSEANNA -not an issue currently, s/p trach #Obesity/deconditioning. Present prior to surgery. #DM: On insulin coverage but requiring significant amounts of insulin coverage as well as in the TPN, in Lantus. BSs in low-mid 100s #Atrial flutter - on amiodarone. Cardioverted and in NSR. #MAGUI: Creatinine improved today. Status post bladder repair and abdominal exploration. Ruptured bladder with fluid in the abdomen was present. Urine output appears to be increasing with Lasix now that obstruction has resolved, but may be falling off. #Anemia: Hct stable. Eliquis on hold. No evidence of active bleeding other than the hematuria. INR unchanged at 1.3 #Nutrition: TFs on hold, significant ileus present preoperatively. On TPN. #Hypernatremia: Sodium 145 this morning. On hypotonic fluids. Was on DDAVP, off currently. Will follow. #Sacral Decubitus: Wound Care involved. Plan: Continue vent support, supportive care. Trials of CPAP, trach collar as tolerated. Continue antibiotics. Continue TPN, D5W. Cont insulin: SSI, Lantus and in TPN Continue bladder irrigation per Urology. Continue Lasix, aim for continued negative fluid balance. Will add albumin today. Follow urine output as possible. Follow chest x-ray, laboratory, blood gas. Hold off on thoracentesis...not much fluid (probably 500ml), and likely to reaccumulate with CVP on high side and low albumin. D/W RT, RT, family, Dr. Johnson 45 minutes CC time. 06/13/16 10:01 Subjective: Was dyspneic while on CPAP this morning. Now asymptomatic. Denies pain. Objective: Vital Signs Temp Pulse Resp BP Pulse Ox 36.3 C 67 29 H 95/65 L 95 06/13/16 08:00 06/13/16 09:00 06/13/16 09:00 06/13/16 09:00 06/13/16 09:00 Microbiology 06/10/16 15:00 Gram Stain - Final Lung Bilateral - Bronchial Washings 06/09/16 17:30 Gram Stain - Final Pleural Fluid - Aspirate Body Fluid Culture - Final Laboratory Results 06/13/16 04:06 06/13/16 04:06 06/12/16 06/13/16 06/14/16 05:59 05:59 05:59 Intake Total 2869 2171 Output Total 4800 3300 Balance -1931 -1129 PT 17.0 SEC (12.0-15.0) H 06/11/16 04:10 INR 1.39 (0.83-1.16) H 06/11/16 04:10 CXR: Interstitial edema/increased vascular pattern stable. Small-moderate left , small right effusion. Images reviewed. Abd CT: Small left, small-moderate right effusion with atelectasis. Images reviewed. Physical Exam - Physical Exam General Appearance: alert, no apparent distress EENT: normal ENT inspection Neck: normal inspection, other (trach OK) Respiratory: rales (bases) Cardiac/Chest: regular rate, rhythm, edema (trace) Abdomen: normal bowel sounds, non-tender Skin: normal color, warm/dry Extremities: normal inspection Neuro/Psych: alert, normal mood/affect, oriented x 3 ICD10 Worksheet Patient Problems: Problems Problem Status Diagnosed Acute blood loss anemia Acute Adenocarcinoma of prostate Acute CAD, multiple vessel Acute Chest pain Acute Chronic Disease Mgmt/Transitional Care Acute Fall Acute 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
[2016-06-13] MEDS: D5W 1,000 ML IV SCH (11:29)
[2016-06-13] MEDS ORDERED: ALBUMIN 25% 100 ML SOLN IV ONE (11:49)
[2016-06-13 12:20] LABS: INR 1.3 (0.83-1.16); PROTIME(PATIENT) 16.2 SEC (12.0-15.0)
[2016-06-13 12:22] LABS: APTT 47.9 SEC (23.0-38.0)
[2016-06-13 13:16] LABS: POTASSIUM 3.9 mEq/L (3.5-5.2)
[2016-06-13] MEDS ORDERED: POTASSIUM Cl (KCl) 50 ML IV ONE ×2 (13:41→20:37)
[2016-06-13] MEDS ORDERED: NA BICARBONATE 50 MEQ/50 ML VIAL ONE (13:43)
[2016-06-13] MEDS ORDERED: LIDOCAINE 1% 30 ML SDV ONE (13:43)
--- NOTE | 2016-06-13 15:52 | DX ---
Portable AP semiupright chest June 13, 2016, 1503 hours History: immediate post left thoracentesis. 1 liter of bloody fluid was drained. Findings: Left pleural effusion has been evacuated. No pneumothorax. Mild to moderate right pleural e ffusion is present. Bilateral pulmonary consolidation persists. Left upper extremity peripherally ins erted central catheter reaches the upper right atrium. Esophago-enteric tube terminates in the abdome n, off of the image. Tracheostomy tube remains in place. Modified sternotomy wires are present. Impression: No pneumothorax after left thoracentesis.
--- NOTE | 2016-06-13 16:08 | US ---
Ultrasound-Guided Left Thoracentesis History: Myocardial infarction. Five vessel coronary artery bypass. The patient remains on ventila tor. Recurrent pleural effusions. Consent: Risks and benefits of the procedure were discussed. Informed consent was obtained. Technique: The procedure was performed with the patient in his hospital bed in the Intensive Care Un it. The patient was maneuvered into a sitting position, and sonography of posterior left hemithorax was performed. Skin site was localized and labeled. The skin was prepped and draped in sterile fash ion. 1% Xylocaine was used for local anesthetic. After a skin razia with a scalpel, a 6-Malay multi sidehole pigtail drainage tube was inserted into the left pleural cavity using trocar technique. 1 l iter of bloody fluid was evacuated and discarded. Catheter was removed and sterile dressing applied. A portable chest radiograph was ordered. Findings: Left pleural effusion is evacuated. Impression: Ultrasound-guided left thoracentesis, obtaining 1 liter of bloody fluid. - - - - - - - - - - - - - - - - - - - - - - - - - - - - - - - - - - - - - - - - - - - - (PQRS Measures: Current medications were listed in the medical record, including all known prescript ions, [id number] medications, herbal medications, and nutritional supplements. Tobacco Use: N one. Prophylactic antibiotic: Unnecessary. VTE prophylaxis: Unnecessary.)
[2016-06-13 18:25] LABS: POTASSIUM 3.7 mEq/L (3.5-5.2)
[2016-06-13] MEDS: ACETAMINOPHEN 650 MG/20.3 ML UDCUP TUBE PRN (20:10)
[2016-06-13] MEDS: POTASSIUM Cl (KCl) 50 ML IV PRN (21:05)
[2016-06-13] MEDS: TPN 1 EA BAG IV SCH (21:05)
[2016-06-14] MEDS: ACETAMINOPHEN 650 MG/20.3 ML UDCUP TUBE PRN ×3 (00:15→23:04)
[2016-06-14] MEDS: METOCLOPRAMIDE 10 MG/2 ML VIAL IVP SCH ×4 (00:15→17:53)
[2016-06-14] MEDS: PIPERACILLIN/TAZO 2.25 GM/DEX 50 ML IV SCH ×2 (00:15→05:46)
[2016-06-14] MEDS: INSULIN REGULAR HUMAN 100 UNIT/ML SC SCH ×4 (00:16→17:52)
[2016-06-14 00:36] LABS: POTASSIUM 3.8 mEq/L (3.5-5.2)
[2016-06-14] MEDS ORDERED: FUROSEMIDE 40 MG/4 ML VIAL IVP ONE (00:55)
[2016-06-14] MEDS: POTASSIUM Cl (KCl) 50 ML IV PRN (01:02)
[2016-06-14] MEDS: AMIODARONE HCL 200 ML IV SCH ×3 (02:07→23:02)
[2016-06-14] MEDS: ALBUTEROL 60 PUFFS/8 GM MDI IH SCH ×4 (04:22→20:27)
[2016-06-14 04:40] LABS: HEMATOCRIT 28.9 % (40.0-51.0); HEMOGLOBIN 8.9 g/dL (13.7-17.5); MEAN CELL HEMOGLOBIN 29.6 pg (27.9-34.1); MEAN CELL HEMOGLOBIN CONCENTR. 30.8 g/dL (32.4-36.7); RED BLOOD CELL COUNT 3.01 10^6/uL (4.40-6.38); RED CELL DISTRIBUTION WIDTH 15.5 % (11.5-15.2)
[2016-06-14 04:56] LABS: ANION GAP 12 mEq/L (8-16); CALCIUM 8.6 mg/dL (8.5-10.4); CARBON DIOXIDE 27 mEq/l (22-31); CHLORIDE 110 mEq/L (97-110); CREATININE 2.3 mg/dL (0.7-1.3); GLOMERULAR FILTRATION RATE 27; GLUCOSE 136 mg/dL (70-100); SODIUM 149 mEq/L (134-144)
[2016-06-14] MEDS ORDERED: FUROSEMIDE 40 MG/4 ML VIAL IVP SCH ×2 (09:00→15:00)
--- NOTE | 2016-06-14 09:05 | SOAPPROG ---
SOAP Progress Note Assessment/Plan: POD#22 Urgent CABGx5 (Free FRANK-LAD, SVG-D1, sequential SVG-OM1-OM2, SVG-PLC), TVA #32 ring, IABP 1:1. POD#21 Take back for expl, washout right CED. Sternal closure w Maria Victoria wetimo, jonatan. POD#10 Laparotomy, repair of bladder rupture, fulguration of bladder varix, drainage of intraperitoneal fluid, placement of suprapubic catheter. POD#10 Tracheostomy. IV access per LUE PICC. Nutrition per TPN. Acute [place], severe 3VD, post-infarction angina/IABP - s/p urgent CABGx5 compl by bleeding into rt chest requiring take-back. IABP support x 24h. Low dose pressor support x 72h. Tubes, wires, and jonatan out. Secondary prevention with BB as allowed by BP. Statin and Eliquis when appropriate. ICM with systolic (EF 30%) and diastolic dysfunction (EDP 25) and class IV heart failure. Lasix decreased today. Large B/L pleural effusions s/p L thoracentesis 12/ with 1 L removed, possible R thoracentesis today. Staggered intro of heart failure regimen as appropriate. Torrential TR - Post CPB. Amenable to annuloplasty. Antithrombotic prophylaxis as per PAF. 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 Surveillance per cardiology. Postoperative respiratory failure - Ventilator dependent, failing extubation 12/ . Trach placed. Purulent malodorous secretions. PNA suspected. Abx, mucolytics , steroids, therapeutic bronchs, vent management per ICU. Acute expected blood loss anemia with coagulopathy - Requiring massive transfusion and take back for expl bleeding. Recurrent losses d/t issues. Anticoagulation on hold. Elevated INR (> 2 from 06/05-06/08) corrected. Transfuse prn. Postoperative renal failure with electrolyte imbalance - Early postop MAGUI evolving into failure d/t obstructive uropathy. Steady improvement post bladder repair. Post-op AF/Flutter - Variable ventricular rates. Started on Amio. Adjunctive BB stopped d/t BP lability. Successful DC CVSN per cards 05/31. Recurrent PAF as of 06/06 and Amio restarted. [id number] score of 6. Antithrombotic prophylaxis with Eliquis when appropriate. DM2 - Suboptimal control by preop A1c of 8.4%. Insulin mgmt as per ICU. 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 [address] bello and cont irrigation compl by bladder perf and shock. Bladder successfully repaired. Ongoing irrigation and mgmt per urology. CTAP 05/14 showed large clot in bladder. Dr. Johnson to discuss with urology timing of washout. Post-op ileus - Nutrition per TPN until TF tolerated. Eventual gastrostomy tube when further along into recovery. 06/14/16 09:00 Subjective: Comfortable. Objective: Vital Signs Temp Pulse Resp BP Pulse Ox 36.5 C 65 28 H 156/54 H 97 06/14/16 08:00 06/14/16 08:00 06/14/16 08:00 06/14/16 08:00 06/14/16 08:00 Microbiology 06/10/16 15:00 Gram Stain - Final Lung Bilateral - Bronchial Washings Bronchial Washings Culture - Final Vonda Species Not Albicans Laboratory Results 06/14/16 04:20 06/14/16 04:20 06/13/16 06/14/16 06/15/16 05:59 05:59 05:59 Intake Total 2171 2762 Output Total 3300 3300 350 Balance -1129 -538 -350 PT 16.2 SEC (12.0-15.0) H 06/13/16 12:00 INR 1.30 (0.83-1.16) H 06/13/16 12:00 Physical Exam - Physical Exam General Appearance: alert, no apparent distress EENT: No scleral icterus (R), No scleral icterus (L) Neck: other (Trach intact) Respiratory: No respiratory distress Cardiac/Chest: regular rate, rhythm Abdomen: soft, distended, No normal bowel sounds Skin: normal color, warm/dry Extremities: pedal edema (+ 1 edema B/L) Neuro/Psych: alert, normal mood/affect ICD10 Worksheet Patient Problems: Problems Problem Status Diagnosed Acute blood loss anemia Acute Adenocarcinoma of prostate Acute CAD, multiple vessel Acute Chest pain Acute Chronic Disease Mgmt/Transitional Care Acute Fall Acute 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
--- NOTE | 2016-06-14 09:21 | PDINTPN ---
Culture Room Worker Progress Note Assessment/Plan: Assessment: #CABG X 5 and TV annuloplasty 05/30. #Respiratory Failure, on vent. Status post tracheostomy. Oxygenation improved : Currently on 40%, tolerating reduced PS. Likely due to persistent pulmonary edema, obesity, deconditioning, pneumonia, resolving peritonitis. #Pneumonia. Purulent secretions. Cultures negative, suspect anaerobic pneumonia, aspiration. On Zosyn adjusted for renal failure. MSSA in sputum. Plural effusions and atelectasis/infiltrates also present. Thoracentesis performed both sides #Hypotension. Improved. Off pressors. #ROSEANNA -not an issue currently, s/p trach #Obesity/deconditioning. Present prior to surgery. #DM: On insulin coverage but requiring significant amounts of insulin coverage as well as in the TPN, in Lantus. BSs in low-mid 100s #Atrial flutter - on amiodarone. Cardioverted and in NSR. #MAGUI: Creatinine improved today. Status post bladder repair and abdominal exploration. Ruptured bladder with fluid in the abdomen was present. Urine output appears to be increasing with Lasix now that obstruction has resolved, but may be falling off. #Anemia: Hct drifting down. Eliquis on hold. No evidence of active bleeding other than the hematuria. INR unchanged at 1.3 #Nutrition: TFs on hold, significant ileus present preoperatively. On TPN. #Hypernatremia: Sodium rising at 149 this morning. On hypotonic fluids. Was on DDAVP, off currently. Will follow. #Sacral Decubitus: Wound Care involved. Plan: Continue vent support, supportive care. Trials of CPAP, trach collar as tolerated. Continue antibiotics. Continue TPN, D5W. Cont insulin: SSI, Lantus and in TPN Continue bladder irrigation per Urology. Continue Lasix, aim for continued negative fluid balance. Follow urine output as possible. Follow chest x-ray, laboratory, blood gas. D/W RT, RT, family, Dr. Johnson 40 minutes CC time. 06/14/16 09:11 Subjective: Slept well. Tolerated CPAP for 2 hours this morning. Denies pain. Objective: Vital Signs Temp Pulse Resp BP Pulse Ox 36.5 C 65 28 H 156/54 H 97 06/14/16 08:00 06/14/16 08:00 06/14/16 08:00 06/14/16 08:00 06/14/16 08:00 Microbiology 06/10/16 15:00 Gram Stain - Final Lung Bilateral - Bronchial Washings Bronchial Washings Culture - Final Vonda Species Not Albicans Laboratory Results 06/14/16 04:20 06/14/16 04:20 06/13/16 06/14/16 06/15/16 05:59 05:59 05:59 Intake Total 2171 2762 Output Total 3300 3300 350 Balance -1129 -538 -350 PT 16.2 SEC (12.0-15.0) H 06/13/16 12:00 INR 1.30 (0.83-1.16) H 06/13/16 12:00 CXR 06/13: Slightly improved left base, no PTX. Images reviewed. 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
[2016-06-14] MEDS: PANTOPRAZOLE SODIUM 40 MG in NS 100 ML IV SCH (09:28)
[2016-06-14] MEDS: INSULIN GLARGINE 100 UNITS/ML SYRINGE SC SCH ×2 (09:28→20:29)
[2016-06-14] MEDS: SENNOSIDES 17.6 MG/10 ML UDL TUBE SCH ×2 (09:28→20:29)
[2016-06-14] MEDS: predniSONE 1 MG TAB TUBE SCH (09:28)
[2016-06-14] MEDS ORDERED: LIDOCAINE 1% 30 ML SDV ONE (10:36)
[2016-06-14] MEDS ORDERED: NA BICARBONATE 50 MEQ/50 ML VIAL ONE (10:36)
[2016-06-14] MEDS: FUROSEMIDE 40 MG/4 ML VIAL IVP SCH ×2 (10:51→14:28)
--- NOTE | 2016-06-14 12:27 | US ---
Ultrasound Chest Clinical Indication: Evaluate for thoracentesis. Technique: I personally performed this at the bedside. Findings: With the patient sitting up, the largest pocket I could find was 10 mm, approximately 5 cm below the skin, however, with respiration, this pocket reduced to less than 2 mm. There is a loculate d effusion further up near the scapula which corresponds to image #3 and the density seen adjacent to the scapula on the chest x-ray one day prior. Comparing the ultrasound to June 13, there is sign ificant improvement in the amount of fluid present. Impression: Small sliver of fluid adjacent to the lung, the largest sliver was 10 mm, however, with r espiration reduced to less than 2 mm. Further up in the chest, there is a loculated effusion adjacent to the scapula. Overall improvement compared to the June 09 ultrasound. At this point, the tho racentesis was canceled. I discussed the above findings with Dr. Johnson on June 14, 2016 at 12:10 p.m.
[2016-06-14 13:09] LABS: POTASSIUM 3.9 mEq/L (3.5-5.2)
[2016-06-14] MEDS ORDERED: POTASSIUM Cl (KCl) 50 ML IV ONE ×2 (13:29→18:19)
[2016-06-14 18:02] LABS: POTASSIUM 3.9 mEq/L (3.5-5.2)
[2016-06-14] MEDS: TPN 1 EA BAG IV SCH (20:29)
[2016-06-14] MEDS: D5W 1,000 ML IV SCH (20:32)
[2016-06-15] MEDS: METOCLOPRAMIDE 10 MG/2 ML VIAL IVP SCH ×5 (00:07→23:21)
[2016-06-15] MEDS: INSULIN REGULAR HUMAN 100 UNIT/ML SC SCH ×5 (00:07→23:56)
[2016-06-15 00:23] LABS: POTASSIUM 3.8 mEq/L (3.5-5.2)
[2016-06-15] MEDS ORDERED: POTASSIUM Cl (KCl) 50 ML IV ONE ×3 (00:41→14:50)
[2016-06-15] MEDS: ALBUTEROL 60 PUFFS/8 GM MDI IH SCH ×4 (04:10→20:20)
[2016-06-15 04:18] LABS: HEMATOCRIT 29.1 % (40.0-51.0); HEMOGLOBIN 8.9 g/dL (13.7-17.5); MEAN CELL HEMOGLOBIN 29.9 pg (27.9-34.1); MEAN CELL HEMOGLOBIN CONCENTR. 30.6 g/dL (32.4-36.7); MEAN CELL VOLUME 97.7 fL (81.5-99.8); RED BLOOD CELL COUNT 2.98 10^6/uL (4.40-6.38); RED CELL DISTRIBUTION WIDTH 15.3 % (11.5-15.2)
[2016-06-15 05:02] LABS: ANION GAP 14 mEq/L (8-16); CALCIUM 8.9 mg/dL (8.5-10.4); CARBON DIOXIDE 26 mEq/l (22-31); CHLORIDE 110 mEq/L (97-110); CREATININE 2.1 mg/dL (0.7-1.3); GLOMERULAR FILTRATION RATE 30; GLUCOSE 131 mg/dL (70-100); POTASSIUM 3.8 mEq/L (3.5-5.2); SODIUM 150 mEq/L (134-144)
--- NOTE | 2016-06-15 08:36 | PDINTPN ---
Vp Sales Progress Note Assessment/Plan: Assessment: #CABG X 5 and TV annuloplasty 05/30. #Respiratory Failure, on vent. Status post tracheostomy. Oxygenation improved : Currently on 40%, tolerating reduced PS. Likely due to persistent pulmonary edema, obesity, deconditioning, pneumonia, resolving peritonitis. #Pneumonia. Purulent secretions diminished. Cultures negative, suspect anaerobic pneumonia, aspiration. Completed 10d of Zosyn. MSSA in sputum. Plural effusions and atelectasis/infiltrates also present. Thoracentesis performed both sides #Hypotension. Improved. Off pressors. #ROSEANNA -not an issue currently, s/p trach #Obesity/deconditioning. Present prior to surgery. #DM: On insulin coverage but requiring significant amounts of insulin coverage as well as in the TPN, in Lantus. BSs in low-mid 100s #Atrial flutter - on amiodarone. Cardioverted and in NSR. #MAGUI: Creatinine improved today. Status post bladder repair and abdominal exploration. Ruptured bladder with fluid in the abdomen was present. Urine output appears to be increasing with Lasix now that obstruction has resolved, but may be falling off. #Anemia: Hct drifting down. Eliquis on hold. No evidence of active bleeding other than the hematuria. INR unchanged at 1.3 #Nutrition: TFs on hold, significant ileus present preoperatively. On TPN. #Hypernatremia: Sodium rising at 150 this morning. On hypotonic fluids. Was on DDAVP, off currently. #Sacral Decubitus: Wound Care involved. Plan: Continue vent support, supportive care. Trials of CPAP, trach collar as tolerated. Will likely need to downsize trach to do voicing trial with PMSV. Will order smaller XL trach, and try manual occlusion. D/C antibiotics. Continue TPN, continue TF at slow rate. Increase D5W. Cont insulin: SSI, Lantus and in TPN Continue bladder irrigation per Urology. Continue Lasix, aim for continued negative fluid balance. Follow urine output as possible. Follow chest x-ray, laboratory, blood gas. D/W RT, RT, family 40 minutes CC time. 06/15/16 08:36 Subjective: Feels OK today, no pain, breathing comfortably. Objective: Vital Signs Temp Pulse Resp BP Pulse Ox 37.2 C 73 26 H 120/37 L 95 06/15/16 08:00 06/15/16 08:26 06/15/16 08:00 06/15/16 08:00 06/15/16 08:26 Laboratory Results 06/15/16 04:05 06/15/16 04:05 06/14/16 06/15/16 06/16/16 05:59 05:59 05:59 Intake Total 2762 2329 Output Total 4750 5095 150 Balance -1987 -2766 -150 PT 16.2 SEC (12.0-15.0) H 06/13/16 12:00 INR 1.30 (0.83-1.16) H 06/13/16 12:00 Physical Exam - Physical Exam General Appearance: alert, no apparent distress EENT: normal ENT inspection Neck: normal inspection Respiratory: lungs clear, normal breath sounds Cardiac/Chest: regular rate, rhythm, No edema Abdomen: non-tender, soft, No normal bowel sounds (diminished) Skin: normal color, warm/dry Extremities: normal inspection Neuro/Psych: alert, normal mood/affect, oriented x 3 ICD10 Worksheet Patient Problems: Problems Problem Status Diagnosed Acute blood loss anemia Acute Adenocarcinoma of prostate Acute CAD, multiple vessel Acute Chest pain Acute Chronic Disease Mgmt/Transitional Care Acute Fall Acute 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
[2016-06-15] MEDS: SENNOSIDES 17.6 MG/10 ML UDL TUBE SCH ×2 (09:22→20:50)
[2016-06-15] MEDS: predniSONE 1 MG TAB TUBE SCH (09:22)
[2016-06-15] MEDS: INSULIN GLARGINE 100 UNITS/ML SYRINGE SC SCH ×2 (09:23→20:50)
[2016-06-15] MEDS: FUROSEMIDE 40 MG/4 ML VIAL IVP SCH ×2 (09:23→14:55)
[2016-06-15] MEDS: PANTOPRAZOLE SODIUM 40 MG in NS 100 ML IV SCH (09:23)
[2016-06-15] MEDS: AMIODARONE HCL 200 ML IV SCH ×2 (09:44→22:16)
--- NOTE | 2016-06-15 09:48 | SOAPPROG ---
SOAP Progress Note Assessment/Plan: Assessment: seriously ill 80 male with emergent cabg and recent lap for bladder rupture now with grade II sacral decub--- not infected yet/ 5x 3 cm Plan: padding, offloading/ debridement if progresses 06/15/16 09:45 Objective: Vital Signs Temp Pulse Resp BP Pulse Ox 37.2 C 73 26 H 120/37 L 95 06/15/16 08:00 06/15/16 08:26 06/15/16 08:00 06/15/16 08:00 06/15/16 08:26 Laboratory Results 06/15/16 04:05 06/15/16 04:05 06/14/16 06/15/16 06/16/16 05:59 05:59 05:59 Intake Total 2762 2329 Output Total 4750 5095 150 Balance -1988 -2766 -150 PT 16.2 SEC (12.0-15.0) H 06/13/16 12:00 INR 1.30 (0.83-1.16) H 06/13/16 12:00 ICD10 Worksheet Patient Problems: Problems Problem Status Diagnosed Acute blood loss anemia Acute Adenocarcinoma of prostate Acute CAD, multiple vessel Acute Chest pain Acute Chronic Disease Mgmt/Transitional Care Acute Fall Acute 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
--- NOTE | 2016-06-15 10:15 | SOAPPROG ---
SOAP Progress Note Assessment/Plan: POD#23 Urgent CABGx5 (Free FRANK-LAD, SVG-D1, sequential SVG-OM1-OM2, SVG-PLC), TVA #32 ring, IABP 1:1. POD#22 Take back for expl, washout right CED. Sternal closure w madelyn Greerles. POD#11 Laparotomy, repair of bladder rupture, fulguration of bladder varix, drainage of intraperitoneal fluid, placement of suprapubic catheter. POD#11 Tracheostomy. IV access per LUE PICC. Nutrition per TPN/NGT Acute [place], severe 3VD, post-infarction angina/IABP - s/p urgent CABGx5 compl by bleeding into rt chest requiring take-back. IABP support x 24h. Low dose pressor support x 72h. Tubes, wires, and jonatan out. Secondary prevention with BB as allowed by BP. Statin and Eliquis when appropriate. ICM with systolic (EF 30%) and diastolic dysfunction (EDP 25) and class IV heart failure. Lasix decreased today. Large B/L pleural effusions s/p L thoracentesis 12/22 with 1 L removed, R thoracentesis attempted 12/23 without adequate fluid for drainage.. Staggered intro of heart failure regimen as appropriate. Torrential TR - Post CPB. Amenable to annuloplasty. Antithrombotic prophylaxis as per PAF. 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 Surveillance per cardiology. Ventilator dependent respiratory failure s/p tracheostomy. Abx, mucolytics, steroids, therapeutic bronchs, vent management per ICU. Acute expected blood loss anemia with coagulopathy - H/H stable. Postoperative renal failure with electrolyte imbalance - Early postop MAGUI evolving into failure d/t obstructive uropathy. Steady improvement post bladder repair. Post-op AF/Flutter - Variable ventricular rates. Started on Amio. Adjunctive BB stopped d/t BP lability. Successful DC CVSN per cards 05/31. Recurrent PAF as of 06/06 and Amio restarted. [id number] score of 6. Antithrombotic prophylaxis with Eliquis when appropriate. DM2 - Suboptimal control by preop A1c of 8.4%. Insulin mgmt as per ICU. 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 [address] bello and cont irrigation compl by bladder perf and shock. Bladder successfully repaired. Ongoing irrigation and mgmt per urology. CTAP 05/14 showed large clot in bladder. Dr. Johnson to discuss with urology timing of washout. Post-op ileus - Large BM x 2 06/15. Nutrition per TPN. Now tolerating TF at 10 cc/h. Advance as tolerated. Eventual gastrostomy tube. 06/14/16 09:00 06/15/16 10:12 Subjective: Nods when asked if comfortable. Objective: Vital Signs Temp Pulse Resp BP Pulse Ox 37.2 C 73 26 H 120/37 L 95 06/15/16 08:00 06/15/16 08:26 06/15/16 08:00 06/15/16 08:00 06/15/16 08:26 Laboratory Results 06/15/16 04:05 06/15/16 04:05 06/14/16 06/15/16 06/16/16 05:59 05:59 05:59 Intake Total 2762 2329 Output Total 4750 5095 150 Balance -1987 -2766 -150 PT 16.2 SEC (12.0-15.0) H 06/13/16 12:00 INR 1.30 (0.83-1.16) H 06/13/16 12:00 Physical Exam - Physical Exam General Appearance: alert, no apparent distress EENT: No scleral icterus (R), No scleral icterus (L) Neck: other (Trachesotomy in place) Respiratory: No respiratory distress Cardiac/Chest: regular rate, rhythm Abdomen: non-tender, soft, other (Supra-pubic catheter in place), No distended Male Genitalia: other (FC in place) Skin: normal color, warm/dry Extremities: No pedal edema Neuro/Psych: alert, normal mood/affect ICD10 Worksheet Patient Problems: Problems Problem Status Diagnosed Acute blood loss anemia Acute Adenocarcinoma of prostate Acute CAD, multiple vessel Acute Chest pain Acute Chronic Disease Mgmt/Transitional Care Acute Fall Acute 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
[2016-06-15 12:39] LABS: POTASSIUM 3.9 mEq/L (3.5-5.2)
[2016-06-15] MEDS ORDERED: LIDOCAINE 2% JELLY 20 ML (UROJECT) ONE (13:25)
[2016-06-15] MEDS ORDERED: LIDOCAINE 2% JELLY 20 ML (UROJECT) UR ONE (14:30)
--- NOTE | 2016-06-15 14:47 | PDSURGCRDT ---
CardioThoracic Surgery Note - Objective Objective: Vital Signs Temp Pulse Resp BP Pulse Ox 37.1 C 71 39 H 146/41 H 95 06/15/16 12:00 06/15/16 13:00 06/15/16 13:00 06/15/16 13:00 06/15/16 13:00 Laboratory Results 06/15/16 04:05 06/15/16 12:18 Afebrile VSS Awake on vent Good UO Cr 2.1 BUN 74 Hct 29% Lungs clear ant Cor RRR Abd - no BS heard. Nothing to add at this point. 06/14/16 06/15/16 06/16/16 05:59 05:59 05:59 Intake Total 8702 6711 Output Total 2153 2747 610 [facility] -1987 -2766 -610 Exam Temp Pulse Resp BP Pulse Ox 37.1 C 71 39 H 146/41 H 95 06/15/16 12:00 06/15/16 13:00 06/15/16 13:00 06/15/16 13:00 06/15/16 13:00 O2 (L/minute) 15 FIO2 (%) 40
[2016-06-15 18:07] LABS: POTASSIUM 4.5 mEq/L (3.5-5.2)
[2016-06-15] MEDS: TPN 1 EA BAG IV SCH (20:50)
[2016-06-15] MEDS: ACETAMINOPHEN 650 MG/20.3 ML UDCUP TUBE PRN (21:25)
[2016-06-16 01:03] LABS: POTASSIUM 3.8 mEq/L (3.5-5.2)
[2016-06-16] MEDS ORDERED: POTASSIUM Cl (KCl) 50 ML IV ONE ×2 (01:14→07:23)
[2016-06-16] MEDS: ALBUTEROL 60 PUFFS/8 GM MDI IH SCH ×4 (04:00→20:27)
[2016-06-16] MEDS: METOCLOPRAMIDE 10 MG/2 ML VIAL IVP SCH ×3 (05:51→18:09)
[2016-06-16 05:57] LABS: HEMOGLOBIN 8.6 g/dL (13.7-17.5); MEAN CELL HEMOGLOBIN 30.2 pg (27.9-34.1); MEAN CELL HEMOGLOBIN CONCENTR. 31.9 g/dL (32.4-36.7); MEAN CELL VOLUME 94.7 fL (81.5-99.8); RED BLOOD CELL COUNT 2.85 10^6/uL (4.40-6.38); RED CELL DISTRIBUTION WIDTH 15.2 % (11.5-15.2)
[2016-06-16 07:03] LABS: ANION GAP 11 mEq/L (8-16); CALCIUM 8.7 mg/dL (8.5-10.4); CARBON DIOXIDE 26 mEq/l (22-31); CHLORIDE 109 mEq/L (97-110); CREATININE 2.1 mg/dL (0.7-1.3); GLOMERULAR FILTRATION RATE 30; GLUCOSE 163 mg/dL (70-100); POTASSIUM 3.9 mEq/L (3.5-5.2); SODIUM 146 mEq/L (134-144)
[2016-06-16] MEDS: INSULIN REGULAR HUMAN 100 UNIT/ML SC SCH ×3 (07:21→18:09)
--- NOTE | 2016-06-16 08:40 | DX ---
Portable chest x-ray 0609 hours. History: Followup CHF. Findings: Comparison to June 13, 2016. Tracheostomy, feeding tube, and PICC line remain in place. Heart size remains moderately enlarged. Pu lmonary vasculature is prominent centrally. Patchy bilateral alveolar infiltrates are once again seen more prominent involving the mid to lower lung similar to the prior study. There may be small effusi ons layering posteriorly. Osseous structures are unchanged. Impression: 1. Moderate CHF pattern stable in appearance.
--- NOTE | 2016-06-16 08:51 | PDINTPN ---
Web Production Manager Progress Note Assessment/Plan: Assessment: #CABG X 5 and TV annuloplasty 05/30. #Respiratory Failure, on vent. Status post tracheostomy. . Likely due to persistent pulmonary edema, obesity, deconditioning, pneumonia, resolving peritonitis.Oxygenation improved: Currently on 40%, tolerating reduced PS, On CPAP all day yesterday, but only briefly tolerated t-piece. Minute ventilation remains quite high. Bladder perforation. To OR 06/04. 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 #Pneumonia. Purulent secretions diminished. Cultures negative, suspect anaerobic pneumonia, aspiration. MSSA in sputum. Completed 10d of Zosyn. Plural effusions and atelectasis/infiltrates also present earlier in week, thoracentesis performed both sides #Hypotension. Improved. Off pressors. #ROSEANNA -not an issue currently, s/p trach #Obesity/deconditioning. Present prior to surgery. #DM: On insulin coverage but requiring significant amounts of insulin coverage as well as in the TPN, in Lantus. BSs in mid 100s-200s #Atrial flutter - on amiodarone. Cardioverted and in NSR. #MAGUI: Creatinine stable today. Status post bladder repair and abdominal exploration. Ruptured bladder with fluid in the abdomen was present. Urine output appears to be increasing with Lasix now that obstruction has resolved, but may be falling off. #Anemia: Hct drifting down. Eliquis on hold. No evidence of active bleeding other than the hematuria. INR unchanged at 1.3 #Nutrition: TFs at slow rate, residuals 200s yesterday, 45 ml this AM. On TPN. #Hypernatremia: Sodium down to this morning. On hypotonic fluids. Was on DDAVP , off currently. #Sacral Decubitus: Wound Care involved. Dr. Nunn consulted. Plan: Continue vent support, supportive care. Trials of CPAP, trach collar as tolerated. Will likely need to downsize trach to do voicing trial with PMSV. Will order smaller XL trach, and try manual occlusion. D/C antibiotics. Continue TPN, continue TF at slow rate, increase a bit if residuals remain low. Increase D5W. Cont insulin: SSI and in TP. Increase Lantus Continue bladder irrigation per Urology. Continue Lasix, aim for continued negative fluid balance until Cr starts to climb. Follow urine output as possible. Follow chest x-ray, laboratory, blood gas. D/W RN, RT, family 35 minutes CC time. 06/16/16 08:51 Subjective: C/O some abdominal pain when catheter clotted yesterday, none since it was changed. Breathing comfortably on CPAP. Objective: Vital Signs Temp Pulse Resp BP Pulse Ox 37 C 67 32 H 126/36 H 96 06/16/16 08:00 06/16/16 08:00 06/16/16 08:00 06/16/16 08:00 06/16/16 08:00 Laboratory Results 06/16/16 05:45 06/16/16 05:45 06/15/16 06/16/16 06/17/16 05:59 05:59 05:59 Intake Total 2329 2657 Output Total 5095 3210 200 Balance -2766 -553 -200 PT 16.2 SEC (12.0-15.0) H 06/13/16 12:00 INR 1.30 (0.83-1.16) H 06/13/16 12:00 CXR: Diminished effusions. Persistent infiltrates. Physical Exam - Physical Exam General Appearance: alert, no apparent distress EENT: normal ENT inspection Neck: normal inspection Respiratory: lungs clear, normal breath sounds Cardiac/Chest: regular rate, rhythm, No edema Abdomen: non-tender, soft, No normal bowel sounds (diminished) Skin: normal color, warm/dry Extremities: normal range of motion, non-tender Neuro/Psych: alert, No normal mood/affect, No oriented x 3 ICD10 Worksheet Patient Problems: Problems Problem Status Diagnosed Acute blood loss anemia Acute Adenocarcinoma of prostate Acute CAD, multiple vessel Acute Chest pain Acute Chronic Disease [facility]/Transitional Care Acute Fall Acute 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
[2016-06-16] MEDS ORDERED: INSULIN GLARGINE 100 UNITS/ML SYRINGE SC SCH (08:59)
--- NOTE | 2016-06-16 09:27 | SOAPPROG ---
SOAP Progress Note Assessment/Plan: POD#24 Urgent CABGx5 (Free FRANK-LAD, SVG-D1, sequential SVG-OM1-OM2, SVG-PLC), TVA #32 ring, IABP 1:1. POD#23 Take back for expl, washout right CED. Sternal closure w Maria Victoria auguste, jonatan. POD#12 Laparotomy, repair of bladder rupture, fulguration of bladder varix, drainage of intraperitoneal fluid, placement of suprapubic catheter. POD#12 Tracheostomy. IV access per LUE PICC. Nutrition per TPN/NGT Acute [place], severe 3VD, post-infarction angina/IABP - s/p urgent CABGx5 compl by bleeding into rt chest requiring take-back. IABP support x 24h. Low dose pressor support x 72h. Tubes, wires, and jonatan out. Secondary prevention with BB as allowed by BP. Statin and Eliquis when appropriate. ICM with systolic (EF 30%) and diastolic dysfunction (EDP 25) and class IV heart failure. Large B/L pleural effusions s/p L thoracentesis 12/22 with 1 L removed, R thoracentesis attempted 12/23 without adequate fluid for drainage. Continue Lasix 40 IV BID. Staggered intro of heart failure regimen as appropriate. Torrential TR - Post CPB. Amenable to annuloplasty. Antithrombotic prophylaxis as per PAF. 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 Surveillance per cardiology. Ventilator dependent respiratory failure s/p tracheostomy. Abx, mucolytics, steroids, therapeutic bronchs, vent management per ICU. Acute expected blood loss anemia with coagulopathy - Monitor H/H. Postoperative renal failure with electrolyte imbalance - Early postop MAGUI evolving into failure d/t obstructive uropathy. Steady improvement post bladder repair. Post-op AF/Flutter - Successful DC CVSN per cards 05/31. Recurrent PAF as of and Amio restarted. [id number] score of 6. Antithrombotic prophylaxis with Eliquis when appropriate. DM2 - Suboptimal control by preop A1c of 8.4%. Insulin mgmt as per ICU. 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 [address] bello and cont irrigation compl by bladder perf and shock. Bladder successfully repaired. Ongoing irrigation and mgmt per urology. CTAP 05/14 showed large clot in bladder. Urology to wash clot out in near future with possible dc of SPC. Post-op ileus - Large BM x 2 06/15. Nutrition per TPN. Tolerating TF at 10 cc/ h. Advance as tolerated. Eventual gastrostomy tube. Sacral decubitus ulcer - unstageable - Dr. Nunn following for eventual debridement 06/16/16 10:06 Subjective: Comfortable. Thumbs-up when asked how he feels. Objective: Vital Signs Temp Pulse Resp BP Pulse Ox 37 C 67 32 H 126/36 H 96 06/16/16 08:00 06/16/16 08:00 06/16/16 08:00 06/16/16 08:00 06/16/16 08:00 Laboratory Results 06/16/16 05:45 06/16/16 05:45 06/15/16 06/16/16 06/17/16 05:59 05:59 05:59 Intake Total 2329 2657 Output Total 5095 3210 200 Balance -2766 -553 -200 PT 16.2 SEC (12.0-15.0) H 06/13/16 12:00 INR 1.30 (0.83-1.16) H 06/13/16 12:00 Physical Exam - Physical Exam General Appearance: alert, no apparent distress, obese EENT: No scleral icterus (R), No scleral icterus (L) Neck: normal inspection Respiratory: No respiratory distress Cardiac/Chest: regular rate, rhythm Abdomen: non-tender, soft, distended Male Genitalia: other (SPC/FC in place ) Skin: normal color, warm/dry Extremities: No pedal edema, No swelling Neuro/Psych: alert, normal mood/affect ICD10 Worksheet Patient Problems: Problems Problem Status Diagnosed Acute blood loss anemia Acute Adenocarcinoma of prostate Acute CAD, multiple vessel Acute Chest pain Acute Chronic Disease Mgmt/Transitional Care Acute Fall Acute 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
[2016-06-16] MEDS: FUROSEMIDE 40 MG/4 ML VIAL IVP SCH ×2 (09:57→15:14)
[2016-06-16] MEDS: AMIODARONE HCL 200 ML IV SCH ×2 (09:57→20:14)
[2016-06-16] MEDS ORDERED: INSULIN GLARGINE 100 UNITS/ML SYRINGE SC ONE ×2 (10:00)
[2016-06-16] MEDS: PANTOPRAZOLE SODIUM 40 MG in NS 100 ML IV SCH (10:02)
[2016-06-16] MEDS: SENNOSIDES 17.6 MG/10 ML UDL TUBE SCH ×2 (10:18→20:49)
[2016-06-16] MEDS: predniSONE 1 MG TAB TUBE SCH (10:20)
[2016-06-16] MEDS: D5W 1,000 ML IV SCH (11:36)
--- NOTE | 2016-06-16 13:26 | WOCRNPDOC ---
WOCRN Advanced Assessment Note - Skin Integrity Problem, Advanced Assess Sacrum Pressure Injury Dressing Type: Allevyn Life Dressing Description: Not Intact (rolled up in a ball superior to wound. Wound was open to air) Exudate Characteristic(s): None Integumentary Issue Intervention: Dressing Applied Christina Wound Tissue: Erythema Wound Bed Color: Brown, Yellow Wound Bed Constitution: Adhered Slough, Stable Eschar Wound Edges: Attached Site Measurement - Head-to-Toe Length X Width X Depth (cm): 6x6.5x0 Pressure Injury Stage: Unstageable Pressure Injury Present on Admit: No Skin Integrity Problem Comment: 100% necrotic wound. Wound dry and leathery, and slough/eschar is cracking. Cleaned with ns and gauze. [place] wound gel applied to wound bed. Skin prep applied christina wound and covered with Medihoney HCS dressing. Relayed to CHRISTINE and SOPHIA Oropeza that wound needs to stay moist. Reiterated that wound care is working on autolytically debriding the wound which means that the wound needs to stay moist/wet to soften up the necrotic tissue.
[2016-06-16] MEDS: ACETAMINOPHEN 650 MG/20.3 ML UDCUP TUBE PRN ×2 (14:55→22:18)
[2016-06-16 18:15] LABS: POTASSIUM 4.2 mEq/L (3.5-5.2)
[2016-06-16] MEDS: TPN 1 EA BAG IV SCH (20:49)
[2016-06-16] MEDS: INSULIN GLARGINE 100 UNITS/ML SYRINGE SC SCH (20:50)
[2016-06-17] MEDS: INSULIN REGULAR HUMAN 100 UNIT/ML SC SCH ×4 (00:13→17:55)
[2016-06-17] MEDS: ALBUTEROL 60 PUFFS/8 GM MDI IH SCH ×4 (04:27→20:07)
[2016-06-17] MEDS: METOCLOPRAMIDE 10 MG/2 ML VIAL IVP SCH ×4 (05:47→17:55)
[2016-06-17 06:03] LABS: % IMMATURE GRANULYOCYTES 1.2 % (0.0-1.1); ABSOLUTE IMMATURE GRANULOCYTES 0.11 10^3/uL (0.00-0.10); ADD DIFF? NO; ADD MORPH? NO; ADD SCAN? NO; ATYPICAL LYMPHOCYTE FLAG 10 (0-99); FRAGMENT RBC FLAG 0 (0-99); HEMATOCRIT 25.8 % (40.0-51.0); HEMOGLOBIN 8.2 g/dL (13.7-17.5); LEFT SHIFT FLG 0 (0-99); LIPEMIA HEMOLYSIS FLAG 80 (0-99); MEAN CELL HEMOGLOBIN 30.5 pg (27.9-34.1); MEAN CELL HEMOGLOBIN CONCENTR. 31.8 g/dL (32.4-36.7); MEAN CELL VOLUME 95.9 fL (81.5-99.8); PLATELET CLUMPS FLAG 0 (0-99); PLATELET COUNT 386 10^3/uL (150-400); RED BLOOD CELL COUNT 2.69 10^6/uL (4.40-6.38); RED CELL DISTRIBUTION WIDTH 15.1 % (11.5-15.2)
[2016-06-17 06:28] LABS: ALANINE AMINOTRANSFERASE 29 IU/L (21-72); ALBUMIN 2.5 g/dL (3.5-5.0); ALKALINE PHOSPHATASE 217 IU/L (38-126); ANION GAP 13 mEq/L (8-16); ASPARTATE AMINOTRANSFERASE 56 IU/L (17-59); BILIRUBIN,TOTAL 1.1 mg/dL (0.1-1.4); CALCIUM 8.4 mg/dL (8.5-10.4); CARBON DIOXIDE 25 mEq/l (22-31); CHLORIDE 108 mEq/L (97-110); CREATININE 2.1 mg/dL (0.7-1.3); GLOMERULAR FILTRATION RATE 30; GLUCOSE 179 mg/dL (70-100); SODIUM 146 mEq/L (134-144); TOTAL PROTEIN 5.5 g/dL (6.3-8.2); TRIGLYCERIDE 187 mg/dL (40-150)
[2016-06-17] MEDS: AMIODARONE HCL 200 ML IV SCH ×2 (08:19→17:51)
[2016-06-17] MEDS: FUROSEMIDE 40 MG/4 ML VIAL IVP SCH ×2 (08:27→15:12)
[2016-06-17] MEDS: PANTOPRAZOLE SODIUM 40 MG in NS 100 ML IV SCH (08:27)
[2016-06-17] MEDS: INSULIN GLARGINE 100 UNITS/ML SYRINGE SC SCH ×2 (08:27→21:10)
--- NOTE | 2016-06-17 08:48 | PDINTPN ---
Hotel Reservation Agent Progress Note Assessment/Plan: Assessment/Plan: * CABG X 5 and TV annuloplasty 05/30. * Respiratory Failure, on vent. Likely due to persistent pulmonary edema, obesity, deconditioning, pneumonia, resolving peritonitis.Oxygenation improved: -doing well on CPAP. Still with high minute ventilation. Has not tolerated trach collar -Cont CPAP for now. Consider downsize of trach * Bladder perforation. To OR 06/04. 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 * S/P trach * Pneumonia. Purulent secretions diminished. Cultures negative, suspect anaerobic pneumonia, aspiration. MSSA in sputum. Completed 10d of Zosyn. Plural effusions and atelectasis/infiltrates also present earlier in week, thoracentesis performed both sides * Hypotension. Improved. Off pressors. * ROSEANNA -not an issue currently, s/p trach * Obesity/deconditioning. Present prior to surgery. * DM: On insulin coverage but requiring significant amounts of insulin coverage as well as in the TPN, in Lantus. BSs in mid 100s-200s * Atrial flutter - on amiodarone. Cardioverted and in NSR. * MAGUI: Creatinine stable today. Status post bladder repair and abdominal exploration. Ruptured bladder with fluid in the abdomen was present. Urine output appears to be increasing with Lasix now that obstruction has resolved, but may be falling off. * Anemia: Hct drifting down. Eliquis on hold. No evidence of active bleeding other than the hematuria. INR unchanged at 1.3 * Nutrition: TFs at slow rate, residuals 200s yesterday, 45 ml this AM. On TPN. * Hypernatremia: Sodium down to this morning. On hypotonic fluids. Was on DDAVP, off currently. * Sacral Decubitus: Wound Care involved. Dr. Nunn consulted. Overall slowly improving. Subjective: Sitting up. comfortable. Mildly tachypneic Objective: Vital Signs Temp Pulse Resp BP Pulse Ox 36.4 C 63 24 H 117/36 L 99 06/17/16 07:45 06/17/16 07:45 06/17/16 07:45 06/17/16 07:45 06/17/16 07:45 Microbiology 06/16/16 10:30 - Final Sputum, Induced/Suctioned Laboratory Results 06/17/16 05:22 06/17/16 05:22 06/16/16 06/17/16 06/18/16 05:59 05:59 05:59 Intake Total 2657 3345 Output Total 3210 1745 Balance -553 810 PT 16.2 SEC (12.0-15.0) H 06/13/16 12:00 INR 1.30 (0.83-1.16) H 06/13/16 12:00 Laboratory Results 06/17/16 05:22 06/17/16 05:22 06/17/16 05:22 Calcium 8.4 L mg/dL (8.5 - 10.4) Phosphorus 3.6 mg/dL (2.5 - 4.5) Total Bilirubin 1.1 mg/dL (0.1 - 1.4) AST 56 IU/L (17 - 59) ALT 29 IU/L (21 - 72) Alkaline Phosphatase 217 H IU/L (38 - 126) Total Protein 5.5 L g/dL (6.3 - 8.2) Albumin 2.5 L g/dL (3.5 - 5.0) Triglycerides 187 H mg/dL (40 - 150) CXR- mild fluid overload. Physical Exam - Physical Exam General Appearance: alert EENT: PERRL/EOMI Neck: non-tender, other (trach C&D) Respiratory: crackles (bases), No respiratory distress, No stridor, No wheezing Cardiac/Chest: normal peripheral pulses, regular rate, rhythm, systolic murmur Abdomen: normal bowel sounds, non-tender, soft Male Genitalia: deferred Rectal: deferred Skin: normal color, warm/dry Neuro/Psych: alert ICD10 Worksheet Patient Problems: Problems Problem Status Diagnosed Acute blood loss anemia Acute Adenocarcinoma of prostate Acute CAD, multiple vessel Acute Chest pain Acute Chronic Disease Mgmt/Transitional Care Acute Fall Acute 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
--- NOTE | 2016-06-17 09:47 | SOAPPROG ---
SOAP Progress Note Assessment/Plan: POD#25 Urgent CABGx5 (Free FRANK-LAD, SVG-D1, sequential SVG-OM1-OM2, SVG-PLC), TVA #32 ring, IABP 1:1. POD#24 Take back for expl, washout right CED. Sternal closure w Maria Victoria auguste, jonatan. POD#13 Laparotomy, repair of bladder rupture, fulguration of bladder varix, drainage of intraperitoneal fluid, placement of suprapubic catheter. POD#13 Tracheostomy. IV access per LUE PICC. Nutrition per TPN/NGT Acute MD, severe 3VD, post-infarction angina/IABP - s/p urgent CABGx5 compl by bleeding into rt chest requiring take-back. IABP support x 24h. Low dose pressor support x 72h. Tubes, wires, and jonatan out. Secondary prevention with BB as allowed by BP. Statin and Eliquis when appropriate. ICM with systolic (EF 30%) and diastolic dysfunction (EDP 25) and class IV heart failure. Large B/L pleural effusions s/p L thoracentesis 12/22 with 1 L removed, R thoracentesis attempted 12/23 without adequate fluid for drainage. Continue Lasix 40 IV BID. Staggered intro of heart failure regimen as appropriate. Torrential TR - Post CPB. Amenable to annuloplasty. Antithrombotic prophylaxis as per PAF. 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 Surveillance per cardiology. Ventilator dependent respiratory failure s/p tracheostomy. Abx, mucolytics, steroids, therapeutic bronchs, vent management per ICU. Anemia secondary to acute blood loss, coagulopathy, chronic illness - Monitor H /H & transfuse prn Postoperative renal failure with electrolyte imbalance - Early postop MAGUI evolving into failure d/t obstructive uropathy. Steady improvement post bladder repair. Post-op AF/Flutter - Successful DC CVSN per cards 05/31. Recurrent PAF as of and Amio restarted. [id number] score of 6. Antithrombotic prophylaxis with Eliquis when appropriate. DM2 - Suboptimal control by preop A1c of 8.4%. Insulin mgmt as per ICU. 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 [address] bello and cont irrigation compl by bladder perf and shock. Bladder successfully repaired. Ongoing irrigation and mgmt per urology. CTAP 05/14 showed large clot in bladder. Urology to wash clot out in near future with possible dc of SPC. Post-op ileus - Nutrition per TPN. TF on held due to > 200 cc residuals. Advance as tolerated. Eventual gastrostomy tube. Sacral decubitus ulcer - unstageable - Dr. Nunn following for eventual debridement Subjective: No complaints. Comfortable. Objective: Vital Signs Temp Pulse Resp BP Pulse Ox 36.4 C 70 24 H 117/36 L 40 L 06/17/16 07:45 06/17/16 08:15 06/17/16 07:45 06/17/16 07:45 06/17/16 08:15 Microbiology 06/16/16 10:30 - Final Sputum, Induced/Suctioned Laboratory Results 06/17/16 05:22 06/17/16 05:22 06/16/16 06/17/16 06/18/16 05:59 05:59 05:59 Intake Total 2657 3345 Output Total 3210 2535 295 Balance -553 810 -295 PT 16.2 SEC (12.0-15.0) H 06/13/16 12:00 INR 1.30 (0.83-1.16) H 06/13/16 12:00 Physical Exam - Physical Exam General Appearance: alert, no apparent distress, obese EENT: No scleral icterus (R), No scleral icterus (L) Neck: normal inspection Respiratory: No respiratory distress Cardiac/Chest: regular rate, rhythm Abdomen: non-tender, soft, distended Skin: normal color, warm/dry Extremities: No pedal edema, No swelling Neuro/Psych: alert, motor weakness ICD10 Worksheet Patient Problems: Problems Problem Status Diagnosed Acute blood loss anemia Acute Adenocarcinoma of prostate Acute CAD, multiple vessel Acute Chest pain Acute Chronic Disease Mgmt/Transitional Care Acute Fall Acute 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
[2016-06-17] MEDS: predniSONE 1 MG TAB TUBE SCH (11:06)
[2016-06-17] MEDS: SENNOSIDES 17.6 MG/10 ML UDL TUBE SCH ×2 (11:06→20:28)
--- NOTE | 2016-06-17 12:04 | SOAPPROG ---
SOAP Progress Note Assessment/Plan: Assessment: seriously ill 80 male with emergent cabg and recent lap for bladder rupture now with grade II sacral decub--- not infected yet/ 5x 3 cm Plan: padding, offloading/ debridement if progresses 06/15/16 09:45 06/17/16 12:03 not much change in decub/ will probably need debridement Objective: Vital Signs Temp Pulse Resp BP Pulse Ox 36.4 C 71 35 H 111/43 L 96 06/17/16 07:45 06/17/16 10:00 06/17/16 10:00 06/17/16 10:00 06/17/16 10:00 Microbiology 06/16/16 10:30 - Final Sputum, Induced/Suctioned Laboratory Results 06/17/16 05:22 06/17/16 05:22 06/16/16 06/17/16 06/18/16 05:59 05:59 05:59 Intake Total 2657 3345 Output Total 3210 2535 515 Balance -553 810 -515 PT 16.2 SEC (12.0-15.0) H 06/13/16 12:00 INR 1.30 (0.83-1.16) H 06/13/16 12:00 ICD10 Worksheet Patient Problems: Problems Problem Status Diagnosed Acute blood loss anemia Acute Adenocarcinoma of prostate Acute CAD, multiple vessel Acute Chest pain Acute Chronic Disease Mgmt/Transitional Care Acute Fall Acute 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
[2016-06-17] MEDS ORDERED: POTASSIUM Cl (KCl) 50 ML IV ONE (14:53)
--- NOTE | 2016-06-17 17:54 | PDSURGCRDT ---
CardioThoracic Surgery Note - Objective Objective: Vital Signs Temp Pulse Resp BP Pulse Ox 36.4 C 67 27 H 110/31 L 98 06/17/16 16:00 06/17/16 16:35 06/17/16 16:00 06/17/16 14:00 06/17/16 16:35 Microbiology 06/16/16 10:30 - Final Sputum, Induced/Suctioned Laboratory Results 06/17/16 05:22 06/17/16 12:45 06/16/16 06/17/16 06/18/16 05:59 05:59 05:59 Intake Total 2657 3345 Output Total 3210 2535 1340 Balance -553 810 -1340 Afebrile VSS NSR Still bloody urine. Not tolerating tube feeds and ?a little more abd discomfort On FiO2 40% Lungs clear ant Cor RRR Abd - mod distension Quiet When has return of bowel function, can switch Amio to per tube. Exam Temp Pulse Resp BP Pulse Ox 36.4 C 67 27 H 110/31 L 98 06/17/16 16:00 06/17/16 16:35 06/17/16 16:00 06/17/16 14:00 06/17/16 16:35 O2 (L/minute) 40 FIO2 (%) 40
[2016-06-17] MEDS: TPN 1 EA BAG IV SCH (21:01)
[2016-06-18] MEDS: INSULIN REGULAR HUMAN 100 UNIT/ML SC SCH ×5 (00:08→23:03)
[2016-06-18] MEDS: METOCLOPRAMIDE 10 MG/2 ML VIAL IVP SCH ×5 (00:10→23:03)
[2016-06-18 00:31] LABS: POTASSIUM 3.6 mEq/L (3.5-5.2)
[2016-06-18] MEDS: POTASSIUM Cl (KCl) 50 ML IV SCH ×3 (02:22→03:30)
[2016-06-18] MEDS: ALBUTEROL 60 PUFFS/8 GM MDI IH SCH ×4 (04:20→20:14)
[2016-06-18] MEDS: AMIODARONE HCL 200 ML IV SCH ×2 (04:59→17:25)
[2016-06-18 06:07] LABS: HEMATOCRIT 26.6 % (40.0-51.0); HEMOGLOBIN 8.7 g/dL (13.7-17.5); MEAN CELL HEMOGLOBIN 30.9 pg (27.9-34.1); MEAN CELL HEMOGLOBIN CONCENTR. 32.7 g/dL (32.4-36.7); MEAN CELL VOLUME 94.3 fL (81.5-99.8); RED BLOOD CELL COUNT 2.82 10^6/uL (4.40-6.38); RED CELL DISTRIBUTION WIDTH 15.3 % (11.5-15.2)
[2016-06-18 07:01] LABS: ANION GAP 11 mEq/L (8-16); CALCIUM 8.6 mg/dL (8.5-10.4); CARBON DIOXIDE 24 mEq/l (22-31); CHLORIDE 108 mEq/L (97-110); CREATININE 2.1 mg/dL (0.7-1.3); GLOMERULAR FILTRATION RATE 30; GLUCOSE 139 mg/dL (70-100); POTASSIUM 4.1 mEq/L (3.5-5.2); SODIUM 143 mEq/L (134-144)
--- NOTE | 2016-06-18 08:12 | PDINTPN ---
Perinatal Educator Progress Note Assessment/Plan: Assessment: #CABG X 5 and TV annuloplasty then bled and back to surgery with 1L of blood in the right chest but no active bleeding source found. Hemodynamics now are good off pressors #Respiratory Failure on vent at 40% FI02 on CPAP during the days. #Pneumonia with moderate secretions, post several bronchs, off antibiotic now #ROSEANNA not an issue with his trach #Obesity and very deconditioned, no walking at all before his surgery. He is very weak now using a sling to get up into a chair for 1 hour 3 times a day #Decubitus ulcer, on an air flow bed #DM controlled with SS insulin plus lantus bid #HTN at home #Hyperlipidemia #Remote TBI after a fall with punctate ICB #New atrial flutter/fib in NSR now on amiodarone #Ileus, perhaps due to the urine in the abdomen after the bladder rupture. He is on reglan. #Renal failure after bladder rupture with obstruction. He still has bloody urine with some small clots. Creatinine stable at 2.1 #FEN: On 130ml/hr IV with TPN and maintenance plus IV amio. No weights for a week. Plan: Check weight Push hard on strengthening with PT, ? alternate exercises in bed Continue CPAP Recheck labs sent Insulin Nutrition: Will likely need a PEG but with his uroperitoneum and ileus this will be later. On TPN now 05/26/16 08:25 06/05/16 01:29 06/05/16 01:32 06/18/16 08:03 06/18/16 08:41 06/18/16 08:41 Subjective: He is in a good mood, smiling Objective: Vital Signs Temp Pulse Resp BP Pulse Ox 36.7 C 71 30 H 129/43 H 98 06/18/16 07:37 06/18/16 07:37 06/18/16 07:37 06/18/16 07:37 06/18/16 07:37 Microbiology 06/16/16 10:30 - Final Sputum, Induced/Suctioned Laboratory Results 06/18/16 05:50 06/18/16 05:50 06/17/16 06/18/16 06/19/16 05:59 05:59 05:59 Intake Total 3345 3142 Output Total 2055 2860 Balance 810 282 PT 16.2 SEC (12.0-15.0) H 06/13/16 12:00 INR 1.30 (0.83-1.16) H 06/13/16 12:00 Physical Exam - Physical Exam General Appearance: no apparent distress EENT: normal ENT inspection Neck: non-tender, other (trach) Respiratory: rhonchi Cardiac/Chest: regular rate, rhythm Abdomen: other (tender left abdomen diffusely) Back: Other (decubitus ulcer) Skin: warm/dry Lymphatic: no adenopathy Extremities: No pedal edema Neuro/Psych: alert ICD10 Worksheet Patient Problems: Problems Problem Status Diagnosed Acute blood loss anemia Acute Adenocarcinoma of prostate Acute CAD, multiple vessel Acute Chest pain Acute Chronic Disease Mgmt/Transitional Care Acute Fall Acute 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
--- NOTE | 2016-06-18 09:08 | SOAPPROG ---
[id number] TVA #32 MC3 ring, IABP 1:1. POD#25 Take back for expl, washout right CED. Sternal closure w Maria Victoria wetimo, jonatan. POD#14 Laparotomy, repair of bladder rupture, fulguration of bladder varix, drainage of intraperitoneal fluid, placement of suprapubic catheter. POD#14 Tracheostomy. IV access per LUE PICC. Nutrition per TPN. Acute NE, severe 3VD, post-infarction angina/IABP - s/p urgent CABGx5 compl by bleeding into rt chest requiring take-back. IABP support x 24h. Low dose pressor support x 72h. Tubes, wires, and jonatan out. Secondary prevention with BB, statin, and Eliquis (rhythm) when appropriate. ICM with systolic (EF 30%) and diastolic dysfunction (EDP 25) and class IV heart failure - Diuresing moderate volume overload with bolus lasix. Small- moderate bilat pleural effusions, R>L. 900ml rt thoracentesis on 12. 1000ml left thoracentesis on 12. Staggered intro of heart failure regimen as appropriate. Torrential TR - Post CPB. Amenable to annuloplasty. Antithrombotic prophylaxis as per PAF. 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 Surveillance per cardiology. Postoperative respiratory failure - Ventilator dependent, failing extubation . Trach placed. Purulent malodorous secretions. PNA suspected. Abx, mucolytics , steroids, therapeutic bronchs, vent management per ICU. CPAP trials during the day. Acute expected blood loss anemia with coagulopathy - Requiring massive transfusion and take back for expl bleeding. Stable H/H 05/26 to 06/01. Recurrent losses d/t issues. Anticoagulation on hold. Elevated INR (> 2 from 06/05-06/08) corrected. PRBC prn. Postoperative renal failure with electrolyte imbalance - Early postop MAGUI evolving into failure d/t obstructive uropathy. Slow but steady improvement post bladder repair. Care w fluids. BP support for MAP > 60. Post-op AF/Flutter - Variable ventricular rates. Started on Amio. Adjunctive BB stopped d/t BP lability. Successful DC CVSN per cards 05/31. Recurrent PAF as of 06/06 and Amio restarted. QTc stable. [id number] score of 6. Antithrombotic prophylaxis with Eliquis when appropriate. DM2 - Suboptimal control by preop A1c of 8.4%. Postop hyperglycemia management with insulin gtt. Transition to basal insulin/SSI per ICU. 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 PENN and progressive renal insuff d/t clots. Eliquis held. Blood losses repleted w PRBCs. [address] bello and cont irrigation compl by bladder perf, peritonitis and shock. Bladder successfully repaired. Small residual hematoma unchanged per last CT. Ongoing irrigation and serial bladder scans per urology. Nena-op ileus - Prolonged s/p xlap. No bowel obstruction or organizing fluid per last CTAP. Nutrition per TPN pending decreased TF residuals. Eventual gastrostomy tube when further along into recovery. Sacral decubitus - Unstageable. legal project manager and gen surg following. Efforts to increase mobility in progress. Plan: Supportive care as per multidisciplinary team. Reconsider CT abd/pelvis next 24-48hrs. 06/18/16 09:13 Subjective: Awake and alert sitting in a chair. CPAP. Interactive. Objective: Vital Signs Temp Pulse Resp BP Pulse Ox 36.7 C 71 30 H 129/43 H 98 06/18/16 07:37 06/18/16 08:10 06/18/16 07:37 06/18/16 07:37 06/18/16 08:10 Microbiology 06/16/16 10:30 - Final Sputum, Induced/Suctioned Laboratory Results 06/18/16 05:50 06/18/16 05:50 06/17/16 06/18/16 06/19/16 05:59 05:59 05:59 Intake Total 3345 3142 Output Total 2535 2860 Balance 810 282 PT 16.2 SEC (12.0-15.0) H 06/13/16 12:00 INR 1.30 (0.83-1.16) H 06/13/16 12:00 Active IVs: Amio, D5W, TPN. Stable HR, rhythm and BP. Vent FIO2 40%. 1 hr CPAP challenges during day. Hematuria. Elevated NG residuals. Physical Exam - Physical Exam General Appearance: alert, no apparent distress Respiratory: lungs clear (anteriorly), other Cardiac/Chest: regular rate, rhythm, other (Sternum grossly stable. Sternotomy and CT sites healing well. 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
[2016-06-18] MEDS: SENNOSIDES 17.6 MG/10 ML UDL TUBE SCH ×3 (09:24→21:03)
[2016-06-18] MEDS: predniSONE 1 MG TAB TUBE SCH ×2 (09:24→11:48)
[2016-06-18] MEDS: PANTOPRAZOLE SODIUM 40 MG in NS 100 ML IV SCH (09:25)
[2016-06-18] MEDS: FUROSEMIDE 40 MG/4 ML VIAL IVP SCH ×2 (09:25→14:59)
[2016-06-18] MEDS: INSULIN GLARGINE 100 UNITS/ML SYRINGE SC SCH ×2 (09:26→21:02)
[2016-06-18 12:50] LABS: POTASSIUM 4.1 mEq/L (3.5-5.2)
[2016-06-18 13:45] LABS: CORTISOL-AM 16.9 ug/dL (4.5-22.7)
--- NOTE | 2016-06-18 14:22 | SOAPPROG ---
SOAP Progress Note Assessment/Plan: Assessment: Bladder rupture. Clot. Plan: Patient has generalized abdominal pain not specific to the bladder. HILARY ordered to assess for bladder clot. 06/18/16 14:20 Subjective: Generalized abdominal discomfort,not bladder specific. Objective: Vital Signs Temp Pulse Resp BP Pulse Ox 36.7 C 71 29 H 130/47 H 95 06/18/16 07:37 06/18/16 11:15 06/18/16 10:00 06/18/16 10:00 06/18/16 11:15 Microbiology 06/16/16 10:30 - Final Sputum, Induced/Suctioned Laboratory Results 06/18/16 05:50 06/18/16 11:57 06/17/16 06/18/16 06/19/16 05:59 05:59 05:59 Intake Total 3345 3142 Output Total 2535 2860 550 Balance 810 282 -550 PT 16.2 SEC (12.0-15.0) H 06/13/16 12:00 INR 1.30 (0.83-1.16) H 06/13/16 12:00 Physical Exam - Physical Exam General Appearance: alert Abdomen: No rigid (not specifically tender on palpation across the bladder although he has generalized tense across lower abd) ICD10 Worksheet Patient Problems: Problems Problem Status Diagnosed Acute blood loss anemia Acute Adenocarcinoma of prostate Acute CAD, multiple vessel Acute Chest pain Acute Chronic Disease Mgmt/Transitional Care Acute Fall Acute 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
--- NOTE | 2016-06-18 16:25 | US ---
Ultrasound of the Abdomen Complete History: Recent bladder clot and hemorrhage. Acute diffuse Abdominal pain. Findings: Gallbladder: No shadowing calculi, wall thickening, or pericholecystic fluid. Common bile duct is 4 m m in diameter which is normal. Liver: Homogeneous in echogenicity and measures 19 cm in length. Limited evaluation for masses. Minim al ascites. Renal: Right kidney measures 12 x 7 x 7 cm and left kidney 13 x 7 x 8 cm without hydronephrosis in ei ther kidney. Bilateral renal atrophy. Simple cortical cyst upper pole left kidney measuring 5.8 x 5 x 7 cm. Spleen: Homogeneous and 15 cm in length without splenomegaly. Pancreas: Obscure by bowel gas appear Aorta: Obscured by bowel gas. IVC: Obscured by bowel gas. Bladder appears heterogenous with internal debris and measures 9 x 6.7 x 8.7 cm with a volume of 275 mL. Impression: 1. Bladder volume 275 mL with complex nonvascular probable hemorrhagic clot within the bladder. 2. Bilateral renal atrophy without hydronephrosis. 3. Hepatomegaly with minimal ascites.
[2016-06-18 18:08] LABS: POTASSIUM 3.9 mEq/L (3.5-5.2)
[2016-06-18] MEDS: TPN 1 EA BAG IV SCH (21:03)
[2016-06-18] MEDS ORDERED: FUROSEMIDE 40 MG/4 ML VIAL IVP ONE (22:00)
[2016-06-19] MEDS: ALBUTEROL 60 PUFFS/8 GM MDI IH SCH ×4 (03:47→20:42)
[2016-06-19 03:48] LABS: HEMATOCRIT 27.4 % (40.0-51.0); HEMOGLOBIN 8.7 g/dL (13.7-17.5); MEAN CELL HEMOGLOBIN 30.3 pg (27.9-34.1); MEAN CELL HEMOGLOBIN CONCENTR. 31.8 g/dL (32.4-36.7); MEAN CELL VOLUME 95.5 fL (81.5-99.8); RED BLOOD CELL COUNT 2.87 10^6/uL (4.40-6.38); RED CELL DISTRIBUTION WIDTH 14.9 % (11.5-15.2)
[2016-06-19] MEDS: AMIODARONE HCL 200 ML IV SCH ×3 (04:14→17:14)
[2016-06-19 04:53] LABS: ANION GAP 11 mEq/L (8-16); CALCIUM 8.5 mg/dL (8.5-10.4); CARBON DIOXIDE 25 mEq/l (22-31); CHLORIDE 106 mEq/L (97-110); CREATININE 2.1 mg/dL (0.7-1.3); GLOMERULAR FILTRATION RATE 30; GLUCOSE 108 mg/dL (70-100); POTASSIUM 3.7 mEq/L (3.5-5.2); SODIUM 142 mEq/L (134-144)
[2016-06-19] MEDS ORDERED: POTASSIUM Cl (KCl) 50 ML IV ONE ×2 (05:17→14:11)
[2016-06-19] MEDS: METOCLOPRAMIDE 10 MG/2 ML VIAL IVP SCH ×4 (05:30→23:15)
[2016-06-19] MEDS: INSULIN REGULAR HUMAN 100 UNIT/ML SC SCH ×4 (05:31→23:15)
--- NOTE | 2016-06-19 07:34 | SOAPPROG ---
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 sonogram noted bladder clot and catheters appear to be draining well Bladder rupture resolved Plan: plan to cysto and remove clot from bladder in future 06/19/16 08:13 Subjective: doing well and no pain of abdomen Objective: Vital Signs Temp Pulse Resp BP Pulse Ox 36.7 C 75 26 H 127/76 H 97 06/19/16 04:00 06/19/16 06:00 06/19/16 06:00 06/19/16 06:00 06/19/16 06:00 Microbiology 06/18/16 14:00 Gram Stain - Final Trachea - Swab 06/16/16 10:30 - Final Sputum, Induced/Suctioned Laboratory Results 06/19/16 03:20 06/19/16 03:20 06/18/16 06/19/16 06/20/16 05:59 05:59 05:59 Intake Total 3142 2767 Output Total 2860 3250 100 Balance 282 -483 -100 PT 16.2 SEC (12.0-15.0) H 06/13/16 12:00 INR 1.30 (0.83-1.16) H 06/13/16 12:00 Physical Exam - Physical Exam General Appearance: alert Neck: other (trach in place) Respiratory: other (on vent) Cardiac/Chest: regular rate, rhythm Abdomen: soft, No guarding, No rebound, No mass Back: No CVA tenderness Skin: warm/dry Neuro/Psych: alert ICD10 Worksheet Patient Problems: Problems Problem Status Diagnosed Acute blood loss anemia Acute Adenocarcinoma of prostate Acute CAD, multiple vessel Acute Chest pain Acute Chronic Disease Mgmt/Transitional Care Acute Fall Acute 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
--- NOTE | 2016-06-19 08:06 | PDINTPN ---
Unit Director Progress Note Assessment/Plan: Assessment: #CABG X 5 and TV annuloplasty then bled and back to surgery with 1L of blood in the right chest but no active bleeding source found. Hemodynamics now are good off pressors #Respiratory Failure on vent at 40% FI02 on CPAP during the days. and comfortable #Pneumonia with moderate secretions, post several bronchs, off antibiotic now. Still with manageable ET secretions, but with increased thick secretions around the trach #ROSEANNA not an issue with his trach #Obesity and very deconditioned, no walking at all before his surgery. He is very weak now using a sling to get up into a chair for 1 hour 3 times a day but has now walked about 8 steps with help of 2 #Decubitus ulcer, on an air flow bed #DM controlled with SS insulin plus lantus bid #HTN at home #Hyperlipidemia #Remote TBI after a fall with punctate ICB #New atrial flutter/fib in NSR now on amiodarone #Ileus, perhaps due to the urine in the abdomen after the bladder rupture. He is on reglan. #Renal failure after bladder rupture with obstruction. He still has bloody urine with some small clots. Creatinine stable at 2.1 #FEN: On 130ml/hr IV with TPN and maintenance plus IV amio. Weight is down 13kg from the peak on lasix. Plan: Checked weight Dulcolax suppository Increase trach care with dry bandages Push hard on strengthening with PT, ? alternate exercises in bed Continue CPAP days and vent overnight Abdominal Ct ordered Cystoscopy by urology for his bladder clots Lipase for left abdominal pain Insulin Nutrition: Will likely need a PEG but with his uroperitoneum and ileus this will be later. On TPN now Pm cortisol was actually a little high, AM pending along with TSH 06/19/16 08:09 Subjective: Mild, more diffuse abdominal discomfort today Objective: Vital Signs Temp Pulse Resp BP Pulse Ox 36.7 C 75 26 H 127/76 H 97 06/19/16 04:00 06/19/16 06:00 06/19/16 06:00 06/19/16 06:00 06/19/16 06:00 Microbiology 06/18/16 14:00 Gram Stain - Final Trachea - Swab 06/16/16 10:30 - Final Sputum, Induced/Suctioned Laboratory Results 06/19/16 03:20 06/19/16 03:20 06/18/16 06/19/16 06/20/16 05:59 05:59 05:59 Intake Total 3142 2767 Output Total 2860 3250 100 Balance 282 -483 -100 PT 16.2 SEC (12.0-15.0) H 06/13/16 12:00 INR 1.30 (0.83-1.16) H 06/13/16 12:00 Physical Exam - Physical Exam General Appearance: no apparent distress EENT: normal ENT inspection Neck: other (trach) Respiratory: decreased breath sounds Cardiac/Chest: regular rate, rhythm Abdomen: non-tender, soft Back: Normal inspection Skin: warm/dry Lymphatic: no adenopathy Extremities: non-tender, No pedal edema Neuro/Psych: alert ICD10 Worksheet Patient Problems: Problems Problem Status Diagnosed Acute blood loss anemia Acute Adenocarcinoma of prostate Acute CAD, multiple vessel Acute Chest pain Acute Chronic Disease Mgmt/Transitional Care Acute Fall Acute 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
[2016-06-19] MEDS: FUROSEMIDE 40 MG/4 ML VIAL IVP SCH ×2 (08:29→14:53)
[2016-06-19] MEDS: PANTOPRAZOLE SODIUM 40 MG in NS 100 ML IV SCH (08:29)
[2016-06-19] MEDS: SENNOSIDES 17.6 MG/10 ML UDL TUBE SCH ×2 (08:29→19:59)
[2016-06-19] MEDS: INSULIN GLARGINE 100 UNITS/ML SYRINGE SC SCH ×2 (08:29→20:32)
[2016-06-19] MEDS: predniSONE 1 MG TAB TUBE SCH (08:29)
[2016-06-19] MEDS ORDERED: IOPAMIDOL (ISOVUE-300) 100 ML BTL IV ONE (08:45)
--- NOTE | 2016-06-19 09:58 | CT ---
CT Abdomen and Pelvis Without Contrast, Cystogram Clinical Indication: Bladder hematoma. Comparison: June 13, 2016. Technique: 200 mL of dilute contrast was infused via the Vargas catheter. CT noncontrast imaging was p erformed from the lung bases through the pubic symphysis. Routine reconstructions were performed in c oronal and sagittal planes. Dose reduction technique was performed. Findings: Nasoenteric feeding tube is seen in the stomach. Bibasilar atelectatic changes and pleural effusions are unchanged. There has been a previous median sternotomy. The gallbladder is moderately d istended. The liver is unremarkable. The spleen is unremarkable. Cyst is present on the anterior uppe r right kidney. There is a stable stone in the left mid posterior collecting system without evidence of hydronephrosis. Stable stone or calcification is present in the left lower kidney. Small bowel and colon are unremarkable. The bladder clot is slightly better delineated on today's examination as com pared to prior examination. There is a suprapubic catheter present and a Vargas catheter present. Blad leona clot measures approximately 8.6 x 6.3 x 3.8 cm. This is slightly larger than prior examination wh ere it measured approximately 7.9 x 5.4 x 4.9 cm. The sigmoid and rectum are unremarkable. There is n o evidence of a fistula between the bladder and the colon. There is no extravesicular contrast. Impression: 1. Small interval increase in the moderate-sized bladder lumen hematoma. 2. Bilateral pleural effusions with associated bibasilar atelectatic change. 3. Unchanged nephrolithiasis without evidence of obstruction. 4. Nasoenteric feeding tube in the stomach.
--- NOTE | 2016-06-19 10:03 | SOAPPROG ---
SOAP Progress Note Assessment/Plan: POD#27 Urgent CABGx5 (Free FRANK-LAD, SVG-D1, sequential SVG-OM1-OM2, SVG-PLC), TVA #32 ring, IABP 1:1. POD#26 Take back for expl, washout right CED. Sternal closure w Maria Victoria wetimo, jonatan. POD#15 Laparotomy, repair of bladder rupture, fulguration of bladder varix, drainage of intraperitoneal fluid, placement of suprapubic catheter. POD#15 Tracheostomy. IV access per LUE PICC. Nutrition per TPN Acute UT, severe 3VD, post-infarction angina/IABP - s/p urgent CABGx5 compl by bleeding into rt chest requiring take-back. Tubes, wires, and jonatan out. Secondary prevention with BB as allowed by BP. Statin and Eliquis when appropriate. ICM with systolic (EF 30%) and diastolic dysfunction (EDP 25) and class IV heart failure. Continue Lasix 40 IV BID. Staggered intro of heart failure regimen as appropriate. Torrential TR - Post CPB. Amenable to annuloplasty. Antithrombotic prophylaxis as per PAF. 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 Surveillance per cardiology. Ventilator dependent respiratory failure s/p tracheostomy. Abx, mucolytics, steroids, therapeutic bronchs, vent management per ICU. Anemia secondary to acute blood loss, coagulopathy, chronic illness - Monitor H /H & transfuse prn Postoperative renal failure with electrolyte imbalance - Early postop MAGUI evolving into failure d/t obstructive uropathy. Steady improvement post bladder repair. Post-op AF/Flutter - Successful DC CVSN per cards 05/31. Recurrent PAF as of and Amio restarted. [id number] score of 6. Antithrombotic prophylaxis with Eliquis when appropriate. DM2 - Suboptimal control by preop A1c of 8.4%. Insulin mgmt as per ICU. Bladder perforation secondary to irrigation s/p repair with moderate-sized hematoma Hematuria - CTAP today compared to 05/14 showed slight increase in moderate clot. No extravasation/fistula. Post-op ileus with abdominal distension/pain - CTAP today showed unremarkable small/large bowel. Nutrition per TPN. TFs on hold. Sacral decubitus ulcer - unstageable - Dr. Nunn following for eventual debridement Subjective: Has constant abdominal pain. Objective: Vital Signs Temp Pulse Resp BP Pulse Ox 36.7 C 72 34 H 135/41 H 96 06/19/16 04:00 06/19/16 08:28 06/19/16 08:28 06/19/16 08:28 06/19/16 08:28 Microbiology 06/18/16 14:00 Gram Stain - Final Trachea - Swab 06/16/16 10:30 - Final Sputum, Induced/Suctioned Laboratory Results 06/19/16 03:20 06/19/16 03:20 06/18/16 06/19/16 06/20/16 05:59 05:59 05:59 Intake Total 3142 2767 Output Total 2860 3250 300 Balance 282 -483 -300 PT 16.2 SEC (12.0-15.0) H 06/13/16 12:00 INR 1.30 (0.83-1.16) H 06/13/16 12:00 Physical Exam - Physical Exam General Appearance: alert, no apparent distress, obese EENT: No scleral icterus (R), No scleral icterus (L) Neck: other (Trach intact) Respiratory: No respiratory distress Cardiac/Chest: regular rate, rhythm Abdomen: non-tender (slight TTP), distended (firmer), No guarding, No rigid Skin: normal color, warm/dry Extremities: No pedal edema, No swelling Neuro/Psych: alert ICD10 Worksheet Patient Problems: Problems Problem Status Diagnosed Acute blood loss anemia Acute Adenocarcinoma of prostate Acute CAD, multiple vessel Acute Chest pain Acute Chronic Disease Mgmt/Transitional Care Acute Fall Acute 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
--- NOTE | 2016-06-19 12:35 | WOCRNPDOC ---
WOCRN Advanced Assessment Note - Skin Integrity Problem, Advanced Assess Sacrum Pressure Injury Dressing Type: Allevyn Life, Honey Sheet ([facility]) Dressing Description: Clean/Dry, Not Intact (rolling up from bottom) Exudate Amount: None Nena Wound Tissue: Erythema Nena Wound Swelling: None Wound Bed Color: Brown, Yellow Wound Bed Constitution: Adhered Slough (with 40% evolving to eschar) Pressure Injury Stage: Unstageable Skin Integrity Problem Comment: Per RN Micah dressing keeps rolling up when patient transfers and multiple dressings have been applied today. Cleaned area with ns and gauze. Applied a large amount of honey gel to wound bed and covered with Tielle Max Sacral dressing. Area needs debridement. If we are unable to find a dressing to stay on long enough for autolytic debridement to work then surgical debridement will be indicated sooner than later. Will try tegaderm and honey and see if we have any improvement on wear time. Perry PATEL and Micha CORTES in room for care.
[2016-06-19 12:57] LABS: POTASSIUM 3.9 mEq/L (3.5-5.2)
[2016-06-19] MEDS: ALTEPLASE 2 MG VIAL IVP PRN (18:33)
[2016-06-19 18:37] LABS: POTASSIUM 3.8 mEq/L (3.5-5.2)
[2016-06-19] MEDS: TPN 1 EA BAG IV SCH (20:24)
[2016-06-19] MEDS: D5W 1,000 ML IV SCH (21:24)
[2016-06-20 03:29] LABS: HEMATOCRIT 24.3 % (40.0-51.0); HEMOGLOBIN 7.9 g/dL (13.7-17.5); MEAN CELL HEMOGLOBIN 30.7 pg (27.9-34.1); MEAN CELL HEMOGLOBIN CONCENTR. 32.5 g/dL (32.4-36.7); MEAN CELL VOLUME 94.6 fL (81.5-99.8); RED BLOOD CELL COUNT 2.57 10^6/uL (4.40-6.38); RED CELL DISTRIBUTION WIDTH 14.7 % (11.5-15.2)
[2016-06-20 03:59] LABS: ANION GAP 11 mEq/L (8-16); CALCIUM 8.7 mg/dL (8.5-10.4); CARBON DIOXIDE 23 mEq/l (22-31); CHLORIDE 107 mEq/L (97-110); CREATININE 2.1 mg/dL (0.7-1.3); GLOMERULAR FILTRATION RATE 30; GLUCOSE 101 mg/dL (70-100); POTASSIUM 3.8 mEq/L (3.5-5.2); SODIUM 141 mEq/L (134-144)
[2016-06-20] MEDS ORDERED: POTASSIUM Cl (KCl) 50 ML IV ONE (04:06)
[2016-06-20] MEDS: AMIODARONE HCL 200 ML IV SCH ×2 (04:10→16:07)
[2016-06-20] MEDS: ALBUTEROL 60 PUFFS/8 GM MDI IH SCH ×4 (05:02→20:25)
[2016-06-20] MEDS: INSULIN REGULAR HUMAN 100 UNIT/ML SC SCH ×3 (05:34→18:11)
[2016-06-20] MEDS: METOCLOPRAMIDE 10 MG/2 ML VIAL IVP SCH ×3 (05:34→18:11)
--- NOTE | 2016-06-20 08:33 | DX ---
Portable Single Frontal Chest June 20, 2016 Indication: History of bilateral effusions. Comparison: June 16, 2016. Findings: Tracheostomy and feeding tube remain in stable position. The left-sided PICC terminates in the right atrium. Mediastinal wires are stable. Heart size remains enlarged. Increased interstitial m arkings are again visualized. Pleural effusions have improved slightly over 4 days. Impression: 1. Lines and tubes in stable position. 2. Persistent underlying CHF slightly improved.
[2016-06-20] MEDS: PANTOPRAZOLE SODIUM 40 MG in NS 100 ML IV SCH (08:34)
[2016-06-20] MEDS: INSULIN GLARGINE 100 UNITS/ML SYRINGE SC SCH ×2 (08:34→21:13)
[2016-06-20] MEDS: SENNOSIDES 17.6 MG/10 ML UDL TUBE SCH ×2 (08:34→21:13)
[2016-06-20] MEDS: predniSONE 1 MG TAB TUBE SCH (08:34)
[2016-06-20] MEDS: FUROSEMIDE 40 MG/4 ML VIAL IVP SCH ×2 (08:34→15:15)
--- NOTE | 2016-06-20 09:23 | SOAPPROG ---
SOAP Progress Note Assessment/Plan: POD#28 Urgent CABGx5 (Free FRANK-LAD, SVG-D1, sequential SVG-OM1-OM2, SVG-PLC), TVA #32 ring, IABP 1:1. POD#27 Take back for expl, washout right CED. Sternal closure w Maria Victoria auguste, jonatan. POD#16 Laparotomy, repair of bladder rupture, fulguration of bladder varix, drainage of intraperitoneal fluid, placement of suprapubic catheter. POD#16 Tracheostomy. IV access per LUE PICC. Nutrition per TPN/TFs Acute PR, severe 3VD, post-infarction angina/IABP - s/p urgent CABGx5 compl by bleeding into rt chest requiring take-back. Tubes, wires, and jonatan out. Secondary prevention with BB as allowed by BP. Statin and Eliquis when appropriate. ICM with systolic (EF 30%) and diastolic dysfunction (EDP 25) and class IV heart failure. Continue Lasix 40 IV BID. Staggered intro of heart failure regimen as appropriate. Torrential TR - Post CPB. Amenable to annuloplasty. Antithrombotic prophylaxis as per PAF. 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 Surveillance per cardiology. Ventilator dependent respiratory failure s/p tracheostomy. Abx, mucolytics, steroids, therapeutic bronchs, vent management per ICU. Anemia secondary to acute blood loss, coagulopathy, chronic illness - Monitor H /H & transfuse prn Postoperative renal failure with electrolyte imbalance - Early postop MAGUI evolving into failure d/t obstructive uropathy. Steady improvement post bladder repair. Post-op AF/Flutter - Successful DC CVSN per cards 05/31. Recurrent PAF as of and Amio restarted. [id number] score of 6. Antithrombotic prophylaxis with Eliquis when appropriate. DM2 - Suboptimal control by preop A1c of 8.4%. Insulin mgmt as per ICU. Hematuria with bladder perforation secondary to irrigation s/p repair with moderate-sized hematoma. CTAP 06/20 compared to 06/13 showed slight increase in moderate clot. No extravasation/fistula. Urology plans to wash clot out in near future. Post-op ileus with abdominal distension/pain - CTAP 06/20 showed unremarkable small/large bowel. Nutrition per TPN. TFs as tolerated. Sacral decubitus ulcer - unstageable - Dr. Nunn following for possible debridement Subjective: Abdominal discomfort resolved. Comfortable. Objective: Vital Signs Temp Pulse Resp BP Pulse Ox 36.5 C 74 20 101/36 L 96 06/20/16 08:00 06/20/16 08:00 06/20/16 08:00 06/20/16 08:00 06/20/16 08:00 Microbiology 06/18/16 14:00 Gram Stain - Final Trachea - Swab 06/16/16 10:30 - Final Sputum, Induced/Suctioned Laboratory Results 06/20/16 03:20 06/20/16 03:20 06/19/16 06/20/16 06/21/16 05:59 05:59 05:59 Intake Total 2767 2683 Output Total 3250 2900 Balance -483 -217 PT 16.2 SEC (12.0-15.0) H 06/13/16 12:00 INR 1.30 (0.83-1.16) H 06/13/16 12:00 Physical Exam - Physical Exam General Appearance: alert, no apparent distress, obese, other (Ambulating with PT) EENT: No scleral icterus (R), No scleral icterus (L) Neck: other (Trach in place) Respiratory: No respiratory distress Cardiac/Chest: regular rate, rhythm Abdomen: non-tender, soft, No distended Skin: normal color, warm/dry Extremities: No pedal edema, No swelling Neuro/Psych: alert ICD10 Worksheet Patient Problems: Problems Problem Status Diagnosed Acute blood loss anemia Acute Adenocarcinoma of prostate Acute CAD, multiple vessel Acute Chest pain Acute Chronic Disease Mgmt/Transitional Care Acute Fall Acute 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
--- NOTE | 2016-06-20 09:57 | PDINTPN ---
[employer] Progress Note Assessment/Plan: Assessment: #CABG X 5 and TV annuloplasty then bled and back to surgery with 1L of blood in the right chest but no active bleeding source found. Hemodynamics now are good off pressors #Respiratory Failure on vent at 40% FI02 on CPAP during the days. and comfortable #Pneumonia with moderate secretions, post several bronchs, off antibiotic now. Still with manageable ET secretions, but with increased thick secretions around the trach #ROSEANNA not an issue with his trach #Obesity and very deconditioned, no walking at all before his surgery. He is very weak but walked 50ft today on the vent #Decubitus ulcer, on an air flow bed #DM controlled with SS insulin plus lantus bid #HTN at home #Hyperlipidemia #Remote TBI after a fall with punctate ICB #New atrial flutter/fib in NSR now on amiodarone #Ileus, perhaps due to the urine in the abdomen after the bladder rupture. He is on reglan. #Renal failure after bladder rupture with obstruction. He still has bloody urine with some small clots. Creatinine stable at 2.1 #FEN: On 130ml/hr IV with TPN and maintenance plus IV amio. Weight is down 13kg from the peak on lasix. #Hypothyroid Plan: T3 level and start levothyroxine The sand bed used for his decubitus makes it hard for him to sit and get in and out of bed, may change bed Try a trach collar today Check weight Dulcolax suppository Increase trach care with dry bandages Push hard on strengthening with PT, ? alternate exercises in bed Continue CPAP days and vent overnight Abdominal Ct done with a slight increase in the bladder clot. Will try sterile water flushes to see if clot dissolves Cystoscopy by urology for his bladder clots if not better Lipase normal Insulin Nutrition: Will likely need a PEG but with his uroperitoneum and ileus this will be later. On TPN now and just started back on tube feedings again AM and Pm cortisol normal, 06/20/16 11:10 Subjective: No complaints Objective: Vital Signs Temp Pulse Resp BP Pulse Ox 36.5 C 74 20 101/36 L 96 06/20/16 08:00 06/20/16 08:00 06/20/16 08:00 06/20/16 08:00 06/20/16 08:00 Microbiology 06/18/16 14:00 Gram Stain - Final Trachea - Swab 06/16/16 10:30 - Final Sputum, Induced/Suctioned Laboratory Results 06/20/16 03:20 06/20/16 03:20 06/19/16 06/20/16 06/21/16 05:59 05:59 05:59 Intake Total 2767 2683 Output Total 3250 2900 Balance -483 -217 PT 16.2 SEC (12.0-15.0) H 06/13/16 12:00 INR 1.30 (0.83-1.16) H 06/13/16 12:00 Physical Exam - Physical Exam General Appearance: no apparent distress EENT: normal ENT inspection Neck: other (trach) Respiratory: decreased breath sounds Cardiac/Chest: regular rate, rhythm Abdomen: non-tender, soft Back: Normal inspection Skin: warm/dry Lymphatic: no adenopathy Extremities: non-tender, No pedal edema Neuro/Psych: alert ICD10 Worksheet Patient Problems: Problems Problem Status Diagnosed Acute blood loss anemia Acute Adenocarcinoma of prostate Acute CAD, multiple vessel Acute Chest pain Acute Chronic Disease [facility]/Transitional Care Acute Fall Acute 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
[2016-06-20] MEDS: BISACODYL 10 MG SUPP PR SCH (10:07)
[2016-06-20] MEDS: LEVOTHYROXINE 100 MCG/5 ML SYR IVP SCH (15:16)
[2016-06-20] MEDS ORDERED: LIDOCAINE 2% JELLY 20 ML (UROJECT) ONE ×2 (15:17→16:22)
--- NOTE | 2016-06-20 16:51 | SOAPPROG ---
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 Pt seemed to understand plan and risks. Objective: Vital Signs Temp Pulse Resp BP Pulse Ox 36.6 C 75 33 H 130/40 H 96 06/20/16 16:00 06/20/16 16:22 06/20/16 16:22 06/20/16 16:00 06/20/16 16:22 Microbiology 06/18/16 14:00 Gram Stain - Final Trachea - Swab Wound Culture - Final Staphylococcus Aureus Klebsiella Pneumoniae Ssp Pneu 06/16/16 10:30 - Final Sputum, Induced/Suctioned Sputum Culture - Final Vonda Glabrata Laboratory Results 06/20/16 03:20 06/20/16 03:20 06/19/16 06/20/16 06/21/16 05:59 05:59 05:59 Intake Total 2767 2683 112 Output Total 3250 2900 55 Balance -483 -217 57 PT 16.2 SEC (12.0-15.0) H 06/13/16 12:00 INR 1.30 (0.83-1.16) H 06/13/16 12:00 Physical Exam - Physical Exam General Appearance: alert Respiratory: other (on vent) Cardiac/Chest: regular rate, rhythm Abdomen: soft Back: No CVA tenderness Extremities: No calf tenderness, No Sebastian's sign Neuro/Psych: alert ICD10 Worksheet Patient Problems: Problems Problem Status Diagnosed Acute blood loss anemia Acute Adenocarcinoma of prostate Acute CAD, multiple vessel Acute Chest pain Acute Chronic Disease Mgmt/Transitional Care Acute Fall Acute 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
--- NOTE | 2016-06-20 16:52 | POSTOPPROG ---
Post Op Note Date of Operation: 06/20/16 Surgeon: William Sands Anesthesiologist: Manuel Anesthesia: Other (Specify) (trach / GA) Pre-op Diagnosis: bladder clot Post-op Diagnosis: bladder clot Indication: bladder clot Procedure: evacuation of clot and fulgaration of small bleeding sites of bladder mucos Findings: bladder clot, irradiation cystitis Inf/Abcess present in the surg proc area at time of surgery?: No EBL: Minimal Complications: none Drains: Other (SP tube) Specimen(s): clot--dictated
[2016-06-20] MEDS ORDERED: PHENYLEPHRINE HCL 100 MCG/ML SYR ONE (17:00)
--- NOTE | 2016-06-20 18:14 | GOP ---
[f rep st] OPERATIVE REPORT DATE OF OPERATION: 06/20/2016 SURGEON: William Sands MD ANESTHESIA: General. ANESTHESIOLOGIST: Tyrell Jackson MD. PREOPERATIVE DIAGNOSIS: POSTOPERATIVE DIAGNOSIS: Hemorrhagic radiation cystitis. PROCEDURE PERFORMED: Evacuation of clot, cystoscopy, and fulguration of bladder bleeding sites. FINDINGS: SPECIMENS: Blood clot specimen was sent to Pathology. DESCRIPTION OF PROCEDURE: This gentleman underwent general anesthesia. After being prepped and drap ed, his Vargas catheter was removed, and I placed the resectoscope sheath, and Ellik was used to free his bladder of all clots. There was approximately 175 mL of clots noted. Then, visualization of the bladder revealed just this diffuse hemorrhagic radiation cystitis that had several multiple bleeding areas. There were really not bleeding, they were more of an ooze. So, at that point, with the bipo lar [place] button dental instrument maker, I cauterized the sites that appeared to be producing the most weeping of blood. There was no perforation of the bladder. The tube irrigated well, and I elected at that poi nt not to place another Vargas catheter in, but to leave him with a suprapubic tube. I repositioned i t and it irrigated well. At the present time, we will leave the suprapubic catheter in. If need be, put another Vargas in, but trying to eliminate as much inflammatory reaction or irritation to his rad iation cystitis bladder as possible. POSTOPERATIVE DIAGNOSIS: Hemorrhagic radiation cystitis with bladder clots. COMPLICATIONS: None. /[id number]/MODL
[2016-06-20] MEDS: ACETAMINOPHEN 650 MG/20.3 ML UDCUP TUBE PRN (21:12)
[2016-06-20] MEDS: TPN 1 EA BAG IV SCH (21:14)
[2016-06-20] MEDS: D5W 1,000 ML IV SCH (21:17)
[2016-06-20 22:33] LABS: HEMATOCRIT 25.7 % (40.0-51.0); HEMOGLOBIN 8.3 g/dL (13.7-17.5); MEAN CELL HEMOGLOBIN 30.3 pg (27.9-34.1); MEAN CELL HEMOGLOBIN CONCENTR. 32.3 g/dL (32.4-36.7); MEAN CELL VOLUME 93.8 fL (81.5-99.8); RED BLOOD CELL COUNT 2.74 10^6/uL (4.40-6.38); RED CELL DISTRIBUTION WIDTH 14.9 % (11.5-15.2)
[2016-06-21] MEDS: ACETAMINOPHEN 650 MG/20.3 ML UDCUP TUBE PRN (00:51)
[2016-06-21] MEDS: METOCLOPRAMIDE 10 MG/2 ML VIAL IVP SCH ×5 (00:52→23:22)
[2016-06-21] MEDS: INSULIN REGULAR HUMAN 100 UNIT/ML SC SCH ×5 (00:52→23:23)
[2016-06-21] MEDS: AMIODARONE HCL 200 ML IV SCH ×2 (03:09→12:05)
[2016-06-21 04:25] LABS: HEMATOCRIT 26.5 % (40.0-51.0); HEMOGLOBIN 8.7 g/dL (13.7-17.5); MEAN CELL HEMOGLOBIN 30.4 pg (27.9-34.1); MEAN CELL HEMOGLOBIN CONCENTR. 32.8 g/dL (32.4-36.7); MEAN CELL VOLUME 92.7 fL (81.5-99.8); RED BLOOD CELL COUNT 2.86 10^6/uL (4.40-6.38); RED CELL DISTRIBUTION WIDTH 14.6 % (11.5-15.2)
[2016-06-21 04:34] LABS: ANION GAP 8 mEq/L (8-16); CALCIUM 8.4 mg/dL (8.5-10.4); CARBON DIOXIDE 21 mEq/l (22-31); CHLORIDE 110 mEq/L (97-110); CREATININE 2.3 mg/dL (0.7-1.3); GLOMERULAR FILTRATION RATE 27; GLUCOSE 96 mg/dL (70-100); POTASSIUM 3.8 mEq/L (3.5-5.2); SODIUM 139 mEq/L (134-144)
[2016-06-21] MEDS: ALBUTEROL 60 PUFFS/8 GM MDI IH SCH ×4 (04:38→21:00)
--- NOTE | 2016-06-21 07:35 | PDINTPN ---
[employer] Progress Note Assessment/Plan: Assessment: #CABG X 5 and TV annuloplasty then bled and back to surgery with 1L of blood in the right chest but no active bleeding source found. Hemodynamics now are good off pressors #Respiratory Failure on vent at 40% FI02 on CPAP during the day and comfortable #Pneumonia with moderate secretions, post several bronchs, off antibiotic now. Still with manageable ET secretions, but with increased thick secretions around the trach that are much better with increased trach care changing dry dressings frequently #ROSEANNA not an issue with his trach #Obesity and very deconditioned, no walking at all before his surgery. He is very weak but walked 50ft today on the vent #Decubitus ulcer, on an air flow bed #DM controlled with SS insulin plus lantus bid #HTN at home #Hyperlipidemia #Remote TBI after a fall with punctate ICB #New atrial flutter/fib in NSR now on amiodarone #Ileus, perhaps due to the urine in the abdomen after the bladder rupture. He is on reglan. He started having flatus but still with residual tube feedings, at 10ml/hr #Renal failure after bladder rupture with obstruction. He still has bloody urine with some small clots. Creatinine stable at 2.1. Cystoscopy showed numerous small bleeding sites from the radiation he had that were cauterized, and bello removed, left with a suprapubic #FEN: On 130ml/hr IV with TPN and maintenance plus IV amio. Weight not done. #Hypothyroid on levothyroxine Plan: T3 level and start levothyroxine The sand bed used for his decubitus makes it hard for him to sit and get in and out of bed, may change bed Try a trach collar today Check weight Dulcolax suppository Increase trach care with dry bandages Push hard on strengthening with PT, ? alternate exercises in bed Continue CPAP days and vent overnight Cystoscopy by urology for his bladder clots done Lipase normal Insulin Nutrition: Will likely need a PEG but with his uroperitoneum and ileus this will be later. On TPN now and just started back on tube feedings again AM and Pm cortisol normal, 06/20/16 11:10 06/21/16 07:29 Subjective: Comfortable without complaints Objective: Vital Signs Temp Pulse Resp BP Pulse Ox 37.1 C 69 24 H 103/52 L 96 06/21/16 04:00 06/21/16 06:00 06/21/16 06:00 06/21/16 06:00 06/21/16 06:00 Microbiology 06/18/16 14:00 Gram Stain - Final Trachea - Swab Wound Culture - Final Staphylococcus Aureus Klebsiella Pneumoniae Ssp Pneu 06/16/16 10:30 - Final Sputum, Induced/Suctioned Sputum Culture - Final Vonda Glabrata Laboratory Results 06/21/16 04:10 06/21/16 04:10 06/20/16 06/21/16 06/22/16 05:59 05:59 05:59 Intake Total 2683 3212 Output Total 2900 755 Balance -217 2457 PT 16.2 SEC (12.0-15.0) H 06/13/16 12:00 INR 1.30 (0.83-1.16) H 06/13/16 12:00 Physical Exam - Physical Exam General Appearance: no apparent distress EENT: normal ENT inspection Neck: non-tender, other (trach site is bladder cleaner) Respiratory: lungs clear Cardiac/Chest: regular rate, rhythm Abdomen: non-tender, soft Back: Normal inspection Skin: warm/dry Lymphatic: no adenopathy Extremities: non-tender, No pedal edema Neuro/Psych: alert ICD10 Worksheet Patient Problems: Problems Problem Status Diagnosed Acute blood loss anemia Acute Adenocarcinoma of prostate Acute CAD, multiple vessel Acute Chest pain Acute Chronic Disease Mgmt/Transitional Care Acute Fall Acute 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
[2016-06-21] MEDS: FUROSEMIDE 40 MG/4 ML VIAL IVP SCH ×2 (08:18→14:14)
[2016-06-21] MEDS: PANTOPRAZOLE SODIUM 40 MG in NS 100 ML IV SCH (08:18)
[2016-06-21] MEDS: SENNOSIDES 17.6 MG/10 ML UDL TUBE SCH ×2 (08:18→20:22)
[2016-06-21] MEDS: INSULIN GLARGINE 100 UNITS/ML SYRINGE SC SCH (08:18)
[2016-06-21] MEDS: BISACODYL 10 MG SUPP PR SCH (08:19)
[2016-06-21] MEDS: predniSONE 1 MG TAB TUBE SCH (08:19)
--- NOTE | 2016-06-21 09:21 | SOAPPROG ---
SOAP Progress Note Assessment/Plan: Assessment: POD#29 Urgent CABGx5 (Free FRANK-LAD, SVG-D1, sequential SVG-OM1-OM2 , SVG-PLC), TVA #32 MC3 ring, IABP 1:1. POD#28 Take back for expl, washout right CED. Sternal closure w Maria Victoria wetimo, jonatan. POD#17 Laparotomy, repair of bladder rupture, fulguration of bladder varix, drainage of intraperitoneal fluid, placement of suprapubic catheter. POD#17 Tracheostomy. POD#1 Cystoscopy, evac of clots, fulguration bleeding sites, removal of bello catheter. IV access per LUE PICC. Nutrition per TPN. Acute VA, severe 3VD, post-infarction angina/IABP - s/p urgent CABGx5 compl by bleeding into rt chest requiring take-back. IABP support x 24h. Low dose pressor support x 72h. Tubes, wires, and jonatan out. Secondary prevention with BB, statin, and Eliquis (rhythm) when appropriate. ICM with systolic (EF 30%) and diastolic dysfunction (EDP 25) and class IV heart failure - Diuresing moderate volume overload with bolus lasix. Small- moderate bilat pleural effusions, R>L. 900ml rt thoracentesis on 12. 1000ml left thoracentesis on 12. Staggered intro of heart failure regimen as appropriate. Torrential TR - Post CPB. Amenable to annuloplasty. Antithrombotic prophylaxis as per PAF. Surveillance echo prior to discharge. 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 Surveillance per cardiology. Postoperative respiratory failure - Ventilator dependent, failing extubation . Trach placed. Purulent malodorous secretions. PNA suspected. Several therapeutic bronchoscopies. Abx course completed. Mucolytics, steroids, vent management per ICU. Tolerating CPAP/trach collar. Acute expected blood loss anemia with coagulopathy - Requiring massive transfusion and take back for expl bleeding. Stable H/H 12/ to 06/01. Recurrent losses d/t issues. Anticoagulation on hold. Elevated INR (> 2 from 06/05-06/08) corrected. PRBC prn. Postoperative renal failure with electrolyte imbalance - Early postop MAGUI evolving into failure d/t obstructive uropathy. Slow but steady improvement post bladder repair. Care w fluids. BP support for MAP > 60. Post-op AF/Flutter - Variable ventricular rates. Started on Amio. Adjunctive BB stopped d/t BP lability. Successful DC CVSN per cards 05/31 and amio stopped. Recurrent PAF as of 06/06 and Amio restarted. Ongoing prophylaxis thru mid Jun if QTc stable. [id number] score of 6. Antithrombotic prophylaxis with Eliquis when appropriate. DM2 - Suboptimal control by preop A1c of 8.4%. Postop hyperglycemia management with insulin gtt, transitioning to basal insulin/SSI per ICU. 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 PENN and progressive renal insuff d/t clots. Eliquis held. Blood losses repleted w PRBCs. [address] way bello and cont irrigation compl by bladder perf, peritonitis and shock. Bladder successfully repaired. Residual hematoma evacuated 06/20. Ongoing suprapubic irrigation, bladder scans, urethral leakage management per urology. Nena-op ileus - Prolonged s/p xlap. Serial CTs neg for mechanical obstruction or adynamic changes. Recovering bowel fx by sounds and flatus. Nutrition per TPN pending sufficient TF rate. Eventual gastrostomy tube when further along into recovery. Obesity and deconditioning - Non-ambulatory preop. Remains very weak, but slow gains noted. Beginning to walk. LTAC for ongoing rehab planned. Sacral decubitus - Unstageable. toe closing machine tender and gen surg following. Efforts to increase mobility in progress. Hypothyroidism - Synthroid started. Re-eval once off amio for 2-3 months. Plan: Supportive care as per multidisciplinary team. Stop D5W. Advance TFs to 20ml/h if q4h residuals remain below 100. Abd staple removal per Gen Surg. Dispo - LTAC when nutritional and urologic status stable. 06/21/16 08:59 Subjective: Awake, alert, interactive with hand and head signals. Denies abd discomfort. Affirms "getting stronger". Objective: Vital Signs Temp Pulse Resp BP Pulse Ox 36.7 C 68 20 116/34 L 97 06/21/16 08:00 06/21/16 08:00 06/21/16 08:00 06/21/16 08:00 06/21/16 08:00 Microbiology 06/18/16 14:00 Gram Stain - Final Trachea - Swab Wound Culture - Final Staphylococcus Aureus Klebsiella Pneumoniae Ssp Pneu 06/16/16 10:30 - Final Sputum, Induced/Suctioned Sputum Culture - Final [facility] Laboratory Results 06/21/16 04:10 06/21/16 04:10 06/20/16 06/21/16 06/22/16 05:59 05:59 05:59 Intake Total 2683 3212 Output Total 2900 755 Balance -217 2457 PT 16.2 SEC (12.0-15.0) H 06/13/16 12:00 INR 1.30 (0.83-1.16) H 06/13/16 12:00 Stable HR, rhythm, BP. Vent FiO2 40%, CPAP alt trach collar. Walked 40 feet. TFs at 10cc/h with last residual <60. Physical Exam - Physical Exam General Appearance: alert, no apparent distress Respiratory: lungs clear (anteriorly) Cardiac/Chest: regular rate, rhythm, other (Sternotomy and LLE venotomy healing well. No erythema) Abdomen: non-tender, soft, other (Hypoactive BS rt quadrants. 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
[2016-06-21] MEDS: LEVOTHYROXINE 100 MCG/5 ML SYR IVP SCH (11:57)
--- NOTE | 2016-06-21 14:08 | SOAPPROG ---
SOAP Progress Note Assessment/Plan: Assessment/Plan: Post op clot evacuation-- SPT draining bloody urine. Vargas no longer in place. Will continue to irrigate if needed, ideally x4/day. 06/21/16 14:07 Objective: Vital Signs Temp Pulse Resp BP Pulse Ox 36.6 C 71 22 H 132/42 H 93 06/21/16 11:58 06/21/16 11:58 06/21/16 11:58 06/21/16 11:58 06/21/16 11:58 Microbiology 06/18/16 14:00 Gram Stain - Final Trachea - Swab Wound Culture - Final Staphylococcus Aureus Klebsiella Pneumoniae Ssp Pneu 06/16/16 10:30 - Final Sputum, Induced/Suctioned Sputum Culture - Final [facility] Laboratory Results 06/21/16 04:10 06/21/16 04:10 06/20/16 06/21/16 06/22/16 05:59 05:59 05:59 Intake Total 2683 3212 Output Total 2900 755 Balance -217 2457 PT 16.2 SEC (12.0-15.0) H 06/13/16 12:00 INR 1.30 (0.83-1.16) H 06/13/16 12:00 Physical Exam - Physical Exam Male Genitalia: other (blood 600cc urine in bag) ICD10 Worksheet Patient Problems: Problems Problem Status Diagnosed Acute blood loss anemia Acute Adenocarcinoma of prostate Acute CAD, multiple vessel Acute Chest pain Acute Chronic Disease [facility]/Transitional Care Acute Fall Acute 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
[2016-06-21] MEDS ORDERED: NEOMY SULF/BACITRAC ZN/POLY 30 GM OINTTUBE TP PRN (17:04)
[2016-06-21] MEDS: D50W 25 GM/50 ML SYR IVP PRN (17:40)
[2016-06-21] MEDS: TPN 1 EA BAG IV SCH (20:21)
[2016-06-21] MEDS ORDERED: INSULIN GLARGINE 100 UNITS/ML SYRINGE SC SCH (21:00)
[2016-06-22 03:36] LABS: HEMATOCRIT 26.4 % (40.0-51.0); HEMOGLOBIN 8.8 g/dL (13.7-17.5)
[2016-06-22 03:48] LABS: ANION GAP 13 mEq/L (8-16); CALCIUM 8.7 mg/dL (8.5-10.4); CARBON DIOXIDE 21 mEq/l (22-31); CHLORIDE 110 mEq/L (97-110); CREATININE 2.2 mg/dL (0.7-1.3); GLOMERULAR FILTRATION RATE 29; GLUCOSE 57 mg/dL (70-100); POTASSIUM 3.5 mEq/L (3.5-5.2); SODIUM 144 mEq/L (134-144)
[2016-06-22] MEDS: ALBUTEROL 60 PUFFS/8 GM MDI IH SCH ×4 (04:00→20:00)
[2016-06-22] MEDS: D50W 25 GM/50 ML SYR IVP PRN ×2 (04:25→06:00)
[2016-06-22] MEDS: METOCLOPRAMIDE 10 MG/2 ML VIAL IVP SCH ×4 (05:07→23:16)
[2016-06-22] MEDS: INSULIN REGULAR HUMAN 100 UNIT/ML SC SCH ×4 (05:10→23:17)
--- NOTE | 2016-06-22 07:52 | PDINTPN ---
Electrophysiology Tech Progress Note Assessment/Plan: Assessment: #CABG X 5 and TV annuloplasty then bled and back to surgery with 1L of blood in the right chest but no active bleeding source found. Hemodynamics now are good off pressors #Respiratory Failure on vent at 40% FI02 on CPAP or trach collar during the day and comfortable #Pneumonia with moderate secretions, post several bronchs, off antibiotic now. Still with manageable ET secretions, but with increased thick secretions around the trach that are much better with increased trach care changing dry dressings frequently #ROSEANNA not an issue with his trach #Obesity and very deconditioned, no walking at all before his surgery. He is very weak but walked 50ft today on the vent #Decubitus ulcer, on an air flow bed #DM controlled with SS insulin plus lantus bid #HTN at home #Hyperlipidemia #Remote TBI after a fall with punctate ICB #New atrial flutter/fib in NSR now on amiodarone #Ileus, perhaps due to the urine in the abdomen after the bladder rupture. He is on reglan. He started having flatus but still with residual tube feedings, at 10ml/hr #Renal failure after bladder rupture with obstruction. He still has bloody urine with some small clots. Creatinine stable at 2.1. Cystoscopy showed numerous small bleeding sites from the radiation he had that were cauterized, and bello removed, left with a suprapubic #FEN: On 130ml/hr IV with TPN and maintenance plus IV amio. Weight not done. #Hypothyroid on levothyroxine Plan: Levothyroxine started low dose IV The sand bed used for his decubitus makes it hard for him to sit and get in and out of bed, may change bed Trach collar during the day Check weight Dulcolax suppository daily Increase trach care with dry bandages Push hard on strengthening with PT, ? alternate exercises in bed Continue CPAP or trach mask days and vent overnight Cystoscopy by urology for his bladder clots done and bloody urine in suprapubic Insulin will be held for hypoglycemia, lack of tube feedings Nutrition: Will likely need a PEG later. On TPN now and Tube feedings had to be stopped once again for high residuals AM and Pm cortisol normal, 06/22/16 07:55 Subjective: Comfortable and smiling Objective: Vital Signs Temp Pulse Resp BP Pulse Ox 37.0 C 72 26 H 109/26 L 96 06/22/16 04:00 06/22/16 06:00 06/22/16 06:00 06/22/16 06:00 06/22/16 06:00 Laboratory Results 06/22/16 03:20 06/22/16 03:20 06/21/16 06/22/16 06/23/16 05:59 05:59 05:59 Intake Total 3212 2131 Output Total 755 1150 Balance 2457 981 PT 16.2 SEC (12.0-15.0) H 06/13/16 12:00 INR 1.30 (0.83-1.16) H 06/13/16 12:00 Physical Exam - Physical Exam General Appearance: no apparent distress EENT: normal ENT inspection Neck: non-tender Respiratory: lungs clear Cardiac/Chest: regular rate, rhythm Abdomen: non-tender, soft Back: Normal inspection Skin: warm/dry Lymphatic: no adenopathy Extremities: non-tender, No pedal edema Neuro/Psych: alert ICD10 Worksheet Patient Problems: Problems Problem Status Diagnosed Acute blood loss anemia Acute Adenocarcinoma of prostate Acute CAD, multiple vessel Acute Chest pain Acute Chronic Disease Mgmt/Transitional Care Acute Fall Acute 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
[2016-06-22] MEDS: BISACODYL 10 MG SUPP PR SCH (08:10)
[2016-06-22] MEDS: PANTOPRAZOLE SODIUM 40 MG in NS 100 ML IV SCH (08:10)
[2016-06-22] MEDS: SENNOSIDES 17.6 MG/10 ML UDL TUBE SCH ×2 (08:10→19:55)
[2016-06-22] MEDS: FUROSEMIDE 40 MG/4 ML VIAL IVP SCH ×2 (08:10→16:27)
[2016-06-22] MEDS: predniSONE 1 MG TAB TUBE SCH (08:10)
--- NOTE | 2016-06-22 09:30 | SOAPPROG ---
SOAP Progress Note Assessment/Plan: Assessment: POD#30 Urgent CABGx5 (Free FRANK-LAD, SVG-D1, sequential SVG-OM1-OM2 , SVG-PLC), TVA #32 MC3 ring, IABP 1:1. POD#29 Take back for expl, washout right CED. Sternal closure w Maria Victoria wetimo, jonatan. POD#18 Laparotomy, repair of bladder rupture, fulguration of bladder varix, drainage of intraperitoneal fluid, placement of suprapubic catheter. POD#18 Tracheostomy. POD#2 Cystoscopy, evac of clots, fulguration bleeding sites, removal of bello catheter. IV access per LUE PICC. Nutrition per TPN +/- DHT Acute NM, severe 3VD, post-infarction angina/IABP - s/p urgent CABGx5 compl by bleeding into rt chest requiring take-back. IABP support x 24h. Low dose pressor support x 72h. Tubes, wires, and jonatan out. Secondary prevention with BB, statin, and Eliquis (rhythm) when appropriate. ICM with systolic (EF 30%) and diastolic dysfunction (EDP 25) and class IV heart failure - Diuresing moderate volume overload with bolus lasix. Small- moderate bilat pleural effusions, R>L. 900ml rt thoracentesis on 12. 1000ml left thoracentesis on 12. Staggered intro of heart failure regimen as appropriate. Torrential TR - Post CPB. Amenable to annuloplasty. Antithrombotic prophylaxis as per PAF. Surveillance echo prior to discharge. 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 Surveillance per cardiology. Postoperative respiratory failure - Ventilator dependent, failing extubation . Trach placed. Purulent malodorous secretions. PNA suspected. Several therapeutic bronchoscopies. Abx course completed. Mucolytics, steroids, vent management per ICU. Tolerating CPAP/trach collar. Able to phonate. Acute expected blood loss anemia with coagulopathy - Requiring massive transfusion and take back for expl bleeding. Stable H/H 12/ to 12. Recurrent losses d/t issues. Anticoagulation on hold. Elevated INR (> 2 from 06/05-06/08) corrected. PRBC prn. Postoperative renal failure with electrolyte imbalance - Early postop MAGUI evolving into failure d/t obstructive uropathy. Slow but steady improvement post bladder repair. Care w fluids. Post-op AF/Flutter - Variable ventricular rates. Started on Amio. Adjunctive BB stopped d/t BP lability. Successful DC CVSN per cards 05/31 and amio stopped. Recurrent PAF as of 06/06 and Amio restarted. Ongoing prophylaxis thru mid Jun if QTc stable. [id number] score of 6. Antithrombotic prophylaxis with Eliquis when appropriate. DM2 - Suboptimal control by preop A1c of 8.4%. Postop hyperglycemia managed with insulin gtt, transitioning to SSI +/- basal insulin per ICU. 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 PENN and progressive renal insuff d/t clots. Eliquis held. Blood losses repleted w PRBCs. [address] way bello and cont irrigation compl by bladder perf, peritonitis and shock. Bladder successfully repaired. Residual hematoma evacuated 06/20. Ongoing suprapubic irrigation, bladder scans, urethral leakage management per urology. Nena-op ileus - Prolonged s/p xlap. Serial CTs neg for mechanical obstruction or adynamic changes. Recovering bowel fx by sounds and flatus. Nutrition per TPN pending sufficient TF rate. Eventual gastrostomy tube when further along into recovery. Obesity and deconditioning - Non-ambulatory preop. Remains very weak, but is beginning to walk. LTAC for ongoing rehab planned. Sacral decubitus - Unstageable. pricing coordinator and gen surg following. Efforts to increase mobility in progress. Hypothyroidism - Synthroid started. Re-eval once off amio for 2-3 months. Plan: Supportive care as per multidisciplinary team. Tx 1u PRBC. Dispo - LTAC when nutritional and urologic status stable. 06/22/16 09:25 Subjective: Doing ok. Tired after morning walk. Tailbone sore and hard to reposition in chair, but trying to comply with OOB. Objective: Vital Signs Temp Pulse Resp BP Pulse Ox 36.8 C 72 32 H 106/44 L 97 06/22/16 08:00 06/22/16 08:24 06/22/16 08:24 06/22/16 08:00 06/22/16 08:24 Laboratory Results 06/22/16 03:20 06/22/16 03:20 06/21/16 06/22/16 06/23/16 05:59 05:59 05:59 Intake Total 3212 2131 Output Total 755 1150 300 Balance 2457 981 -300 PT 16.2 SEC (12.0-15.0) H 06/13/16 12:00 INR 1.30 (0.83-1.16) H 06/13/16 12:00 Talking with a clear voice! Walking ~80 ft on a t-piece. TFs back on hold for high residuals. Active urethral leak, 8 diaper changes yest. Persistent faint hematuria. Downward trending SBP, more consistently in 100s-110s. Marginal H/H. 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
--- NOTE | 2016-06-22 10:20 | SOAPPROG ---
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 suprapubic catheter appear to be draining well Bladder rupture resolved Plan: continue present care 06/22/16 10:19 Subjective: improving Objective: Vital Signs Temp Pulse Resp BP Pulse Ox 36.8 C 77 18 127/43 H 96 06/22/16 08:00 06/22/16 10:00 06/22/16 10:00 06/22/16 10:00 06/22/16 10:00 Laboratory Results 06/22/16 03:20 06/22/16 03:20 06/21/16 06/22/16 06/23/16 05:59 05:59 05:59 Intake Total 3212 2131 Output Total 755 1150 675 Balance 2457 981 -675 PT 16.2 SEC (12.0-15.0) H 06/13/16 12:00 INR 1.30 (0.83-1.16) H 06/13/16 12:00 Physical Exam - Physical Exam General Appearance: alert Abdomen: soft Back: No CVA tenderness ICD10 Worksheet Patient Problems: Problems Problem Status Diagnosed Acute blood loss anemia Acute Adenocarcinoma of prostate Acute CAD, multiple vessel Acute Chest pain Acute Chronic Disease Mgmt/Transitional Care Acute Fall Acute 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
[2016-06-22] MEDS: POTASSIUM Cl (KCl) 50 ML IV PRN (10:30)
[2016-06-22] MEDS: LEVOTHYROXINE 100 MCG/5 ML SYR IVP SCH (11:54)
[2016-06-22] MEDS: AMIODARONE HCL 200 ML IV SCH ×2 (12:21→21:50)
[2016-06-22 18:26] LABS: POTASSIUM 3.5 mEq/L (3.5-5.2)
[2016-06-22] MEDS: TPN 1 EA BAG IV SCH (19:56)
[2016-06-22] MEDS: POTASSIUM Cl (KCl) 50 ML IV SCH ×2 (20:57→21:27)
[2016-06-23] MEDS: ALBUTEROL 60 PUFFS/8 GM MDI IH SCH ×4 (04:15→21:42)
[2016-06-23 04:33] LABS: HEMOGLOBIN 9.9 g/dL (13.7-17.5)
[2016-06-23 04:42] LABS: ANION GAP 13 mEq/L (8-16); CALCIUM 8.4 mg/dL (8.5-10.4); CARBON DIOXIDE 24 mEq/l (22-31); CHLORIDE 110 mEq/L (97-110); CREATININE 2.1 mg/dL (0.7-1.3); GLOMERULAR FILTRATION RATE 30; GLUCOSE 156 mg/dL (70-100); POTASSIUM 3.7 mEq/L (3.5-5.2); SODIUM 147 mEq/L (134-144)
[2016-06-23] MEDS ORDERED: POTASSIUM Cl (KCl) 50 ML IV ONE (04:48)
[2016-06-23] MEDS: METOCLOPRAMIDE 10 MG/2 ML VIAL IVP SCH ×4 (05:11→23:03)
[2016-06-23] MEDS: INSULIN REGULAR HUMAN 100 UNIT/ML SC SCH ×4 (05:18→23:06)
[2016-06-23] MEDS: FUROSEMIDE 40 MG/4 ML VIAL IVP SCH (08:15)
[2016-06-23] MEDS: SENNOSIDES 17.6 MG/10 ML UDL TUBE SCH ×2 (08:15→19:40)
[2016-06-23] MEDS: BISACODYL 10 MG SUPP PR SCH (08:16)
[2016-06-23] MEDS: predniSONE 1 MG TAB TUBE SCH (08:16)
[2016-06-23] MEDS: PANTOPRAZOLE SODIUM 40 MG in NS 100 ML IV SCH (08:16)
--- NOTE | 2016-06-23 08:59 | PDINTPN ---
Quality Assurance Auditor Progress Note Assessment/Plan: Assessment: #CABG X 5 and TV annuloplasty then bled and back to surgery with 1L of blood in the right chest but no active bleeding source found. Hemodynamics now are good off pressors #Respiratory Failure on vent at 40% FI02 on CPAP overnight and trach collar during the day and comfortable #Pneumonia 2 weeks ago with moderate secretions, post several bronchs, off antibiotic now. Still with manageable ET secretions, but with increased thick secretions around the trach that are much better with increased trach care changing dry dressings frequently #ROSEANNA not an issue with his trach #Obesity and very deconditioned, no walking at all before his surgery. He is very weak but he has walked increasing distances every day this week. #Decubitus ulcer, on an air flow bed #DM controlled with SS insulin plus lantus bid #HTN at home #Hyperlipidemia #Remote TBI after a fall with punctate ICB #New atrial flutter/fib in NSR now on amiodarone #Ileus, perhaps due to the urine in the abdomen after the bladder rupture. He is on reglan. He started having flatus and had 2 small BM's yesterday #Renal failure after bladder rupture with obstruction. He still has bloody urine with some small clots. Creatinine stable at 2.1. Cystoscopy showed numerous small bleeding sites from the radiation he had that were cauterized, and bello removed, left with a suprapubic #FEN: On 130ml/hr IV with TPN and maintenance plus IV amio. Weight is down 4kg with lasix bid. May need to cut back on lasix soon #Hypothyroid on levothyroxine Plan: Levothyroxine started low dose IV The sand bed used for his decubitus makes it hard for him to sit and get in and out of bed, so will change bed today Trach collar during the day Dulcolax suppository daily Increase trach care with dry bandages Push hard on strengthening with PT, ? alternate exercises in bed Continue CPAP or trach mask days and vent overnight Cystoscopy by urology for his bladder clots done and bloody urine in suprapubic Insulin will be held for hypoglycemia, lack of tube feedings Nutrition: Will likely need a PEG later. On TPN now and Tube feedings had to be stopped once again for high residuals AM and Pm cortisol normal, 06/22/16 07:55 06/23/16 08:55 Objective: Vital Signs Temp Pulse Resp BP Pulse Ox 36.9 C 73 22 H 131/55 H 94 06/23/16 08:00 06/23/16 08:44 06/23/16 08:44 06/23/16 08:00 06/23/16 08:44 Laboratory Results 06/23/16 04:00 06/23/16 04:00 06/22/16 06/23/16 06/24/16 05:59 05:59 05:59 Intake Total 2131 2000 Output Total 1150 3025 Balance 981 -1024 PT 16.2 SEC (12.0-15.0) H 06/13/16 12:00 INR 1.30 (0.83-1.16) H 06/13/16 12:00 Physical Exam - Physical Exam General Appearance: no apparent distress EENT: normal ENT inspection Neck: other (trach with fewer secretions) Respiratory: lungs clear Cardiac/Chest: regular rate, rhythm Abdomen: non-tender, soft Back: Normal inspection Skin: warm/dry Lymphatic: no adenopathy Extremities: non-tender, No pedal edema Neuro/Psych: alert ICD10 Worksheet Patient Problems: Problems Problem Status Diagnosed Acute blood loss anemia Acute Adenocarcinoma of prostate Acute CAD, multiple vessel Acute Chest pain Acute Chronic Disease Mgmt/Transitional Care Acute Fall Acute 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
--- NOTE | 2016-06-23 09:37 | SOAPPROG ---
SOAP Progress Note Assessment/Plan: Assessment: POD#31 Urgent CABGx5 (Free FRANK-LAD, SVG-D1, sequential SVG-OM1-OM2 , SVG-PLC), TVA #32 MC3 ring, IABP 1:1. POD#30 Take back for expl, washout right CED. Sternal closure w Maria Victoria wetimo, jonatan. POD#19 Laparotomy, repair of bladder rupture, fulguration of bladder varix, drainage of intraperitoneal fluid, placement of suprapubic catheter. POD#19 Tracheostomy. POD#3 Cystoscopy, evac of clots, fulguration bleeding sites, removal of bello catheter. IV access per LUE PICC. Nutrition per TPN +/- DHT Acute [place], severe 3VD, post-infarction angina/IABP - s/p urgent CABGx5 compl by bleeding into rt chest requiring take-back. IABP support x 24h. Low dose pressor support x 72h. Tubes, wires, and jonatan out. Secondary prevention with BB, statin, and Eliquis (rhythm) when appropriate. ICM with systolic (EF 30%) and diastolic dysfunction (EDP 25) and class IV heart failure - Diuresing moderate volume overload with bolus lasix. Small- moderate bilat pleural effusions, R>L. 900ml rt thoracentesis on 12. 1000ml left thoracentesis on 12. Staggered intro of heart failure regimen as appropriate. Torrential TR - Post CPB. Amenable to annuloplasty. Antithrombotic prophylaxis as per PAF. Surveillance echo prior to discharge. 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 Surveillance per cardiology. Postoperative respiratory failure - Ventilator dependent, failing extubation . Trach placed. Purulent malodorous secretions. PNA suspected. Several therapeutic bronchoscopies. Abx course completed. Mucolytics, steroids, vent management per ICU. Tolerating CPAP/trach collar. Able to phonate. Acute expected blood loss anemia with coagulopathy - Requiring massive transfusion and take back for expl bleeding. Stable H/H 12/ to 12. Recurrent losses d/t issues. Anticoagulation on hold. Elevated INR (> 2 from 06/05-06/08) corrected. PRBC prn. Postoperative renal failure with electrolyte imbalance - Early postop MAGUI evolving into failure d/t obstructive uropathy. Slow but steady improvement post bladder repair. Care w fluids. Post-op AF/Flutter - Variable ventricular rates. Started on Amio. Adjunctive BB stopped d/t BP lability. Successful DC CVSN per cards 05/31 and amio stopped. Recurrent PAF as of 06/06 and Amio restarted. Ongoing prophylaxis thru mid Jun if QTc stable. [id number] score of 6. Antithrombotic prophylaxis with Eliquis when appropriate. DM2 - Suboptimal control by preop A1c of 8.4%. Postop hyperglycemia managed with insulin gtt, transitioning to SSI +/- basal insulin per ICU. 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 PENN and progressive renal insuff d/t clots. Eliquis held. Blood losses repleted w PRBCs. [address] way bello and cont irrigation compl by bladder perf, peritonitis and shock. Bladder successfully repaired. Residual hematoma evacuated 06/20. Ongoing suprapubic irrigation, bladder scans, urethral leakage management per urology. Nena-op ileus - Prolonged s/p xlap. Serial CTs neg for mechanical obstruction or adynamic changes. Recovering bowel fx by sounds and flatus. Nutrition per TPN pending sufficient TF rate. Eventual gastrostomy tube when further along into recovery. Obesity and deconditioning - Non-ambulatory preop. Remains very weak, but is beginning to walk. LTAC for ongoing rehab planned. Sacral decubitus - Unstageable. hearing therapy director and gen surg following. Efforts to increase mobility in progress. Hypothyroidism - Synthroid started. Re-eval once off amio for 2-3 months. Plan: Supportive care as per multidisciplinary team. Reduce IV lasix to once daily. Advance TFs as tolerated. Transition off IV amio tonight. Dispo - LTAC when nutritional and urologic status stable. 06/23/16 09:30 Subjective: Tired after completing 1 lap. Intermittent lower abdominal tenderness. +BMs. Objective: Vital Signs Temp Pulse Resp BP Pulse Ox 36.9 C 73 22 H 131/55 H 94 06/23/16 08:00 06/23/16 08:44 06/23/16 08:44 06/23/16 08:00 06/23/16 08:44 Laboratory Results 06/23/16 04:00 06/23/16 04:00 06/22/16 06/23/16 06/24/16 05:59 05:59 05:59 Intake Total 1 2000 Output Total 1150 3025 Balance 981 -1024 PT 16.2 SEC (12.0-15.0) H 06/13/16 12:00 INR 1.30 (0.83-1.16) H 06/13/16 12:00 Improved BP s/p PRBC. Cardioresp status stable. FIO2 down to 35%. CXR-> decreased pulm vasc congestion, small pleural effusions L>R. Tolerating trickle TFs. Suprapubic tube flushing easily and draining well. Physical Exam - Physical Exam General Appearance: alert, no apparent distress Respiratory: lungs clear (anteriorly) Cardiac/Chest: regular rate, rhythm, other (Sternum grossly stable. Sternotomy and LLE venotomy healing well.) Abdomen: soft, other (hypoactive BS. 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
--- NOTE | 2016-06-23 09:58 | DX ---
Portable AP Semiupright Chest - June 23, 2016, at 6:29 a.m. Clinical History: 80-year-old male inpatient for follow up effusion and atelectasis. Comparison Study: Chest, dated June 20, 2016, at 6:41 a.m. Findings: The numerous interventional monitoring devices are stable in position. The cardiac and med iastinal silhouette remains prominent. Bilateral interstitial markings are stable. There is a more fo bertha alveolar consolidation at the lung bases, which are unchanged. Old healed left-sided rib fracture s are identified. Impression: Radiographically similar to June 20, 2016.
[2016-06-23] MEDS: LEVOTHYROXINE 100 MCG/5 ML SYR IVP SCH (10:55)
[2016-06-23] MEDS: AMIODARONE HCL 200 ML IV SCH (11:01)
[2016-06-23] MEDS: ALTEPLASE 2 MG VIAL IVP PRN (18:31)
[2016-06-23] MEDS: ACETAMINOPHEN 650 MG/20.3 ML UDCUP TUBE PRN (19:40)
[2016-06-23] MEDS: MELATONIN 3 MG TAB TUBE SCH (19:41)
[2016-06-23] MEDS: TPN 1 EA BAG IV SCH (19:41)
[2016-06-24] MEDS: ALBUTEROL 60 PUFFS/8 GM MDI IH SCH ×4 (03:50→19:39)
[2016-06-24 04:12] LABS: HEMATOCRIT 30.9 % (40.0-51.0)
[2016-06-24 04:34] LABS: ANION GAP 12 mEq/L (8-16); CALCIUM 8.7 mg/dL (8.5-10.4); CARBON DIOXIDE 24 mEq/l (22-31); CHLORIDE 113 mEq/L (97-110); CREATININE 2.1 mg/dL (0.7-1.3); GLOMERULAR FILTRATION RATE 30; GLUCOSE 171 mg/dL (70-100); POTASSIUM 3.9 mEq/L (3.5-5.2); SODIUM 149 mEq/L (134-144)
[2016-06-24] MEDS ORDERED: POTASSIUM Cl (KCl) 50 ML IV ONE (04:38)
[2016-06-24] MEDS: METOCLOPRAMIDE 10 MG/2 ML VIAL IVP SCH (05:01)
[2016-06-24] MEDS: INSULIN REGULAR HUMAN 100 UNIT/ML SC SCH ×3 (05:04→18:08)
--- NOTE | 2016-06-24 08:14 | PDINTPN ---
Landscape Technician Progress Note Assessment/Plan: Assessment: #CABG X 5 and TV annuloplasty then bled and back to surgery with 1L of blood in the right chest but no active bleeding source found. Hemodynamics now are good off pressors #Respiratory Failure on vent at 40% FI02 on CPAP overnight and trach collar during the day and comfortable #Pneumonia 2 weeks ago with moderate secretions, post several bronchs, off antibiotic now. Still with manageable ET secretions, but with increased thick secretions around the trach that are much better with increased trach care changing dry dressings frequently #ROSEANNA not an issue with his trach #Obesity and very deconditioned, no walking at all before his surgery. He is very weak but he has walked increasing distances every day this week. #Decubitus ulcer, on an air flow bed. 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 He is on reglan. He started having flatus and had 2 small BM's yesterday #Renal failure after bladder rupture with obstruction. He still has bloody urine with some small clots. Creatinine stable at 2.1. Cystoscopy showed numerous small bleeding sites from the radiation he had that were cauterized, and bello removed, left with a suprapubic #FEN: On 130ml/hr IV with TPN and maintenance plus IV amio. Weight is down 4kg with lasix once a day. May need to cut back on lasix soon #Hypothyroid on levothyroxine Plan: Levothyroxine started low dose IV The sand bed used for his decubitus makes it hard for him to sit and get in and out of bed, so may change bed today Trach collar during the day Dulcolax suppository daily Increase trach care with dry bandages Push hard on strengthening with PT, ? alternate exercises in bed Continue CPAP or trach mask days and vent overnight Cystoscopy by urology for his bladder clots done and bloody urine in suprapubic Insulin will be held for hypoglycemia, lack of tube feedings Nutrition: Will likely need a PEG later. On TPN now and Tube feedings had to be stopped once again for high residuals AM and Pm cortisol normal, 06/24/16 08:11 06/24/16 08:13 06/24/16 08:14 Subjective: comfortable Objective: Vital Signs Temp Pulse Resp BP Pulse Ox 36.6 C 76 26 H 134/43 H 97 06/24/16 04:00 06/24/16 06:00 06/24/16 06:00 06/24/16 06:00 06/24/16 06:00 Laboratory Results 06/24/16 03:45 06/24/16 03:45 06/23/16 06/24/16 06/25/16 05:59 05:59 05:59 Intake Total 2000 1875 Output Total 5 5620 Balance -1024 -474 PT 16.2 SEC (12.0-15.0) H 06/13/16 12:00 INR 1.30 (0.83-1.16) H 06/13/16 12:00 Physical Exam - Physical Exam General Appearance: no apparent distress EENT: normal ENT inspection Neck: other (trach) Respiratory: lungs clear Cardiac/Chest: regular rate, rhythm Abdomen: non-tender, soft Back: Normal inspection Skin: warm/dry Lymphatic: no adenopathy Extremities: non-tender, No pedal edema Neuro/Psych: alert, oriented x 3 ICD10 Worksheet Patient Problems: Problems Problem Status Diagnosed Acute blood loss anemia Acute Adenocarcinoma of prostate Acute CAD, multiple vessel Acute Chest pain Acute Chronic Disease Mgmt/Transitional Care Acute Fall Acute 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
[2016-06-24] MEDS ORDERED: FUROSEMIDE 40 MG/4 ML VIAL IVP ONE (09:00)
[2016-06-24] MEDS: PANTOPRAZOLE SODIUM 40 MG in NS 100 ML IV SCH (09:07)
[2016-06-24] MEDS: SENNOSIDES 17.6 MG/10 ML UDL TUBE SCH ×2 (09:07→19:47)
[2016-06-24] MEDS: BISACODYL 10 MG SUPP PR SCH (09:07)
[2016-06-24] MEDS: predniSONE 1 MG TAB TUBE SCH (09:07)
[2016-06-24] MEDS: AMIODARONE HCL 200 MG TAB TUBE SCH (09:08)
--- NOTE | 2016-06-24 10:38 | SOAPPROG ---
SOAP Progress Note Assessment/Plan: Assessment: POD#32 Urgent CABGx5 (Free FRANK-LAD, SVG-D1, sequential SVG-OM1-OM2 , SVG-PLC), TVA #32 MC3 ring, IABP 1:1. POD#31 Take back for expl, washout right CED. Sternal closure w Maria Victoria weave, jonatan. POD#20 Laparotomy, repair of bladder rupture, fulguration of bladder varix, drainage of intraperitoneal fluid, placement of suprapubic catheter. POD#20 Tracheostomy. POD#4 Cystoscopy, evac of clots, fulguration bleeding sites, removal of bello catheter. IV access per LUE PICC. Nutrition per TPN +/- DHT Acute [place], severe 3VD, post-infarction angina/IABP - s/p urgent CABGx5 compl by bleeding into rt chest requiring take-back. IABP support x 24h. Low dose pressor support x 72h. Tubes, wires, and jonatan out. Secondary prevention with BB, statin, and Eliquis (rhythm) when appropriate. ICM with systolic (EF 30%) and diastolic dysfunction (EDP 25) and class IV heart failure - Diuresing moderate volume overload with bolus lasix. Small- moderate bilat pleural effusions, R>L. 900ml rt thoracentesis on 12. 1000ml left thoracentesis on 12. Staggered intro of heart failure regimen as appropriate. Torrential TR - Post CPB. Amenable to annuloplasty. Antithrombotic prophylaxis as per PAF. Surveillance echo prior to discharge. 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 Surveillance per cardiology. Postoperative respiratory failure - Ventilator dependent, failing extubation . Trach placed. Purulent malodorous secretions. PNA suspected. Several therapeutic bronchoscopies. Abx course completed. Mucolytics, steroids, vent management per ICU. Tolerating CPAP/trach collar. Able to phonate. Acute expected blood loss anemia with coagulopathy - Requiring massive transfusion and take back for expl bleeding. Stable H/H 12/ to 12. Recurrent losses d/t issues. Anticoagulation on hold. Elevated INR (> 2 from 06/05-06/08) corrected. PRBC prn. Postoperative renal failure with electrolyte imbalance - Early postop MAGUI evolving into failure d/t obstructive uropathy. Slow but steady improvement post bladder repair. Care w fluids. Post-op AF/Flutter - Variable ventricular rates. Started on Amio. Adjunctive BB stopped d/t BP lability. Successful DC CVSN per cards 05/31 and amio stopped. Recurrent PAF as of 06/06 and Amio restarted. Ongoing prophylaxis thru mid Jun if QTc stable. [id number] score of 6. Antithrombotic prophylaxis with Eliquis when appropriate. DM2 - Suboptimal control by preop A1c of 8.4%. Postop hyperglycemia managed with insulin gtt, transitioning to SSI +/- basal insulin per ICU. 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 PENN and progressive renal insuff d/t clots. Eliquis held. Blood losses repleted w PRBCs. [address] way bello and cont irrigation compl by bladder perf, peritonitis and shock. Bladder successfully repaired. Residual hematoma evacuated 06/20. Ongoing suprapubic irrigation and bladder scans per urology. Nena-op ileus - Prolonged s/p xlap. Serial CTs neg for mechanical obstruction or adynamic changes. Recovering bowel fx by sounds and flatus. Nutrition per TPN pending sufficient TF rate. Consider GI consult for gastroparesis +/- PEG. Obesity and deconditioning - Non-ambulatory preop. Remains very weak, but is beginning to walk. LTAC for ongoing rehab planned. Sacral decubitus - Unstageable. protection consultant and gen surg following. Efforts to increase mobility in progress. Hypothyroidism - Synthroid started. Re-eval once off amio for 2-3 months. Plan: Supportive care as per multidisciplinary team. Cont once daily IV lasix. Switch reglan to erythromycin. Advance TFs as tolerated. Baseline echo tomorrow. Dispo - LTAC when nutritional and urologic status stable. 06/24/16 10:02 Subjective: Doing ok. No acute c/o. Objective: Vital Signs Temp Pulse Resp BP Pulse Ox 36.6 C 76 26 H 134/43 H 97 06/24/16 04:00 06/24/16 06:00 06/24/16 06:00 06/24/16 06:00 06/24/16 06:00 Laboratory Results 06/24/16 03:45 06/24/16 03:45 06/23/16 06/24/16 06/25/16 05:59 05:59 05:59 Intake Total 2000 1875 Output Total 3025 1290 Balance -1024 -474 PT 16.2 SEC (12.0-15.0) H 06/13/16 12:00 INR 1.30 (0.83-1.16) H 06/13/16 12:00 Cardioresp status stable. Improving mobility, walking 1/2 -1 lap 2x daily. Cont to diurese well. Meager stools, hypoactive bowel sounds, w elev residuals on trickle TFs. 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
[2016-06-24] MEDS: LEVOTHYROXINE 100 MCG/5 ML SYR IVP SCH (11:00)
[2016-06-24] MEDS: ERYTHROMYCIN BASE 250 MG TAB PO SCH ×2 (11:23→18:04)
--- NOTE | 2016-06-24 11:25 | WOCRNPDOC ---
WOCRN Advanced Assessment Note - Skin Integrity Problem, Advanced Assess Sacrum Pressure Injury Dressing Type: Allevyn Life, Honey Gel, Telfa Dressing Description: Clean/Dry, Intact Exudate Amount: Scant Exudate Characteristic(s): Bloody Integumentary Issue Intervention: Dressing Changed Christina Wound Tissue: Erythema, Macerated (at 6 oclock only ) Wound Bed Color: [place], Red, Yellow Wound Bed Constitution: Granulation Tissue, Adhered Slough, Loose Slough Wound Edges: Epithelizing, Attached Site Measurement - Head-to-Toe Length X Width X Depth (cm): 5.2x7x0.2 Pressure Injury Stage: Unstageable Pressure Injury Present on Admit: No Skin Integrity Problem Comment: 50/50 slough and granulation. Loose slough trimmed with scissors. Autolytic debridement working. Continue with current dressing orders. OK to trial transfer patient onto a Sport bed as wound is improving. Pt's daughter in room and plan was reviewed with both her and the patient. Education about pressure injury, plan of care, need for agressive offloading. Plan to perform bedside debridment on Fri. Wound cleaned with ns and gauze. Skin prep to christina wound then honey gel on wound bed. Covered with telfa and secured with tegaderm. Perry PATEL assisted. Anni COTRES also assissted and in room for care. Reported to Dr. Marrufo and Dr. Crandall. Consent for debridement given to RN for signature from [facility].
[2016-06-24 12:06] LABS: ABSOLUTE NRBC COUNT 0.03 10^3/uL (0-0.01); ADD DIFF? YES; ADD MORPH? NO; ADD SCAN? NO; ATYPICAL LYMPHOCYTE FLAG 10 (0-99); FRAGMENT RBC FLAG 0 (0-99); HEMATOCRIT 31.1 % (40.0-51.0); HEMOGLOBIN 9.9 g/dL (13.7-17.5); LEFT SHIFT FLG 30 (0-99); LIPEMIA HEMOLYSIS FLAG 80 (0-99); MEAN CELL HEMOGLOBIN 30.4 pg (27.9-34.1); MEAN CELL HEMOGLOBIN CONCENTR. 31.8 g/dL (32.4-36.7); MEAN CELL VOLUME 95.4 fL (81.5-99.8); NRBC-AUTO% 0.4 % (0.0-0.2); PLATELET CLUMPS FLAG 10 (0-99); PLATELET COUNT 326 10^3/uL (150-400); RED BLOOD CELL COUNT 3.26 10^6/uL (4.40-6.38); RED CELL DISTRIBUTION WIDTH 14.9 % (11.5-15.2)
[2016-06-24 12:09] LABS: ALBUMIN 2.5 g/dL (3.5-5.0); BILIRUBIN-CONJUGATED 0.9 mg/dL (0.0-0.5); BILIRUBIN-UNCONJUGATED 0.1 mg/dL (0.0-1.1); TOTAL PROTEIN 5.9 g/dL (6.3-8.2)
[2016-06-24 13:25] LABS: GIANT PLATELETS PRESENT; LARGE PLATELETS PRESENT; MACROCYTES 1+; PLATELET ESTIMATE ADEQUATE (ADEQ); POLYCHROMASIA 1+
[2016-06-24 13:54] LABS: APTT 42.7 SEC (23.0-38.0)
[2016-06-24 13:57] LABS: INR 1.25 (0.83-1.16); PROTIME(PATIENT) 15.7 SEC (12.0-15.0)
[2016-06-24 18:09] LABS: POTASSIUM 4.2 mEq/L (3.5-5.2)
[2016-06-24] MEDS: MELATONIN 3 MG TAB TUBE SCH (19:46)
[2016-06-24] MEDS: TPN 1 EA BAG IV SCH (19:47)
[2016-06-25] MEDS: INSULIN REGULAR HUMAN 100 UNIT/ML SC SCH ×5 (00:10→23:58)
[2016-06-25] MEDS: ERYTHROMYCIN BASE 250 MG TAB PO SCH ×4 (00:11→21:48)
[2016-06-25] MEDS: ALBUTEROL 60 PUFFS/8 GM MDI IH SCH ×4 (03:57→21:11)
[2016-06-25] MEDS: ALTEPLASE 2 MG VIAL IVP PRN (04:38)
[2016-06-25 06:00] LABS: ANION GAP 13 mEq/L (8-16); CALCIUM 8.8 mg/dL (8.5-10.4); CARBON DIOXIDE 22 mEq/l (22-31); CHLORIDE 116 mEq/L (97-110); CREATININE 2.1 mg/dL (0.7-1.3); GLOMERULAR FILTRATION RATE 30; GLUCOSE 170 mg/dL (70-100); POTASSIUM 4.2 mEq/L (3.5-5.2); SODIUM 151 mEq/L (134-144)
--- NOTE | 2016-06-25 08:41 | SOAPPROG ---
SOAP Progress Note Assessment/Plan: POD#33 Urgent CABGx5 (Free FRANK-LAD, SVG-D1, sequential SVG-OM1-OM2, SVG-PLC), TVA #32 ring, IABP 1:1. POD#32 Take back for expl, washout right CED. Sternal closure w Maria Victoria auguste, jonatan. POD#21 Laparotomy, repair of bladder rupture, fulguration of bladder varix, drainage of intraperitoneal fluid, placement of suprapubic catheter. POD#21 Tracheostomy. POD#5 Cystoscopy, evac of clots, fulguration bleeding sites, removal of bello catheter. IV access per LUE PICC. Nutrition per TPN +/- DHT Acute [place], severe 3VD, post-infarction angina/IABP - s/p urgent CABGx5 compl by bleeding into rt chest requiring take-back. IABP support x 24h. Low dose pressor support x 72h. Tubes, wires, and jonatan out. Secondary prevention with BB, statin, and Eliquis (rhythm) when appropriate. ICM with systolic (EF 30%) and diastolic dysfunction (EDP 25) and class IV heart failure - Heart failure regimen as appropriate. Torrential TR - Post CPB. Amenable to annuloplasty. Antithrombotic prophylaxis as per PAF. Surveillance echo prior to discharge. 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 Surveillance per cardiology. Postoperative respiratory failure - Ventilator dependent, failing extubation 12/ . Trach placed. Purulent malodorous secretions. PNA suspected. Several therapeutic bronchoscopies. Abx course completed. Mucolytics, steroids, vent management per ICU. Tolerating CPAP/trach collar. Able to phonate. Acute expected blood loss anemia with coagulopathy - Requiring massive transfusion and take back for expl bleeding. Anticoagulation on hold. PRBC prn. Postoperative renal failure with electrolyte imbalance - Early postop MAGUI evolving into failure d/t obstructive uropathy. Improvement post bladder repair. Post-op AF/Flutter - Variable ventricular rates. Started on Amio. Adjunctive BB stopped d/t BP lability. Successful DC CVSN per cards 05/31 and amio stopped. Recurrent PAF as of 06/06 and Amio restarted. Ongoing prophylaxis thru mid Jun if QTc stable. [id number] score of 6. Antithrombotic prophylaxis with Eliquis when appropriate. DM2 - Suboptimal control by preop A1c of 8.4%. Postop hyperglycemia managed with insulin gtt, transitioning to SSI +/- basal insulin per ICU. 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 PENN and progressive renal insuff d/t clots. Eliquis held. Blood losses repleted w PRBCs. [address] bello and cont irrigation compl by bladder perf, peritonitis and shock. Bladder successfully repaired. Residual hematoma evacuated 06/20. Ongoing suprapubic irrigation and bladder scans per urology. Nena-op ileus - Prolonged s/p xlap. Serial CTs neg for mechanical obstruction or adynamic changes. Recovering bowel fx by sounds and flatus. Nutrition per TPN pending sufficient TF rate. Consider GI consult for gastroparesis +/- PEG. Obesity and deconditioning - Non-ambulatory preop. Remains very weak, but is beginning to walk. LTAC for ongoing rehab planned. Sacral decubitus - Unstageable. statement services representative and gen surg following. Efforts to increase mobility in progress. Hypothyroidism - Synthroid started. Re-eval once off amio for 2-3 months. Subjective: Feels cold this morning. Some abdominal pain. Objective: Vital Signs Temp Pulse Resp BP Pulse Ox 36.6 C 90 38 H 143/61 H 97 06/25/16 06:00 06/25/16 06:00 06/25/16 06:00 06/25/16 06:00 06/25/16 06:00 Laboratory Results 06/24/16 03:45 06/25/16 04:30 06/24/16 06/25/16 06/26/16 05:59 05:59 05:59 Intake Total 1876 1969 Output Total 1150 9190 Balance -474 -1181 PT 15.7 SEC (12.0-15.0) H 06/24/16 13:15 INR 1.25 (0.83-1.16) H 06/24/16 13:15 Physical Exam - Physical Exam General Appearance: alert, mild distress, obese Neck: normal inspection Respiratory: respiratory distress (Tachypneic), No crackles, No rhonchi, No wheezing Cardiac/Chest: regular rate, rhythm Abdomen: soft, distended, other (mild TTP LLQ) Skin: normal color, warm/dry Extremities: No pedal edema, No swelling Neuro/Psych: alert, motor weakness ICD10 Worksheet Patient Problems: Problems Problem Status Diagnosed Acute blood loss anemia Acute Adenocarcinoma of prostate Acute CAD, multiple vessel Acute Chest pain Acute Chronic Disease Mgmt/Transitional Care Acute Fall Acute 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
--- NOTE | 2016-06-25 09:25 | PDINTPN ---
Compressor Service Technician Progress Note Assessment/Plan: Assessment/Plan: * CABG X 5 and TV annuloplasty 05/30. * Respiratory Failure, on vent at night. Doing well on TC and P-M valve * Rigors-with low grade temp -panculture -check CXR * Bladder perforation. To OR 06/04. 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 * S/P trach * Pneumonia. Improve -CXR pending * Hypotension. Improved. Off pressors. * ROSEANNA -not an issue currently, s/p trach * Obesity/deconditioning. Present prior to surgery. * DM: On insulin coverage but requiring significant amounts of insulin coverage as well as in the TPN, in Lantus. BSs in mid 100s-200s * Atrial flutter - on amiodarone. Cardioverted and in NSR. * MAGUI: Creatinine stable today. Status post bladder repair and abdominal exploration. Ruptured bladder with fluid in the abdomen was present. Urine output appears to be increasing with Lasix now that obstruction has resolved, but may be falling off. * Anemia: Hct drifting down. Eliquis on hold. No evidence of active bleeding other than the hematuria. INR unchanged at 1.3 * Nutrition: TFs at slow rate, residuals 200s yesterday, 45 ml this AM. On TPN. * Hypernatremia: Sodium down to this morning. On hypotonic fluids. Was on DDAVP, off currently. * Sacral Decubitus: Wound Care involved. Dr. Nunn consulted. Case discussed with RT and nursing Subjective: Awake, Uncomfortable. Pain okay Objective: Vital Signs Temp Pulse Resp BP Pulse Ox 37.7 C 93 41 H 136/61 H 98 06/25/16 08:00 06/25/16 08:48 06/25/16 08:48 06/25/16 08:00 06/25/16 08:48 Laboratory Results 06/24/16 03:45 06/25/16 04:30 06/24/16 06/25/16 06/26/16 05:59 05:59 05:59 Intake Total 6 1969 Output Total 2050 5260 Balance -474 -1181 PT 15.7 SEC (12.0-15.0) H 06/24/16 13:15 INR 1.25 (0.83-1.16) H 06/24/16 13:15 Physical Exam - Physical Exam General Appearance: alert, mild distress EENT: PERRL/EOMI, normal ENT inspection Neck: non-tender, full range of motion, other (trach site C&D) Respiratory: chest non-tender, lungs clear, normal breath sounds Cardiac/Chest: normal peripheral pulses, regular rate, rhythm, systolic murmur Abdomen: normal bowel sounds, non-tender, soft Male Genitalia: deferred Rectal: deferred Skin: normal color, warm/dry Extremities: normal range of motion, non-tender, normal inspection, normal capillary refill Neuro/Psych: alert ICD10 Worksheet Patient Problems: Problems Problem Status Diagnosed Acute blood loss anemia Acute Adenocarcinoma of prostate Acute CAD, multiple vessel Acute Chest pain Acute Chronic Disease Mgmt/Transitional Care Acute Fall Acute 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
--- NOTE | 2016-06-25 09:44 | DX ---
AP Supine Portable Chest June 25, 2016 0924 hours Clinical Indications: New fever Comparison: June 23, 2016. Findings: The tracheostomy tube, nasoenteric feeding tube, mediastinal wires, and left PICC are in st able position. Heart size remains mildly enlarged. Interstitial edema, effusions, and pulmonary vascu lar congestion are all stable. Impression: 1. Lines and tubes in stable position. 2. Stable underlying mild CHF and small effusions. e:sfg
[2016-06-25] MEDS: ACETAMINOPHEN 650 MG/20.3 ML UDCUP TUBE PRN (09:47)
[2016-06-25] MEDS: predniSONE 1 MG TAB TUBE SCH (09:48)
[2016-06-25] MEDS: AMIODARONE HCL 200 MG TAB TUBE SCH (09:48)
[2016-06-25] MEDS: SENNOSIDES 17.6 MG/10 ML UDL TUBE SCH ×2 (09:48→21:48)
[2016-06-25] MEDS: PANTOPRAZOLE SODIUM 40 MG in NS 100 ML IV SCH (09:48)
[2016-06-25] MEDS: BISACODYL 10 MG SUPP PR SCH (09:48)
[2016-06-25] MEDS: D5W 1,000 ML IV SCH (09:49)
--- NOTE | 2016-06-25 10:02 | ECHO ---
[id number] + + [address] : : [place] [address] : : [phone] + + Adult Echocardiographic Report + -----+ :Name: ANDREEA MICHELLE RStudy Date: 06/25/2016 08:01 AM : : Hospital Admission Number: [id number] Location : 252: :: 1935 Gender: Male Height: 71 in : :Age: 80 yrs Race: WH Weight: 255 lb : :Reason For Study: Eval LV Fx : : BSA: 2.3 meters2 : :History: TVA # 32 Ring, Known Mild to Mod Chordal Perry : + -----+ MMode/2D Measurements & Calculations IVSd: 0.88 cm LVIDd: 5.0 cm FS: 35.8 % Ao root diam: 3.5 cm LVPWd: 1.1 cm LVIDs: 3.2 cm EDV(Teich): 118.1 ml ACS: 1.6 cm ESV(Teich): 41.2 ml EF(Teich): 65.1 % LVOT diam: 2.1 cm LVOT area: 3.5 cm2 Normal Measurement Values: + + :LVIDd (3.5-5.7cm) IVSd (0.6-1.1cm) LVPWd (0.6-1.1cm) Aortic Root (2.0-3.7cm)Left Atrium (1.5-4.0cm): :LV Vol(d) (76-115ml) LV Vol(s) (29-48ml) Ejec Fraction (50-65%)PV Duane (0.6- 1.2m/s) TV Duane (0.4-1.0m/s) : :MV E Duane (0.8-1.0m/s)MV A Duane (0.3-1.0m/s)LVOT Duane (0.7-1.2m/s) Asc Ao Duane ( 0.9-1.8m/s) : + + Doppler Measurements & Calculations MV E max duaen: MV V2 mean: Ao V2 max: LV V1 max: 106.1 cm/sec 80.6 cm/sec 188.7 cm/sec 174.6 cm/sec MV A max duane: MV mean PG: Ao max PG: LV V1 max P.5 cm/sec 3.0 mmHg 14.2 mmHg 12.2 mmHg MV E/A: 1.2 MV V2 VTI: 32.7 cmAo mean PG: LV V1 mean P.2 mmHg 7.6 mmHg MVA(VTI): 3.8 cm2 Ao V2 mean: LV V1 mean: 138.6 cm/sec 127.3 cm/sec Ao V2 VTI: 33.7 cm LV V1 VTI: 35.9 cm PRISCILA(I,D): 3.7 cm2 PRISCILA(V,D): 3.2 cm2 SV(LVOT): 124.2 ml PA V2 max: 146.6 cm/sec PA max P.6 mmHg Left Ventricle The left ventricle is normal in size and function. There is normal left ventricular wall thickness. An intracavitary gradient is present. The mid LVOT has a Max PG of 13 mmHg and Mean PG of 8 mmHg. The left ventricular ejection fraction is normal. There is Doppler evidence for diastolic dysfunction. Ejection Fraction = 65%. Right Ventricle The right ventricle is normal in size and function. Atria The left atrial size is normal. Right atrial size is normal. Mitral Valve There is mild mitral annular calcification. There is systolic anterior motion of the mitral valve. There is systolic anterior motion of the chordal apparatus. There is no evidence of mitral valve prolapse. There is no mitral valve stenosis. There is trace mitral regurgitation. Tricuspid Valve There is a TVA #32 Ring in the tricuspid position with no evidence of Tricuspid Valve Regurgitation. Aortic Valve Mild Aortic Valve Calcification. There is no aortic stenosis. There is no aortic insufficiency. Pulmonic Valve The pulmonic valve is normal in structure and function. There is no pulmonic valvular regurgitation. Great Vessels The aortic root is normal size. Pericardium/Pleural There is no pericardial effusion. Conclusion A complete two-dimensional transthoracic echocardiogram was performed (2D, M-mode, Doppler and color flow Doppler). The left ventricle is normal in size and function. The left ventricular ejection fraction is normal. There is Doppler evidence for diastolic dysfunction. Ejection Fraction = 65%. An intracavitary gradient is present. The mid LVOT has a Max PG of 13 mmHg and Mean PG of 8 mmHg. The right ventricle is normal in size and function. The left atrial size is normal. Right atrial size is normal. There is mild mitral annular calcification. There is systolic anterior motion of the mitral valve. There is systolic anterior motion of the chordal apparatus. There is trace mitral regurgitation. There is a TVA #32 Ring in the tricuspid position with no evidence of Tricuspid Valve Regurgitation. Mild Aortic Valve Calcification There is no aortic insufficiency. There is no aortic stenosis. The pulmonic valve is normal in structure and function. There is no pericardial effusion. Final Reading Physician: Julisa Domingo signed on 06/25/2016 10:01 AM Ordering Physician: Keyona Carrillo Performed By: Ho Phan RDCS
[2016-06-25] MEDS: LEVOTHYROXINE 100 MCG/5 ML SYR IVP SCH (10:09)
[2016-06-25 11:00] LABS: COLOR RED
[2016-06-25 11:05] LABS: BACTERIA 4+ /hpf (NONE SEEN); RBC,URINE 50-182 /hpf (0-3); WBC,URINE 50-182 /hpf (0-3)
[2016-06-25 11:19] LABS: ABSOLUTE NRBC COUNT 0.02 10^3/uL (0-0.01); ADD DIFF? YES; ADD MORPH? NO; ADD SCAN? NO; ATYPICAL LYMPHOCYTE FLAG 0 (0-99); FRAGMENT RBC FLAG 0 (0-99); HEMATOCRIT 29.9 % (40.0-51.0); HEMOGLOBIN 9.9 g/dL (13.7-17.5); LEFT SHIFT FLG 20 (0-99); LIPEMIA HEMOLYSIS FLAG 80 (0-99); MEAN CELL HEMOGLOBIN 33.3 pg (27.9-34.1); MEAN CELL HEMOGLOBIN CONCENTR. 33.1 g/dL (32.4-36.7); MEAN CELL VOLUME 100.7 fL (81.5-99.8); NRBC-AUTO% 0.1 % (0.0-0.2); PLATELET CLUMPS FLAG 10 (0-99); PLATELET COUNT 297 10^3/uL (150-400); RED BLOOD CELL COUNT 2.97 10^6/uL (4.40-6.38); RED CELL DISTRIBUTION WIDTH 15.6 % (11.5-15.2)
[2016-06-25] MEDS: FUROSEMIDE 40 MG/4 ML VIAL IVP SCH (11:41)
[2016-06-25] MEDS ORDERED: ALBUMIN 25% 100 ML IV ONE (11:49)
[2016-06-25] MEDS ORDERED: 1/2 NS 1,000 ML IV SCH (12:00)
[2016-06-25] MEDS ORDERED: ERTAPENEM 1 GM in NS 100 ML IV SCH (12:00)
[2016-06-25] MEDS: ALBUMIN 5% 250 ML IV PRN ×2 (12:21→13:14)
[2016-06-25 13:49] LABS: PLATELET ESTIMATE ADEQUATE (ADEQ); ROULEAUX PRESENT
--- NOTE | 2016-06-25 14:14 | SOAPPROG ---
SOAP Progress Note Assessment/Plan: Assessment/Plan: Post op clot evacuation following cystitis and bladder rupture-- Continues to have dark red blood in SPT requiring hand irrigation more often than q 4 hours according to day nurse. Patient was indicated general abdominal discomfort earlier today, but not longer since he developed a fever. Recommend continue SPT care and against addition of bello catheter in an attempt to allow bladder to heal. 06/25/16 14:12 Subjective: Sleeping Objective: Vital Signs Temp Pulse Resp BP Pulse Ox 38.6 C H 88 26 H 89/38 L 95 06/25/16 11:00 06/25/16 12:41 06/25/16 12:41 06/25/16 12:41 06/25/16 12:41 Microbiology 06/25/16 09:35 - Final Sputum, Induced/Suctioned Laboratory Results 06/25/16 11:12 06/25/16 04:30 06/24/16 06/25/16 06/26/16 05:59 05:59 05:59 Intake Total 1876 1969 Output Total 2350 3150 Balance -474 -1181 PT 15.7 SEC (12.0-15.0) H 06/24/16 13:15 INR 1.25 (0.83-1.16) H 06/24/16 13:15 Physical Exam - Physical Exam General Appearance: no apparent distress Abdomen: other (spt draining dark red urine without clots) Male Genitalia: other ICD10 Worksheet Patient Problems: Problems Problem Status Diagnosed Acute blood loss anemia Acute Adenocarcinoma of prostate Acute CAD, multiple vessel Acute Chest pain Acute Chronic Disease Mgmt/Transitional Care Acute Fall Acute 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
[2016-06-25] MEDS ORDERED: NOREPINEPHRINE BITARTRATE 4 MG in D5W 500 ML IV SCH (15:00)
[2016-06-25] MEDS: fentaNYL 50 MCG PATCH TD SCH ×2 (15:30→21:49)
[2016-06-25] MEDS ORDERED: VANCOMYCIN 1.5 GM in D5W 250 ML IV ONE (16:00)
[2016-06-25] MEDS: MICAFUNGIN NA 100 MG in NS 100 ML IV SCH (16:20)
--- NOTE | 2016-06-25 17:43 | GCON ---
[f rep st] CONSULTATION INFECTIOUS DISEASE CONSULTATION DATE OF CONSULTATION: 06/25/2016 REFERRING PHYSICIAN: Blaze Worley DO REASON FOR CONSULTATION: Sepsis. HISTORY OF PRESENT ILLNESS: Patient is an 80-year-old male with a past medical history of diabetes mellitus, coronary artery disease, and radiation cystitis, whom I am asked to see in consultation for sepsis. Patient was admitted on with an acute coronary syndrome. On 05/23/2016, the patient underwent 5 -vessel coronary artery bypass grafting with tricuspid valve annuloplasty. On 05/24/2016, he returned to the operating room for evacuation of a right-sided hemothorax. Subsequently, patient developed a bladder perforation requiring laparotomy and closure on 06/04/2016. During his ICU stay, he received Zosyn from 06/04/2016 through 06/14/2016 for concern regarding aspiration pneumonia. Sputum obtained prior to initiation of his Zosyn revealed MSSA. The patient subsequently has also undergone tracheostomy. He has continued to have hematuria and requires bladder irrigation via a suprapubic catheter. He did have cystoscopy performed on 06/20/2016 with fulguration of oozing from the bladder wall. This morning, the patient developed new onset fever to 38.8. This was associated with an increase in his white blood cell count to 17.5000 with significant bandemia. He was started empirically on ertapenem, and blood, sputum, and urine cultures were obtained. Urinalysis has shown 50-182 red blood cells and 50-182 white blood cells with 4+ bacteria. The patient is being started on Levophed for blood pressure support. He does have a decubitus ulcer present, but has not had any signs of infection. There is no notable diarrhea. He has been receiving TPN. He has a PICC line in the left upper extremity. His tracheal secretions were noted to have a slight increase in odor today. Given the above findings, I am now asked to assist in his ongoing management. PAST MEDICAL HISTORY: Coronary artery disease, hypertension, hyperlipidemia, diabetes mellitus, history of traumatic brain injury, radiation cystitis, acute renal failure associated with this hospitalization with creatinine peaking at 3.8 on 06/05/2016. PAST SURGICAL HISTORY: Coronary artery bypass grafting and tricuspid valve annuloplasty as outlined above. CURRENT MEDICATIONS: Ertapenem 1 g IV daily, albuterol 4 puffs q.i.d., amiodarone 200 mg p.o. daily, erythromycin 250 mg p.o. q.6 hours, Duragesic patch 50 mcg q.72h hours, Lasix 40 mg IV daily, insulin sliding scale, Synthroid 25 mcg IV daily, melatonin 3 mg p.o. q.h.s., Protonix 40 mg IV daily, Pravachol 40 mg p.o. daily, prednisone 2 mg p.o. daily, TPN. ALLERGIES: Lipitor and lisinopril are listed, but cannot be clarified with patient today. SOCIAL HISTORY: This is obtained from the patient's medical record and includes 20 pack-year history of smoking, but quit 50 years ago without excessive alcohol use. No drug use noted. FAMILY HISTORY: Currently cannot be obtained. REVIEW OF SYSTEMS: Outside of that known in the HPI, remainder of a 10 system review cannot be obtained or is unrevealing when discussed with nursing staff. PHYSICAL EXAMINATION: VITAL SIGNS: Temperature maximum 38.8, blood pressure 89 /38, heart rate 88, respiratory rate 26, oxygen saturation 95% on 40% trach collar. Six feet tall. GENERAL: Patient is an obese male, in no acute distress, appears nontoxic. He is somnolent. HEENT: There is no scleral icterus, conjunctival injection, or conjunctival petechiae. Oropharynx shows no thrush. Mucous membranes are dry. There is no nasal discharge. There is no tenderness over the frontal, maxillary, or mastoid areas. A feeding tube is in place. NECK: Supple with a tracheostomy in place. There are some green- tinged secretions present. CHEST: There are coarse breath sounds bilaterally. The respiratory effort is normal. CARDIOVASCULAR: Regular rate and rhythm without murmurs, gallops, or rubs. Sternotomy site is well-healed without any instability or drainage. ABDOMEN: Soft, nontender, nondistended. There is a well-healed laparotomy site. Suprapubic catheter is in place with mild surrounding erythema. Bowel sounds are hypoactive. MUSCULOSKELETAL: There is no cyanosis, clubbing, or edema. PICC line is present in the left upper extremity with no erythema, edema, or drainage. SKIN: Decubitus ulcer over sacrum is reviewed showing an island of eschar centrally without any surrounding cellulitis or purulent drainage being present. Saphenous harvest site on left lower extremity is well-healed. NEUROLOGIC: Patient is somnolent , but arousable. He follows simple commands. Muscle tone and bulk are normal. LYMPHATICS: No cervical or supraclavicular nodes palpable. LABORATORY DATA: White blood cell count 17.5, hematocrit 29.9, platelets 297, neutrophils 27%, bands 62%. Serum creatinine 2.1. AST 29, ALT 36, alkaline phosphatase 250, bilirubin 1.0. INR 1.3. Venous lactic acid is 1.1. Urinalysis as outlined in the history of present illness. Blood cultures, sputum culture, and urine culture are pending. Tracheal specimen from 2015 showed growth of MSSA in a broadly susceptible Klebsiella pneumoniae; patient did have Vonda glabrata from a sputum on 06/16/2016. IMAGING: Chest x-ray shows interstitial edema with no focal consolidation. IMPRESSION: Sepsis with possible evolving septic shock: Given the patient's ongoing need for bladder irrigations, urinary etiology is of consideration. The patient also has indwelling triple-lumen catheter with TPN use which raises possibility of line-associated bacteremia or fungemia (known to be colonized with Vonda glabrata). Pneumonia is a consideration, although chest x-ray shows no focal consolidation. Intraabdominal process after bladder rupture is also a possibility and may require further investigation with CT abdomen/pelvis if no clinical improvement achieved. RECOMMENDATIONS: 1. Vancomycin 1.5 g IV x1. 2. Meropenem 1 g IV q.12 hours. 3. Micafungin 100 mg IV daily. 4. Discontinue ertapenem. 5. Follow up culture data as available. 6. Continue ICU supportive care. Thank you for this consultation. Will continue to follow patient with you. /[id number]/MODL MTDD
[2016-06-25] MEDS: MELATONIN 3 MG TAB TUBE SCH (21:48)
[2016-06-25] MEDS: LACTULOSE 20 GM/30 ML UDCUP TUBE PRN (21:48)
[2016-06-25] MEDS: TPN 1 EA BAG IV SCH (21:50)
[2016-06-25] MEDS: MEROPENEM 1 GM in NS 100 ML IV SCH (23:47)
[2016-06-26] MEDS ORDERED: ORAL BALANCE GEL TUBE PO PRN (01:40)
[2016-06-26] MEDS: ERYTHROMYCIN BASE 250 MG TAB PO SCH ×4 (02:42→18:47)
[2016-06-26] MEDS: ALBUTEROL 60 PUFFS/8 GM MDI IH SCH ×4 (03:42→20:12)
[2016-06-26] MEDS: D5W 1,000 ML IV SCH (05:47)
[2016-06-26 06:05] LABS: ANION GAP 14 mEq/L (8-16); CALCIUM 8.8 mg/dL (8.5-10.4); CARBON DIOXIDE 22 mEq/l (22-31); CHLORIDE 114 mEq/L (97-110); CREATININE 2.6 mg/dL (0.7-1.3); GLOMERULAR FILTRATION RATE 24; GLUCOSE 178 mg/dL (70-100); MAGNESIUM 1.8 mg/dL (1.6-2.3); POTASSIUM 4.3 mEq/L (3.5-5.2); SODIUM 150 mEq/L (134-144)
[2016-06-26] MEDS: INSULIN REGULAR HUMAN 100 UNIT/ML SC SCH ×3 (06:48→18:50)
[2016-06-26 08:35] LABS: HEMATOCRIT 27.3 % (40.0-51.0); HEMOGLOBIN 8.5 g/dL (13.7-17.5); MEAN CELL HEMOGLOBIN 30.4 pg (27.9-34.1); MEAN CELL HEMOGLOBIN CONCENTR. 31.1 g/dL (32.4-36.7); MEAN CELL VOLUME 97.5 fL (81.5-99.8); RED BLOOD CELL COUNT 2.8 10^6/uL (4.40-6.38); RED CELL DISTRIBUTION WIDTH 15.2 % (11.5-15.2)
--- NOTE | 2016-06-26 08:39 | SOAPPROG ---
SOAP Progress Note Assessment/Plan: POD#34 Urgent CABGx5 (Free FRANK-LAD, SVG-D1, sequential SVG-OM1-OM2, SVG-PLC), TVA #32 ring, IABP 1:1. POD#33 Take back for expl, washout right CED. Sternal closure w Maria Victoria wetimo, jonatan. POD#22 Laparotomy, repair of bladder rupture, fulguration of bladder varix, drainage of intraperitoneal fluid, placement of suprapubic catheter. POD#22 Tracheostomy. POD#6 Cystoscopy, evac of clots, fulguration bleeding sites, removal of bello catheter. IV access per LUE PICC. Nutrition per TPN/DHT Acute UT, severe 3VD, post-infarction angina/IABP - s/p urgent CABGx5 compl by bleeding into rt chest requiring take-back. IABP support x 24h. Low dose pressor support x 72h. Tubes, wires, and jonatan out. Secondary prevention with BB, statin, and Eliquis (rhythm) when appropriate. ICM with systolic (EF 30%) and diastolic dysfunction (EDP 25) and class IV heart failure - Heart failure regimen as appropriate. Torrential TR - Post CPB. Amenable to annuloplasty. Antithrombotic prophylaxis as per PAF. Surveillance echo prior to discharge. 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 Surveillance per cardiology. Postoperative respiratory failure - Ventilator dependent. Trach placed. + PNA. Several therapeutic bronchoscopies. Abx course completed. Mucolytics, steroids, vent management per ICU. Tolerating CPAP/trach collar. Able to phonate. Acute expected blood loss anemia with coagulopathy - Requiring massive transfusion and take back for expl bleeding. Anticoagulation on hold. PRBC prn. Postoperative renal failure with electrolyte imbalance - Early postop MAGUI evolving into failure d/t obstructive uropathy. Improvement post bladder repair with recent increase in Cr due to hypotension. Monitor. Post-op AF/Flutter - Variable ventricular rates. Started on Amio. Adjunctive BB stopped d/t BP lability. Successful DC CVSN per cards 05/31 and amio stopped. Recurrent PAF as of 06/06 and Amio restarted. Ongoing prophylaxis thru mid Jun if QTc stable. [id number] score of 6. Antithrombotic prophylaxis with Eliquis when appropriate. DM2 - Suboptimal control by preop A1c of 8.4%. Blood sugar management per engine lathe set up operator tool. 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 Eliquis held. [address] bello and cont irrigation compl by bladder perf, peritonitis and shock. Bladder successfully repaired. Residual hematoma evacuated 06/20. Ongoing suprapubic irrigation and bladder scans per urology. Post-op ileus - Prolonged s/p xlap for bladder rupture. Serial CTs neg for mechanical obstruction. TF rate steadily increasing. Continue TPN. Possible future PEG. Obesity and deconditioning - Non-ambulatory preop. Remains very weak, but is beginning to walk. LTAC for ongoing rehab planned. Sacral decubitus - Unstageable. personal service workers and gen surg following. Efforts to increase mobility in progress. Hypothyroidism - Synthroid started. Re-eval once off amio for 2-3 months. Sepsis with Gram negative bacteremia as per blood cxs x 4 - Merrem started 06/25 as per ID Subjective: Feels better today. No longer shivering. Denies abdominal pain. Objective: Vital Signs Temp Pulse Resp BP Pulse Ox 36.3 C 68 25 H 135/46 H 99 06/26/16 04:00 06/26/16 04:00 06/26/16 04:00 06/26/16 04:00 06/26/16 04:00 Microbiology 06/25/16 09:35 - Final Sputum, Induced/Suctioned Laboratory Results 06/26/16 08:15 06/26/16 05:45 06/25/16 06/26/16 06/27/16 05:59 05:59 05:59 Intake Total 1969 3492.5 Output Total 3150 1220 Balance -1181 2272.5 PT 15.7 SEC (12.0-15.0) H 06/24/16 13:15 INR 1.25 (0.83-1.16) H 06/24/16 13:15 Physical Exam - Physical Exam General Appearance: alert, no apparent distress, obese EENT: No scleral icterus (R), No scleral icterus (L) Neck: normal inspection Respiratory: lungs clear, No respiratory distress Cardiac/Chest: regular rate, rhythm Abdomen: non-tender, soft, distended, No guarding, No rigid Skin: normal color, warm/dry Extremities: No pedal edema, No swelling Neuro/Psych: alert, normal mood/affect, motor weakness ICD10 Worksheet Patient Problems: Problems Problem Status Diagnosed Acute blood loss anemia Acute Adenocarcinoma of prostate Acute CAD, multiple vessel Acute Chest pain Acute Chronic Disease Mgmt/Transitional Care Acute Fall Acute 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
--- NOTE | 2016-06-26 08:50 | PDINTPN ---
[employer] Progress Note Assessment/Plan: Assessment/Plan: * CABG X 5 and TV annuloplasty 05/30. * Respiratory Failure, on vent at night. Doing well on TC and P-M valve * Sepsis-urine likely source. -await culture results -abx per ID * Bladder perforation. To OR 06/04. 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 * S/P trach * Pneumonia. Improve -CXR pending * Hypotension. Improved. Off pressors. * ROSEANNA * Obesity/deconditioning. Present prior to surgery. * DM: On insulin coverage but requiring significant amounts of insulin coverage as well as in the TPN, in Lantus. BSs in mid 100s-200s * Atrial flutter - on amiodarone. Cardioverted and in NSR. * MAGUI: Creatinine stable today. Status post bladder repair and abdominal exploration. Ruptured bladder with fluid in the abdomen was present. * Anemia: Hct drifting down. Eliquis on hold. No evidence of active bleeding other than the hematuria. INR unchanged at 1.3 * Nutrition: TFs at slow rate, residuals 200s yesterday, 45 ml this AM. On TPN. * Hypernatremia: Sodium down to this morning. On hypotonic fluids. Was on DDAVP, off currently. * Sacral Decubitus: Wound Care involved. Dr. Nunn consulted. Case discussed with RT and nursing Subjective: Drowsy, but arousable. Objective: Vital Signs Temp Pulse Resp BP Pulse Ox 36.3 C 68 25 H 135/46 H 99 06/26/16 04:00 06/26/16 04:00 06/26/16 04:00 06/26/16 04:00 06/26/16 04:00 Microbiology 06/25/16 09:35 - Final Sputum, Induced/Suctioned Laboratory Results 06/26/16 08:15 06/26/16 05:45 06/25/16 06/26/16 06/27/16 05:59 05:59 05:59 Intake Total 1969 3492.5 Output Total 3150 1220 Balance -1181 2272.5 PT 15.7 SEC (12.0-15.0) H 06/24/16 13:15 INR 1.25 (0.83-1.16) H 06/24/16 13:15 Laboratory Results 06/26/16 08:15 06/26/16 05:45 06/25/16 09:35 Blood Culture - Preliminary Blood Gram Negative Mitchell 06/25/16 09:35 Blood Culture - Preliminary Blood Gram Negative Mitchell Physical Exam - Physical Exam General Appearance: alert EENT: PERRL/EOMI Neck: non-tender, full range of motion, other (trach) Respiratory: crackles (few), No respiratory distress, No stridor, No wheezing Cardiac/Chest: normal peripheral pulses, regular rate, rhythm, systolic murmur Abdomen: normal bowel sounds, non-tender, soft Male Genitalia: deferred Rectal: deferred Skin: normal color, warm/dry Neuro/Psych: alert ICD10 Worksheet Patient Problems: Problems Problem Status Diagnosed Acute blood loss anemia Acute Adenocarcinoma of prostate Acute CAD, multiple vessel Acute Chest pain Acute Chronic Disease Mgmt/Transitional Care Acute Fall Acute 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
[2016-06-26] MEDS ORDERED: MAGNESIUM CITRATE 300 ML BOTTLE PO ONE (09:44)
[2016-06-26] MEDS: SENNOSIDES 17.6 MG/10 ML UDL TUBE SCH ×2 (09:55→21:23)
[2016-06-26] MEDS: MEROPENEM 1 GM in NS 100 ML IV SCH ×2 (09:55→21:23)
[2016-06-26] MEDS: predniSONE 1 MG TAB TUBE SCH (09:56)
[2016-06-26] MEDS: AMIODARONE HCL 200 MG TAB TUBE SCH (09:56)
[2016-06-26] MEDS: BISACODYL 10 MG SUPP PR SCH (09:56)
[2016-06-26] MEDS: PANTOPRAZOLE SODIUM 40 MG in NS 100 ML IV SCH (09:56)
[2016-06-26] MEDS: LEVOTHYROXINE 100 MCG/5 ML SYR IVP SCH (09:56)
[2016-06-26] MEDS: LACTULOSE 20 GM/30 ML UDCUP TUBE PRN (09:56)
[2016-06-26] MEDS: MICAFUNGIN NA 100 MG in NS 100 ML IV SCH (09:57)
[2016-06-26] MEDS ORDERED: LIDOCAINE 2% JELLY 5 ML TUBE TP ONE (10:15)
[2016-06-26 10:19] LABS: TESTOSTERONE TOTAL <7.0 ng/dL (240-950)
[2016-06-26] MEDS: INSULIN GLARGINE 100 UNITS/ML SYRINGE SC SCH (11:00)
[2016-06-26] MEDS: FUROSEMIDE 40 MG/4 ML VIAL IVP SCH (11:01)
[2016-06-26] MEDS ORDERED: LIDOCAINE 2% JELLY 5 ML TUBE ONE ×2 (12:43→12:52)
[2016-06-26] MEDS ORDERED: MAGNESIUM CITRATE 300 ML BOTTLE ONE (14:32)
--- NOTE | 2016-06-26 16:02 | SOAPPROG ---
SOAP Progress Note Assessment/Plan: Assessment: seriously ill 80 male with emergent cabg and recent lap for bladder rupture now with grade II sacral decub--- not infected yet/ 5x 3 cm Plan: padding, offloading/ debridement if progresses 06/15/16 09:45 06/17/16 12:03 not much change in decub/ will probably need debridement 06/26/16 16:01 DECUB LOOKS WORSE/ NEEDS FURTHER DEBRIDEMENT / WILL ARRANGE IN OR Objective: Vital Signs Temp Pulse Resp BP Pulse Ox 36.3 C 76 28 H 136/51 H 97 06/26/16 12:00 06/26/16 14:00 06/26/16 14:00 06/26/16 14:00 06/26/16 08:00 Microbiology 06/25/16 09:35 - Final Sputum, Induced/Suctioned Laboratory Results 06/26/16 08:15 06/26/16 05:45 06/25/16 06/26/16 06/27/16 05:59 05:59 05:59 Intake Total 1969 3492.5 Output Total 3150 1220 Balance -1181 2272.5 PT 15.7 SEC (12.0-15.0) H 06/24/16 13:15 INR 1.25 (0.83-1.16) H 06/24/16 13:15 ICD10 Worksheet Patient Problems: Problems Problem Status Diagnosed Acute blood loss anemia Acute Adenocarcinoma of prostate Acute CAD, multiple vessel Acute Chest pain Acute Chronic Disease [facility]/Transitional Care Acute Fall Acute 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
--- NOTE | 2016-06-26 16:55 | WOCRNPDOC ---
WOCRN Advanced Assessment Note - Skin Integrity Problem, Advanced Assess Sacrum Pressure Injury Dressing Type: Allevyn Life Dressing Description: Clean/Dry, Intact Exudate Amount: None Integumentary Issue Intervention: Dressing Changed, Conservative Sharp Bedside Debridement Nena Wound Tissue: Blanching, Erythema Nena Wound Swelling: None Wound Bed Color: Red, Yellow Wound Bed Constitution: Granulation Tissue (50% ), Adhered Slough, Loose Slough (50% slough total) Wound Edges: Attached Site Odor: None Pressure Injury Stage: Unstageable Skin Integrity Problem Comment: After bedside debridement wound was cleaned with ns and skin prep applied nena wound. Honey gel to wound bed. Covered with telfa and then allevyn life for padding. Reported to Nay CORTES. Perry PATEL assisted with all care. Conservative Sharp Bedside Debridement Performed: Yes Consent Signed for Debridement: Yes Timeout Performed per Protocol: Yes Instrument Used for Debridement: Scapel Estimated Blood Loss from Debridement: 0 Conservative Sharp Bedside Debridement Outcome: Hemostasis Achieved Conservative Sharp Bedside Debridement Comment: Cleaned wound with ns and gauze. Applied 2% lidocaine jelly to wound bed for 5 min before the begining of the proceedure and reapplied 2x during the proceedure for pain control. 0.3- 0.5 cm thick layer of adhered slough removed from wound bed. Coccyx slough quite deep and will be better debrided in surgery. Hemostasis acheived with silver nitrate. Reported to Dr. Nunn and Giles GARCIA. Likely to OR tomorrow for surgical debridement. Measurments of wound unchaged after the proceedure, but approx 15% more healthy tissue now visible.
--- NOTE | 2016-06-26 17:53 | PCMIDPN ---
Assessment/Plan: Assessment: Sepsis and peritonitis following bladder rupture after a coronary bypass procedure. Patient with gram-negative rods growing in recent blood cultures. Covered with meropenem. Micafungin also added to empiric coverage given TPN use. At this point would DC the empiric micafungin due to no evidence of candidal infection. Await identification sensitivities of the gram-negative rajesh. Urinary source is likely given recent trauma to the area. Plan: 1. Continue empiric meropenem. 2. Discontinue micafungin. 3. Follow up on culture results. 4. Follow clinical course. 06/26/16 17:54 Subjective: Patient is resting comfortably in his hospital bed. He nods and shakes his head to communicate. No new issues overnight. Objective: Meropenem # 2 Micafungin # 2 Vital Signs Temp Pulse Resp BP Pulse Ox 36.3 C 72 28 H 136/44 H 97 06/26/16 12:00 06/26/16 16:00 06/26/16 16:00 06/26/16 16:00 06/26/16 16:00 Microbiology 06/25/16 09:35 - Final Sputum, Induced/Suctioned Laboratory Results 06/26/16 08:15 06/26/16 05:45 06/25/16 06/26/16 06/27/16 05:59 05:59 05:59 Intake Total 1969 3492.5 Output Total 3150 1220 Balance -1181 2272.5 - Physical Exam General Appearance: WD/WN, alert, no apparent distress, toxic Respiratory: normal breath sounds, No lungs clear (Decreased breath sounds in the bases.), No crackles, No coarse breath sounds Cardiac/Chest: regular rate, rhythm, No tachycardia Extremities: non-tender, normal inspection Skin: normal color, warm/dry, No rash ICD10 Worksheet Patient Problems: Problems Problem Status Diagnosed Acute blood loss anemia Acute Adenocarcinoma of prostate Acute CAD, multiple vessel Acute Chest pain Acute Chronic Disease Mgmt/Transitional Care Acute Fall Acute 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
[2016-06-26] MEDS: MELATONIN 3 MG TAB TUBE SCH (21:23)
[2016-06-26] MEDS: TPN 1 EA BAG IV SCH (21:23)
[2016-06-27] MEDS: ERYTHROMYCIN BASE 250 MG TAB PO SCH ×2 (01:10→07:05)
[2016-06-27] MEDS: INSULIN REGULAR HUMAN 100 UNIT/ML SC SCH ×4 (01:10→18:16)
[2016-06-27] MEDS: ALBUTEROL 60 PUFFS/8 GM MDI IH SCH ×4 (04:09→21:54)
[2016-06-27] MEDS: PANTOPRAZOLE SODIUM 40 MG in NS 100 ML IV SCH (08:04)
[2016-06-27] MEDS: BISACODYL 10 MG SUPP PR SCH (08:05)
[2016-06-27] MEDS: FUROSEMIDE 40 MG/4 ML VIAL IVP SCH (08:05)
[2016-06-27] MEDS: INSULIN GLARGINE 100 UNITS/ML SYRINGE SC SCH ×2 (08:05→20:06)
[2016-06-27] MEDS: MEROPENEM 1 GM in NS 100 ML IV SCH (08:06)
--- NOTE | 2016-06-27 09:21 | PDINTPN ---
City Dispatcher Progress Note Assessment/Plan: Assessment/Plan: * CABG X 5 and TV annuloplasty 05/30. * Respiratory Failure, on vent at night. Doing well on TC and P-M valve * Sepsis-urine likely source. -klebsiella -abx per ID * Bladder perforation. To OR 06/04. 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 * S/P trach * Pneumonia. Improve -CXR pending * Hypotension. Resolved * ROSEANNA * Obesity/deconditioning. Present prior to surgery. * DM: On insulin coverage but requiring significant amounts of insulin coverage as well as in the TPN, in Lantus. BSs in mid 100s-200s * Atrial flutter - on amiodarone. Cardioverted and in NSR. * MAGUI: Creatinine stable today. Status post bladder repair and abdominal exploration. Ruptured bladder with fluid in the abdomen was present. * Anemia: Hct drifting down. Eliquis on hold. No evidence of active bleeding other than the hematuria. INR unchanged at 1.3 * Nutrition: TFs at slow rate, residuals 200s yesterday, 45 ml this AM. On TPN. * Hypernatremia: On hypotonic fluids. Was on DDAVP, off currently. Chem pending * Sacral Decubitus: Wound Care involved. Dr. Nunn consulted. Case discussed with RT and nursing Overall, markedly better Subjective: Sitting up. Comfortable. No pain. Breathing easily on TC Objective: Vital Signs Temp Pulse Resp BP Pulse Ox 36.4 C 83 35 H 142/40 H 97 06/27/16 08:00 06/27/16 08:00 06/27/16 08:00 06/27/16 08:00 06/27/16 08:00 Microbiology 06/25/16 09:35 - Final Sputum, Induced/Suctioned 06/25/16 11:03 Urine Culture - Final Urine,Clean Catch Klebsiella Pneumoniae Laboratory Results 06/26/16 08:15 06/26/16 05:45 06/26/16 06/27/16 06/28/16 05:59 05:59 05:59 Intake Total 3492.5 4317 Output Total 1220 1850 350 Balance 2272.5 2467 -350 PT 15.7 SEC (12.0-15.0) H 06/24/16 13:15 INR 1.25 (0.83-1.16) H 06/24/16 13:15 Laboratory Results 06/26/16 08:15 06/26/16 05:45 06/27/16 06/27/16 06/26/16 07:34 00:05 18:24 POC Glucose 244 H mg/dL 190 H mg/dL 160 H mg/dL (70 - 100) (70 - 100) (70 - 100) 06/26/16 14:31 POC Glucose 275 H mg/dL (70 - 100) 06/25/16 11:03 Urine Culture - Final Urine,Clean Catch Klebsiella Pneumoniae 06/25/16 09:35 - Final Sputum, Induced/Suctioned Sputum Culture - Preliminary Staphylococcus Aureus 06/25/16 09:35 Blood Culture - Preliminary Blood Klebsiella Pneumoniae 06/25/16 09:35 Blood Culture - Preliminary Blood Klebsiella Pneumoniae Physical Exam - Physical Exam General Appearance: alert, obese EENT: PERRL/EOMI, normal ENT inspection Neck: non-tender, other (trach okay) Respiratory: crackles (few), No respiratory distress, No wheezing Cardiac/Chest: normal peripheral pulses, regular rate, rhythm, systolic murmur Abdomen: normal bowel sounds, non-tender, soft Male Genitalia: deferred Rectal: deferred Skin: normal color, warm/dry Extremities: normal range of motion Neuro/Psych: alert ICD10 Worksheet Patient Problems: Problems Problem Status Diagnosed Acute blood loss anemia Acute Adenocarcinoma of prostate Acute CAD, multiple vessel Acute Chest pain Acute Chronic Disease Mgmt/Transitional Care Acute Fall Acute 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
[2016-06-27 10:34] LABS: HEMATOCRIT 22.5 % (40.0-51.0); HEMOGLOBIN 7.1 g/dL (13.7-17.5); MEAN CELL HEMOGLOBIN 30.2 pg (27.9-34.1); MEAN CELL HEMOGLOBIN CONCENTR. 31.6 g/dL (32.4-36.7); MEAN CELL VOLUME 95.7 fL (81.5-99.8); RED BLOOD CELL COUNT 2.35 10^6/uL (4.40-6.38); RED CELL DISTRIBUTION WIDTH 16.4 % (11.5-15.2)
[2016-06-27] MEDS ORDERED: MAGNESIUM CITRATE 300 ML BOTTLE PO ONE (10:36)
[2016-06-27] MEDS: AMIODARONE HCL 200 MG TAB TUBE SCH (10:44)
[2016-06-27] MEDS: predniSONE 1 MG TAB TUBE SCH (10:44)
[2016-06-27] MEDS: SENNOSIDES 17.6 MG/10 ML UDL TUBE SCH ×2 (10:45→20:06)
[2016-06-27 10:57] LABS: ANION GAP 9 mEq/L (8-16); CALCIUM 8.7 mg/dL (8.5-10.4); CARBON DIOXIDE 24 mEq/l (22-31); CHLORIDE 112 mEq/L (97-110); GLOMERULAR FILTRATION RATE 32; GLUCOSE 238 mg/dL (70-100); POTASSIUM 4.2 mEq/L (3.5-5.2); SODIUM 145 mEq/L (134-144)
--- NOTE | 2016-06-27 10:57 | SOAPPROG ---
SOAP Progress Note Assessment/Plan: Assessment: POD#35 Urgent CABGx5 (Free FRANK-LAD, SVG-D1, sequential SVG-OM1-OM2 , SVG-PLC), TVA #32 MC3 ring, IABP 1:1. POD#34 Take back for expl, washout right CED. Sternal closure w Robicsek weave, jonatan. POD#23 Laparotomy, repair of bladder rupture, fulguration of bladder varix, drainage of intraperitoneal fluid, placement of suprapubic catheter. POD#23 Tracheostomy. POD#7 Cystoscopy, evac of clots, fulguration bleeding sites, removal of bello catheter. IV access per LUE PICC. Nutrition per TPN & DHT. Day 3 Meropenem. Acute [place], severe 3VD, post-infarction angina/IABP - s/p urgent CABGx5 compl by bleeding into rt chest requiring take-back. IABP support x 24h. Low dose pressor support x 72h. Tubes, wires, and jonatan out. Secondary prevention with BB, pravastatin, and ASA v Eliquis (rhythm) when appropriate. ICM with systolic & diastolic dysfunction as well as class IV heart failure and bilateral pleural effusions - Moderate volume overload successfully diuresed with bolus lasix. 900ml rt thoracentesis on 12. 1000ml left thoracentesis on 12/. Baseline postop echo 1/3 notable for nl BiV size and fx w LVEF >60% and mild LVDD. Heart failure regimen per cards when appropriate. Torrential TR - Post CPB. Amenable to annuloplasty. No TR per echo 1/3. Antithrombotic prophylaxis as per PAF. 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 Only trace MR per echo 1/3. Ongoing surveillance per cardiology. Postoperative respiratory failure - Ventilator dependent, failing extubation . Trach placed. HAP treated with course of Abx. Several therapeutic bronchoscopies. Mucolytics, steroids, vent management per ICU. Tolerating CPAP/ trach collar. Able to phonate w PMV. Acute expected blood loss anemia with coagulopathy - Requiring massive transfusion and take back for expl bleeding. Stable H/H 12/4 to 12. Recurrent losses d/t issues and coagulopathy. Anticoagulation on hold. Elevated INR corrected. PRBC prn. Postoperative renal failure with electrolyte imbalance - Early postop MAGUI evolving into failure d/t obstructive uropathy. Slow but steady improvement post bladder repair. Recurrent exacerbation d/t urosepsis necessitating pressor support. D5W prn elev Na. Post-op AF/Flutter - Variable ventricular rates. Started on Amio. Adjunctive BB stopped d/t BP lability. Successful DC CVSN per cards 05/31 and amio stopped. Recurrent PAF as of 06/06 and Amio restarted. Ongoing prophylaxis thru mid Jun if QTc stable. [id number] score of 6. Antithrombotic prophylaxis with Eliquis when appropriate. DM2 - Suboptimal control by preop A1c of 8.4%. Postop hyperglycemia managed with insulin gtt, transitioning to SSI +/- basal insulin as per ICU. 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 PENN and progressive renal insuff d/t clots. Eliquis held. Blood losses repleted w PRBCs. [address] bello and cont irrigation compl by bladder perf, peritonitis and shock. Bladder successfully repaired. Residual hematoma evacuated 06/20. Ongoing suprapubic irrigation and bladder scans per urology. Now w Klebsiella urosepsis. Targeted Abx per ID w good clinical response. BP support w low dose Levo. Nena-op ileus - Prolonged s/p xlap. Serial CTs neg for mechanical obstruction or adynamic changes. Presumed gastroparesis treated with reglan, then emycin. Slowly recovering bowel fx. Nutrition per TPN pending sufficient TF rate. May be able to avoid PEG if resp fx allows for swallow study/orals in next week. Obesity and deconditioning - Non-ambulatory preop. Remains very weak, but is beginning to walk. LTAC for ongoing rehab planned. Sacral decubitus - research and insights executive and gen surg following. Satisfactory analgesia on Duragesic patch. To OR today for debridement and staging. Efforts to offload and increase mobility in progress. Hypothyroidism - Synthroid started. Re-eval once off amio for 2-3 months. Plan: Supportive care as per multidisciplinary team. Transfuse 2u PRBC. Keep levo at 2 mcg until out of OR. Cont transition IV to tube meds. Reduction TPN, increase TFs per ICU. Dispo - LTAC when nutritional and urologic status stable. 06/27/16 10:34 Subjective: Feeling better than yest. Able to get OOB and go for a short walk. Currently comfortable. Objective: Vital Signs Temp Pulse Resp BP Pulse Ox 36.4 C 72 30 H 121/39 H 95 06/27/16 08:00 06/27/16 10:00 06/27/16 10:00 06/27/16 10:00 06/27/16 10:00 Microbiology 06/25/16 09:35 - Final Sputum, Induced/Suctioned Sputum Culture - Final Staphylococcus Aureus 06/25/16 11:03 Urine Culture - Final Urine,Clean Catch Klebsiella Pneumoniae Laboratory Results 06/27/16 10:30 06/26/16 06/27/16 06/28/16 05:59 05:59 05:59 Intake Total 3492.5 4317 Output Total 1220 1850 950 Balance 2272.5 2467 -950 PT 15.7 SEC (12.0-15.0) H 06/24/16 13:15 INR 1.25 (0.83-1.16) H 06/24/16 13:15 Holding SBP > 120 on levo 2 mcg. CPAP overnoc. FIO2 40%. UOP and renal fx stable. Cr correcting. TFs @25m/h prior to MN hold for OR today. Downward drifting H/H, presumably hematuria/flare cystitis. 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
[2016-06-27] MEDS ORDERED: BUPIVACAINE/EPI 0.5% 30 ML SDV ONE (11:34)
[2016-06-27] MEDS ORDERED: METHYLENE BLUE 1% 10 MG/ML VIAL ONE (11:35)
[2016-06-27] MEDS: LEVOTHYROXINE 100 MCG/5 ML SYR IVP SCH (11:38)
[2016-06-27] MEDS ORDERED: fentaNYL 100 MCG/2 ML INJ ONE (14:26)
[2016-06-27] MEDS ORDERED: KETAMINE 100 MG/10 ML SYR IVP ONE (14:26)
[2016-06-27] MEDS ORDERED: PROPOFOL 200 MG/20 ML VIAL ONE (14:27)
[2016-06-27] MEDS ORDERED: THROMBIN (RECOMBINANT) 5,000 UNIT VIAL TP ONE (14:57)
--- NOTE | 2016-06-27 15:13 | POSTOPPROG ---
Post Op Note Date of Operation: 06/27/16 Surgeon: Alan Nunn Paraprofessional Education Assistant: ALETHA Anesthesiologist: MAREK Anesthesia: IV Sedation Pre-op Diagnosis: SACRAL DECUB Post-op Diagnosis: SAME Indication: INCREASING NECROSIS Procedure: EXCISIONAL DEBRIDEMENT Findings: PARTIAL THICKNESS NECROSIS/ BONE NOT EXPOSED Inf/Abcess present in the surg proc area at time of surgery?: Yes Depth: Deep Incisional (Fascial) EBL: Minimal Complications: 0 Specimen(s): 0
--- NOTE | 2016-06-27 15:38 | PCMIDPN ---
Assessment/Plan: Assessment/Plan: * Severe sepsis due to Klebsiella pneumoniae bacteremia likely of urinary etiology: Clinically has stabilized. Blood cultures with growth of Klebsiella pneumoniae which is also present on urine culture although susceptibility profile is not identical. Both isolates are susceptible to cefazolin. Will discontinue meropenem and transition to cefazolin 1 g IV q.12 hours. Repeat blood cultures to assess for clearing of bacteremia. 06/27/16 15:35 Subjective: Patient awake without specific complaints. No abdominal pain. Objective: Vital Signs Temp Pulse Resp BP Pulse Ox 36.4 C 74 24 H 125/34 H 98 06/27/16 08:00 06/27/16 11:40 06/27/16 11:40 06/27/16 11:40 06/27/16 11:40 Microbiology 06/25/16 09:35 - Final Sputum, Induced/Suctioned Sputum Culture - Final Staphylococcus Aureus 06/25/16 11:03 Urine Culture - Final Urine,Clean Catch Klebsiella Pneumoniae Laboratory Results 06/27/16 10:30 06/27/16 10:30 06/26/16 06/27/16 06/28/16 05:59 05:59 05:59 Intake Total 3492.5 4317 Output Total 1220 1850 1290 Balance 2272.5 2467 -1290 Meropenem # 3 Blood cultures 2/2 sets Klebsiella pneumoniae Urine culture with greater than 100,000 Klebsiella pneumoniae Sputum with MSSA - Physical Exam General Appearance: alert, no apparent distress EENT: other (White coating on tongue; no evidence of thrush on the buccal mucosa or palate), No scleral icterus Cardiac/Chest: regular rate, rhythm, other (Sternotomy site without erythema and incision intact) Abdomen: non-tender, other (Lower abdominal incision intact without erythema or drainage; suprapubic catheter in place), No distended Skin: No embolic lesions ICD10 Worksheet Patient Problems: Problems Problem Status Diagnosed Acute blood loss anemia Acute Adenocarcinoma of prostate Acute CAD, multiple vessel Acute Chest pain Acute Chronic Disease Mgmt/Transitional Care Acute Fall Acute 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
[2016-06-27] MEDS ORDERED: PROTOCOL POTASSIUM 1 DOSE MISC PRN (17:42)
[2016-06-27 18:06] LABS: POTASSIUM 4.5 mEq/L (3.5-5.2)
[2016-06-27] MEDS: MELATONIN 3 MG TAB TUBE SCH (20:06)
[2016-06-27 21:28] LABS: HEMATOCRIT 36.2 % (40.0-51.0)
[2016-06-27] MEDS ORDERED: ALBUTEROL 3 ML DEYVIAL IH SCH (21:30)
[2016-06-27] MEDS ORDERED: FUROSEMIDE 40 MG/4 ML VIAL IVP ONE (22:00)
[2016-06-27] MEDS: TPN 1 EA BAG IV SCH (22:47)
[2016-06-28] MEDS: INSULIN REGULAR HUMAN 100 UNIT/ML SC SCH ×4 (00:30→18:43)
[2016-06-28] MEDS ORDERED: ALBUTEROL 3 ML DEYVIAL IH PRN (04:13)
[2016-06-28] MEDS: ALBUTEROL 60 PUFFS/8 GM MDI IH SCH ×4 (05:13→21:07)
[2016-06-28 05:30] LABS: HEMATOCRIT 36.5 % (40.0-51.0); HEMOGLOBIN 11.7 g/dL (13.7-17.5); MEAN CELL HEMOGLOBIN 29.8 pg (27.9-34.1); MEAN CELL HEMOGLOBIN CONCENTR. 32.1 g/dL (32.4-36.7); MEAN CELL VOLUME 93.1 fL (81.5-99.8); RED BLOOD CELL COUNT 3.92 10^6/uL (4.40-6.38); RED CELL DISTRIBUTION WIDTH 16.2 % (11.5-15.2)
[2016-06-28 06:08] LABS: ANION GAP 10 mEq/L (8-16); CALCIUM 8.5 mg/dL (8.5-10.4); CARBON DIOXIDE 27 mEq/l (22-31); CHLORIDE 110 mEq/L (97-110); CREATININE 1.8 mg/dL (0.7-1.3); GLOMERULAR FILTRATION RATE 36; GLUCOSE 133 mg/dL (70-100); MAGNESIUM 2.2 mg/dL (1.6-2.3); POTASSIUM 4.1 mEq/L (3.5-5.2); SODIUM 147 mEq/L (134-144)
[2016-06-28] MEDS: LEVOTHYROXINE 25 MCG TAB TUBE SCH (06:16)
--- NOTE | 2016-06-28 07:28 | DX ---
Portable Chest, 6:32 a.m. Clinical Indications: Followup postoperative pneumothorax Comparison: June 25 Findings: The patient has again rotated to the left. Increasing consolidation at the left base is con sistent with atelectasis. It is difficult to exclude a small bilateral pleural effusions. The heart r emains enlarged. It is difficult to exclude mild bilateral pulmonary edema or infiltrate vs density f rom soft tissue overlap. The pulmonary vascularity is stable. A tracheostomy appliance, a feeding tub e in a left arm PICC line remain in place. Impression: New left lower lobe atelectasis. No pneumothorax is identified.
--- NOTE | 2016-06-28 08:21 | PCMIDPN ---
Assessment/Plan: # Sepsis secondary to Klebsiella bacteremia with urinary source status post bladder rupture. Blood cultures repeated 06/28 to establish clearance of bacteremia --continue cefazolin. Patient was narrowed down from meropenem yesterday # Sacral decubitus status post debridement, noted no exposed bone # acute renal failure: Creatinine continues to improve creatinine 1.8. Will adjust cefazolin appropriately for renal function. Creatinine clearance still in the 40s therefore will continue Q 12 dosing today # respiratory failure likely related to sepsis from Klebsiella pneumonia. Patient now on trach collar. Trach aspirate with MSSA, unclear significance Antibiotics, # 4 Cefazolin 1 g IV Q 12, # 1 Subjective: Patient with large loose BM overnight, by report 1st bowel movement in 1 month Patient reports pain in the sacral region Levophed was stopped yesterday Objective: Vital Signs Temp Pulse Resp BP Pulse Ox 36.5 C 71 23 H 110/42 L 97 06/27/16 20:00 06/28/16 06:00 06/28/16 06:00 06/28/16 06:00 06/28/16 06:00 Microbiology 06/25/16 09:35 Blood Culture - Final Blood Klebsiella Pneumoniae 06/25/16 09:35 Blood Culture - Final Blood Klebsiella Pneumoniae 06/25/16 09:35 - Final Sputum, Induced/Suctioned Sputum Culture - Final Staphylococcus Aureus 06/25/16 11:03 Urine Culture - Final Urine,Clean Catch Klebsiella Pneumoniae Laboratory Results 06/28/16 05:05 06/28/16 05:05 06/27/16 06/28/16 06/29/16 05:59 05:59 05:59 Intake Total 4317 2309 Output Total 1850 2215 Balance 2467 94 - Physical Exam General Appearance: alert, no apparent distress, obese EENT: other (Fair dentition) Respiratory: other (Sternotomy scar almost completely healed; Decreased breath sounds in the bases), No accessory muscle use, No crackles Neck: other (Trach in place with trach collar, thick neck) Cardiac/Chest: regular rate, rhythm, No systolic murmur Extremities: pedal edema (Trace) Abdomen: normal bowel sounds, non-tender, soft Male Genitalia: other (Suprapubic catheter in place, significant ongoing hematuria) Skin: pallor, No jaundice, No rash Neuro/Psych: alert, other (Response to questions appropriately) - Line/s LUE PICC Lines: No drainage, No erythema ICD10 Worksheet Patient Problems: Problems Problem Status Diagnosed Acute blood loss anemia Acute Adenocarcinoma of prostate Acute CAD, multiple vessel Acute Chest pain Acute Chronic Disease Mgmt/Transitional Care Acute Fall Acute 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
[2016-06-28] MEDS: INSULIN GLARGINE 100 UNITS/ML SYRINGE SC SCH ×2 (08:24→22:00)
[2016-06-28] MEDS: BISACODYL 10 MG SUPP PR SCH (08:24)
[2016-06-28] MEDS: FUROSEMIDE 40 MG/4 ML VIAL IVP SCH (08:24)
[2016-06-28] MEDS: predniSONE 1 MG TAB TUBE SCH (08:24)
[2016-06-28] MEDS: AMIODARONE HCL 200 MG TAB TUBE SCH (08:24)
[2016-06-28] MEDS: SENNOSIDES 17.6 MG/10 ML UDL TUBE SCH ×2 (08:25→21:43)
[2016-06-28] MEDS: LANSOPRAZOLE SUSP 30MG/10ML UDSYR (Adult) TUBE SCH (08:29)
--- NOTE | 2016-06-28 08:45 | PDINTPN ---
Livestock Broker Progress Note Assessment/Plan: Assessment/Plan: * CABG X 5 and TV annuloplasty 05/30. * Respiratory Failure, on vent at night. Doing well on TC and P-M valve * Sepsis-urine likely source. -klebsiella -abx per ID * Bladder perforation. To OR 06/04. 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 * S/P trach * Pneumonia. Improve -CXR with LLL atelectasis -consider bronch * Hypotension. Resolved * ROSEANNA * Obesity/deconditioning. Present prior to surgery. * DM: On insulin coverage but requiring significant amounts of insulin coverage as well as in the TPN, in Lantus. BSs in mid 100s-200s * Atrial flutter - on amiodarone. Cardioverted and in NSR. * MAGUI: Creatinine stable today. Status post bladder repair and abdominal exploration. Ruptured bladder with fluid in the abdomen was present. * Anemia: Hct drifting down. Eliquis on hold. No evidence of active bleeding other than the hematuria. INR unchanged at 1.3 * Nutrition: TFs at 35ml/hr. -will reduce TPN today and stop after this bag * Hypernatremia: improved * Sacral Decubitus: Debrided in OR yesterday Case discussed with RT and nursing Overall, markedly better Subjective: Drowsy, but comfortable. Objective: Vital Signs Temp Pulse Resp BP Pulse Ox 36.5 C 71 23 H 110/42 L 97 06/27/16 20:00 06/28/16 06:00 06/28/16 06:00 06/28/16 06:00 06/28/16 06:00 Microbiology 06/25/16 09:35 Blood Culture - Final Blood Klebsiella Pneumoniae 06/25/16 09:35 Blood Culture - Final Blood Klebsiella Pneumoniae 06/25/16 09:35 - Final Sputum, Induced/Suctioned Sputum Culture - Final Staphylococcus Aureus 06/25/16 11:03 Urine Culture - Final Urine,Clean Catch Klebsiella Pneumoniae Laboratory Results 06/28/16 05:05 06/28/16 05:05 06/27/16 06/28/16 06/29/16 05:59 05:59 05:59 Intake Total 4317 2309 Output Total 1850 2215 Balance 2467 94 PT 15.7 SEC (12.0-15.0) H 06/24/16 13:15 INR 1.25 (0.83-1.16) H 06/24/16 13:15 CXR-reviewed by myself. New LLL atelectasis Physical Exam - Physical Exam General Appearance: alert, no apparent distress EENT: PERRL/EOMI, normal ENT inspection Neck: non-tender, full range of motion, supple, other (trach C&D) Respiratory: crackles (few), No respiratory distress, No wheezing Cardiac/Chest: normal peripheral pulses, regular rate, rhythm, systolic murmur Abdomen: normal bowel sounds, non-tender, soft Male Genitalia: deferred Rectal: deferred Skin: normal color, warm/dry Extremities: normal range of motion, non-tender, normal inspection, normal capillary refill ICD10 Worksheet Patient Problems: Problems Problem Status Diagnosed Acute blood loss anemia Acute Adenocarcinoma of prostate Acute CAD, multiple vessel Acute Chest pain Acute Chronic Disease Mgmt/Transitional Care Acute Fall Acute 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
--- NOTE | 2016-06-28 09:36 | SOAPPROG ---
SOAP Progress Note Assessment/Plan: POD#36 Urgent CABGx5 (Free FRANK-LAD, SVG-D1, sequential SVG-OM1-OM2, SVG-PLC), TVA #32 ring, IABP 1:1. POD#35 Take back for expl, washout right CED. Sternal closure w Maria Victoria auguste, jonatan. POD#24 Laparotomy, repair of bladder rupture, fulguration of bladder varix, drainage of intraperitoneal fluid, placement of suprapubic catheter. POD#24 Tracheostomy. POD#8 Cystoscopy, evac of clots, fulguration bleeding sites, removal of bello catheter. POD#1 Sacral debridement IV access per LUE PICC. Nutrition per TPN/DHT Acute [place], severe 3VD, post-infarction angina/IABP - s/p urgent CABGx5 compl by bleeding into rt chest requiring take-back. IABP support x 24h. Low dose pressor support x 72h. Tubes, wires, and jonatan out. Secondary prevention with BB, statin, and Eliquis (rhythm) when appropriate. ICM with systolic (EF 30%) and diastolic dysfunction (EDP 25) and class IV heart failure - Heart failure regimen as appropriate. Torrential TR - Post CPB. Amenable to annuloplasty. Antithrombotic prophylaxis as per PAF. 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 Surveillance per cardiology. Postoperative respiratory failure - Ventilator dependent. Trach placed. + PNA with completed abx course. Mucolytics, steroids, vent management per ICU. Tolerating CPAP/trach collar. Able to phonate. Acute expected blood loss anemia with coagulopathy - PRBC prn. Postoperative renal failure - Early postop MAGUI evolving into failure d/t obstructive uropathy. Improvement post bladder repair with recent increase in Cr due to hypotension. Cr lower today to 1.8. Monitor. Post-op AF/Flutter - Started on Amio. Adjunctive BB stopped d/t BP lability. Successful DC CVSN per cards 05/31 and amio stopped. Recurrent PAF as of 06/06 and Amio restarted. Ongoing prophylaxis thru mid Jun if QTc stable. [id number]- VASc score of 6. Antithrombotic prophylaxis with Eliquis when appropriate. DM2 - Suboptimal control by preop A1c of 8.4%. Blood sugar management per early childhood associate teacher. 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 Eliquis held. [address] bello and cont irrigation compl by bladder perf, peritonitis and shock. Bladder successfully repaired. Residual hematoma evacuated 06/20. Ongoing suprapubic irrigation and mgmt per urology. Post-op ileus - Serial CTs neg for mechanical obstruction. TF rate steadily increasing. +BM 06/28. TPN weaning off. Obesity and deconditioning - Non-ambulatory preop. Remains very weak, but is beginning to walk. LTAC for ongoing rehab planned. Stage II sacral decubitus - s/p debridement with Dr. Nunn 06/27/15. Continue pressure reduction/wound care. Hypothyroidism - Synthroid started. Urosepsis with Klebsiella - ABX changed to cefazolin 1g q12h as per ID Subjective: Denies pain. Comfortable. Objective: Vital Signs Temp Pulse Resp BP Pulse Ox 36.5 C 71 23 H 110/42 L 97 06/27/16 20:00 06/28/16 06:00 06/28/16 06:00 06/28/16 06:00 06/28/16 06:00 Microbiology 06/25/16 09:35 Blood Culture - Final Blood Klebsiella Pneumoniae 06/25/16 09:35 Blood Culture - Final Blood Klebsiella Pneumoniae 06/25/16 09:35 - Final Sputum, Induced/Suctioned Sputum Culture - Final Staphylococcus Aureus 06/25/16 11:03 Urine Culture - Final Urine,Clean Catch Klebsiella Pneumoniae Laboratory Results 06/28/16 05:05 06/28/16 05:05 06/27/16 06/28/16 06/29/16 05:59 05:59 05:59 Intake Total 4317 2309 Output Total 1850 2215 Balance 2467 94 PT 15.7 SEC (12.0-15.0) H 06/24/16 13:15 INR 1.25 (0.83-1.16) H 06/24/16 13:15 Physical Exam - Physical Exam General Appearance: alert, no apparent distress, obese EENT: No scleral icterus (R), No scleral icterus (L) Neck: normal inspection Respiratory: No respiratory distress Cardiac/Chest: regular rate, rhythm Abdomen: non-tender, soft, distended Skin: normal color, warm/dry Neuro/Psych: alert, normal mood/affect, motor weakness ICD10 Worksheet Patient Problems: Problems Problem Status Diagnosed Acute blood loss anemia Acute Adenocarcinoma of prostate Acute CAD, multiple vessel Acute Chest pain Acute Chronic Disease Mgmt/Transitional Care Acute Fall Acute 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
[2016-06-28] MEDS: fentaNYL 50 MCG PATCH TD SCH (12:16)
[2016-06-28 13:12] LABS: POTASSIUM 4.5 mEq/L (3.5-5.2)
[2016-06-28] MEDS: SODIUM HYPOCHLORITE (DAKINS 1/4 STR) 120 ML BTL TP SCH ×2 (15:45→21:45)
--- NOTE | 2016-06-28 17:01 | WOCRNPDOC ---
WOCRN Advanced Assessment Note - Skin Integrity Problem, Advanced Assess Sacrum Pressure Injury Dressing Type: Allevyn Life, Gauze Dressing Description: Intact Exudate Amount: Scant Exudate Color: Reddish/Yellow Exudate Characteristic(s): Serosanguinous Integumentary Issue Intervention: Dressing Applied Nena Wound Tissue: Blanching, Macerated Wound Bed Color: Brown, Red, Yellow Wound Bed Constitution: Granulation Tissue, Smooth Tissue, Muscle, Mixed Loose & Adhered Slough/Eschar Site Odor: None Site Measurement - Head-to-Toe Length X Width X Depth (cm): Proximal, sacral ( stage 4): 4.5cmx3.1cmx1.4cm; Distal:5x7x0.2 (extending distally and onto superior aspects of R and L buttocks) Pressure Injury Stage: Stage 4 Pressure Injury Present on Admit: No Skin Integrity Problem Comment: The proximal aspect of this wound is a full- thickness sacral pressure injury, w/ exposed muscle. No visible bone, but palpable w/ tissue layer covering. Wound bed is a mix of smooth tisue (60%) and adhered slough (40%). There is an area extending inferiorly w/partial-thickness tissue loss (bordering on full-thickness), that extends onto upper aspect of patient's medial buttocks, presently a mix of adhered slough (40%) and granulation tissue (60%). This tissue is moist and mildly exudative, adjacent to both sides of patient's rectum, which is not conducive to application of a wound vac. Nena-wound skin is mildly macerated along wound margins. Application of 1/4 strength Daikin's solution BID wet to dry dressings to wound through . Will re-assess Saturday 07/01.
[2016-06-28] MEDS: MELATONIN 3 MG TAB TUBE SCH (21:43)
[2016-06-29] MEDS: INSULIN REGULAR HUMAN 100 UNIT/ML SC SCH ×4 (00:36→17:40)
[2016-06-29] MEDS: ALBUTEROL 60 PUFFS/8 GM MDI IH SCH ×4 (03:18→21:53)
[2016-06-29 04:44] LABS: POTASSIUM 3.7 mEq/L (3.5-5.2)
[2016-06-29] MEDS: LEVOTHYROXINE 25 MCG TAB TUBE SCH (06:49)
--- NOTE | 2016-06-29 08:45 | PDINTPN ---
Freight Rate Clerk Progress Note Assessment/Plan: Assessment/Plan: * CABG X 5 and TV annuloplasty 05/30. * Respiratory Failure, on vent at night. Doing well on TC and P-M valve * Sepsis-urine likely source. -klebsiella -abx per ID * Bladder perforation. To OR 06/04. 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 * S/P trach * Pneumonia. Improved * Hypotension. Resolved * PT/OT-ambulating well * ROSEANNA * Obesity/deconditioning. Present prior to surgery. * DM: On insulin coverage but requiring significant amounts of insulin coverage as well as in the TPN, in Lantus. BSs in mid 100s-200s * Atrial flutter - on amiodarone. Cardioverted and in NSR. * MAGUI: Creatinine stable today. Status post bladder repair and abdominal exploration. Ruptured bladder with fluid in the abdomen was present. * Anemia: Hct drifting down. Eliquis on hold. No evidence of active bleeding other than the hematuria. INR unchanged at 1.3 * Nutrition: TFs at 35ml/hr. -will reduce TPN today and stop after this bag * Hypernatremia: improved * Sacral Decubitus: Debrided in OR yesterday * Dispo-query LTAC next week Overall, markedly better Subjective: Resting comfortably Objective: Vital Signs Temp Pulse Resp BP Pulse Ox 35.5 C L 72 18 119/48 L 97 06/29/16 08:00 06/29/16 08:00 06/29/16 08:00 06/29/16 08:00 06/29/16 08:00 Laboratory Results 06/28/16 05:05 06/29/16 04:10 06/28/16 06/29/16 06/30/16 05:59 05:59 05:59 Intake Total 2309 2235 Output Total 3215 1890 Balance -906 345 PT 15.7 SEC (12.0-15.0) H 06/24/16 13:15 INR 1.25 (0.83-1.16) H 06/24/16 13:15 Physical Exam - Physical Exam General Appearance: alert, no apparent distress EENT: PERRL/EOMI, normal ENT inspection Neck: non-tender, full range of motion, other (trach okay) Respiratory: crackles (few), No wheezing Cardiac/Chest: normal peripheral pulses, regular rate, rhythm Abdomen: normal bowel sounds, non-tender, soft Male Genitalia: deferred Rectal: deferred Skin: normal color, warm/dry Extremities: normal range of motion, non-tender, normal inspection, normal capillary refill Neuro/Psych: alert ICD10 Worksheet Patient Problems: Problems Problem Status Diagnosed Acute blood loss anemia Acute Adenocarcinoma of prostate Acute CAD, multiple vessel Acute Chest pain Acute Chronic Disease Mgmt/Transitional Care Acute Fall Acute 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
[2016-06-29] MEDS: predniSONE 1 MG TAB TUBE SCH (09:10)
[2016-06-29] MEDS: AMIODARONE HCL 200 MG TAB TUBE SCH (09:10)
[2016-06-29] MEDS: BISACODYL 10 MG SUPP PR SCH (09:10)
[2016-06-29] MEDS: SENNOSIDES 17.6 MG/10 ML UDL TUBE SCH ×2 (09:11→20:30)
[2016-06-29] MEDS: FUROSEMIDE 40 MG/4 ML VIAL IVP SCH (09:11)
[2016-06-29] MEDS: INSULIN GLARGINE 100 UNITS/ML SYRINGE SC SCH ×2 (09:11→20:31)
[2016-06-29] MEDS: SODIUM HYPOCHLORITE (DAKINS 1/4 STR) 120 ML BTL TP SCH ×2 (09:11→21:20)
[2016-06-29] MEDS: LANSOPRAZOLE SUSP 30MG/10ML UDSYR (Adult) TUBE SCH (09:13)
--- NOTE | 2016-06-29 09:14 | SOAPPROG ---
SOAP Progress Note Assessment/Plan: Assessment: 80yo male with multiple medical problems, s/p sacral debridement in OR PE awake, follows simple motor commands Back sacral wound without discharge or erythema, approx 5 x 7 cm. Plan: dressing changed, continue wound care as prescribed 06/29/16 09:13 Objective: Vital Signs Temp Pulse Resp BP Pulse Ox 35.5 C L 72 18 119/48 L 97 06/29/16 08:00 06/29/16 08:00 06/29/16 08:00 06/29/16 08:00 06/29/16 08:00 Laboratory Results 06/28/16 05:05 06/29/16 04:10 06/28/16 06/29/16 06/30/16 05:59 05:59 05:59 Intake Total 2309 2235 Output Total 3215 1890 Balance -906 345 PT 15.7 SEC (12.0-15.0) H 06/24/16 13:15 INR 1.25 (0.83-1.16) H 06/24/16 13:15 ICD10 Worksheet Patient Problems: Problems Problem Status Diagnosed Acute blood loss anemia Acute Adenocarcinoma of prostate Acute CAD, multiple vessel Acute Chest pain Acute Chronic Disease Mgmt/Transitional Care Acute Fall Acute 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
--- NOTE | 2016-06-29 09:31 | SOAPPROG ---
SOAP Progress Note Assessment/Plan: POD#37 Urgent CABGx5 (Free FRANK-LAD, SVG-D1, sequential SVG-OM1-OM2, SVG-PLC), TVA #32 ring, IABP 1:1. POD#36 Take back for expl, washout right CED. Sternal closure w Maria Victoria auguste, jonatan. POD#25 Laparotomy, repair of bladder rupture, fulguration of bladder varix, drainage of intraperitoneal fluid, placement of suprapubic catheter. POD#25 Tracheostomy. POD#9 Cystoscopy, evac of clots, fulguration bleeding sites, removal of bello catheter. POD#2 Sacral debridement IV access per LUE PICC. Nutrition per DHT Acute [place], severe 3VD, post-infarction angina/IABP - s/p urgent CABGx5 compl by bleeding into rt chest requiring take-back. IABP support x 24h. Low dose pressor support x 72h. Tubes, wires, and jonatan out. Secondary prevention with BB/statin/ASA when appropriate. ICM with systolic (EF 30%) and diastolic dysfunction (EDP 25) and class IV heart failure - Heart failure regimen as appropriate. Torrential TR - Post CPB. Amenable to annuloplasty. Antithrombotic prophylaxis as per PAF. 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 Surveillance per cardiology. Postoperative respiratory failure - Ventilator dependent. Trach placed. + PNA with completed abx course. Mucolytics, steroids, vent management per ICU. Tolerating CPAP/trach collar. Able to phonate. Acute blood loss anemia with coagulopathy - PRBC prn. Postoperative renal failure - Early postop MAGUI evolving into failure d/t obstructive uropathy. Improvement post bladder repair with recent increase in Cr due to hypotension. Cr trending lower with good UOP and response to Lasix. Monitor. Post-op AF/Flutter - Started on Amio. Adjunctive BB stopped d/t BP lability. Successful DC CVSN per cards 05/31 and amio stopped. Recurrent PAF as of 06/06 and Amio restarted. [id number] score of 6. Antithrombotic prophylaxis with Eliquis when appropriate. DM2 - Suboptimal control by preop A1c of 8.4%. Blood sugar management per pr specialist. 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 Eliquis held. [address] bello and cont irrigation compl by bladder perf, peritonitis and shock. Bladder successfully repaired. Residual hematoma evacuated 06/20. Ongoing suprapubic irrigation and mgmt per urology. Post-op ileus - Serial CTs neg for mechanical obstruction. TF rate steadily increasing. +BM 06/28. TPN off. Obesity and deconditioning - Non-ambulatory preop. Remains very weak, but is beginning to walk. LTAC for ongoing rehab planned. Stage II sacral decubitus - s/p debridement with Dr. Nunn 06/27/15. Continue pressure reduction/wound care. Hypothyroidism - Synthroid started. Urosepsis with Klebsiella - ABX changed to cefazolin 1g q12h as per ID. Day 2. 06/29/16 09:30 06/29/16 09:38 Subjective: C/O sacral pain, otherwise comfortable. Daughter bedside and updated. Objective: Vital Signs Temp Pulse Resp BP Pulse Ox 35.5 C L 72 18 119/48 L 97 06/29/16 08:00 06/29/16 08:00 06/29/16 08:00 06/29/16 08:00 06/29/16 08:00 Laboratory Results 06/28/16 05:05 06/29/16 04:10 06/28/16 06/29/16 06/30/16 05:59 05:59 05:59 Intake Total 2309 2235 Output Total 3215 1890 Balance -906 345 PT 15.7 SEC (12.0-15.0) H 06/24/16 13:15 INR 1.25 (0.83-1.16) H 06/24/16 13:15 Physical Exam - Physical Exam General Appearance: alert, no apparent distress, obese EENT: No scleral icterus (R), No scleral icterus (L) Neck: normal inspection Respiratory: No respiratory distress, No accessory muscle use Cardiac/Chest: regular rate, rhythm, No edema Abdomen: non-tender, soft, No distended, No guarding Skin: normal color, warm/dry Extremities: No pedal edema, No swelling Neuro/Psych: alert, normal mood/affect, motor weakness ICD10 Worksheet Patient Problems: Problems Problem Status Diagnosed Acute blood loss anemia Acute Adenocarcinoma of prostate Acute CAD, multiple vessel Acute Chest pain Acute Chronic Disease Mgmt/Transitional Care Acute Fall Acute 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
--- NOTE | 2016-06-29 09:33 | PCMIDPN ---
Assessment/Plan: Assessment/Plan: 1. Sepsis secondary to klebsiella bacteremia, UTI: - hx of bladder rupture. Bello in place with ongoing hematuria -Susceptibility profile reviewed on all cx. -Currently on Ancef. --renally dosed -f/u blood cx from 06/28/16 ngtd. - Continue current therapy 2. Respiratory failure: - CXr with bilateraly infiltrates, Pulm edema vs atelectasis, vs pneumonia - trach aspirate with MSSA. - ANyways, covered by Ancef. Meds Ancef 1g q12- 06/27/16 s/p merem 06/25-06/27 Subjective: Afebrile. Remains in ICU. Trach collar. Denies abd pain. Bello in place, bloody. Objective: Vital Signs Temp Pulse Resp BP Pulse Ox 35.5 C L 72 18 119/48 L 97 06/29/16 08:00 06/29/16 08:00 06/29/16 08:00 06/29/16 08:00 06/29/16 08:00 Laboratory Results 06/28/16 05:05 06/29/16 04:10 06/28/16 06/29/16 06/30/16 05:59 05:59 05:59 Intake Total 2309 2235 Output Total 3215 1890 Balance -906 345 - Physical Exam General Appearance: alert EENT: other (trach collar) Respiratory: coarse breath sounds Cardiac/Chest: regular rate, rhythm Extremities: No swelling Abdomen: normal bowel sounds, non-tender, soft, No distended Male Genitalia: bello (bloody urine) Skin: No erythema ICD10 Worksheet Patient Problems: Problems Problem Status Diagnosed Acute blood loss anemia Acute Adenocarcinoma of prostate Acute CAD, multiple vessel Acute Chest pain Acute Chronic Disease [facility]/Transitional Care Acute Fall Acute 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
[2016-06-29 12:02] LABS: ANION GAP 9 mEq/L (8-16); CALCIUM 8.7 mg/dL (8.5-10.4); CARBON DIOXIDE 29 mEq/l (22-31); CHLORIDE 107 mEq/L (97-110); CREATININE 1.7 mg/dL (0.7-1.3); GLOMERULAR FILTRATION RATE 39; GLUCOSE 168 mg/dL (70-100); POTASSIUM 3.8 mEq/L (3.5-5.2); SODIUM 145 mEq/L (134-144)
[2016-06-29] MEDS: D5W 1,000 ML IV SCH (12:20)
[2016-06-29] MEDS ORDERED: GOLYTELY 4000 ML BTL PO ONE (13:14)
[2016-06-29] MEDS ORDERED: diphenhydrAMINE 25 MG CAP PO ONE (20:26)
[2016-06-29] MEDS ORDERED: METOCLOPRAMIDE 10 MG/2 ML VIAL ONE (20:26)
[2016-06-29] MEDS: MELATONIN 3 MG TAB TUBE SCH (20:30)
[2016-06-30] MEDS: INSULIN REGULAR HUMAN 100 UNIT/ML SC SCH ×5 (00:16→23:08)
[2016-06-30] MEDS: ALBUTEROL 60 PUFFS/8 GM MDI IH SCH ×4 (03:45→21:25)
[2016-06-30] MEDS: LEVOTHYROXINE 25 MCG TAB TUBE SCH (05:31)
[2016-06-30 05:41] LABS: HEMATOCRIT 29.9 % (40.0-51.0); HEMOGLOBIN 9.9 g/dL (13.7-17.5); MEAN CELL HEMOGLOBIN 30.6 pg (27.9-34.1); MEAN CELL HEMOGLOBIN CONCENTR. 33.1 g/dL (32.4-36.7); MEAN CELL VOLUME 92.3 fL (81.5-99.8); RED BLOOD CELL COUNT 3.24 10^6/uL (4.40-6.38); RED CELL DISTRIBUTION WIDTH 15.1 % (11.5-15.2)
[2016-06-30 06:17] LABS: ANION GAP 11 mEq/L (8-16); CALCIUM 8.5 mg/dL (8.5-10.4); CARBON DIOXIDE 25 mEq/l (22-31); CHLORIDE 109 mEq/L (97-110); CREATININE 1.8 mg/dL (0.7-1.3); GLOMERULAR FILTRATION RATE 36; GLUCOSE 106 mg/dL (70-100); POTASSIUM 3.2 mEq/L (3.5-5.2); SODIUM 145 mEq/L (134-144)
[2016-06-30] MEDS ORDERED: POTASSIUM CL 10 MEQ TAB PO ONE (06:25)
--- NOTE | 2016-06-30 08:07 | PCMIDPN ---
Assessment/Plan: Assessment/Plan: 1. Sepsis secondary to klebsiella bacteremia, UTI: - hx of bladder rupture. Bello in place with ongoing hematuria -Susceptibility profile reviewed on all cx. -Currently on Ancef. --renally dosed -f/u blood cx from 06/28/16 ngtd. wbc improved. -On D# 3/ - secretions minimal. - Continue current therapy 2. Respiratory failure: - CXr with bilateraly infiltrates, Pulm edema vs atelectasis, vs pneumonia - trach aspirate with MSSA. - Anyways, covered by Ancef. Meds Ancef 1g q12- 06/27/16 s/p merem 06/25-06/27 Subjective: Afebrile. Remains in icu, trach on vent at present. awake. Denies pain. Some discomfort wit bello. no overnight event per RN. Objective: Vital Signs Temp Pulse Resp BP Pulse Ox 36.8 C 66 22 H 91/50 L 96 06/30/16 02:00 06/30/16 06:00 06/30/16 06:00 06/30/16 06:00 06/30/16 06:00 Laboratory Results 06/30/16 05:30 06/30/16 05:30 06/29/16 06/30/16 07/01/16 05:59 05:59 05:59 Intake Total 2235 1924 Output Total 1890 670 Balance 345 1254 - Physical Exam General Appearance: alert, no apparent distress EENT: other (trach-on vent at present) Respiratory: coarse breath sounds Cardiac/Chest: regular rate, rhythm Extremities: No swelling Abdomen: normal bowel sounds, non-tender, soft, No distended Male Genitalia: bello (with hematuria) Skin: No rash ICD10 Worksheet Patient Problems: Problems Problem Status Diagnosed Acute blood loss anemia Acute Adenocarcinoma of prostate Acute CAD, multiple vessel Acute Chest pain Acute Chronic Disease Mgmt/Transitional Care Acute Fall Acute 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
--- NOTE | 2016-06-30 08:34 | DX ---
Portable chest x-ray service December 19 hours. History: Followup effusions. Findings: Comparison to June 28, 2016. Tracheostomy, feeding tube, and PICC line remain in place. Heart size remains mild to moderately enla rged. Pulmonary vasculature is mildly prominent centrally stable in appearance. There is stable hazin ess at the lung bases compatible with effusion layering posteriorly and adjacent atelectasis. There a re no new areas of consolidation. Impression: 1. Stable mild bilateral pleural effusions suspected with adjacent compressive atelectatic change at the lung bases. 2. No new abnormality.
[2016-06-30] MEDS: INSULIN GLARGINE 100 UNITS/ML SYRINGE SC SCH ×2 (09:30→21:18)
--- NOTE | 2016-06-30 09:38 | SOAPPROG ---
SOAP Progress Note Assessment/Plan: POD#38 Urgent CABGx5 (Free FRANK-LAD, SVG-D1, sequential SVG-OM1-OM2, SVG-PLC), TVA #32 ring, IABP 1:1. POD#37 Take back for expl, washout right CED. Sternal closure w Maria Victoria auguste, jonatan. POD#26 Laparotomy, repair of bladder rupture, fulguration of bladder varix, drainage of intraperitoneal fluid, placement of suprapubic catheter. POD#26 Tracheostomy. POD#10 Cystoscopy, evac of clots, fulguration bleeding sites, removal of bello catheter. POD#3 Sacral debridement IV access per LUE PICC. Nutrition per DHT Acute [place], severe 3VD, post-infarction angina/IABP - s/p urgent CABGx5 compl by bleeding into rt chest requiring take-back. IABP support x 24h. Low dose pressor support x 72h. Tubes, wires, and jonatan out. Secondary prevention with BB/statin/ASA when appropriate. ICM with systolic (EF 30%) and diastolic dysfunction (EDP 25) and class IV heart failure - Heart failure regimen as appropriate. Torrential TR - Post CPB. Amenable to annuloplasty. Antithrombotic prophylaxis as per PAF. 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 Surveillance per cardiology. Postoperative respiratory failure - Ventilator dependent. Trach placed. + PNA with completed abx course. Mucolytics, steroids, vent management per ICU. Tolerating CPAP/trach collar. Able to phonate. Acute blood loss anemia with coagulopathy - PRBC prn. Postoperative renal failure - Early postop MAGUI evolving into failure d/t obstructive uropathy. Improvement post bladder repair with recent increase in Cr due to hypotension. Cr trending lower with good UOP and response to Lasix. Monitor. Post-op AF/Flutter - Started on Amio. Adjunctive BB stopped d/t BP lability. Successful DC CVSN per cards 05/31 and amio stopped. Recurrent PAF as of 06/06 and Amio restarted. [id number] score of 6. Antithrombotic prophylaxis with Eliquis when appropriate. DM2 - Suboptimal control by preop A1c of 8.4%. Blood sugar management per silverware washer. 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 Eliquis held. [address] bello and cont irrigation compl by bladder perf, peritonitis and shock. Bladder successfully repaired. Residual hematoma evacuated 06/20. Ongoing suprapubic irrigation and mgmt per urology. Post-op ileus - Serial CTs neg for mechanical obstruction. TF rate steadily increasing. +BM 06/28. TPN off. Residuals > 200 cc over night and last check was 30 cc. TFs back at 10 cc/h. Obesity and deconditioning - Non-ambulatory preop. Remains very weak, but is beginning to walk. LTAC for ongoing rehab planned. Stage II sacral decubitus - s/p debridement with Dr. Nunn 06/27/15. Continue pressure reduction/wound care. Hypothyroidism - Continue Synthroid Urosepsis with Klebsiella sensitive to cefazolin - 1g q12h as per ID - Day 09/03 Subjective: Denies pain. Comfortable. Objective: Vital Signs Temp Pulse Resp BP Pulse Ox 36.7 C 67 22 H 97/43 L 97 06/30/16 08:00 06/30/16 08:00 06/30/16 08:00 06/30/16 08:00 06/30/16 08:00 Laboratory Results 06/30/16 05:30 06/30/16 05:30 06/29/16 06/30/16 07/01/16 05:59 05:59 05:59 Intake Total 2235 1924 Output Total 1890 670 Balance 345 1254 PT 15.7 SEC (12.0-15.0) H 06/24/16 13:15 INR 1.25 (0.83-1.16) H 06/24/16 13:15 Physical Exam - Physical Exam General Appearance: alert, no apparent distress, obese EENT: No scleral icterus (R), No scleral icterus (L) Neck: normal inspection Respiratory: No respiratory distress, No accessory muscle use Cardiac/Chest: regular rate, rhythm Abdomen: non-tender, soft, No distended, No guarding Skin: normal color, warm/dry Extremities: No pedal edema, No swelling Neuro/Psych: alert, normal mood/affect, motor weakness ICD10 Worksheet Patient Problems: Problems Problem Status Diagnosed Acute blood loss anemia Acute Adenocarcinoma of prostate Acute CAD, multiple vessel Acute Chest pain Acute Chronic Disease Mgmt/Transitional Care Acute Fall Acute 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
--- NOTE | 2016-06-30 09:42 | PDINTPN ---
Education Liaison Progress Note Assessment/Plan: Assessment/Plan: * CABG X 5 and TV annuloplasty 05/30. * Respiratory Failure, on vent at night. Doing well on TC and P-M valve * Sepsis-urine likely source. -klebsiella -abx per ID * Bladder perforation. To OR 06/04. 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 * S/P trach * Pneumonia. Improved * Hypotension. Resolved * PT/OT-ambulating well * ROSEANNA * Obesity/deconditioning. Present prior to surgery. * DM: On insulin coverage * Atrial flutter - on amiodarone. Cardioverted and in NSR. * MAGUI: Creatinine stable today. Status post bladder repair and abdominal exploration. Ruptured bladder with fluid in the abdomen was present. * Anemia: Hct drifting down. * Nutrition: TFs at 35ml/hr. -will reduce TPN today and stop after this bag * Hypernatremia: improved * Sacral Decubitus: Debrided in OR yesterday * Dispo-query LTAC next week Overall, markedly better Subjective: Resting comfortably Objective: Vital Signs Temp Pulse Resp BP Pulse Ox 36.7 C 67 22 H 97/43 L 97 06/30/16 08:00 06/30/16 08:00 06/30/16 08:00 06/30/16 08:00 06/30/16 08:00 Laboratory Results 06/30/16 05:30 06/30/16 05:30 06/29/16 06/30/16 07/01/16 05:59 05:59 05:59 Intake Total 2235 1924 Output Total 1890 670 Balance 345 1254 PT 15.7 SEC (12.0-15.0) H 06/24/16 13:15 INR 1.25 (0.83-1.16) H 06/24/16 13:15 Physical Exam - Physical Exam General Appearance: alert, no apparent distress EENT: PERRL/EOMI, normal ENT inspection Neck: non-tender, full range of motion, other (trach) Respiratory: crackles (few), No respiratory distress, No stridor, No wheezing Cardiac/Chest: normal peripheral pulses, regular rate, rhythm Abdomen: normal bowel sounds, non-tender, soft Male Genitalia: deferred Rectal: deferred Skin: normal color, warm/dry Extremities: normal range of motion, non-tender ICD10 Worksheet Patient Problems: Problems Problem Status Diagnosed Acute blood loss anemia Acute Adenocarcinoma of prostate Acute CAD, multiple vessel Acute Chest pain Acute Chronic Disease Mgmt/Transitional Care Acute Fall Acute 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
[2016-06-30] MEDS ORDERED: ALBUMIN 5% 500 ML IV ONE (09:52)
[2016-06-30] MEDS: POTASSIUM Cl (KCl) 50 ML IV PRN ×2 (10:15→11:12)
[2016-06-30] MEDS: AMIODARONE HCL 200 MG TAB TUBE SCH (10:16)
[2016-06-30] MEDS: LANSOPRAZOLE SUSP 30MG/10ML UDSYR (Adult) TUBE SCH (10:16)
[2016-06-30] MEDS: SENNOSIDES 17.6 MG/10 ML UDL TUBE SCH ×2 (10:16→21:10)
[2016-06-30] MEDS: predniSONE 1 MG TAB TUBE SCH (10:17)
[2016-06-30] MEDS: D5W 1,000 ML IV SCH (10:17)
[2016-06-30] MEDS: BISACODYL 10 MG SUPP PR SCH (10:17)
[2016-06-30] MEDS: FUROSEMIDE 40 MG/4 ML VIAL IVP SCH (10:17)
[2016-06-30] MEDS: SODIUM HYPOCHLORITE (DAKINS 1/4 STR) 120 ML BTL TP SCH ×2 (11:07→21:11)
[2016-06-30] MEDS: GOLYTELY 4000 ML BTL PO SCH ×2 (11:16→18:04)
[2016-06-30] MEDS ORDERED: POTASSIUM CL 20 MEQ PKT ONE (11:42)
[2016-06-30 14:36] LABS: POTASSIUM 3.8 mEq/L (3.5-5.2)
[2016-06-30] MEDS ORDERED: POTASSIUM Cl (KCl) 50 ML IV ONE ×2 (15:49→20:59)
[2016-06-30] MEDS: ACETAMINOPHEN 650 MG/20.3 ML UDCUP TUBE PRN (21:10)
[2016-06-30] MEDS: MELATONIN 3 MG TAB TUBE SCH (21:10)
--- NOTE | 2016-06-30 21:23 | GOP ---
[f rep st] OPERATIVE REPORT DATE OF OPERATION: 06/27/2016 SURGEON: Alan Nunn MD LEAD SECTION SUPERVISOR: William Bahena PA-C PREOPERATIVE DIAGNOSIS: Sacral decubitus. POSTOPERATIVE DIAGNOSIS: Sacral decubitus. PROCEDURE PERFORMED: Excisional debridement of sacral decubitus. FINDINGS: Patient is found to have a 4 x 5 cm sacral decubitus which was full thickness into the sub cutaneous tissue. Bone was not exposed. There were no purulent pockets. DESCRIPTION OF PROCEDURE: Patient taken to the operating room where he received satisfactory monitor ed anesthesia care and IV sedation. He was placed in the left lateral decubitus position. Prepped a nd draped in usual sterile fashion. The area was infiltrated 0.5% Marcaine. An excisional debrideme nt of a 4 x 5 cm area was then done down to good bleeding subcutaneous tissue without exposure of the bone. Hemostasis was thoroughly obtained. The wound was further infiltrated with 0.5% Marcaine and dressed with some gauze packing. He tolerated the procedure well and was taken recovery room in goo d condition. There were no complications. /[id number]/MODL
[2016-07-01] MEDS: GOLYTELY 4000 ML BTL PO SCH ×3 (00:05→12:00)
[2016-07-01] MEDS: ALBUTEROL 60 PUFFS/8 GM MDI IH SCH ×4 (03:07→22:41)
[2016-07-01 04:36] LABS: HEMATOCRIT 30.7 % (40.0-51.0); MEAN CELL HEMOGLOBIN 30.8 pg (27.9-34.1); MEAN CELL HEMOGLOBIN CONCENTR. 32.6 g/dL (32.4-36.7); MEAN CELL VOLUME 94.5 fL (81.5-99.8); RED BLOOD CELL COUNT 3.25 10^6/uL (4.40-6.38); RED CELL DISTRIBUTION WIDTH 15.1 % (11.5-15.2)
[2016-07-01 04:44] LABS: ANION GAP 9 mEq/L (8-16); CALCIUM 8.1 mg/dL (8.5-10.4); CARBON DIOXIDE 27 mEq/l (22-31); CHLORIDE 107 mEq/L (97-110); CREATININE 1.8 mg/dL (0.7-1.3); GLOMERULAR FILTRATION RATE 36; GLUCOSE 130 mg/dL (70-100); SODIUM 143 mEq/L (134-144)
[2016-07-01] MEDS: LEVOTHYROXINE 25 MCG TAB TUBE SCH (06:19)
[2016-07-01] MEDS: D5W 1,000 ML IV SCH (06:20)
[2016-07-01] MEDS: INSULIN REGULAR HUMAN 100 UNIT/ML SC SCH ×4 (06:20→23:53)
--- NOTE | 2016-07-01 06:44 | SOAPPROG ---
SOAP Progress Note Assessment/Plan: POD#39 Urgent CABGx5 (Free FRANK-LAD, SVG-D1, sequential SVG-OM1-OM2, SVG-PLC), TVA #32 ring, IABP 1:1. POD#38 Take back for expl, washout right CED. Sternal closure w Maria Victoria auguste, jonatan. POD#27 Laparotomy, repair of bladder rupture, fulguration of bladder varix, drainage of intraperitoneal fluid, placement of suprapubic catheter. POD#27 Tracheostomy. POD#11 Cystoscopy, evac of clots, fulguration bleeding sites, removal of bello catheter. POD#4 Sacral debridement IV access per LUE PICC. Nutrition per DHT Acute [place], severe 3VD, post-infarction angina/IABP - s/p urgent CABGx5 compl by bleeding into rt chest requiring take-back. IABP support x 24h. Low dose pressor support x 72h. Tubes, wires, and jonatan out. Secondary prevention with BB/statin/ASA when appropriate. ICM with systolic (EF 30%) and diastolic dysfunction (EDP 25) and class IV heart failure - Heart failure regimen as appropriate. Torrential TR - Post CPB. Amenable to annuloplasty. Antithrombotic prophylaxis as per PAF. 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 Surveillance per cardiology. Postoperative respiratory failure - Ventilator dependent. Trach placed. + PNA with completed abx course. Mucolytics, steroids, vent management per ICU. Tolerating CPAP/trach collar. Able to phonate. Acute blood loss anemia with coagulopathy - PRBC prn. Postoperative renal failure - Early postop MAGUI evolving into failure d/t obstructive uropathy. Improvement post bladder repair with recent increase in Cr due to hypotension. Cr trending lower with good UOP and response to Lasix. Monitor. Post-op AF/Flutter - Started on Amio. Adjunctive BB stopped d/t BP lability. Successful DC CVSN per cards 05/31 and amio stopped. Recurrent PAF as of 06/06 and Amio restarted. [id number] score of 6. Antithrombotic prophylaxis with Eliquis when appropriate. DM2 - Suboptimal control by preop A1c of 8.4%. Blood sugar management per flexible nanny. 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 Eliquis held. [address] bello and cont irrigation compl by bladder perf, peritonitis and shock. Bladder successfully repaired. Residual hematoma evacuated 06/20. Ongoing suprapubic irrigation and mgmt per urology. Post-op ileus - Serial CTs neg for mechanical obstruction. TF rate steadily increasing. +BM 06/28. TPN off. TFs with flushes tolerated. Obesity and deconditioning - Non-ambulatory preop. Remains very weak, but is beginning to walk. LTAC for ongoing rehab planned. Stage II sacral decubitus - s/p debridement with Dr. Nunn 06/27/15. Continue pressure reduction/wound care. Hypothyroidism - Continue Synthroid Urosepsis with Klebsiella sensitive to cefazolin - 1g q12h as per ID - Day 10/04 Subjective: Denies pain. Objective: Vital Signs Temp Pulse Resp BP Pulse Ox 36.7 C 73 22 H 108/42 L 100 07/01/16 04:00 07/01/16 06:00 07/01/16 06:00 07/01/16 04:00 07/01/16 06:00 Laboratory Results 07/01/16 04:10 07/01/16 04:10 06/30/16 07/01/16 07/02/16 05:59 05:59 05:59 Intake Total 1924 3169 Output Total 670 1300 Balance 1254 1869 PT 15.7 SEC (12.0-15.0) H 06/24/16 13:15 INR 1.25 (0.83-1.16) H 06/24/16 13:15 Physical Exam - Physical Exam General Appearance: alert, no apparent distress, obese EENT: No scleral icterus (R), No scleral icterus (L) Neck: normal inspection Respiratory: No respiratory distress, No accessory muscle use Cardiac/Chest: regular rate, rhythm Abdomen: non-tender, soft, No distended, No guarding Skin: normal color, warm/dry Extremities: No pedal edema, No swelling Neuro/Psych: alert, motor weakness ICD10 Worksheet Patient Problems: Problems Problem Status Diagnosed Acute blood loss anemia Acute Adenocarcinoma of prostate Acute CAD, multiple vessel Acute Chest pain Acute Chronic Disease Mgmt/Transitional Care Acute Fall Acute 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
[2016-07-01] MEDS: SENNOSIDES 17.6 MG/10 ML UDL TUBE SCH ×2 (08:56→20:22)
[2016-07-01] MEDS: SODIUM HYPOCHLORITE (DAKINS 1/4 STR) 120 ML BTL TP SCH ×2 (08:56→22:41)
[2016-07-01] MEDS: FUROSEMIDE 40 MG/4 ML VIAL IVP SCH (08:56)
[2016-07-01] MEDS: INSULIN GLARGINE 100 UNITS/ML SYRINGE SC SCH ×2 (08:56→20:22)
[2016-07-01] MEDS: BISACODYL 10 MG SUPP PR SCH (08:57)
[2016-07-01] MEDS: predniSONE 1 MG TAB TUBE SCH (08:57)
[2016-07-01] MEDS: AMIODARONE HCL 200 MG TAB TUBE SCH (08:57)
[2016-07-01] MEDS: LANSOPRAZOLE SUSP 30MG/10ML UDSYR (Adult) TUBE SCH (09:00)
--- NOTE | 2016-07-01 09:53 | WOCRNPDOC ---
WOCRN Advanced Assessment Note - Skin Integrity Problem, Advanced Assess Sacrum Pressure Injury Dressing Type: ABD Pad, Gauze Dressing Description: Clean/Dry, Intact Exudate Amount: Scant Exudate Characteristic(s): Serosanguinous Integumentary Issue Intervention: Dressing Changed Christina Wound Tissue: Macerated (from 4-7 oclock ) Wound Bed Constitution: Granulation Tissue (50% along inferior margin), Smooth Tissue (50% of superior wound where the debridment had occured), Subcutaneous Fat, Fascia Wound Edges: Epithelizing, Attached Site Odor: None Site Measurement - Head-to-Toe Length X Width X Depth (cm): 6.5x6.5x2 Pressure Injury Stage: Stage 4 Pressure Injury Present on Admit: No Skin Integrity Problem Comment: Pt lying on top of pillows on side. Education with Marsha Larson RN about pillow placement to float sacrum/coccyx. Recommend strongly that patient be back on Clinitron mattress as offloading is inconsistently done well. Patient has briefs, chux, glide sheet and flat sheet. Explained to RN that layers must be minimized to reduce heat and moisture and for mattress to be able to work appropriately. Do not place briefs under sacrum/coccyx. OK to cover groin. Discussed with patient who is in agreement with changing back to the clinitron mattress. Reported change to CTL and manager knowledge. Will discuss with PT. Wound was cleaned with ns. Skin barrier applied christina wound and hydrofera blue tunneling placed in superior cavity and then 1/2 a hydrofera blue was cut to fit over remainder of wound bed. It was secured with tegaderm to try and keep stool from entering wound. Pt would benefit from a wound vac, however with the current bowel program and suppositories it would likely frequently become contaminated with stool.
[2016-07-01] MEDS: ACETAMINOPHEN 650 MG/20.3 ML UDCUP TUBE PRN ×2 (10:09→20:21)
[2016-07-01] MEDS: ONDANSETRON 4 MG/2 ML VIAL IVP PRN (12:58)
--- NOTE | 2016-07-01 15:25 | PDINTPN ---
Senior Game Developer Progress Note Assessment/Plan: Assessment: * CABG X 5 and TV annuloplasty 05/30. * Respiratory Failure, on vent at night. Doing well on TC and P-M valve * Sepsis-urine likely source. -klebsiella, staph: On cephalexin * Bladder perforation. To OR 06/04. 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 * S/P trach * Pneumonia. Improved * Hypotension. Resolved * PT/OT-ambulating well * ROSEANNA * Obesity/deconditioning. Present prior to surgery. * DM: On insulin coverage * Atrial flutter - on amiodarone. Cardioverted and in NSR. * MAGUI: Creatinine stable today. Status post bladder repair and abdominal exploration. Ruptured bladder with fluid in the abdomen was present. * Anemia: Hct 30. * Nutrition: TFs at [facility]. Ileus persists. Off TPN. * Hypernatremia: improved * Sacral Decubitus: Debrided intermittently * Dispo-LTAC possibly tomorrow or Friday? Will discuss with discharge planners * Depression: Patient is quite discouraged regarding current condition and prolonged hospital stay without definite and insight. Plan: Continue present care in the intensive care unit. Follow H&H and lab intermittently. Continue ambulation as tolerated. Increase tube feedings if tolerated. Continue antibiotics. Will work with discharge planning regarding timing of transfer to LTAC. 45 minutes of critical care time spent directly with pt. Discussed with patient 's son, cardiovascular surgery, nursing, respiratory, and the ICU multi disciplinary team. Objective: Vital Signs Temp Pulse Resp BP Pulse Ox 36.6 C 87 20 109/50 L 97 07/01/16 08:00 07/01/16 14:00 07/01/16 14:00 07/01/16 14:00 07/01/16 14:00 Laboratory Results 07/01/16 04:10 07/01/16 04:10 06/30/16 07/01/16 07/02/16 05:59 05:59 05:59 Intake Total 1924 3169 Output Total 670 1300 Balance 1254 1869 PT 15.7 SEC (12.0-15.0) H 06/24/16 13:15 INR 1.25 (0.83-1.16) H 06/24/16 13:15 ICD10 Worksheet Patient Problems: Problems Problem Status Diagnosed Acute blood loss anemia Acute Adenocarcinoma of prostate Acute CAD, multiple vessel Acute Chest pain Acute Chronic Disease Mgmt/Transitional Care Acute Fall Acute 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
--- NOTE | 2016-07-01 16:04 | DX ---
Portable AP Supine Abdomen at 3:09 p.m. Clinical History: 80-year-old male in the ICU, for reevaluation after a nasogastric tube placement. Comparison Studies: Abdominal radiography dated June 04, 2016, and chest radiography dated 2016. Findings: The tip of the Dobbhoff tube terminates over the gastric antrum. Telemetry monitoring leonel d lines are present. There are median sternotomy wires. A left-sided PICC line terminates over the right atrium. The cardiac silhouette remains enlarged, and the chest is incompletely evaluated. The re is some air and fecal material in portions of the colon. There are degenerative features of the s pine. Impression: The Dobbhoff feeding tube terminates at the level of the gastric antrum.
--- NOTE | 2016-07-01 18:23 | DX ---
AP Abdomen, 2 Views, at 6:07 p.m. Clinical History: 80-year-old male for reevaluation of a small bowel feeding tube, after advancement another 10 cm. Comparison Study: Abdominal radiography earlier today at 3:09 p.m. Findings: The Dobbhoff feeding tube terminates to the right of midline at the pyloroduodenal bulb xavier ction. Median sternotomy wires and mediastinal surgical clips consistent with prior CABG are noted, a nd there is a left-sided PICC line which terminates at the SVC/right atrial junction. A cardiac valvu lar prosthesis is noted. The heart is enlarged, and the pulmonary vasculature is congested. There is persistent left retrocardiac pleural parenchymal consolidation. The bowel gas pattern seen in the upp er abdomen is normal (this exam was excluded below the level of the iliac crests). Impression: The feeding tube terminates at the pyloroduodenal bulb junction.
--- NOTE | 2016-07-01 18:32 | PCMIDPN ---
Assessment/Plan: Assessment/Plan: * Severe sepsis due to Klebsiella pneumoniae bacteremia likely of urinary etiology: Blood culture show clearing of bacteremia when obtained on 06/28/2016. White blood cell count has normalized. Overall clinically improved. Plan 2 weeks of cefazolin post clearance of blood cultures with antibiotic stop date of 07/12/2016. 07/01/16 18:29 07/01/16 18:30 Subjective: Patient without specific complaints. No abdominal pain. Objective: Vital Signs Temp Pulse Resp BP Pulse Ox 36.6 C 77 19 124/39 H 99 07/01/16 08:00 07/01/16 16:00 07/01/16 16:00 07/01/16 16:00 07/01/16 16:00 Laboratory Results 07/01/16 04:10 07/01/16 04:10 06/30/16 07/01/16 07/02/16 05:59 05:59 05:59 Intake Total 1924 3169 Output Total 670 1300 Balance 1254 1869 Cefazolin # 4 Antibiotics # 7 Blood cultures 06/28/2016 no growth - Physical Exam General Appearance: alert, no apparent distress EENT: pharynx normal, No scleral icterus Respiratory: lungs clear (Anterolaterally), No respiratory distress Cardiac/Chest: regular rate, rhythm Abdomen: non-tender, distended (Mild), other (Incision intact; no erythema or drainage) Male Genitalia: other (Small amount of blood at urethral meatus) ICD10 Worksheet Patient Problems: Problems Problem Status Diagnosed Acute blood loss anemia Acute Adenocarcinoma of prostate Acute CAD, multiple vessel Acute Chest pain Acute Chronic Disease Mgmt/Transitional Care Acute Fall Acute 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
[2016-07-01 19:16] LABS: POTASSIUM 4.3 mEq/L (3.5-5.2)
--- NOTE | 2016-07-01 19:54 | SOAPPROG ---
SOAP Progress Note Assessment/Plan: Assessment: seriously ill 80 male with emergent cabg and recent lap for bladder rupture now with grade II sacral decub--- not infected yet/ 5x 3 cm Plan: padding, offloading/ debridement if progresses 06/15/16 09:45 06/17/16 12:03 not much change in decub/ will probably need debridement 06/26/16 16:01 DECUB LOOKS WORSE/ NEEDS FURTHER DEBRIDEMENT / WILL ARRANGE IN OR 07/01/16 19:52 wound clean/ afebrile/ feels better Objective: Vital Signs Temp Pulse Resp BP Pulse Ox 36.6 C 79 18 124/39 H 99 07/01/16 08:00 07/01/16 18:00 07/01/16 18:00 07/01/16 16:00 07/01/16 18:00 Laboratory Results 07/01/16 04:10 07/01/16 18:30 06/30/16 07/01/16 07/02/16 05:59 05:59 05:59 Intake Total 1924 3169 551 Output Total 670 1300 1200 Balance 1254 1869 -649 PT 15.7 SEC (12.0-15.0) H 06/24/16 13:15 INR 1.25 (0.83-1.16) H 06/24/16 13:15 ICD10 Worksheet Patient Problems: Problems Problem Status Diagnosed Acute blood loss anemia Acute Adenocarcinoma of prostate Acute CAD, multiple vessel Acute Chest pain Acute Chronic Disease [facility]/Transitional Care Acute Fall Acute 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
[2016-07-01] MEDS: MELATONIN 3 MG TAB TUBE SCH (20:22)
--- NOTE | 2016-07-01 23:46 | GCON ---
[f rep st] CONSULTATION DATE OF CONSULTATION: 07/01/2016 REFERRING PHYSICIAN: William Johnson DO REASON FOR CONSULTATION: Difficulty with feeding, high residuals. HISTORY OF PRESENT ILLNESS: The patient is an 80-year-old male who was admitted on May 22May 23 for chest pain. He was documented to have acute coronary syndrome with ST depressions and initial elevated troponins. He underwent urgent CABG x5, brought back the following day for exploratory washout of right hemothorax, approximately 12 days later he had a laparotomy with repair of a bladder rupture, fulguration of bladder varix and drainage of intraperitoneal fluid. The same day, he underwent a tracheostomy. His hospital course has been complicated by respiratory, renal and cardiac issues, and currently he is having difficulty with his tube feeds with high residuals and possible postop ileus. He has Klebsiella sepsis, most likely urinary source. The majority of this history is taken from the chart as the patient has a trach , although he can answer yes and no to questions. He did not complain of significant abdominal pain, although he has some mild pain on exam. An episode of nausea earlier today, according to the RN. His feeding tube has been advanced about 20 cm and repeat x-ray shows that it is right at the pylorus at the present time. According to the nurse taking care of him today, she had somewhat high residuals previously, turned his feeds back down to 20 cc an hour , and then she had no residuals and turned it back up to 30 cc an hour. I am now called to evaluate the difficulty with his tube feeds. 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 PAST SURGICAL HISTORY: Recent surgeries includes CABG, his bladder repair, tracheostomy as noted in the HPI. MEDICATIONS: In hospital include Tylenol p.r.n., albuterol 4 times daily p.r.n. as well as 2 puffs 4 times daily scheduled, amiodarone 200 mg through the tube daily, Dulcolax 10 mg per rectum, Ancef 1 g IV q.12, Lasix 40 mg IV push daily, insulin 10 units subcutaneous b.i.d., then sliding scale, Lactulose 20 g via tube t.i.d. p.r.n. constipation, last given June 26, Prevacid 30 mg daily, levothyroxine 25 mcg daily, melatonin 3 mg at bedtime, morphine p.r.n., triple antibiotic ointment apply daily p.r.n. to suprapubic catheter, Zofran p.r.n., potassium, sliding scale, prednisone 2 mg via tube daily, Pravachol 40 mg daily. ALLERGIES: Lipitor and lisinopril. SOCIAL HISTORY: He does not smoke. Lives at home. FAMILY HISTORY: As per the chart, noncontributory. Cannot obtain family history from him at present. REVIEW OF SYSTEMS: Difficult to obtain. Attempted a complete 10 review of systems, negative other than noted in the HPI. PHYSICAL EXAM: GENERAL: Elderly male, lying in his ICU bed. Tracheostomy. VITAL SIGNS: Blood pressure 124/39, pulse 77, respirations 19, 99% on 3 L nasal blow by cannula. Temperature 36.6 this morning. HEENT: Eyes anicteric. Mouth: No lesions. NECK: Tracheostomy. LUNGS: Clear anteriorly. CARDIAC : S1-S2, regular rate and rhythm. ABDOMEN: Bowel sounds are decreased in frequency. Normal pitch. Abdomen is minimal tenderness on deep palpation. Difficult to assess hepatosplenomegaly. EXTREMITIES: No cyanosis. NEUROLOGIC : Appears appropriate. Answers questions appropriately with yes or no shakes of his head. He has a tracheostomy, is not verbal. Cranial nerves intact. LABORATORY DATA: From today, WBC 6.59, hemoglobin 10.0, hematocrit 30.7, platelet count 218. Sodium 143, potassium 4.0, chloride 107, bicarb 27, BUN 66 , creatinine 1.8, glucose 130. From June 28, phosphorus 3.3, magnesium 2.2. Abdominal and pelvis CT from April 19, 2016: Moderate-sized bladder lumen hematoma, bilateral pleural effusions. Unchanged nephrolithiasis without evidence of obstruction. Nasogastric feeding tube is in the stomach. Abdominal x-ray from 3:00 p.m. today: Dobhoff feeding tube terminates at the level of the gastric antrum. After was advanced about 20 cm. Abdominal x-ray at 6:00 p.m. today, feeding tube terminates at the pylorus duodenal bulb junction. ASSESSMENT: 1. Feeding difficulties with probable postoperative ileus and high residuals with Dobhoff feeding tube in the stomach. 2. Acute myocardial infarction, status post CABG. 3. Status post bladder perforation repair. 4. Respiratory failure on the vent, dependent on tracheostomy. 5. Atrial flutter, on amiodarone. 6. Diabetes. 7. Hematuria. 8. Sacral decubitus debrided by Dr. Nunn on June 27. 9. Hypothyroidism. 10. Urosepsis Klebsiella, on antibiotics. RECOMMENDATIONS: 1. Advance the tube as done. We will see if this allows the Dobhoff to go down to the duodenal and be able to tolerate feeds at a higher rate without residuals. 2. Electrolytes are within normal ranges, although I would like to have the potassium a little bit higher at about 4.3 to 4.5. Magnesium and phosphorus appeared to be good levels, although if his ileus persists, we may check those again. 3. At present, I do not see many medications that can be discontinued. I do not think promotility agents have great benefit in ileus and will not start them. As much as we can decrease his pain medications, that would help his bowels regain function. I do not think his hyperglycemia is the cause of his ileus, although better glucose control is always helpful. 4. If above is not effective and NG tube remains in the stomach, could consider endoscopy with advancement of the NG tube into the duodenum, although I frequently pull this back as I am withdrawing the endoscope out of the esophagus and out the mouth. 5. Further recommendations to follow results of above and clinical course. I am optimistic that advancing the Dobhoff tube will be effective in reducing residuals. I do think that his potassium could be a little bit higher, and that might help his ileus, although his other electrolytes appear normal. I do think placing a PEG would be very risky. In addition, it is not different from advancing the Dobhoff tube as long as it advances into the small bowel. If we do place a PEG, he would need a passage through the PEG to the duodenum and small bowel as well. Currently, there is no evidence of sinusitis or other issue that will require removal of the Dobhoff feeding tube. Thank you for allowing me to participate in this patient's healthcare. Do not hesitate to call me with any questions. /[id number]/MODL MTDD
[2016-07-02 04:17] LABS: HEMATOCRIT 31.8 % (40.0-51.0); MEAN CELL HEMOGLOBIN 30.3 pg (27.9-34.1); MEAN CELL HEMOGLOBIN CONCENTR. 31.4 g/dL (32.4-36.7); MEAN CELL VOLUME 96.4 fL (81.5-99.8); RED BLOOD CELL COUNT 3.3 10^6/uL (4.40-6.38); RED CELL DISTRIBUTION WIDTH 15.2 % (11.5-15.2)
[2016-07-02 04:35] LABS: ANION GAP 11 mEq/L (8-16); CALCIUM 8.2 mg/dL (8.5-10.4); CARBON DIOXIDE 25 mEq/l (22-31); CHLORIDE 108 mEq/L (97-110); CREATININE 1.7 mg/dL (0.7-1.3); GLOMERULAR FILTRATION RATE 39; GLUCOSE 116 mg/dL (70-100); POTASSIUM 4.3 mEq/L (3.5-5.2); SODIUM 144 mEq/L (134-144)
[2016-07-02] MEDS: ALBUTEROL 60 PUFFS/8 GM MDI IH SCH ×2 (06:17→11:23)
[2016-07-02] MEDS: INSULIN REGULAR HUMAN 100 UNIT/ML SC SCH ×2 (06:49→11:51)
[2016-07-02] MEDS: LEVOTHYROXINE 25 MCG TAB TUBE SCH (06:49)
--- NOTE | 2016-07-02 07:54 | PCMIDPN ---
Assessment/Plan: Assessment/Plan: 1. Sepsis secondary to klebsiella bacteremia, UTI: - hx of bladder rupture. suprapubic catheter in place with ongoing hematuria -Susceptibility profile reviewed on all cx. -Currently on Ancef. --renally dosed. Renal function has been improving so will change to q8 dosing. End date is 07/12/16. Discussed w/ pharmacy. -f/u blood cx from 06/28/16 ngtd. wbc improved. -On D# 5/ - secretions minimal. - Continue current therapy 2. Respiratory failure: - CXr with bilateraly infiltrates, Pulm edema vs atelectasis, vs pneumonia - trach aspirate with MSSA of uncertain significance. - Anyways, covered by Ancef. Meds Ancef 1g q12- 06/27/16-----overall D#11/03 (changed to 1g q8 on 07/02/16) s/p merem 06/25-06/27 Subjective: Remains in icu. trach on vent at present. Denies abd pain. suprapubic catheter with ongoing hematuria. No overnight events per RN. Objective: Vital Signs Temp Pulse Resp BP Pulse Ox 36.4 C 70 15 123/42 H 97 07/02/16 04:00 07/02/16 06:00 07/02/16 06:00 07/02/16 04:00 07/02/16 06:00 Laboratory Results 07/02/16 03:55 07/02/16 03:55 07/01/16 07/02/16 07/03/16 05:59 05:59 05:59 Intake Total 3169 1285 Output Total 1300 1600 Balance 1869 -315 - Physical Exam General Appearance: alert, no apparent distress Respiratory: coarse breath sounds (mild) Cardiac/Chest: regular rate, rhythm Extremities: No swelling Abdomen: normal bowel sounds, non-tender, soft, No distended Male Genitalia: other (suprapubic catheter) Skin: No rash ICD10 Worksheet Patient Problems: Problems Problem Status Diagnosed Acute blood loss anemia Acute Adenocarcinoma of prostate Acute CAD, multiple vessel Acute Chest pain Acute Chronic Disease Mgmt/Transitional Care Acute Fall Acute 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
--- NOTE | 2016-07-02 08:15 | SOAPPROG ---
[id number] TVA #32 MC3 ring, IABP 1:1. POD#39 Take back for expl, washout right CED. Sternal closure w Robumu weave, jonatan. POD#28 Laparotomy, repair of bladder rupture, fulguration of bladder varix, drainage of intraperitoneal fluid, placement of suprapubic catheter. POD#28 Tracheostomy. POD#12 Cystoscopy, evac of clots, fulguration bleeding sites, removal of bello catheter. POD#2 Repeat excisional debridement of sacral decubitus. IV access per LUE PICC. Nutrition per DHT. Day 5/14 cefazolin. Acute MA, severe 3VD, post-infarction angina/IABP - s/p urgent CABGx5 compl by bleeding into rt chest requiring take-back. IABP support x 24h. Low dose pressor support x 72h. Tubes, wires, and jonatan out. Secondary prevention with BB, pravastatin, and ASA v Eliquis (rhythm) when appropriate. ICM with systolic & diastolic dysfunction as well as class IV heart failure and bilateral pleural effusions - Moderate volume overload successfully diuresed with bolus lasix. 900ml rt thoracentesis on 12. 1000ml left thoracentesis on 12. Baseline postop echo 1/3 notable for nl BiV size and fx w LVEF >60% and mild LVDD. Heart failure regimen per cards when appropriate. Torrential TR - Post CPB. Amenable to annuloplasty. No TR per echo 1/3. Antithrombotic prophylaxis as per PAF. 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 Only trace MR per echo /3. Ongoing surveillance per cardiology. Postoperative respiratory failure - Ventilator dependent, failing extubation . Trach placed. HAP treated with course of Abx. Several therapeutic bronchoscopies. Mucolytics, steroids, vent management per ICU. Tolerating CPAP/ trach collar. Able to phonate w PMV. Acute expected blood loss anemia with coagulopathy - Requiring massive transfusion and take back for expl bleeding. Stable H/H 12/ to 12. Recurrent losses d/t issues and coagulopathy. Anticoagulation on hold. Elevated INR corrected. PRBC prn. Postoperative renal failure with electrolyte imbalance - Early postop MAGUI evolving into failure d/t obstructive uropathy. Slow but steady improvement post bladder repair and treatment on urosepsis. Post-op AF/Flutter - Variable ventricular rates. Started on Amio. Adjunctive BB stopped d/t BP lability. Successful DC CVSN per cards 05/31 and amio stopped. Recurrent PAF as of 06/06 and Amio restarted. Ongoing prophylaxis thru mid Jun if QTc stable. [id number] score of 6. Antithrombotic prophylaxis with Eliquis when appropriate. DM2 - Suboptimal control by preop A1c of 8.4%. Postop hyperglycemia managed with insulin gtt, transitioning to basal/SSI as per ICU. 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 PENN and progressive renal insuff d/t clots. Eliquis held. Blood losses repleted w PRBCs. [address] way bello and cont irrigation compl by bladder perf, peritonitis and shock. Bladder successfully repaired. Residual hematoma evacuated 06/20. Ongoing suprapubic irrigation and bladder scans per urology compl by Klebsiella urosepsis. Targeted Abx per ID w good clinical response. Nena-op ileus - Prolonged s/p xlap. Serial CTs neg for mechanical obstruction or adynamic changes. Presumed gastroparesis treated with reglan, then emycin. Large BM 06/28. DHT advanced to duodenal junction and successfully transitioned from TPN to TF. Promotility agents discontinued. Narc use only nena-procedural. May be able to avoid G tube if resp fx allows for swallow study/orals in next week. Obesity and deconditioning - Non-ambulatory preop. Remains very weak, but is beginning to walk. LTAC for ongoing rehab planned. Sacral decubitus - Stage IV s/p OR debridements x 2. line supply and gen surg following. Offloading and increased mobility as tolerated. Hypothyroidism - Synthroid started. Re-eval once off amio for 2-3 months. Plan: Ok for tx to LTAC if bed available. 07/02/16 08:04 Subjective: Resting in bed. Comfortable. No acute concerns. Objective: Vital Signs Temp Pulse Resp BP Pulse Ox 36.4 C 70 15 123/42 H 97 07/02/16 04:00 07/02/16 06:00 07/02/16 06:00 07/02/16 04:00 07/02/16 06:00 Laboratory Results 07/02/16 03:55 07/02/16 03:55 07/01/16 07/02/16 07/03/16 05:59 05:59 05:59 Intake Total 3169 1285 Output Total 1300 1600 Balance 1869 -315 PT 15.7 SEC (12.0-15.0) H 06/24/16 13:15 INR 1.25 (0.83-1.16) H 06/24/16 13:15 Cardioresp status stable. On CPAP at night, nasal cannula blowby O2 during day. TFs at goal of 40ml/h. Physical Exam - Physical Exam General Appearance: alert, no apparent distress Respiratory: lungs clear Cardiac/Chest: regular rate, rhythm, other (Sternum grossly stable. 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
[2016-07-02] MEDS ORDERED: BISACODYL 10 MG SUPP PR PRN (08:33)
--- NOTE | 2016-07-02 09:35 | SOAPPROG ---
SOAP Progress Note Assessment/Plan: Assessment:Plan: 1) feeding diff misc - high residuals with tube feeds residual were zero at last check and tube feeds increased to 40 cc/hr continue current regimen, if high residuals recur, check XRAy for palcement of tube. If not in duodenum then either advance tube or if enough tube present consider EGD to advance tube. I think PEG risky in this pt 07/02/16 09:31 Subjective: CC- feeding diff misc pt doesn't c/o abdo pain tube feed appear to be going better Objective: Vital Signs Temp Pulse Resp BP Pulse Ox 36.4 C 70 15 123/42 H 97 07/02/16 04:00 07/02/16 06:00 07/02/16 06:00 07/02/16 04:00 07/02/16 06:00 Laboratory Results 07/02/16 03:55 07/02/16 03:55 07/01/16 07/02/16 07/03/16 05:59 05:59 05:59 Intake Total 3169 1285 Output Total 1300 1600 Balance 1869 -315 PT 15.7 SEC (12.0-15.0) H 06/24/16 13:15 INR 1.25 (0.83-1.16) H 06/24/16 13:15 S1S2 Clear anteriorly +BS, soft alert, nods yes or no to questions ICD10 Worksheet Patient Problems: Problems Problem Status Diagnosed Acute blood loss anemia Acute Adenocarcinoma of prostate Acute CAD, multiple vessel Acute Chest pain Acute Chronic Disease Mgmt/Transitional Care Acute Fall Acute 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
[2016-07-02] MEDS: predniSONE 1 MG TAB TUBE SCH (09:39)
[2016-07-02] MEDS: FUROSEMIDE 40 MG/4 ML VIAL IVP SCH (09:39)
[2016-07-02] MEDS: LANSOPRAZOLE SUSP 30MG/10ML UDSYR (Adult) TUBE SCH (09:39)
[2016-07-02] MEDS: SENNOSIDES 17.6 MG/10 ML UDL TUBE SCH (09:40)
[2016-07-02] MEDS: INSULIN GLARGINE 100 UNITS/ML SYRINGE SC SCH (09:40)
[2016-07-02] MEDS: SODIUM HYPOCHLORITE (DAKINS 1/4 STR) 120 ML BTL TP SCH (09:40)
[2016-07-02] MEDS: AMIODARONE HCL 200 MG TAB TUBE SCH (09:40)
[2016-07-02 09:42] VITALS: TEMP 98.1
[2016-07-02 11:31] VITALS: PULSE 84
--- NOTE | 2016-07-02 11:32 | ECHO ---
[id number] + + [address] : : [place] [address] : : [phone] + Transesophageal Echocardiographic Report + -----+ :Name: ANDREEA MICHELLE RStudy Date: 05/31/2016 11:33 AM : : Hospital Admission Number: [id number] Location : icu: :: 1935 Gender: Male : :Age: 80 yrs Race: JUNIOR : :Reason For Study: Jacob VASQUEZA : :History: Post CABG : + -----+ Left Ventricle The left ventricular ejection fraction is normal. The rhythm is atrial fibrillation. Atria No left atrial mass or thrombus visualized. No thrombus is detected in the left atrial appendage. Conclusion A 2D transesophageal echocardiogram with color flow Doppler was performed. The left ventricular ejection fraction is normal. The rhythm is atrial fibrillation. No left atrial mass or thrombus visualized. No thrombus is detected in the left atrial appendage. Proceeded with successful elective DC cardioversion. Final Reading Physician: Julisa Domingo signed on 07/02/2016 11:31 AM Ordering Physician: Davidson Patterson Performed By: Ariel Fernandez MD
[2016-07-02 12:21] VITALS: BP 104/36
--- NOTE | 2016-07-02 13:51 | PDIAF ---
- Diagnosis Diagnosis: Acute MT/CAD/ISCM/CHF s/p CABG5/TVA compl by PAF, MOD, sacral decubitus Code Status: Full Code - Medication Management Discharge Medications: Medications to Continue on Transfer Fluticasone Nasal [Flonase Nasal Capron] 1 spray EACHNARE DAILY PRN 06/12/16 [ Last Taken Unknown] Acetaminophen [Tylenol 650/20.3ML Oral Liq (*)] 325 - 650 mg TUBE Q4HRS PRN #0 udcup 07/02/16 [Last Taken Unknown] Albuterol [Proventil Inhaler HFA (*)] 2 puffs IH QID #0 mdi 07/02/16 [Last Taken Unknown] Albuterol [Proventil Neb] 3 ml IH QID PRN #0 deyvial 07/02/16 [Last Taken Unknown] Alteplase [Cathflo Activase 2 mg (*)] 2 mg IVP PRN PRN #0 vial 07/02/16 [Last Taken Unknown] Amiodarone HCl [Pacerone (*)] 200 mg TUBE DAILY #5 tab 07/02/16 [Last Taken Unknown] Dextrose 50% Syringe 25 gm IVP PRN PRN #0 syr 07/02/16 [Last Taken Unknown] Insulin Glargine [Lantus 100 UNITS/ML (*)] 10 units SC BID #0 ml 07/02/16 [Last Taken Unknown] Lansoprazole [PREVACID 30mg/10ml susp (Adult) (*)] 30 mg TUBE DAILY #0 udsyr 04/08 [Last Taken Unknown] Levothyroxine [Synthroid 25 mcg (*)] 25 mcg TUBE DAILY AT 6AM #0 tab 07/02/16 [ Last Taken Unknown] Melatonin [Melatonin 3 MG (*)] 3 mg TUBE HS #0 tab 07/02/16 [Last Taken Unknown] Neomy Sulf/Bacitrac Zn/Poly [Triple Antibiotic Oint tube (*)] 1 lenora TP DAILY PRN #0 oint 07/02/16 [Last Taken Unknown] POTASSIUM Cl (KCl) [POTASSIUM Cl 20 MEQ (PREMIX)] 50 ml IV PRN PRN #0 bag [Last Taken Unknown] Sodium Cl Nasal [[place] Capron (*)] 1 spray EACHNARE PRN PRN #0 btl 07/02/16 [ Last Taken Unknown] Sodium Hypochlorite [Dakins 1/4 Strength] 1 ml TP BID #0 btl 07/02/16 [Last Taken Unknown] ceFAZolin 1 GM/DEXTROSE [Ancef 1 gm (Premix)] 50 ml IV Q8H #14 bag 07/02/16 [ Last Taken Unknown] morphINE [morphINE 2mg/ml Inj (*)] 1 - 2 mg IVP Q1H PRN #0 syr 07/02/16 [Last Taken Unknown] predniSONE 2 mg TUBE DAILY #0 tab 07/02/16 [Last Taken Unknown] Medical Psychotherapist Antibiotics: ancef Custodial Antibiotic Stop Date: 07/06/16 (2 wk course, renal dosing) Discharge Medications: Refer to the Discharge Home Medication list for PRN reason. PICC Care - Routine: Yes - Orders Services needed: Registered Nurse, Physical Therapy, Occupational Therapy, Speech Language Pathologist (consider VFSS next week) Oxygen: prn SpO2 < 90% +/- activity. CPAP at night. Trach collar during day. Diet Recommendation: other (tube feeds) Diet Texture: None (NPO) Tube feeding: Nepro Renal at 45ml/h; check residuals q 4h; 200 ml free water flushes q6h Weigh Patient: daily Vargas: Yes (suprapubic tube; irrigate q 6hrs; bladder scan prn impaired drainage. Call urology (Dr Sands) for any concerns.) Wound Care Instructions: Change dressings to Sacrum/Coccyx every 2 days and prn. 1. Clean with ns and gauze. 2. Skin prep christina wound. 3. Cut a piece of Hydrofera blue ready to fit wound bed then place it writing side up over the wound bed. 4. Secure with tegaderm. *Patient must off-load sacrum at all times. Pillows should be above and below wound. Patient should not be lying on the wound, or on the pillow on the wound. Activity/Weight Bearing Restrictions: Sternal precautions x 1 more week. Additional: Please see list of specialists (GI, ID, urology, gen surg, cardiology, CV surgery) should any concerns arise. Only providers with prehospital contact are PCP Grisel and coordinate measuring machine technician Yayo Ingram. - Labs/Radiology BMP Date: 07/03/16 (daily until Cr normalized) Other Lab Name, Date and Time: Accuchecks q6h. Target glc < 180mg/dl. - Follow Up Care Current Providers and Referrals: Alan Nunn MD [Medical Doctor] - (if needed for sacral decubitus followup ) Valentino Hyatt MD [Medical Doctor] - (if needed, for GI questions) Fidel Camarillo MD [Medical Doctor] - (for any questions re antibiotics) William Johnson DO [Doctor of Osteopathy] - (Please call to schedule an appointment once nearing discharge to home. ) Alan Ingram MD [Medical Doctor] - 07/23/16 2:15 pm (CAD and rhythm managment) Linda Recinos MD [Primary Care Provider] - As per Instructions William Sands MD [Medical Doctor] - (for any questions re. suprapubic tube)
--- NOTE | 2016-07-02 14:36 | PDDCSUM ---
Discharge Summary Discharge Summary: DATE OF ADMISSION: 05/22/16 DATE OF TRANSFER: 07/02/16 DISPOSITION: To [facility] [phone]. PRINCIPAL DISCHARGE DIAGNOSES: 1. Acute myocardial infarction with ischemic cardiomyopathy, class IV congestive heart failure, and post-infarction angina. 2. Nonobstructive bilateral carotid artery disease. 3. Progressive multivessel coronary artery disease treated with urgent coronary artery bypass grafting x 5. 4. Severe tricuspid regurgitation treated with tricuspid valve annuloplasty. 5. 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 6. Acute expected blood loss anemia with coagulopathy. 7. Postoperative bleeding with right hemothorax requiring take-back mediastinal exploration. 8. Postoperative respiratory failure with ventilator dependence and pneumonia. 9. Postoperative renal failure with electrolyte imbalance. 10. Postoperative paroxysmal atrial fibrillation/flutter. 11. 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 12. Postoperative bladder perforation with peritonitis and shock requiring laparotomy and bladder repair. 13. Postoperative urosepsis with klebsiella pneumoniae. 14. Postoperative ileus. 15. Postoperative stage IV sacral decubitus. 16. Clinical hypothyroidism. DISCHARGE MEDICATIONS: See Medical Administration Record. FOLLOW UP APPOINTMENTS: 1. Cardiology: with Dr Ingram at [facility] on 07/23 at 2:15 pm. 2. CV surgery: with Dr Johnson at [facility] within 2 weeks of release from facility. Please call [phone] for appointment time. 3. Phase II cardiac rehab at [facility]. Call [phone] to enroll in classes once nearing discharge. FOLLOW UP TESTING: Labwork per facility protocol CONSULTANTS: Cardiology (Yesenia), CV surgery (Elizabeth), Pulmonology/critical care (Raz) , Urology (Wicho), General surgery (Edouard), Infectious diseases (), Gastroenterology (Edmar). PROCEDURES: 05/23 (Yesenia): Left heart catheterization with selective coronary angiography and left ventriculogram. Placement of a right femoral intra-aortic balloon pump. 05/23 (Spencer): Transthoracic echocardiogram. 05/23 Carotid Ultrasound. 05/23 (Elizabeth): Urgent coronary artery bypass grafting x 5 (free MICHAEL-LAD, SV-Dx, SV sequentially to OM1-OM2, SV-PLC). Takedown MICHAEL. Endoscopic vein harvest LLE. Tricuspid valve annuloplasty with a 32mm Murguia MC3 ring. 05/24 (Elizabeth): Take back sternotomy with mediastinal exploration and washout. Evacuation of 2L right hemothorax. 05/26 (Raz): Fiberoptic bronchoscopy. 05/27 Dobhoff tube placement. 05/28 (Antonio): US guided placement of left arm PICC. 05/31 (Jim): Electrical cardioversion of atrial flutter under ARACELI guidance. 06/03 (Moriah): Rapid sequence intubation. 06/04 (Elizabeth): Tracheostomy with an 8mm extra long cuffed tube. 06/04 (Wicho/Edouard): Laparotomy. Drainage of 5700 ml intraperitoneal fluid. Open repair of bladder rupture with evacuation of blood clots and fulguration of bleeding varix. Placement of Malecot suprapubic tube. 06/09 (Dennis): 900 ml rt thoracentesis. 06/10 (Gallito): Fiberoptic bronchoscopy. 06/13 (Antonio): Ultrasound guided 1L left thoracentesis. 06/20 (Wicho): Cystoscopy with evacuation of clots, fulguration of bleeding sites and removal of bello catheter. 06/25 (Jim): Transthoracic echocardiogram. 06/27 (Edouard): Excisional debridement of sacral decubitus. 06/30 (Edouard): Repeat excisional debridement of sacral decubitus. 07/01 Advancement of dobhoff tube. HISTORY OF PRESENT ILLNESS: 80 yo male with known CAD admitted from an assisted living facility with an acute NJ. Found to have multivessel CAD with anteroapical hypokinesis, an LVEF 30-40% and an LVEDP of 24. Supported with an IABP for ongoing chest pain with hypotension and referred for urgent surgical revascularization. Preop imaging notable for chordal OLY with mild-moderate MR and pseudo LVOT obstruction. No prohibitive neurologic risk. PERTINENT PAST MEDICAL HISTORY: CAD s/p remote LAD stenting, ROSEANNA on CPAP at night, Obesity with BMI > 35, IDDM, HTN, HLP, giant cell arteritis treated with steroids ABBREVIATED HOSPITAL COURSE BY ACTIVE PROBLEM LIST: 1. Acute NJ, severe 3VD, post-infarction angina/IABP - s/p urgent CABGx5 compl by bleeding into rt chest requiring take-back. IABP support x 24h. Low dose pressor support x 72h. Tubes, wires, and jonatan out. Appropriate wound healing. Sternal precautions x 1 more week. Secondary prevention with BB, pravastatin, and ASA v Eliquis (rhythm) when appropriate. 2. ICM with systolic & diastolic dysfunction as well as class IV heart failure with bilateral pleural effusions - Moderate volume overload successfully diuresed with bolus lasix. 900ml rt thoracentesis on 06/09. 1000ml left thoracentesis on 06/13. Baseline postop echo 06/25/16 notable for nl BiV size and fx w LVEF >60% and mild LVDD. Chronically low diastolic pressures attributed to diastolic dysfx. Heart failure regimen per cards when appropriate. 3. Torrential TR - Post CPB. Amenable to annuloplasty. No TR per echo 06/25. Antithrombotic prophylaxis as per PAF. 4. 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 Unchanged OLY/LVOT gradient but only trace MR per echo 06/25. Ongoing surveillance per cardiology. 5. Postoperative respiratory failure - Ventilator dependent, failing extubation on 06/01. Several therapeutic bronchoscopies for HAP and retained secretions. Trach and DHT placed. Empiric course of antibiotics, mucolytics, steroids, and vent management per ICU. Eventual tolerance of CPAP/trach collar. Able to phonate w PMV. 6. Acute expected blood loss anemia with coagulopathy - Requiring massive transfusion and take back for expl bleeding. Stable H/H 05/26 to 06/01. Recurrent losses d/t issues and coagulopathy on anticoagulation. Elevated INR corrected. PRBC prn. 7. Postoperative renal failure with electrolyte imbalance - Early postop MAGUI evolving into failure d/t obstructive uropathy. Slow but steady improvement post bladder repair and treatment of urosepsis. 8. Post-op AF/Flutter - Variable ventricular rates. Started on Amio. Adjunctive BB stopped d/t BP lability. Successful DC CVSN per cards 05/31 and amio stopped. Recurrent PAF as of 06/06 and Amio restarted. SR restored as of 06/07. Amio prophylaxis to terminate 07/07/16. [id number] score of 6. Antithrombotic prophylaxis per cards when appropriate. 9. DM2 - Suboptimal control by preop A1c of 8.4%. Postop hyperglycemia managed with insulin gtt, transitioning to basal/SSI as per ICU. 10. 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 PENN and progressive renal insuff d/t clots. Eliquis held. Blood losses repleted w PRBCs. 3 way bello and cont irrigation compl by bladder perf, peritonitis and shock. Bladder successfully repaired. Residual hematoma evacuated 06/20. Scheduled suprapubic irrigation compl by Klebsiella urosepsis. Targeted Abx per ID w good clinical response. Repeat blood cxs NGTD. Tentative Abx stop date of . Suprapubic catheter management per urology. 11. Postoperative ileus - Prolonged s/p xlap. Serial CTs neg for mechanical obstruction or adynamic changes. Presumed gastroparesis treated with reglan, then emycin. Large BM 06/28. DHT advanced to duodenal junction and successfully transitioned from TPN to TF. Promotility agents discontinued. Narc use only christina -procedural (prn tolerance sacral wound care). Suboptimal candidate for G tube. Plan TFs until resp fx allows for swallow study. 12. Obesity and deconditioning - Non-ambulatory preop. Remains very weak, but is beginning to walk. LTAC for ongoing rehab. 13. Sacral decubitus - Stage IV s/p OR debridements x 2. cardiology manager and gen surg following. Offloading and increased mobility as tolerated. 14. Hypothyroidism - Synthroid started. Re-eval once off amio for 2-3 months.
[2016-07-02 15:04] VITALS: RESP 17; O2SAT 94
--- NOTE | 2016-07-02 15:27 | PDINTPN ---
Rubber Tile Floor Layer Progress Note Assessment/Plan: Assessment: * CABG X 5 and TV annuloplasty 05/30. * Respiratory Failure, status post tracheostomy. On BiPAP support at night. Doing well on TC and P-M valve * Sepsis-urine likely source. -klebsiella, staph: On cephalexin * Bladder perforation. To OR 06/04. 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 * Pneumonia. Resolved * Hypotension. Resolved * PT/OT-ambulating * H/O ROSEANNA * Obesity/deconditioning. Present prior to surgery. * DM: On insulin coverage * Atrial flutter - on amiodarone. Cardioverted and in NSR. * MAGUI: Creatinine stable/improved to 1.7. Status post bladder repair and abdominal exploration. Ruptured bladder with fluid in the abdomen was present. * Anemia: Hct 31.8. * Nutrition: TFs at 40. Ileus appears to be resolving, increased bowel sounds, passing some stool. * Hypernatremia: Resolved * Sacral Decubitus: Grade 4, will need surgery. Debrided intermittently. Wound Care and surgery following. * Dispo-LTAC today. * Depression: Patient is quite discouraged regarding current condition and prolonged hospital stay without definite and end in sight. Plan: Continue present management. To go to LTAC today.. 50 minutes of critical care time spent directly with pt. Discussed with patient 's son, , cardiovascular surgery, nursing, respiratory, and the ICU multi disciplinary team. Discussed with receiving physician at [facility] at length. Subjective: Doing okay. Denies significant shortness of breath or pain. Remains somewhat depressed. Objective: Vital Signs Temp Pulse Resp BP Pulse Ox 36.7 C 84 17 104/36 L 94 07/02/16 08:00 07/02/16 14:00 07/02/16 14:00 07/02/16 14:00 07/02/16 14:00 Laboratory Results 07/02/16 03:55 07/02/16 03:55 07/01/16 07/02/16 07/03/16 05:59 05:59 05:59 Intake Total 3169 1285 Output Total 1300 1600 700 Balance 1869 -315 -700 PT 15.7 SEC (12.0-15.0) H 06/24/16 13:15 INR 1.25 (0.83-1.16) H 06/24/16 13:15 Laboratory Tests 07/02/16 03:55 Calcium 8.2 L CXR on June 30: Unchanged. Large heart, some haziness at the bases consistent with effusions, atelectasis Physical Exam - Physical Exam General Appearance: alert, no apparent distress EENT: other (Tracheostomy tube in place. Has passive mere valve. Simple mask oxygen in place) Neck: other (Large neck, tracheostomy. No evidence of infection.) Respiratory: lungs clear (Anteriorly), decreased breath sounds (And excursions bilaterally), No rales, No rhonchi, No wheezing Cardiac/Chest: regular rate, rhythm (Distant heart tones, soft systolic murmur) Abdomen: non-tender, soft (Overweight, some distension), distended, No normal bowel sounds (Decreased, present) Male Genitalia: other (Suprapubic catheter in place) Skin: warm/dry, pallor Lymphatic: no adenopathy Extremities: No pedal edema Neuro/Psych: no motor/sensory deficits (Moves all extremities, globally weak), No cognition abnormalities ICD10 Worksheet Patient Problems: Problems Problem Status Diagnosed Acute blood loss anemia Acute Adenocarcinoma of prostate Acute CAD, multiple vessel Acute Chest pain Acute Chronic Disease Mgmt/Transitional Care Acute Fall Acute 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
== END 2016-07-02 16:03 | DRG 3 ==
LOC: EDUNIT# → F2N 05-23 00:40
PROVIDERS: ADMIT Internal Medicine Cardiovascular Disease; ATTEND Thoracic Surgery (Cardiothoracic Vascular Surgery)
DX: I21.3 ST elevation (STEMI) myocardial infarction of unspecified site (principal); I25.10 Atherosclerotic heart disease of native coronary artery without angina pectoris; I25.5 Ischemic cardiomyopathy; I36.1 Nonrheumatic tricuspid (valve) insufficiency; I34.8 Other nonrheumatic mitral valve disorders; D62 Acute posthemorrhagic anemia; J94.2 Hemothorax; J95.821 Acute postprocedural respiratory failure; J69.0 Pneumonitis due to inhalation of food and vomit; N17.9 Acute kidney failure, unspecified; I48.92 Unspecified atrial flutter; I48.0 Paroxysmal atrial fibrillation; I50.9 Heart failure, unspecified; N30.41 Irradiation cystitis with hematuria; S37.23XA Laceration of bladder, initial encounter; K65.8 Other peritonitis; A41.59 Other Gram-negative sepsis; N39.0 Urinary tract infection, site not specified; B96.1 Klebsiella pneumoniae [K. pneumoniae] as the cause of diseases classified elsewhere; J90 Pleural effusion, not elsewhere classified; K56.7 Ileus, unspecified; L89.154 Pressure ulcer of sacral region, stage 4; I11.0 Hypertensive heart disease with heart failure; I65.23 Occlusion and stenosis of bilateral carotid arteries; E11.9 Type 2 diabetes mellitus without complications; G47.33 Obstructive sleep apnea (adult) (pediatric); E03.9 Hypothyroidism, unspecified; E78.5 Hyperlipidemia, unspecified; Z95.5 Presence of coronary angioplasty implant and graft; Z85.46 Personal history of malignant neoplasm of prostate
CPT/HCPCS: 82947-QW; 84134-90; 84402-90; 84481-90; 85520-90; 92507-GN; 92523-GN; 96374; 97001-GP; 97003-GO; 97110-GP; 97116-GP; 97530-GO; 97530-GP; 97535-GO; C1751; C1768; G8978-GP-CL; G8978-GP-CM; G8979-GP-CK; G8979-GP-CL; G8987-GO-CL; G8987-GO-CM; G8988-GO-CK; G9171-GN-CJ; G9171-GN-CK; G9172-GN-CI; J0153; J0282; J0330; J0583; J0690; J1265; J1335; J1644; J1815; J2001; J2150; J2185; J2248; J2250; J2260; J2310; J2370; J2405; J2440; J2543; J2597; J2704; J2720; J2765; J2930; J2997; J3010; J3370; J3475; J3490; J7060; P9016; P9017; P9021; P9035; P9041; P9047; Q9967; Q9968

== ENCOUNTER 2016-07-03 20:40 | Inpatient (IN) | payer OTHER ==
--- NOTE | 2016-07-03 20:49 | EDPHY ---
H & P Time Seen by Provider: 07/03/16 20:42 HPI/ROS: CHIEF COMPLAINT: Catheter clotting HISTORY OF PRESENT ILLNESS: The patient is an 80 year old male, brought in by EMS from [facility] in [place], with gross hematuria. The patient had CABG done 05/23. He had a bladder rupture and developed ARDS. A tracheostomy was placed 06/04. The patient was transferred to [facility] yesterday. A suprapubic catheter was placed with continuous bladder irrigation. Since arrival at [facility] the patient has had gross hematuria. His 3 way bladder irrigation is clotting every 15 minutes. As his suprapubic catheter also continues to have clotting issues. The patient was sent here for urologic evaluation. Vitals in the field, HR 81, 92% saturation on nasal canula. REVIEW OF SYSTEMS: Aside from elements discussed in the HPI, a comprehensive 10-point review of systems was reviewed and is negative. Past Medical/Surgical History: CABG done 05/23. Bladder rupture, developed ARDS. A tracheostomy was placed 06/04 , DM, CAD with stenting, Hypertension, Hyperlipidemia. Social History: Family friend at bedside. Smoking Status: Former smoker Physical Exam: General Appearance: Alert, no distress Eyes: Pupils equal and round, no conjunctival pallor or injection ENT, Mouth: Mucous membranes moist Neck: Tracheostomy in place without erythema or drainage. Respiratory: Lungs are clear anteriorly Cardiovascular: Regular rate and rhythm Gastrointestinal: Suprapubic catheter in place Genitourinary: Vargas catheter in place. Neurological: A&O, nonfocal Skin: Decubitus ulcer to buttock. Extremities: Nontender, no pedal edema Psychiatric: Mood and affect normal Constitutional: Initial Vital Signs O2 Sat (%) 88 L 07/03/16 20:40 O2 Delivery Mode CPAP O2 (L/minute) 15 Allergies/Adverse Reactions: atorvastatin calcium [From Lipitor] Allergy (Mild, Verified 05/22/16 22:38) Other-Enter Comments lisinopril [Lisinopril] Allergy (Mild, Verified 05/22/16 22:38) Diarrhea Home Medications: Medication Instructions Recorded Acetaminophen [Tylenol 650/20.3ML 325 - 650 mg TUBE Q4HRS PRN #0 07/02/16 Oral Liq (*)] udcup Amiodarone HCl [Pacerone (*)] 200 mg TUBE DAILY #5 tab 07/02/16 Insulin Glargine [Lantus 100 10 units SC BID #0 ml 07/02/16 UNITS/ML (*)] Lansoprazole [PREVACID 30mg/10ml 30 mg TUBE DAILY #0 udsyr 07/02/16 susp (Adult) (*)] Levothyroxine [Synthroid 25 mcg 25 mcg TUBE DAILY AT 6AM #0 tab 07/02/16 (*)] Melatonin [Melatonin 3 MG (*)] 3 mg TUBE HS #0 tab 07/02/16 Neomy Sulf/Bacitrac Zn/Poly 1 lenora TP DAILY PRN #0 oint 07/02/16 [Triple Antibiotic Oint tube (*)] Sodium Hypochlorite [Dakins 1/4 1 ml TP BID #0 btl 07/02/16 Strength] ceFAZolin 1 GM/DEXTROSE [Ancef 1 50 ml IV Q8H #14 bag 07/02/16 gm (Premix)] morphINE [morphINE 2mg/ml Inj (*)] 1 - 2 mg IVP Q1H PRN #0 syr 07/02/16 predniSONE 2 mg TUBE DAILY #0 tab 07/02/16 Heparin [Heparin SC 5000 unit/0.5 5,000 unit SC Q8 07/04/16 ml (*)] Insulin Lispro [Humalog] 0 - 10 unit SQ Q6H 07/04/16 Ipratropium/Albuterol [Duoneb (*)] 3 ml IH Q4 07/04/16 Ondansetron HCl Pf [Zofran 4 mg 4 mg IV Q4 PRN 07/04/16 Inj (*)] Pravastatin Sodium 40 mg PO DAILY 07/04/16 fentaNYL [Duragesic 50 MCG Patch 50 mcg TD Q72H 07/04/16 (*)] Medical Decision Making - Diagnostics Imaging: Study: CT of the abdomen/pelvis. Indication: Gross hematuria. Results: [] The study was read by the radiologist, []. I viewed the images myself on the PACS system. ED Course/Re-evaluation: This patient presents from the LTAC for gross hematuria and repeated clotting of the urinary catheters. 9:10 p.m.: I consulted Dr. Martin, Urology, he requests a noncontrast CT abdomen/pelvis to evaluate bladder. CT scan abdomen pelvis read by Dr. Adarsh Camarillo reveals no acute findings. The patient was seen by Dr. Martin in the emergency department. IV was established. The patient received 2mg Morphine IV for ongoing pain. After IV morphine, he was somnolent and his blood pressure decreased to 90/60. He stated that he felt fine and denies any symptoms. He has an ongoing oxygen requirement since his diagnosis with ARDS. However, the oxygen requirement appears to have increased since discharge from yesterday. A repeat chest x-ray was performed and reveals increased pulmonary edema. I doubt that he has pneumonia, given normal white blood cell count, lack of fever and no cough. 10:45 p.m.: The hospitalist service was consulted for admission. The patient will be admitted to the step-down unit. Differential Diagnosis: Differential diagnosis includes though it is not limited to severe anemia, pneumonia, pulmonary embolism, urethral injury, bladder rupture. - Data Points Laboratory Results: Laboratory Results 07/04/16 05:45 07/04/16 05:45 Medications Given: Discontinued Medications Albuterol/Ipratropium (Duoneb) 3 ml IH Q4 SARAI Stop: 12/31/16 13:59 Last Admin: 07/04/16 16:19 Dose: Not Given Insulin Human Lispro (Humalog Lispro) 0 unit SC TIDMEAL SARAI PRN Reason: Protocol Stop: 12/31/16 07:59 Last Admin: 07/04/16 15:11 Dose: Not Given Morphine Sulfate (Morphine) 2 mg IVP EDNOW ONE Stop: 07/03/16 21:31 Last Admin: 07/03/16 21:30 Dose: 2 mg Morphine Sulfate (Morphine) 1 - 2 mg IVP Q1HR PRN PRN Reason: Pain, Severe Able to Take PO Stop: 07/14/16 00:52 Last Admin: 07/04/16 11:11 Dose: 2 mg Departure - Departure Disposition: [facility] Acute Clinical Impression: Gross hematuria Pulmonary edema Qualifiers: Chronicity: acute Qualifier Code: (J81.0) Acute pulmonary edema Condition: Fair Report Scribed for: Shira Tinajero Report Scribed by: Staci Chamberlain Date of Report: 07/03/16 Time of Report: 20:50 Physician Review and Approval Statement: 07/03/16 20:49 Portions of this note were transcribed by a director medical affairs. I personally performed the history, physical exam, and medical decision-making; and confirmed the accuracy of the information in the transcribed note.
[2016-07-03 22:36] LABS: % IMMATURE GRANULYOCYTES 0.8 % (0.0-1.1); ABSOLUTE IMMATURE GRANULOCYTES 0.08 10^3/uL (0.00-0.10); ADD DIFF? NO; ADD MORPH? NO; ADD SCAN? NO; ATYPICAL LYMPHOCYTE FLAG 0 (0-99); FRAGMENT RBC FLAG 0 (0-99); HEMATOCRIT 29.3 % (40.0-51.0); HEMOGLOBIN 9.2 g/dL (13.7-17.5); LEFT SHIFT FLG 0 (0-99); LIPEMIA HEMOLYSIS FLAG 80 (0-99); MEAN CELL HEMOGLOBIN 30.3 pg (27.9-34.1); MEAN CELL HEMOGLOBIN CONCENTR. 31.4 g/dL (32.4-36.7); MEAN CELL VOLUME 96.4 fL (81.5-99.8); MEAN PLATELET VOLUME 10.2 fL (8.7-11.7); PLATELET CLUMPS FLAG 0 (0-99); PLATELET COUNT 240 10^3/uL (150-400); RED BLOOD CELL COUNT 3.04 10^6/uL (4.40-6.38); RED CELL DISTRIBUTION WIDTH 15.3 % (11.5-15.2)
[2016-07-03 22:45] LABS: INR 1.21 (0.83-1.16); PROTIME(PATIENT) 15.3 SEC (12.0-15.0)
[2016-07-03 22:46] LABS: APTT 37.8 SEC (23.0-38.0)
[2016-07-03 22:51] LABS: ANION GAP 10 mEq/L (8-16); CALCIUM 8.2 mg/dL (8.5-10.4); CARBON DIOXIDE 30 mEq/l (22-31); CHLORIDE 108 mEq/L (97-110); CREATININE 1.7 mg/dL (0.7-1.3); GLOMERULAR FILTRATION RATE 39; GLUCOSE 106 mg/dL (70-100); POTASSIUM 4.3 mEq/L (3.5-5.2); SODIUM 148 mEq/L (134-144)
--- NOTE | 2016-07-03 23:14 | CT ---
CT Scan of the Abdomen and Pelvis, Without Contrast Indication: Abdominal pain in an 80-year-old male who is status post intraoperative bladder rupture, with placement of a suprapubic catheter. Technique: Multidetector CT images of the abdomen and pelvis were obtained, without intravenous cont rast. Axial images are obtained at 5-mm intervals and reformatted at 1.5-mm thickness. The examinat ion is reviewed on the workstation at multiple window/level settings. Sagittal and coronal reformati ons are performed. Dose reduction techniques were utilized for this examination. Comparison: Comparison to the previous CT examination of June 19, 2016 and PA and lateral chest of June 30, 2016. Abdomen Lung bases: Bilateral effusions as well as bibasilar atelectasis persists. The distal end of the PI C catheter is seen, and a nasogastric tube is seen, with the weighted end at the level of the distal stomach. There is a small pericardial effusion. Liver: Normal. Biliary system: Normal gallbladder. No intra- or extrahepatic dilatation. Spleen: Normal. Pancreas: Normal. Adrenals: Normal. Kidneys: No obstruction or solid masses. There is bilateral nephrolithiasis. An exophytic 5-cm cullen meter cyst of the left kidney is again identified. Abdominal Aorta: There is calcified aortic plaque, without aneurysmal dilatation. No bowel obstruction, ascites, or retroperitoneal lymphadenopathy. CT Pelvis Findings: Again noted is a suprapubic catheter. Additionally, a Vargas catheter is in plac e. There is no pelvic ascites. No free air is seen. There is a small amount of air within the blad leona. Impressions 1. Suprapubic catheter as well as Vargas catheter in position, with no evidence for urinary extravasa tion. 2. Persistent pleural effusions bilaterally, which may be loculated in association with basilar atel ectasis. 3. Minimal pericardial effusion. 4. See above report for additional findings. A preliminary report was called to Dr. Shira Tinajero at 2300 hours in the Emergency Department.
--- NOTE | 2016-07-03 23:49 | DX ---
Portable Chest July 03, 2016 at 2317 hours. Clinical Indications: Worsening hypoxia in an 80-year-old male. Comparison to the prior study June 30, 2016. Findings: There has been progression in bilateral alveolar opacities and pleural effusions. Lower maxine g consolidation is again seen. Cardiomegaly and pulmonary venous hypertension have progressed. The [facility] PICC is in stable position. Tracheostomy and nasogastric tubes are in place. Postoperative changes are noted. Impression: 1. Worsening lung aeration with progression in bilateral opacities and pleural effusions. 2. Progression and congestive heart failure/fluid overload. This may represent impending pulmonary ed gabino. 3. See above report for additional findings.
[2016-07-04] MEDS ORDERED: ONDANSETRON 4 MG/2 ML VIAL IVP PRN (00:53)
[2016-07-04] MEDS ORDERED: PROMETHAZINE HCL 25 MG/ML VIAL IVP PRN (00:53)
[2016-07-04] MEDS ORDERED: ONDANSETRON DISINTEGRATING 4 MG TAB PO PRN (00:53)
[2016-07-04] MEDS ORDERED: oxyCODONE IR 5 MG TAB PO PRN ×2 (00:53→15:24)
[2016-07-04] MEDS ORDERED: ACETAMINOPHEN 325 MG TAB PO PRN (00:53)
[2016-07-04] MEDS ORDERED: D50W 25 GM/50 ML SYR IVP PRN (00:56)
[2016-07-04] MEDS ORDERED: NS 1,000 ML IV SCH (01:00)
--- NOTE | 2016-07-04 01:11 | PDGENHP ---
History and Physical - Chief Complaint hematuria - History of Present Illness 80 yo M with a PMH of CAD s/p CABG x 5 on 05/23/2016 and subsequent complicated post operative course including respiratory failure as well as bladder rupture and peritonitis. Patient presents from LT where he discharged to on 07/02/16 with gross hematuria. He has been followed by urology since his bladder rupture , and at LT had both suprapubic catheter and bello in place. A 3 way catheter was placed at [facility] for CBI, however there was concern that he was leaking around the catheter and that he may obstruct and he was sent to the ER for further evaluation. Patient himself has no real complaints, and states he is "doing better than I am" when asked if he is OK. He does have a trach in place, but states he is doing fine with that. States he does have pain, but that it is not far from his usual baseline. History Information - Allergies/Home Medication List Allergies/Adverse Reactions: atorvastatin calcium [From Lipitor] Allergy (Mild, Verified 05/22/16 22:38) Other-Enter Comments lisinopril [Lisinopril] Allergy (Mild, Verified 05/22/16 22:38) Diarrhea Home Medications: Fluticasone Nasal [Flonase Nasal [place]] 1 spray EACHNARE DAILY PRN 06/12/16 [ Last Taken Unknown] I have personally reviewed and updated: family history, medical history, social history, surgical history - Past Medical History atrial fibrillation, coronary artery disease, cancer (prostate cancer s/p radiation), CHF (with previous systolic CHF, ef normalized), diabetes type 2, hypertension, hyperlipidemia, myocardial infarction Additional medical history: 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 obesity and deconditioning. sacral decubitus ulcer stage 4 POA. low b12 - Surgical History Reports: appendectomy, coronary bypass surgery (x 5 with TV alluloplasty), coronary stent Additional surgical history: tracheotomy. PEG. laparatomy and repair of bladder perforation. SPC placement - Family History Positive for: non-pertinent - Social History Smoking Status: Former smoker Alcohol Use: None Drug Use: None Additional social history: currently at [facility] Review of Systems ROS: 10pt was reviewed & negative except for what was stated in HPI & below Physical Exam Temp Pulse Resp BP Pulse Ox 36.7 C 83 19 115/51 L 99 07/04/16 00:43 07/04/16 00:43 07/04/16 00:43 07/04/16 00:43 07/04/16 00:43 O2 (L/minute) 15 Constitutional: chronically ill appearing, obese, uncomfortable Eyes: PERRL, anicteric sclera Ears, Nose, Mouth, Throat: moist mucous membranes Cardiovascular: regular rate and rhythym, systolic murmur, edema Respiratory: no respiratory distress, no rales or rhonchi Gastrointestinal: normoactive bowel sounds, soft, non-tender abdomen Genitourinary: bello in urethra (bloody urine ouptut) Skin: warm, normal color Musculoskeletal: full muscle strength, no muscle tenderness Neurologic: AAOx3 Psychiatric: interacting appropriately, not anxious, not encephalopathic Lab Data & Imaging Review 07/03/16 22:25 07/03/16 22:25 WBC 10.41 10^3/uL (3.80-9.50) H 07/03/16 22:25 RBC 3.04 10^6/uL (4.40-6.38) L 07/03/16 22:25 Hgb 9.2 g/dL (13.7-17.5) L 07/03/16 22:25 Hct 29.3 % (40.0-51.0) L 07/03/16 22:25 MCV 96.4 fL (81.5-99.8) 07/03/16 22:25 MCH 30.3 pg (27.9-34.1) 07/03/16 22:25 MCHC 31.4 g/dL (32.4-36.7) L 07/03/16 22:25 RDW 15.3 % (11.5-15.2) H 07/03/16 22:25 Plt Count 240 10^3/uL (150-400) 07/03/16 22:25 MPV 10.2 fL (8.7-11.7) 07/03/16 22:25 Neut % (Auto) 78.2 % (39.3-74.2) H 07/03/16 22:25 Lymph % (Auto) 6.4 % (15.0-45.0) L 07/03/16 22:25 Cross % (Auto) 10.4 % (4.5-13.0) 07/03/16 22:25 Eos % (Auto) 3.4 % (0.6-7.6) 07/03/16 22:25 Baso % (Auto) 0.8 % (0.3-1.7) 07/03/16 22:25 Nucleat RBC Rel Count 0.0 % (0.0-0.2) 07/03/16 22:25 Absolute Neuts (auto) 8.15 10^3/uL (1.70-6.50) H 07/03/16 22:25 Absolute Lymphs (auto) 0.67 10^3/uL (1.00-3.00) L 07/03/16: Absolute Monos (auto) 1.08 10^3/uL (0.30-0.80) H 07/03/16 22:25 Absolute Eos (auto) 0.35 10^3/uL (0.03-0.40) 07/03/16:25 Absolute Basos (auto) 0.08 10^3/uL (0.02-0.10) 07/03/16 22:25 Absolute Nucleated RBC 0.00 10^3/uL (0-0.01) 07/03/16: Immature Gran % 0.8 % (0.0-1.1) 07/03/16: Immature Gran # 0.08 10^3/uL (0.00-0.10) 07/03/16 22:25 PT 15.3 SEC (12.0-15.0) H 07/03/16 22:25 INR 1.21 (0.83-1.16) H 07/03/16 22:25 APTT 37.8 SEC (23.0-38.0) 07/03/16 22:25 Sodium 148 mEq/L (134-144) H 07/03/16 22:25 Potassium 4.3 mEq/L (3.5-5.2) 07/03/16 22:25 Chloride 108 mEq/L (97-110) 07/03/16 22:25 Carbon Dioxide 30 mEq/l (22-31) 07/03/16 22:25 Anion Gap 10 mEq/L (8-16) 07/03/16 22:25 BUN 52 mg/dL (7-23) H 07/03/16 22:25 Creatinine 1.7 mg/dL (0.7-1.3) H 07/03/16 22:25 Estimated GFR 39 07/03/16 22:25 Glucose 106 mg/dL (70-100) H 07/03/16 22:25 Calcium 8.2 mg/dL (8.5-10.4) L 07/03/16 22:25 Visualized and Interpreted Chest x-ray results: Yes Chest X-Ray results: other (p) Visualized and Interpreted imaging results: Yes Interpretation: abd ct spc and bello, no bladder perf Assessment & Plan Assessment: 80 yo M s/p recent discharge after prolonged hospital stay s/p CABG and bladder perforation presenting with hematuria # hematuria: in setting of recent bladder perforation with 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 [address] way b[address] catheter in place , CBI overnight. Urology has evaluated patient in the ER and does not feel surgical intervention etc will be needed. Monitoring h/h. # acute respiratory failure: patient with trach placement s/p CABG, does have bilateral pleural effusions and opacities, no evidence to suggest pna however clinically. Will hold off on abx, IV lasix in am, monitoring in ICU. # CAD/VHD: s/p CABG and TV annuloplasty, seems to be stable from CV standpoint, monitoring on tele # dm2: will start SSI and monitor serial BS # PEG tube dependent: will continue TFs, meds by peg # chronic chf: with normalized EF now, DD present, pulmonary effusions and edema as above # dispo: observation status Full code Patient new to my care. Care plan reviewed with urology present at bedside.
[2016-07-04 06:11] LABS: % IMMATURE GRANULYOCYTES 0.8 % (0.0-1.1); ABSOLUTE IMMATURE GRANULOCYTES 0.08 10^3/uL (0.00-0.10); ADD DIFF? NO; ADD MORPH? NO; ADD SCAN? NO; ATYPICAL LYMPHOCYTE FLAG 10 (0-99); FRAGMENT RBC FLAG 0 (0-99); HEMATOCRIT 23.7 % (40.0-51.0); HEMOGLOBIN 7.3 g/dL (13.7-17.5); LEFT SHIFT FLG 0 (0-99); LIPEMIA HEMOLYSIS FLAG 80 (0-99); MEAN CELL HEMOGLOBIN 30.7 pg (27.9-34.1); MEAN CELL HEMOGLOBIN CONCENTR. 30.8 g/dL (32.4-36.7); MEAN CELL VOLUME 99.6 fL (81.5-99.8); MEAN PLATELET VOLUME 10.7 fL (8.7-11.7); PLATELET CLUMPS FLAG 10 (0-99); PLATELET COUNT 247 10^3/uL (150-400); RED BLOOD CELL COUNT 2.38 10^6/uL (4.40-6.38); RED CELL DISTRIBUTION WIDTH 15.1 % (11.5-15.2)
[2016-07-04 06:15] LABS: ANION GAP 9 mEq/L (8-16); CALCIUM 8.1 mg/dL (8.5-10.4); CARBON DIOXIDE 31 mEq/l (22-31); CHLORIDE 108 mEq/L (97-110); CREATININE 1.7 mg/dL (0.7-1.3); GLOMERULAR FILTRATION RATE 39; GLUCOSE 102 mg/dL (70-100); POTASSIUM 4.2 mEq/L (3.5-5.2); SODIUM 148 mEq/L (134-144)
--- NOTE | 2016-07-04 06:43 | GCON ---
[f rep st] CONSULTATION HISTORY OF PRESENT ILLNESS: An 80-year-old male, admitted under the hospitalist service for gross he maturia. He had a CABG done in 2011, with bladder rupture and ARDS. He had bladder repair with a winters prapubic tube and a Vargas catheter, with CVI running. He has had gross hematuria since arrival to LT . He was sent up to the emergency room to be evaluated and admitted to the hospitalist service. U dianelys evaluation, his SP tube is draining with CVI running, but his Vargas catheter is not. I spent lenora roximately 45 minutes irrigating out clot from his bladder, and at the end of the clot irrigation, wh ich was extensive, his Vargas catheter and his suprapubic tube were draining pink. His abdomen was so ft throughout the procedure. My recommendations are for CVI to be run tonight and tomorrow, and if urine is clearing then I would recommend transfer back to the LTAC. REVIEW OF SYSTEMS: A comprehensive 10-point review of systems was reviewed and otherwise negative. PAST MEDICAL HISTORY: CABG done on 05/23. Bladder rupture with repair during that admission. Trach on 06/04. Diabetes, coronary artery disease with stenting, hypertension, hyperlipidemia. SOCIAL HISTORY: Former smoker. He does have family support. PHYSICAL EXAMINATION: VITAL SIGNS: Blood pressure 92/41, respiratory rate 16, heart rate 86, 100% on room air. GENERAL: Alert, oriented x1. No distress. HEENT: Normocephalic, atraumatic. NECK: Trac heostomy is in place without erythema or drainage. RESPIRATORY: No retractions. CARDIOVASCULAR: Reg ular rate and rhythm. GASTROINTESTINAL: Suprapubic tube is in place. Abdomen is soft to palpation. I do not suspect repeat bladder perforation. GENITOURINARY: Vargas catheter is in place. NEUROLOGIC : Pleasant but mildly delirious. SKIN: Decubitus ulcer on buttock. EXTREMITIES: Nontender. No peda l edema. PSYCHIATRIC: Mildly delirious, pleasant. O2 sats at 88%. ALLERGIES: Atorvastatin and Lisinopril. HOME MEDICATIONS: Fluticasone, acetaminophen, albuterol, alteplase, amitriptyline, dextrose, insulin , lansoprazole, levothyroxine, melatonin, potassium, cefazolin, morphine, sodium hypochlorite. IMAGING: CT scan of the abdomen and pelvis notes tubing in place. There is clot in the bladder; I would say approximately 30 cc to 50 cc. No evidence of bladder perforation. LAB DATA: White count 10.4, H and H 9 and 29, platelets 240. Sodium 148, potassium 4.3, BUN 52, cre atinine 1.7, glucose 106. ASSESSMENT AND PLAN: As above. Clot was irrigated out at the bedside. He should remain on CVI and Dr. Sands will be by to evaluate tomorrow. /[id number]/MODL
[2016-07-04] MEDS: INSULIN LISPRO 100 UNIT/ML SC SCH ×4 (09:25→18:04)
[2016-07-04] MEDS: FUROSEMIDE 20 MG/2 ML VIAL IVP SCH (09:51)
--- NOTE | 2016-07-04 09:58 | HOSPPROG ---
Hospitalist Progress Note Assessment/Plan: DIAGNOSIS: # ONGOING HEMATURIA, CONCERN FOR POTENTIAL BLADDER OBSTRUCTION FROM CLOT -currently both S/P cath and Urethral cath are draining with irrigation with gross hematuria, some small clots -he has actually been bleeding ongoing for several weeks after suffering a bladdur rupture during prior hospitalization, and with chronic radiation cystitis -I reviewed w Dr Sands at bedside today, will keep both caths to irrigation at this time, remove one of them once stablized # POST HEMORRHAGIC ANEMIA DUE TO ABOVE, WITH ONGOING ANEMIA FROM PRIOR ILLNESS -is nearing indication for transfusion -follow closely; will order type and cross # ACUTE RESPIRATORY FAILURE ON CHRONIC, ? PULMONARY EDEMA -states still feels "tight"; on lasix -will need to repeat CXR to assess progress and to help clarify the acute issue # S/P RECENT CABG AND VALVE SURGERY -?stable, ? pulm edema # SACRAL DECUBITUS ULCER, POA PLANS: -continue bladder irrigation through both suprapubic and urethral catheters -Recheck hemoglobin again, consider transfusion if necessary -will order type and cross -continue Lasix at this time, repeat chest x-ray -review with Cardiology if he appears to actually have pulmonary edema I have reviewed this patient's care in detail with doctors William Sands and Jarrett Collins Also seen on multidisciplinary rounds SUBJECTIVE: No pain chest feels comfortable but "breathing is tight" no bladder pain no nausea or fever sxs OBJECTIVE Vitals reviewed:stable with no fever equipment monitor phototypesetting: reviewed by me; sinus rythym Exam: alert oriented skin warm dry color ok resps not labored; trach tube in good position and trach site looks good Chest wounds look good from prior heart surgery lungs slight bilateral rales heart regular abd soft nondistended nontender, bowel sounds present; abdominal surgical wounds look good with suprapubic catheter secured in good position Suprapubic and urethral catheters both in place with the ongoing irritation, both with gross hematuria and small clots at present limbs warm, no edema iv site ok I reviewed his admission CXR films, I see extensive diffuse airspace opacity, possibly edema, no enlargement of heart from prior Objective: Vital Signs Temp Pulse Resp BP Pulse Ox 36.8 C 80 18 131/40 H 100 07/04/16 08:00 07/04/16 08:00 07/04/16 08:00 07/04/16 08:00 07/04/16 08:00 Laboratory Results 07/04/16 05:45 07/04/16 05:45 07/03/16 07/04/16 07/05/16 06:59 06:59 06:59 Output Total 800 Balance -800 PT 15.3 SEC (12.0-15.0) H 07/03/16 22:25 INR 1.21 (0.83-1.16) H 07/03/16 22:25 ICD10 Worksheet Patient Problems: Problems Problem Status Diagnosed Acute blood loss anemia Acute Adenocarcinoma of prostate Acute CAD, multiple vessel Acute Chronic Disease [facility]/Transitional Care Acute Fall Acute Gross hematuria Acute 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 Chest pain Acute
--- NOTE | 2016-07-04 10:22 | WOCRNPDOC ---
ANITA Advanced Assessment Note - Skin Integrity Problem, Advanced Assess Sacrum Pressure Injury Dressing Type: Gauze Dressing Description: Clean/Dry, Intact Exudate Amount: Scant Exudate Characteristic(s): Serosanguinous Integumentary Issue Intervention: Visualized Under Dressing Nena Wound Tissue: Erythema Wound Bed Color: Red, Yellow Wound Bed Constitution: Smooth Tissue (50%), Subcutaneous Fat, Adhered Slough ( 50%) Wound Edges: Attached Site Measurement - Head-to-Toe Length X Width X Depth (cm): 9x7x3 Pressure Injury Stage: Stage 4 Pressure Injury Present on Admit: Yes Skin Integrity Problem Comment: Known stage 4 pressure injury with developing necrosis. Fascia visible over coccyx. Moist to dry in place. Orders written and supplied tubed down to ICU. Offload aggressively side to side in bed. Patient should not be lying on his back at any time. Patient may be up in chair for up to one hour 3 times a day. Specialty mattress ordered. Wound care will round again Saturday 07/08 or Sunday 07/09. Chest Surgical Wound/Incision Dressing Type: Open to Air Exudate Amount: None Wound Bed Constitution: Stable Eschar, Unstable Eschar Site Measurement - Head-to-Toe Length X Width X Depth (cm): [id number] x 4 Skin Integrity Problem Comment: No sign of infection. [place] with betadine BID. Necrosis will evenutally slough off.
[2016-07-04] MEDS ORDERED: NEOMY SULF/BACITRAC ZN/POLY 30 GM OINTTUBE TP PRN (11:34)
[2016-07-04] MEDS ORDERED: DEXTROSE IV SCH (11:45)
[2016-07-04] MEDS ORDERED: CEFAZOLIN IV SCH (11:45)
[2016-07-04] MEDS: LANSOPRAZOLE SUSP 30MG/10ML UDSYR (Adult) TUBE SCH (13:53)
[2016-07-04] MEDS: PRAVASTATIN SODIUM 40 MG TAB PO SCH (13:54)
[2016-07-04] MEDS: LEVOTHYROXINE 25 MCG TAB TUBE SCH (13:54)
[2016-07-04] MEDS: AMIODARONE HCL 200 MG TAB TUBE SCH (13:54)
[2016-07-04] MEDS: predniSONE 1 MG TAB TUBE SCH (13:54)
[2016-07-04] MEDS ORDERED: IPRATROPIUM/ALBUTEROL 3 ML DEYVIAL IH SCH (14:00)
[2016-07-04] MEDS: fentaNYL 50 MCG PATCH TD SCH (14:14)
[2016-07-04] MEDS: IPRATROPIUM/ALBUTEROL 3 ML DEYVIAL IH SCH ×2 (17:03→20:11)
[2016-07-04] MEDS: SODIUM HYPOCHLORITE (DAKINS 1/4 STR) 120 ML BTL TP SCH (20:02)
[2016-07-04] MEDS: MELATONIN 3 MG TAB TUBE SCH (20:05)
[2016-07-04] MEDS: INSULIN GLARGINE 100 UNITS/ML SYRINGE SC SCH (20:45)
[2016-07-05] MEDS: INSULIN LISPRO 100 UNIT/ML SC SCH ×4 (00:15→18:17)
[2016-07-05] MEDS: IPRATROPIUM/ALBUTEROL 3 ML DEYVIAL IH SCH ×6 (00:29→19:55)
[2016-07-05] MEDS: LEVOTHYROXINE 25 MCG TAB TUBE SCH (05:03)
[2016-07-05 05:52] LABS: % IMMATURE GRANULYOCYTES 0.8 % (0.0-1.1); ABSOLUTE IMMATURE GRANULOCYTES 0.06 10^3/uL (0.00-0.10); ADD DIFF? NO; ADD MORPH? NO; ADD SCAN? NO; ATYPICAL LYMPHOCYTE FLAG 0 (0-99); FRAGMENT RBC FLAG 0 (0-99); HEMATOCRIT 25.6 % (40.0-51.0); LEFT SHIFT FLG 0 (0-99); LIPEMIA HEMOLYSIS FLAG 80 (0-99); MEAN CELL HEMOGLOBIN 30.3 pg (27.9-34.1); MEAN CELL HEMOGLOBIN CONCENTR. 31.3 g/dL (32.4-36.7); MEAN PLATELET VOLUME 10.2 fL (8.7-11.7); PLATELET CLUMPS FLAG 10 (0-99); PLATELET COUNT 227 10^3/uL (150-400); RED BLOOD CELL COUNT 2.64 10^6/uL (4.40-6.38); RED CELL DISTRIBUTION WIDTH 15.3 % (11.5-15.2)
[2016-07-05 05:58] LABS: ANION GAP 7 mEq/L (8-16); CALCIUM 8.2 mg/dL (8.5-10.4); CARBON DIOXIDE 32 mEq/l (22-31); CHLORIDE 107 mEq/L (97-110); CREATININE 1.8 mg/dL (0.7-1.3); GLOMERULAR FILTRATION RATE 36; GLUCOSE 143 mg/dL (70-100); POTASSIUM 3.8 mEq/L (3.5-5.2); SODIUM 146 mEq/L (134-144)
--- NOTE | 2016-07-05 08:43 | DX ---
AP Chest July 05, 2016 Clinical Indication: Hypoxia. Comparison: July 03, 2016. Findings: A left-sided PICC is unchanged in position. Feeding tube takes a normal course and terminat es off the edge of the film. Heart size remains enlarged. Mediastinal wires are unchanged. Bilateral alveolar opacities and pulmonary venous hypertension are again noted. Impression: Stable CHF with bilateral alveolar opacities.
[2016-07-05] MEDS: LANSOPRAZOLE SUSP 30MG/10ML UDSYR (Adult) TUBE SCH (08:45)
[2016-07-05] MEDS: INSULIN GLARGINE 100 UNITS/ML SYRINGE SC SCH ×2 (08:46→21:40)
[2016-07-05] MEDS: AMIODARONE HCL 200 MG TAB TUBE SCH (08:46)
[2016-07-05] MEDS: FUROSEMIDE 20 MG/2 ML VIAL IVP SCH (08:46)
[2016-07-05] MEDS: PRAVASTATIN SODIUM 40 MG TAB PO SCH (08:46)
[2016-07-05] MEDS: predniSONE 1 MG TAB TUBE SCH (08:46)
[2016-07-05] MEDS: oxyCODONE IR 15 MG TAB PO PRN (08:48)
--- NOTE | 2016-07-05 11:28 | HOSPPROG ---
Hospitalist Progress Note Assessment/Plan: DIAGNOSIS: # ONGOING GROSS HEMATURIA -currently both S/P cath and Urethral cath are draining with irrigation with gross hematuria, some small clots (less bloody today) -he has actually been bleeding ongoing for several weeks after suffering a bladdur rupture during prior hospitalization, and with chronic radiation cystitis # POST HEMORRHAGIC ANEMIA DUE TO ABOVE, WITH ONGOING ANEMIA FROM PRIOR ILLNESS -no current indication for transfusion -follow closely; will order type and cross # ?ACUTE RESPIRATORY FAILURE ON CHRONIC, ? PULMONARY EDEMA -this seems actually very stable from his previous status overall # S/P RECENT CABG AND VALVE SURGERY -stable # SACRAL DECUBITUS ULCER, POA PLANS: -continue bladder irrigation through both suprapubic and urethral catheters; will need to discuss further w Dr Sands re ? removal of irrigation tubes, ? whether cystectomy might be indicated given several weeks ongoing bleeding -follow Hg closely -continue Lasix at this time I have reviewed this patient's care in detail with doctor Jarrett Collins Also seen on multidisciplinary rounds SUBJECTIVE: No pain chest feels comfortable, no more dyspneic than he has been over past few weeks no bladder pain he does have pain at his sacral ulcer site no nausea or fever sxs OBJECTIVE Vitals reviewed: stable with no fever monitor tech: reviewed by me; sinus rythym Exam: alert oriented skin warm dry color ok resps not labored; trach tube in good position and trach site looks good Chest wounds look good from prior heart surgery lungs slight bilateral rales heart regular abd soft nondistended nontender, bowel sounds present; abdominal surgical wounds look good with suprapubic catheter secured in good position Suprapubic and urethral catheters both in place with the ongoing irritation, suprapubic still w gross hematuria but less than yest; urethral cath currently clear limbs warm, no edema iv site ok Objective: Vital Signs Temp Pulse Resp BP Pulse Ox 36.3 C 82 14 111/40 L 99 07/05/16 11:19 07/05/16 11:19 07/05/16 11:19 07/05/16 11:19 07/05/16 11:19 Laboratory Results 07/05/16 05:30 07/05/16 05:30 07/04/16 07/05/16 07/06/16 06:59 06:59 06:59 Intake Total 33483 Output Total 31054 Balance 153 PT 15.3 SEC (12.0-15.0) H 07/03/16 22:25 INR 1.21 (0.83-1.16) H 07/03/16 22:25 ICD10 Worksheet Patient Problems: Problems Problem Status Diagnosed Acute blood loss anemia Acute Adenocarcinoma of prostate Acute CAD, multiple vessel Acute Chronic Disease Mgmt/Transitional Care Acute Fall Acute Gross hematuria Acute 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
--- NOTE | 2016-07-05 14:38 | SOAPPROG ---
SOAP Progress Note Assessment/Plan: Assessment: Gross hematuria- SPT and bello catheter in place. Plan: Goal is for tube removal to decrease risk of bladder irritation and increased bleeding. Dr Sands will reassess tubes and urine tomorrow and consider removal at that time if appropriate. 07/05/16 14:35 07/05/16 14:39 Subjective: Patient was thirsty but no specific urinary complaints Objective: Vital Signs Temp Pulse Resp BP Pulse Ox 36.3 C 85 18 111/40 L 99 07/05/16 11:19 07/05/16 11:39 07/05/16 11:39 07/05/16 11:19 07/05/16 11:19 Laboratory Results 07/05/16 05:30 07/05/16 05:30 07/04/16 07/05/16 07/06/16 05:59 05:59 05:59 Intake Total 31048 Output Total 74624 Balance 153 PT 15.3 SEC (12.0-15.0) H 07/03/16 22:25 INR 1.21 (0.83-1.16) H 07/03/16 22:25 Physical Exam - Physical Exam General Appearance: alert, no apparent distress Respiratory: normal breath sounds Abdomen: other (SPT in place draining dark pink urine on CBI) Male Genitalia: other (bello catheter draining browninsh colored urine with 1 sizeable clot in bag) ICD10 Worksheet Patient Problems: Problems Problem Status Diagnosed Acute blood loss anemia Acute Adenocarcinoma of prostate Acute CAD, multiple vessel Acute Chronic Disease Mgmt/Transitional Care Acute Fall Acute Gross hematuria Acute 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
[2016-07-05] MEDS: oxyCODONE IR 5 MG TAB PO PRN (14:57)
[2016-07-05] MEDS: buPROPion 75 MG TAB PO SCH ×2 (14:59→21:40)
[2016-07-05] MEDS: SODIUM HYPOCHLORITE (DAKINS 1/4 STR) 120 ML BTL TP SCH ×2 (19:18→21:34)
[2016-07-05] MEDS: MELATONIN 3 MG TAB TUBE SCH (21:40)
[2016-07-05] MEDS: ALTEPLASE 2 MG VIAL IVP PRN ×2 (22:10→22:13)
[2016-07-06] MEDS: IPRATROPIUM/ALBUTEROL 3 ML DEYVIAL IH SCH ×6 (00:09→21:21)
--- NOTE | 2016-07-06 00:20 | GCON ---
[f rep st] CONSULTATION PULMONARY/CRITICAL CARE CONSULTATION REASON FOR CONSULTATION: Intensive care unit evaluation and medical management of multiple medical problems, ongoing urinary bleeding, coronary artery disease , etc. HISTORY: The patient is well known to me. He was initially admitted to the hospital on 05/22/2016 with coronary artery disease. He had a CABG x5 and annuloplasty of the tricuspid valve. From a cardiac standpoint, he did well. He did have atrial flutter requiring amiodarone; however, his postoperative course from a cardiovascular standpoint was relatively unremarkable. He has a history of chronic radiation cystitis. Related to this, he has had ongoing bleeding from his bladder. In his postoperative course, he required CBI and, secondary to clot, had distention and rupture of the urinary bladder with peritonitis. This was surgically repaired. His course was complicated by pneumonia, hypoxemia, acute and chronic respiratory failure requiring tracheostomy, acute renal failure secondary to bladder obstruction, blood loss anemia, a grade 4 sacral decubitus, etc. He was transferred to a long-term acute care facility on July 02, 2016, and was returned here approximately 36 hours later secondary to gross hematuria. He was admitted to the step-down unit with urinary bleeding. He had a suprapubic catheter at the time of discharge. This was kept in place. A urinary catheter was placed transurethrally, and he has been on CBI since his readmission. He is being followed by Urology. He has no other active new medical problems of significance. He admits to being depressed. He is stable from a cardiovascular standpoint. PAST MEDICAL HISTORY: As previously described in his chart. There are no new issues. ALLERGIES: Lisinopril, atorvastatin. MEDICATIONS ON ADMISSION: Essentially the same as on discharge 2-3 days ago. SOCIAL HISTORY: Unchanged. FAMILY HISTORY: Unchanged. 10-POINT REVIEW OF SYSTEMS: Unchanged. PHYSICAL EXAMINATION: GENERAL: An obese gentleman who is lying relatively comfortably in bed. VITAL SIGNS: Blood pressure is approximately 115/40, heart rate 85 with sinus rhythm on the monitor. Respiratory rate is 18. He is on a trach collar. A Passy Shadia valve is in place. He is able to phonate without significant problems. HEENT: Remarkable for tracheostomy tube and trach collar. He has a large neck. Jugular venous pressure could not be assessed. CHEST: Decreased breath sounds and air exchange bilaterally, in part secondary to body habitus. There are no rhonchi currently, no wheezes. There are a few rales at bases. HEART: Regular in rate and rhythm. Heart tones are distant. ABDOMEN: Obese, soft, and nontender. An NG tube is in place. Bowel sounds are present. He is tolerating tube feedings. : Remarkable for both the suprapubic catheter and urethral catheter being in place. He is on CBI with blood-tinged fluid. EXTREMITIES: Lower extremity dependent edema. NEUROLOGIC: Intact/nonfocal. He is globally weak. Mentation appears to be intact. DATABASE: CT scan of the abdomen and pelvis shows the bladder catheter as being in good position. There are small effusions and atelectasis at the bases. Nephrolithiasis is present. Chest x-ray: PICC line and feeding tube are in place. There is bibasilar atelectasis/effusions with some vascular plethora. LABORATORY: White blood cell count 7000, hematocrit 25.6, down from 29 on admission. Platelets are within normal limits. Sodium is 146, potassium 3.8, BUN 54, creatinine 1.8, glucose 150 to 240. ASSESSMENT: 1. Ongoing bladder hemorrhage. This is being addressed by Urology and is a very difficult situation. He has now been bleeding for over a month and has chronic problems related to the bladder and radiation cystitis. Alternative bladder solutions may need to be considered. 2. Coronary artery disease. He is hemodynamically stable and doing well. His last echo done on June 25 showed normal left ventricular function. There was no evidence of tricuspid regurgitation. The right ventricular function appeared normal. He has remained in normal sinus rhythm. He remains on amiodarone, Lasix, and pravastatin. He is status post acute myocardial infarction on his previous admission, CABG x3, and tricuspid annuloplasty. 3. Anemia secondary to ongoing blood loss. Current hematocrit is 25.6. 4. Hyperglycemia. He is on sliding scale insulin, as well as Lantus. 5. Metabolic: No issues identified. 6. Gastrointestinal prophylaxis: On Prevacid. 7. Nutrition: Per NG tube. 8. Respiratory: Status post pneumonia. History of obstructive sleep apnea. Currently doing well. Status post tracheostomy, on Passy Beaver valve and trach collar. At some point, we can consider decannulation. 9. Chronic pain: He is on a fentanyl patch and as-needed oxycodone. 10. Pressure ulcer: Related to the coccyx, grade 4. Surgery has been involved and will continue to see the patient intermittently as needed. Wound Care is also involved. Surgical repair likely will be needed in the future. PLAN AND RECOMMENDATIONS: 1. We will follow the recommendations of Urology. Currently he is on CBI. Hematocrit, laboratory, and clinical status will all be followed. 2. The above was discussed at length with Urology, the hospitalist, nursing, and the ICU multidisciplinary team. 3. Further plans and recommendations will be made based on his progress over the next 24-48 hours. /[id number]/MODL MTDD
[2016-07-06] MEDS: LEVOTHYROXINE 25 MCG TAB TUBE SCH (05:55)
[2016-07-06 05:58] LABS: ABSOLUTE IMMATURE GRANULOCYTES 0.07 10^3/uL (0.00-0.10); ADD DIFF? NO; ADD MORPH? NO; ADD SCAN? NO; ATYPICAL LYMPHOCYTE FLAG 10 (0-99); FRAGMENT RBC FLAG 0 (0-99); HEMATOCRIT 23.6 % (40.0-51.0); HEMOGLOBIN 7.4 g/dL (13.7-17.5); LEFT SHIFT FLG 0 (0-99); LIPEMIA HEMOLYSIS FLAG 80 (0-99); MEAN CELL HEMOGLOBIN 31.1 pg (27.9-34.1); MEAN CELL HEMOGLOBIN CONCENTR. 31.4 g/dL (32.4-36.7); MEAN CELL VOLUME 99.2 fL (81.5-99.8); MEAN PLATELET VOLUME 10.2 fL (8.7-11.7); PLATELET CLUMPS FLAG 10 (0-99); PLATELET COUNT 221 10^3/uL (150-400); RED BLOOD CELL COUNT 2.38 10^6/uL (4.40-6.38); RED CELL DISTRIBUTION WIDTH 15.7 % (11.5-15.2)
[2016-07-06] MEDS: INSULIN LISPRO 100 UNIT/ML SC SCH ×4 (06:03→18:26)
[2016-07-06 06:24] LABS: ANION GAP 7 mEq/L (8-16); CALCIUM 8.2 mg/dL (8.5-10.4); CARBON DIOXIDE 33 mEq/l (22-31); CHLORIDE 108 mEq/L (97-110); CREATININE 1.8 mg/dL (0.7-1.3); GLOMERULAR FILTRATION RATE 36; GLUCOSE 169 mg/dL (70-100); POTASSIUM 3.6 mEq/L (3.5-5.2); SODIUM 148 mEq/L (134-144)
[2016-07-06] MEDS: FUROSEMIDE 20 MG/2 ML VIAL IVP SCH (08:58)
[2016-07-06] MEDS: AMIODARONE HCL 200 MG TAB TUBE SCH (08:58)
[2016-07-06] MEDS: predniSONE 1 MG TAB TUBE SCH (08:58)
[2016-07-06] MEDS: PRAVASTATIN SODIUM 40 MG TAB PO SCH (08:58)
[2016-07-06] MEDS: LANSOPRAZOLE SUSP 30MG/10ML UDSYR (Adult) TUBE SCH (08:58)
[2016-07-06] MEDS: buPROPion 75 MG TAB PO SCH ×3 (08:58→20:52)
[2016-07-06] MEDS: SODIUM HYPOCHLORITE (DAKINS 1/4 STR) 120 ML BTL TP SCH ×2 (09:19→22:38)
[2016-07-06] MEDS: INSULIN GLARGINE 100 UNITS/ML SYRINGE SC SCH ×2 (09:30→20:52)
--- NOTE | 2016-07-06 09:31 | SOAPPROG ---
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 remove bello today and consider removal of SP cath Friday if pt has no set back Plan: as noted 07/06/16 10:26 Subjective: no complaints Objective: Vital Signs Temp Pulse Resp BP Pulse Ox 36.5 C 80 19 115/38 L 96 07/06/16 08:00 07/06/16 08:00 07/06/16 08:00 07/06/16 08:00 07/06/16 08:00 Laboratory Results 07/06/16 05:50 07/06/16 05:50 07/05/16 07/06/16 07/07/16 05:59 05:59 05:59 Intake Total 63937 1650 Output Total 73670 1100 Balance 153 550 PT 15.3 SEC (12.0-15.0) H 07/03/16 22:25 INR 1.21 (0.83-1.16) H 07/03/16 22:25 Physical Exam - Physical Exam General Appearance: alert Respiratory: other (trach, non ventillated) Abdomen: soft Male Genitalia: normal genitalia Back: No CVA tenderness ICD10 Worksheet Patient Problems: Problems Problem Status Diagnosed Acute blood loss anemia Acute Adenocarcinoma of prostate Acute CAD, multiple vessel Acute Chronic Disease Mgmt/Transitional Care Acute Fall Acute Gross hematuria Acute 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
--- NOTE | 2016-07-06 09:42 | HOSPPROG ---
Hospitalist Progress Note Assessment/Plan: DIAGNOSIS: # ONGOING GROSS HEMATURIA -currently both S/P cath and Urethral cath are draining with irrigation with gross hematuria, some small clots (less bloody today) -he has actually been bleeding ongoing for several weeks after suffering a bladdur rupture during prior hospitalization, and with chronic radiation cystitis # POST HEMORRHAGIC ANEMIA DUE TO ABOVE, WITH ONGOING ANEMIA FROM PRIOR ILLNESS -no current indication for transfusion -follow closely; will order type and cross # ?ACUTE RESPIRATORY FAILURE ON CHRONIC, ? PULMONARY EDEMA -this seems actually very stable from his previous status overall # S/P RECENT CABG AND VALVE SURGERY -stable # SACRAL DECUBITUS ULCER, POA PLANS: -continue bladder irrigation through both suprapubic and urethral catheters; Dr. Sands again suggests possibility of removing suprapubic catheter but has not mentioned timing or other specifics- -will discuss with Dr. Collins whether a long-acting bronchodilator inhaler would be potentially useful or inhaled steroid -follow Hg closely -continue Lasix at this time I have reviewed this patient's care in detail with doctor Jarrett Collins Also seen on multidisciplinary rounds SUBJECTIVE: Still with mild dyspnea, perhaps a bit worse today and coughing now no bladder pain he does have pain at his sacral ulcer site no nausea or fever sxs OBJECTIVE Vitals reviewed: stable with no fever machine records units supervisor: reviewed by me; sinus rythym Exam: alert oriented skin warm dry color ok resps not labored; trach tube in good position and trach site looks good Chest wounds look good from prior heart surgery lungs slight bilateral rales heart regular abd soft nondistended nontender, bowel sounds present; abdominal surgical wounds look good with suprapubic catheter secured in good position Suprapubic and urethral catheters both in place with the ongoing irritation, suprapubic still w gross hematuria at both limbs warm, no edema iv site ok Laboratory data: Hemoglobin down slightly at 7.4 today otherwise stable Objective: Vital Signs Temp Pulse Resp BP Pulse Ox 36.5 C 80 19 115/38 L 96 07/06/16 08:00 07/06/16 08:00 07/06/16 08:00 07/06/16 08:00 07/06/16 08:00 Laboratory Results 07/06/16 05:50 07/06/16 05:50 07/05/16 07/06/16 07/07/16 06:59 06:59 06:59 Intake Total 47235 1650 Output Total 21946 1100 Balance 153 550 PT 15.3 SEC (12.0-15.0) H 07/03/16 22:25 INR 1.21 (0.83-1.16) H 07/03/16 22:25 ICD10 Worksheet Patient Problems: Problems Problem Status Diagnosed Acute blood loss anemia Acute Adenocarcinoma of prostate Acute CAD, multiple vessel Acute Chronic Disease Mgmt/Transitional Care Acute Fall Acute Gross hematuria Acute 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
[2016-07-06] MEDS ORDERED: oxyCODONE IR 15 MG TAB ONE ×2 (11:40→17:24)
[2016-07-06] MEDS: oxyCODONE IR 15 MG TAB PO PRN ×2 (11:43→17:25)
--- NOTE | 2016-07-06 16:14 | PDINTPN ---
Electronics Mechanic Progress Note Assessment/Plan: Assessment: Bladder hemorrhage. On going. Followed by Urology. Vargas catheter removed in hopes to decrease irritation and this decreased bleeding Coronary artery disease, status post myocardial infarction, CABG, etc 1 month ago. Hemodynamically stable. Atrial fibrillation postoperatively. On amiodarone, in normal sinus rhythm. Obesity Decubitus ulcer on coccyx: Grade 4 Status post respiratory failure, tracheostomy. Somewhat more congested today. Will obtain a sputum culture, repeat chest x-ray in a.m.. Plan: Subjective: Doing okay. Has been up and walked with physical therapy. Complains of increased congestion with some yellow mucus Objective: Vital Signs Temp Pulse Resp BP Pulse Ox 36.6 C 85 20 105/42 L 95 07/06/16 12:00 07/06/16 12:00 07/06/16 12:00 07/06/16 12:00 07/06/16 12:00 Laboratory Results 07/06/16 05:50 07/06/16 05:50 07/05/16 07/06/16 07/07/16 05:59 05:59 05:59 Intake Total 69878 1650 Output Total 01536 1100 Balance 153 550 PT 15.3 SEC (12.0-15.0) H 07/03/16 22:25 INR 1.21 (0.83-1.16) H 07/03/16 22:25 Laboratory Tests 07/06/16 05:50 Calcium 8.2 L Physical Exam - Physical Exam General Appearance: alert, no apparent distress, obese EENT: PERRL/EOMI Neck: other (Tracheostomy in place, trach collar), No normal inspection Respiratory: decreased breath sounds (Few scattered rhonchi.), rales (Few scattered rales at bases with inspiration), rhonchi, No lungs clear, No respiratory distress Cardiac/Chest: regular rate, rhythm Abdomen: non-tender, soft (Obese), other (Tolerating tube feeding), No normal bowel sounds (Decreased, present) Male Genitalia: other (Vargas removed, suprapubic catheter left in place, bloody irrigation noted.) Skin: warm/dry, pallor Extremities: pedal edema Neuro/Psych: no motor/sensory deficits, No cognition abnormalities ICD10 Worksheet Patient Problems: Problems Problem Status Diagnosed Acute blood loss anemia Acute Adenocarcinoma of prostate Acute CAD, multiple vessel Acute Chronic Disease Mgmt/Transitional Care Acute Fall Acute Gross hematuria Acute 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
[2016-07-06] MEDS: MELATONIN 3 MG TAB TUBE SCH (20:53)
[2016-07-07] MEDS: IPRATROPIUM/ALBUTEROL 3 ML DEYVIAL IH SCH ×7 (00:30→23:35)
[2016-07-07] MEDS: INSULIN LISPRO 100 UNIT/ML SC SCH ×4 (01:07→19:00)
[2016-07-07 04:41] LABS: % IMMATURE GRANULYOCYTES 0.9 % (0.0-1.1); ABSOLUTE IMMATURE GRANULOCYTES 0.06 10^3/uL (0.00-0.10); ADD DIFF? NO; ADD MORPH? YES; ADD SCAN? NO; ATYPICAL LYMPHOCYTE FLAG 10 (0-99); FRAGMENT RBC FLAG 0 (0-99); HEMATOCRIT 22.1 % (40.0-51.0); LEFT SHIFT FLG 0 (0-99); LIPEMIA HEMOLYSIS FLAG 80 (0-99); MEAN CELL HEMOGLOBIN 31.1 pg (27.9-34.1); MEAN CELL HEMOGLOBIN CONCENTR. 31.2 g/dL (32.4-36.7); MEAN CELL VOLUME 99.5 fL (81.5-99.8); MEAN PLATELET VOLUME 9.9 fL (8.7-11.7); PLATELET CLUMPS FLAG 0 (0-99); PLATELET COUNT 221 10^3/uL (150-400); RED BLOOD CELL COUNT 2.22 10^6/uL (4.40-6.38); RED CELL DISTRIBUTION WIDTH 15.7 % (11.5-15.2)
[2016-07-07 04:43] LABS: HEMOGLOBIN 6.9 g/dL (13.7-17.5)
[2016-07-07 05:07] LABS: PLATELET ESTIMATE ADEQUATE (ADEQ)
[2016-07-07 05:11] LABS: HYPOCHROMIA 2+
[2016-07-07 05:12] LABS: POLYCHROMASIA 1+
[2016-07-07 05:13] LABS: MACROCYTES 1+; MICROCYTES 1+
[2016-07-07] MEDS: LEVOTHYROXINE 25 MCG TAB TUBE SCH (05:29)
--- NOTE | 2016-07-07 09:00 | DX ---
Portable AP Supine Chest July 07, 2016 at 6:11 a.m. Clinical History: 80-year-old male in the ICU for follow-up of respiratory status. Comparison Study: Chest, dated July 05, 2016. Findings: The patient is slightly rotated left. The left-sided PICC line is stable in position. Media n sternotomy wires and mediastinal surgical clips, consistent with prior CABG are noted. There is a D obbhoff feeding tube present. Telemetry monitoring lead lines are noted. The cardiac and mediastinal silhouettes remain prominent, with pulmonary vascular congestion and bilateral interstitial/alveolar opacities. The degree of left retrocardiac consolidation may have progressed. There is no pneumothora x. Impression: Cardiomegaly with congestive heart failure and slight interval worsening of left retrocar diac consolidation compared to July 05, 2016.
[2016-07-07] MEDS: LANSOPRAZOLE SUSP 30MG/10ML UDSYR (Adult) TUBE SCH (09:01)
[2016-07-07] MEDS: predniSONE 1 MG TAB TUBE SCH (09:01)
[2016-07-07] MEDS: PRAVASTATIN SODIUM 40 MG TAB PO SCH (09:01)
[2016-07-07] MEDS: buPROPion 75 MG TAB PO SCH ×3 (09:01→21:29)
[2016-07-07] MEDS: AMIODARONE HCL 200 MG TAB TUBE SCH (09:01)
[2016-07-07] MEDS: FUROSEMIDE 20 MG/2 ML VIAL IVP SCH ×2 (09:02→10:00)
[2016-07-07] MEDS: SODIUM HYPOCHLORITE (DAKINS 1/4 STR) 120 ML BTL TP SCH ×2 (09:02→20:58)
[2016-07-07] MEDS ORDERED: FUROSEMIDE 40 MG/4 ML VIAL ONE (09:38)
[2016-07-07] MEDS: INSULIN GLARGINE 100 UNITS/ML SYRINGE SC SCH ×2 (10:00→21:28)
--- NOTE | 2016-07-07 10:18 | HOSPPROG ---
Hospitalist Progress Note Assessment/Plan: DIAGNOSIS: # ONGOING GROSS HEMATURIA -currently both urethral catheter has been removed, suprapubic catheter remains in place and is draining draining with irrigation with gross hematuria, some small clots (less bloody today) -he has actually been bleeding ongoing for several weeks after suffering a bladdur rupture during prior hospitalization, and with chronic radiation cystitis # POST HEMORRHAGIC ANEMIA DUE TO ABOVE, WITH ONGOING ANEMIA FROM PRIOR ILLNESS -hemoglobin down to 6 today requiring 1 unit of packed red blood cell transfusion -follow closely, could need further transfusions over coming days. We will add iron therapy replacement -If bleeding persists may need to consider other options for controlling this. # ACUTE RESPIRATORY FAILURE ON CHRONIC, SOME PULMONARY EDEMA, COPD, SOME SECRETIONS; TRACHESOTOMY IN PLACE -still complaining of dyspnea, chest x-rays suggestive of pulmonary edema -Will increase diuresis to see if this helps # S/P RECENT CABG AND VALVE SURGERY -stable # SACRAL DECUBITUS ULCER, POA -improving # SITUATIONAL DEPRESSION -started on trial of Wellbutrin at this time I have reviewed this patient's care in detail with doctor Jarrett Collins Also seen on multidisciplinary rounds SUBJECTIVE: Still with dyspnea, still with productive cough no bladder pain Less pain at his sacral ulcer site no nausea or fever sxs His urethral catheter has been removed new OBJECTIVE Vitals reviewed: stable with no fever monitor technician: reviewed by me; sinus rythym Exam: alert oriented skin warm dry color ok resps not labored; trach tube in good position and trach site looks good Chest wounds look good from prior heart surgery lungs slight bilateral rales heart regular abd soft nondistended nontender, bowel sounds present; abdominal surgical wounds look good with suprapubic catheter secured in good position Suprapubic and urethral catheters both in place with the ongoing irritation, suprapubic still w gross hematuria at both limbs warm, no edema iv site ok Laboratory data: Hemoglobin down slightly at 7.4 today otherwise stable Objective: Vital Signs Temp Pulse Resp BP Pulse Ox 36.8 C 88 22 H 98/40 L 96 07/07/16 04:00 07/07/16 07:55 07/07/16 05:46 07/07/16 04:00 07/07/16 07:55 Microbiology 07/06/16 12:30 - Final Sputum, Expectorated Laboratory Results 07/07/16 04:25 07/06/16 05:50 07/06/16 07/07/16 07/08/16 06:59 06:59 06:59 Intake Total 1650 2137 Output Total 1100 750 Balance 550 1387 PT 15.3 SEC (12.0-15.0) H 07/03/16 22:25 INR 1.21 (0.83-1.16) H 07/03/16 22:25 ICD10 Worksheet Patient Problems: Problems Problem Status Diagnosed Acute blood loss anemia Acute Adenocarcinoma of prostate Acute CAD, multiple vessel Acute Chronic Disease [facility]/Transitional Care Acute Fall Acute Gross hematuria Acute 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
[2016-07-07 11:57] LABS: HEMATOCRIT 25.3 % (40.0-51.0); HEMOGLOBIN 7.8 g/dL (13.7-17.5)
[2016-07-07] MEDS: fentaNYL 50 MCG PATCH TD SCH (12:28)
--- NOTE | 2016-07-07 13:43 | PDINTPN ---
Spiritual Advisor Progress Note Assessment/Plan: Assessment: Bladder hemorrhage. On going. Continues to bleed: Amounts difficult to assess. Suprapubic catheter remains in place. Plans per Urology. Coronary artery disease, status post myocardial infarction, CABG, etc 1 month ago. Hemodynamically stable, normal cardiac function but CHF/fluid retention present on x-ray. Atrial fibrillation postoperatively. On amiodarone, in normal sinus rhythm. Obesity Decubitus ulcer on coccyx: Grade 4. Wound Care following Status post respiratory failure, tracheostomy. Somewhat more congested last couple a days. Better now. Sputum starting to grow a gram-negative rajesh. Will await sensitivities prior to considering coverage. He may have a new pneumonia ? but white blood cell count not elevated and he is afebrile. On cephazolin now for urinary organisms found previously. Anemia: Secondary to chronic blood loss in likely decreased production. Hematocrit 25, down from 29 3 days ago. Renal failure: Stable. Creatinine 1.8. Prophylactic anticoagulation: SCDs. Not on any medications secondary to ongoing urinary bleeding. Plan: Continue care in the intensive care unit. Monitor bleeding from bladder. Bladder issues per Urology. Follow hematocrit, laboratory, chest x- ray. Follow pulmonary status. Increase Lasix diuresis. Await sputum culture. Consider re-initiation of antibiotics for GN are if indicated. Subjective: So in more short of breath with increased secretions earlier today. Was up in the chair, better now. Remains depressed. Did ambulate. Objective: Vital Signs Temp Pulse Resp BP Pulse Ox 36.9 C 93 18 112/49 L 93 07/07/16 08:00 07/07/16 11:30 07/07/16 11:30 07/07/16 08:00 07/07/16 11:30 Microbiology 07/06/16 12:30 - Final Sputum, Expectorated Laboratory Results 07/07/16 11:00 07/06/16 05:50 07/06/16 07/07/16 07/08/16 05:59 05:59 05:59 Intake Total 1650 2137 Output Total 1100 750 Balance 550 1387 PT 15.3 SEC (12.0-15.0) H 07/03/16 22:25 INR 1.21 (0.83-1.16) H 07/03/16 22:25 CXR: About the same. Large heart, increased markings, especially at the bases , left greater than right Physical Exam - Physical Exam General Appearance: alert, mild distress, obese EENT: normal ENT inspection Neck: other (Tracheostomy/trach collar in place. Decreased secretions currently ) Respiratory: decreased breath sounds, rales (Few rales at bases), rhonchi (Few scattered rhonchi), No wheezing Cardiac/Chest: regular rate, rhythm Abdomen: normal bowel sounds, non-tender, soft (Obese), other (Feeding to nasally in place, tolerating tube feedings) Male Genitalia: other (Suprapubic catheter remains in. Input greater than output since admission.) Skin: warm/dry, pallor Extremities: pedal edema Neuro/Psych: no motor/sensory deficits, No cognition abnormalities ICD10 Worksheet Patient Problems: Problems Problem Status Diagnosed Acute blood loss anemia Acute Adenocarcinoma of prostate Acute CAD, multiple vessel Acute Chronic Disease Mgmt/Transitional Care Acute Fall Acute Gross hematuria Acute 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
[2016-07-07] MEDS ORDERED: oxyCODONE IR 15 MG TAB ONE (14:09)
[2016-07-07] MEDS: oxyCODONE IR 5 MG TAB PO PRN (14:19)
[2016-07-07] MEDS: FUROSEMIDE 40 MG/4 ML VIAL IVP SCH (16:00)
[2016-07-07] MEDS: MELATONIN 3 MG TAB TUBE SCH (21:29)
[2016-07-08] MEDS: INSULIN LISPRO 100 UNIT/ML SC SCH ×4 (01:10→18:47)
[2016-07-08] MEDS: IPRATROPIUM/ALBUTEROL 3 ML DEYVIAL IH SCH ×5 (04:59→19:29)
[2016-07-08] MEDS: LEVOTHYROXINE 25 MCG TAB TUBE SCH (05:06)
[2016-07-08 05:50] LABS: ANION GAP 5 mEq/L (8-16); CALCIUM 8.1 mg/dL (8.5-10.4); CARBON DIOXIDE 36 mEq/l (22-31); CHLORIDE 105 mEq/L (97-110); CREATININE 1.9 mg/dL (0.7-1.3); GLOMERULAR FILTRATION RATE 34; GLUCOSE 135 mg/dL (70-100); MAGNESIUM 2.3 mg/dL (1.6-2.3); POTASSIUM 3.4 mEq/L (3.5-5.2); SODIUM 146 mEq/L (134-144)
--- NOTE | 2016-07-08 07:58 | DX ---
Portable Chest, 6:01 a.m. Clinical Indications: Followup congestive failure, history of recent bladder rupture Comparison: yesterday and July 05 Findings: Current radiographic technique is bleach mixer and inspiratory phase is less. A tracheostomy de vice an feeding tube remain in place as as does a left arm PICC line. The PICC line tip remains in go od position within the caval atrial junction area, and has been partially withdrawn. No obvious penny ge. Impression: Little if any change considering bleach mixer technique.
[2016-07-08] MEDS: predniSONE 1 MG TAB TUBE SCH (08:05)
[2016-07-08] MEDS: buPROPion 75 MG TAB PO SCH ×3 (08:05→22:45)
[2016-07-08] MEDS: PRAVASTATIN SODIUM 40 MG TAB PO SCH (08:05)
[2016-07-08] MEDS: FUROSEMIDE 40 MG/4 ML VIAL IVP SCH ×2 (08:06→15:24)
[2016-07-08] MEDS: INSULIN GLARGINE 100 UNITS/ML SYRINGE SC SCH ×2 (08:21→22:45)
[2016-07-08] MEDS: LANSOPRAZOLE SUSP 30MG/10ML UDSYR (Adult) TUBE SCH (08:21)
--- NOTE | 2016-07-08 12:33 | PDINTPN ---
Confidential Secretary Progress Note Assessment/Plan: Assessment/Plan: * Bladder hemorrhage. On going. Continues to bleed: Amounts difficult to assess. Suprapubic catheter remains in place. -will discuss with * Coronary artery disease, status post myocardial infarction, CABG, etc 1 month ago. Hemodynamically stable, normal cardiac function but CHF/fluid retention present on x-ray. * Atrial fibrillation postoperatively. On amiodarone, in normal sinus rhythm. * Obesity * Decubitus ulcer on coccyx: Grade 4. Wound Care following * Status post respiratory failure, tracheostomy. Somewhat more congested last couple a days. Better now. Sputum starting to grow a gram-negative rajesh. Will await sensitivities prior to considering coverage. He may have a new pneumonia ? but white blood cell count not elevated and he is afebrile. On cephazolin now for urinary organisms found previously. -will hold CPAP at night * Trach-downsized to #7 extra long * Anemia: Secondary to chronic blood loss in likely decreased production. Hematocrit 25, down from 29 3 days ago. * Renal failure: Stable. Creatinine 1.8. Subjective: Awake and alert. Objective: Vital Signs Temp Pulse Resp BP Pulse Ox 36.6 C 82 20 104/39 L 97 07/08/16 08:00 07/08/16 11:24 07/08/16 11:24 07/08/16 08:00 07/08/16 11:24 Microbiology 07/06/16 12:30 - Final Sputum, Expectorated Sputum Culture - Final Klebsiella Pneumoniae Ssp Pneu Laboratory Results 07/07/16 11:00 07/08/16 05:10 07/07/16 07/08/16 07/09/16 05:59 05:59 05:59 Intake Total 2137 2155 Output Total 750 850 Balance 1387 1305 PT 15.3 SEC (12.0-15.0) H 07/03/16 22:25 INR 1.21 (0.83-1.16) H 07/03/16 22:25 Physical Exam - Physical Exam General Appearance: alert, no apparent distress EENT: PERRL/EOMI, normal ENT inspection Neck: non-tender, full range of motion, supple, other (trach site C & D) Respiratory: crackles (few), No respiratory distress, No stridor, No wheezing Cardiac/Chest: normal peripheral pulses, regular rate, rhythm, systolic murmur Abdomen: normal bowel sounds, non-tender, soft Male Genitalia: deferred Rectal: deferred Skin: normal color, warm/dry Extremities: normal range of motion, non-tender, normal inspection, normal capillary refill ICD10 Worksheet Patient Problems: Problems Problem Status Diagnosed Acute blood loss anemia Acute Adenocarcinoma of prostate Acute CAD, multiple vessel Acute Chronic Disease Mgmt/Transitional Care Acute Fall Acute Gross hematuria Acute 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
[2016-07-08] MEDS: SODIUM HYPOCHLORITE (DAKINS 1/4 STR) 120 ML BTL TP SCH (12:47)
--- NOTE | 2016-07-08 13:48 | SOAPPROG ---
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 Hopefully removal of SP tube will remove irritative effect of catheters and bleeding will diminish. Risk of retention noted. Pt in agreement of plan Plan: as noted 07/08/16 13:45 Subjective: doing well Objective: Vital Signs Temp Pulse Resp BP Pulse Ox 36.6 C 82 20 104/39 L 97 07/08/16 08:00 07/08/16 11:24 07/08/16 11:24 07/08/16 08:00 07/08/16 11:24 Microbiology 07/06/16 12:30 - Final Sputum, Expectorated Sputum Culture - Final Klebsiella Pneumoniae Ssp Pneu Laboratory Results 07/07/16 11:00 07/08/16 05:10 07/07/16 07/08/16 07/09/16 05:59 05:59 05:59 Intake Total 2137 2155 Output Total 750 850 Balance 1387 1305 PT 15.3 SEC (12.0-15.0) H 07/03/16 22:25 INR 1.21 (0.83-1.16) H 07/03/16 22:25 Physical Exam - Physical Exam General Appearance: alert Abdomen: soft Male Genitalia: normal genitalia, No erythema, No testicular tenderness Back: No CVA tenderness Neuro/Psych: alert, oriented x 3 ICD10 Worksheet Patient Problems: Problems Problem Status Diagnosed Acute blood loss anemia Acute Adenocarcinoma of prostate Acute CAD, multiple vessel Acute Chronic Disease Mgmt/Transitional Care Acute Fall Acute Gross hematuria Acute 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
--- NOTE | 2016-07-08 15:06 | HOSPPROG ---
Hospitalist Progress Note Assessment/Plan: DIAGNOSIS: # ONGOING GROSS HEMATURIA -currently urethral catheter has been removed, suprapubic catheter remains in place and is draining draining with irrigation with gross hematuria, some small clots (less bloody today) -plan is to remove SP cath today and see if he a) stops bleeding b) remains able to void # POST HEMORRHAGIC ANEMIA DUE TO ABOVE, WITH ONGOING ANEMIA FROM PRIOR ILLNESS -s/p 1 unit of packed red blood cell transfusion, will need to follow counts closely -iron therapy replacement -If bleeding persists may need to consider other options for controlling this. # ACUTE RESPIRATORY FAILURE ON CHRONIC, SOME PULMONARY EDEMA, COPD, SOME SECRETIONS; TRACHESOTOMY IN PLACE -still complaining of dyspnea, chest x-rays suggestive of pulmonary edema -Will increase diuresis to see if this helps # S/P RECENT CABG AND VALVE SURGERY -stable, but remains fairly debilitated # SACRAL DECUBITUS ULCER, POA -improving # SITUATIONAL DEPRESSION -started on trial of Wellbutrin at this time I have reviewed this patient's care in detail with Dr Worley Also seen on multidisciplinary rounds SUBJECTIVE: Still with dyspnea, still with productive cough no bladder pain Less pain at his sacral ulcer site no nausea or fever sxs His urethral catheter has been removed new OBJECTIVE Vitals reviewed: stable with no fever patient monitor: reviewed by me; sinus rythym Exam: alert oriented skin warm dry color ok resps not labored; trach tube in good position and trach site looks good Chest wounds look good from prior heart surgery lungs slight bilateral rales heart regular abd soft nondistended nontender, bowel sounds present; abdominal surgical wounds look good with suprapubic catheter secured in good position Suprapubic and urethral catheters both in place with the ongoing irritation, suprapubic still w gross hematuria at both limbs warm, no edema iv site ok Laboratory data: Hemoglobin appropriately better at 7.8 today after transfusion Objective: Vital Signs Temp Pulse Resp BP Pulse Ox 36.6 C 84 23 H 117/54 L 95 07/08/16 08:00 07/08/16 12:00 07/08/16 12:00 07/08/16 12:00 07/08/16 12:00 Microbiology 07/06/16 12:30 - Final Sputum, Expectorated Sputum Culture - Final Klebsiella Pneumoniae Ssp Pneu Laboratory Results 07/07/16 11:00 07/08/16 05:10 07/07/16 07/08/16 07/09/16 06:59 06:59 06:59 Intake Total 2137 2155 Output Total 750 850 Balance 1387 1305 PT 15.3 SEC (12.0-15.0) H 07/03/16 22:25 INR 1.21 (0.83-1.16) H 07/03/16 22:25 ICD10 Worksheet Patient Problems: Problems Problem Status Diagnosed Acute blood loss anemia Acute Adenocarcinoma of prostate Acute CAD, multiple vessel Acute Chronic Disease [facility]/Transitional Care Acute Fall Acute Gross hematuria Acute 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
[2016-07-08] MEDS ORDERED: POTASSIUM CL 20 MEQ/15 ML UDCUP TUBE ONE (16:21)
[2016-07-08] MEDS ORDERED: FERROUS SULFATE 300 MG/5 ML UD CUP PO SCH (16:30)
[2016-07-08] MEDS: FERROUS SULFATE 300 MG/5 ML UD CUP TUBE SCH (16:44)
--- NOTE | 2016-07-08 17:16 | WOCRNPDOC ---
WOCRN Advanced Assessment Note - Skin Integrity Problem, Advanced Assess Sacrum Pressure Injury Dressing Type: Hydrofera Blue, Tegaderm Film Dressing Description: Not Intact (rolled up and not covering wound bed) Exudate Amount: None Integumentary Issue Intervention: Dressing Changed Christina Wound Tissue: Erythema, Macerated (minor maceration at inferior wound edge) Wound Bed Color: Red, Yellow Wound Bed Constitution: Granulation Tissue (50%), Adhered Slough (50%) Wound Edges: Attached (along inferior wound margin), Not Attached (along superior edge) Site Measurement - Head-to-Toe Length X Width X Depth (cm): 8x6.5x3 Pressure Injury Stage: Stage 4 Pressure Injury Present on Admit: No Skin Integrity Problem Comment: Wound bed appearence communicated to Dr. Nunn team. TAPS placed. Vac placed today. Cleaned wound with ns and gauze. Skin prep applied christina wound. Draped applied and vac bridged to right flank. 1 piece of medium black foam used. Mastisol applied to distal wound edge to encourage strong seal. Vac started at -125 mm Hg continous suction with no leaks. Skinny CORTES assisted. Reported to RN Maggie. Please make sure entire vac dressing including the bridge is offloaded at all times. Pt may lie on right or left side but bolster the bridge on either side, with either TAPS wedges, or pillows or both so that the bridge and patient's sacrum are "floating".
[2016-07-08] MEDS: MELATONIN 3 MG TAB TUBE SCH (22:45)
[2016-07-09] MEDS: IPRATROPIUM/ALBUTEROL 3 ML DEYVIAL IH SCH ×6 (00:46→21:48)
[2016-07-09] MEDS: INSULIN LISPRO 100 UNIT/ML SC SCH ×4 (01:30→18:34)
[2016-07-09] MEDS: LEVOTHYROXINE 25 MCG TAB TUBE SCH (05:49)
[2016-07-09] MEDS ORDERED: FERRO-SEQUELS 65 MG TAB.ER PO SCH (09:00)
[2016-07-09] MEDS: buPROPion 75 MG TAB PO SCH ×3 (09:10→21:25)
[2016-07-09] MEDS: predniSONE 1 MG TAB TUBE SCH (09:10)
[2016-07-09] MEDS: INSULIN GLARGINE 100 UNITS/ML SYRINGE SC SCH ×2 (09:10→21:25)
[2016-07-09] MEDS: PRAVASTATIN SODIUM 40 MG TAB PO SCH (09:10)
[2016-07-09] MEDS: FERROUS SULFATE 300 MG/5 ML UD CUP TUBE SCH (09:11)
[2016-07-09] MEDS: FUROSEMIDE 40 MG/4 ML VIAL IVP SCH ×2 (09:11→16:43)
[2016-07-09] MEDS: LANSOPRAZOLE SUSP 30MG/10ML UDSYR (Adult) TUBE SCH (09:11)
--- NOTE | 2016-07-09 09:58 | PDINTPN ---
Counter Weigher Progress Note Assessment/Plan: Assessment/Plan: * Bladder hemorrhage-Vargas and suprapubic out. Bladder scans okay. Few clots. Incontinent -try condom cath -follow * Coronary artery disease, status post myocardial infarction, CABG, etc 1 month ago. Hemodynamically stable, normal cardiac function but CHF/fluid retention present on x-ray. * Atrial fibrillation postoperatively. On amiodarone, in normal sinus rhythm. * Obesity * Decubitus ulcer on coccyx: Grade 4. Wound Care following * Status post respiratory failure, tracheostomy. Somewhat more congested last couple a days. Better now. Sputum starting to grow a gram-negative rajesh. Will await sensitivities prior to considering coverage. He may have a new pneumonia ? but white blood cell count not elevated and he is afebrile. On cephazolin now for urinary organisms found previously. -will hold CPAP at night * Trach-downsized to #7 extra long * Anemia: Secondary to chronic blood loss in likely decreased production. Hematocrit 25, down from 29 3 days ago. * Renal failure: Stable. Creatinine 1.8. * Dispo-watch till tomorrow. Likely okay for LTAC soon Subjective: Awake and alert. Breathing easily Objective: Vital Signs Temp Pulse Resp BP Pulse Ox 36.7 C 88 18 110/49 L 99 07/09/16 08:16 07/09/16 08:16 07/09/16 08:16 07/09/16 08:16 07/09/16 08:16 Microbiology 07/06/16 12:30 - Final Sputum, Expectorated Sputum Culture - Final Klebsiella Pneumoniae Ssp Pneu Laboratory Results 07/07/16 11:00 07/08/16 05:10 07/08/16 07/09/16 07/10/16 05:59 05:59 05:59 Intake Total 2155 1833 Output Total 850 750 Balance 1305 1083 PT 15.3 SEC (12.0-15.0) H 07/03/16 22:25 INR 1.21 (0.83-1.16) H 07/03/16 22:25 Physical Exam - Physical Exam General Appearance: alert, no apparent distress EENT: PERRL/EOMI, normal ENT inspection Neck: non-tender, full range of motion, other (trach) Respiratory: rhonchi (scattered), No respiratory distress, No wheezing Cardiac/Chest: normal peripheral pulses, regular rate, rhythm, systolic murmur Abdomen: normal bowel sounds, non-tender, soft Male Genitalia: deferred Rectal: deferred Skin: normal color, warm/dry Extremities: normal range of motion, non-tender, normal inspection, normal capillary refill Neuro/Psych: alert, oriented x 3 ICD10 Worksheet Patient Problems: Problems Problem Status Diagnosed Acute blood loss anemia Acute Adenocarcinoma of prostate Acute CAD, multiple vessel Acute Chronic Disease Mgmt/Transitional Care Acute Fall Acute Gross hematuria Acute 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
--- NOTE | 2016-07-09 13:33 | PCMIDPN ---
Assessment/Plan: Assessment/Plan: 1. Sepsis secondary to Klebsiella pneumonia bacteremia and UTI - Currently on D#06/05. End date on 07/11/16. -f/u blood cx were negative on 06/28/16. 2. Resp failure: - CHF vs HCAP -recent sputum with GPC on GS but 1+ Kleb pneumonia (resistant to ancef) and mixed oral justin on cultures. -CXr reviewed. No significant change in findings. -Mild increase in o2 requirements but no fevers, and resolution of elevated wbc despite no new antibiotics. - Favor colonization rather than representing new pneumonia at this time. However, recommend close clinical monitoring. -If o2 requirements continue to rise, then needs re-assessment, possible change in atbx etc. - care discussed with Dr. Worley. Meds ancef 1g q8- Subjective: Asked to see patient again. He left on 07/02 but was readmitted on 07/03/16 due to leaking around catheters, hematuria etc. in Brief, hx of CAD/CABG x 5 on 05/23. Subsequent resp failure, bladder rupture with ongoing hematuria. He became septic on 06/25/16 and found to have Klebsiella pneumonia in the blood and urine. He was placed on Ancef with a plan for two weeks duration. His blood cx were negative on 06/28/16. End date of therapy was tentatively 07/11/16. Since his readmission, his o2 requirements are a little higher than at discharge. He has been having more secretions recently, whitish in nature. He has not had a fever , or increase in wbc count. Sputum cx recently showed Klebsiella pneumonia resistant to ancef. we are asked to evaluate new cx and make antibiotic recommendations. He denies abd pain or diarrhea. Denies sob. wound vac to coccyx. Objective: Vital Signs Temp Pulse Resp BP Pulse Ox 36.7 C 87 30 H 114/53 L 96 07/09/16 12:00 07/09/16 12:00 07/09/16 12:00 07/09/16 12:00 07/09/16 12:00 Microbiology 07/06/16 12:30 - Final Sputum, Expectorated Sputum Culture - Final Klebsiella Pneumoniae Ssp Pneu Laboratory Results 07/07/16 11:00 07/08/16 05:10 01/16/17 01/17/17 01/18/17 05:59 05:59 05:59 Intake Total 2152 1833 Output Total 850 750 Balance 1305 1083 - Physical Exam General Appearance: alert, no apparent distress Respiratory: coarse breath sounds Cardiac/Chest: regular rate, rhythm Extremities: swelling Abdomen: normal bowel sounds, non-tender, soft, No distended Male Genitalia: other (no bello or suprapubic catheter in place.) Skin: other (wound vac to coccyx noted.), No erythema ICD10 Worksheet Patient Problems: Problems Problem Status Diagnosed Acute blood loss anemia Acute Adenocarcinoma of prostate Acute CAD, multiple vessel Acute Chronic Disease Mgmt/Transitional Care Acute Fall Acute Gross hematuria Acute 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
--- NOTE | 2016-07-09 14:16 | SOAPPROG ---
SOAP Progress Note Assessment/Plan: Assessment/plan: Gross hematuria-SP removed yesterday. Patient able to void on. Urine remains dark red in color with clots according to RN. Scrotal swelling- recommend scrotum be propped up with towels underneath. 07/09/16 14:16 Subjective: [place] reports no bladder pain. Objective: Vital Signs Temp Pulse Resp BP Pulse Ox 36.7 C 87 30 H 114/53 L 96 07/09/16 12:00 07/09/16 12:00 07/09/16 12:00 07/09/16 12:00 07/09/16 12:00 Microbiology 07/06/16 12:30 - Final Sputum, Expectorated Sputum Culture - Final Klebsiella Pneumoniae Ssp Pneu Laboratory Results 07/07/16 11:00 07/08/16 05:10 07/08/16 07/09/16 07/10/16 05:59 05:59 05:59 Intake Total 2155 1833 Output Total 850 750 Balance 1305 1083 PT 15.3 SEC (12.0-15.0) H 07/03/16 22:25 INR 1.21 (0.83-1.16) H 07/03/16 22:25 Physical Exam - Physical Exam General Appearance: alert, no apparent distress Respiratory: normal breath sounds Male Genitalia: other (condom catheter(not attached to patient) showed red urine without clots in bag. 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
--- NOTE | 2016-07-09 17:56 | HOSPPROG ---
Hospitalist Progress Note Assessment/Plan: HOSPITAL SUMMARY: This patient was previously admitted with heart disease requiring heart valve surgery which was completed. 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 He had a very long hospitalization and was discharged to a LTAC for rehabilitation with severe weakness not ambulating well at all, with ongoing gross hematuria on a daily basis that has been present for about 5 weeks. Within the 1st 24 hours at the LTAC the patient was noted to have continued ongoing gross hematuria which again has been present for 5 weeks. The nursing staff was concerned that he might clot office catheter. As they had no urologist to guide them in their care the transfer him back to our hospital for further evaluation and care of the hematuria. Here during this hospitalization a urethral irrigation catheter was added to his suprapubic your irrigation catheter. He received ongoing saline irrigation for several days with continued hematuria but neither catheter clotted. At this point both catheters have been removed and we are going to see if he is able to continue voiding his bladder. At the moment there is no recommendation for other specific treatment for the bladder but he has been followed closely by the urologist. He does complain of some ongoing dyspnea which is really unchanged from when he had at the time of discharge here. There is some pulmonary edema and he has received some diuresis here. He is with a tracheostomy which was placed during the prior hospital stay and is tolerating the tracheostomy well. He does have post hemorrhagic anemia here from the bleeding as above and did receive 1 unit of transfusion here so far. DIAGNOSIS: # ONGOING GROSS HEMATURIA -both urinary catheter was removed and he is so far is still able to void his bladder but he still does have gross hematuria so far; the hope is that with the tubes out his bleeding may stop from less irritation # POST HEMORRHAGIC ANEMIA DUE TO ABOVE, WITH ONGOING ANEMIA FROM PRIOR ILLNESS -s/p 1 unit of packed red blood cell transfusion, will need to follow counts closely -iron therapy replacement -will recheck hemoglobin in the morning # ACUTE RESPIRATORY FAILURE ON CHRONIC, SOME PULMONARY EDEMA, COPD, SOME SECRETIONS; TRACHESOTOMY IN PLACE -still complaining of dyspnea so far not responding to diuresis. He is not felt to have active infection -will discuss with pulmonology # S/P RECENT CABG AND VALVE SURGERY -stable, but remains fairly debilitated # REMAINS ON ABX FOR KLEBSIELLA PNEUMONIA FROM LAST ADMISSION, DAYS LEFT # SACRAL DECUBITUS ULCER, POA -improving # TYPE 2 DIABETES WELL CONTROLLED # SITUATIONAL DEPRESSION -started on trial of Wellbutrin at this time I have reviewed this patient's care in detail with Dr Worley Also seen on multidisciplinary rounds SUBJECTIVE: Still with dyspnea, still with productive cough; unchanged no bladder pain, he is voiding his bladder with gross hematuria with both tubes out Less pain at his sacral ulcer site no nausea or fever sxs OBJECTIVE Vitals reviewed: stable with no fever awake overnight monitor: reviewed by me; sinus rythym Exam: alert oriented skin warm dry color ok resps not labored; trach tube in good position and trach site looks good Chest wounds look good from prior heart surgery lungs slight bilateral rales heart regular abd soft nondistended nontender, bowel sounds present; abdominal surgical wounds look good with suprapubic catheter secured in good position limbs warm, no edema iv site ok Objective: Vital Signs Temp Pulse Resp BP Pulse Ox 36.7 C 83 18 122/44 H 97 07/09/16 15:56 07/09/16 16:30 07/09/16 15:56 07/09/16 15:56 07/09/16 16:30 Laboratory Results 07/07/16 11:00 07/08/16 05:10 07/08/16 07/09/16 07/10/16 06:59 06:59 06:59 Intake Total 2155 1833 Output Total 850 750 Balance 1305 1083 PT 15.3 SEC (12.0-15.0) H 07/03/16 22:25 INR 1.21 (0.83-1.16) H 07/03/16 22:25 ICD10 Worksheet Patient Problems: Problems Problem Status Diagnosed Acute blood loss anemia Acute Adenocarcinoma of prostate Acute CAD, multiple vessel Acute Chronic Disease Mgmt/Transitional Care Acute Fall Acute Gross hematuria Acute 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
[2016-07-09] MEDS: MELATONIN 3 MG TAB TUBE SCH (21:25)
[2016-07-10] MEDS: INSULIN LISPRO 100 UNIT/ML SC SCH ×3 (00:44→12:40)
[2016-07-10] MEDS: IPRATROPIUM/ALBUTEROL 3 ML DEYVIAL IH SCH ×5 (00:49→15:37)
[2016-07-10] MEDS: LEVOTHYROXINE 25 MCG TAB TUBE SCH (05:23)
[2016-07-10] MEDS: FUROSEMIDE 40 MG/4 ML VIAL IVP SCH ×2 (09:00→14:51)
[2016-07-10] MEDS: predniSONE 1 MG TAB TUBE SCH (09:00)
[2016-07-10] MEDS: PRAVASTATIN SODIUM 40 MG TAB PO SCH (09:00)
[2016-07-10] MEDS: LANSOPRAZOLE SUSP 30MG/10ML UDSYR (Adult) TUBE SCH (09:00)
[2016-07-10] MEDS: buPROPion 75 MG TAB PO SCH (09:00)
[2016-07-10] MEDS: FERROUS SULFATE 300 MG/5 ML UD CUP TUBE SCH (09:00)
--- NOTE | 2016-07-10 09:08 | PDINTPN ---
Floorwalker Progress Note Assessment/Plan: Assessment/Plan: * Bladder hemorrhage-Vargas and suprapubic out. Bladder scans okay. Clots have resolved since removal of Suprapubic, but urine is still bloody. Incontinent * Coronary artery disease, status post myocardial infarction, CABG, etc 1 month ago. Hemodynamically stable, normal cardiac function but CHF/fluid retention present on x-ray. * Atrial fibrillation postoperatively. On amiodarone, in normal sinus rhythm. * Obesity * Decubitus ulcer on coccyx: Grade 4. Wound Care following * Status post respiratory failure, tracheostomy. Somewhat more congested last couple a days. Better now. Sputum starting to grow a gram-negative rajesh. Will await sensitivities prior to considering coverage. He may have a new pneumonia ? but white blood cell count not elevated and he is afebrile. On cephazolin now for urinary organisms found previously. -will hold CPAP at night * Trach-downsized to #7 extra long -start cap trials * Anemia: Secondary to chronic blood loss in likely decreased production. -recheck CBC * Renal failure: Stable. Creatinine 1.8. * Dispo- Okay for LTAC Subjective: Awake and alert. Comfortable. Objective: Vital Signs Temp Pulse Resp BP Pulse Ox 37.2 C 92 26 H 106/35 L 91 L 07/10/16 08:33 07/10/16 08:33 07/10/16 08:33 07/10/16 08:33 07/10/16 08:33 Laboratory Results 07/07/16 11:00 07/08/16 05:10 07/09/16 07/10/16 07/11/16 05:59 05:59 05:59 Intake Total 1833 2125 Output Total 750 0 Balance 1083 2125 PT 15.3 SEC (12.0-15.0) H 07/03/16 22:25 INR 1.21 (0.83-1.16) H 07/03/16 22:25 Physical Exam - Physical Exam General Appearance: alert, no apparent distress EENT: PERRL/EOMI, normal ENT inspection, pharynx normal Neck: non-tender, full range of motion, supple Respiratory: crackles (few), No respiratory distress, No stridor, No wheezing Cardiac/Chest: normal peripheral pulses, regular rate, rhythm, systolic murmur Peripheral Pulses: 2+: carotid (R), carotid (L), femoral (R), femoral (L), dorsalis-pedis (R), dorsalis-pedis (L) Abdomen: normal bowel sounds, non-tender, soft Male Genitalia: deferred Rectal: deferred Skin: normal color, warm/dry Extremities: normal range of motion, non-tender Neuro/Psych: alert ICD10 Worksheet Patient Problems: Problems Problem Status Diagnosed Acute blood loss anemia Acute Adenocarcinoma of prostate Acute CAD, multiple vessel Acute Chronic Disease Mgmt/Transitional Care Acute Fall Acute Gross hematuria Acute 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
[2016-07-10] MEDS ORDERED: LIDOCAINE 1% *Not for Epidural 20 ML MDV NB ONE (10:11)
[2016-07-10] MEDS ORDERED: LIDOCAINE 1% 30 ML SDV ONE (10:50)
--- NOTE | 2016-07-10 11:28 | SOAPPROG ---
SOAP Progress Note Assessment/Plan: Assessment/plan: Gross hematuria-SP removed Friday. Continues to void with appropriate low PVRs. Scrotal swelling- mild improvement from yesterday. Continue to keep rolled towel under scrotum to promote drainage of fluid. If patient is being discharged, recommend f/u in office in 2-3 weeks. Subjective: Continued left scrotal discomfort. Bloody urine output, but without retention. Objective: Vital Signs Temp Pulse Resp BP Pulse Ox 37.2 C 92 26 H 106/35 L 91 L 07/10/16 08:33 07/10/16 08:33 07/10/16 08:33 07/10/16 08:33 07/10/16 08:33 Laboratory Results 07/07/16 11:00 07/08/16 05:10 07/09/16 07/10/16 07/11/16 05:59 05:59 05:59 Intake Total 1833 2125 Output Total 750 0 Balance 1083 2125 PT 15.3 SEC (12.0-15.0) H 07/03/16 22:25 INR 1.21 (0.83-1.16) H 07/03/16 22:25 Physical Exam - Physical Exam General Appearance: alert, no apparent distress Male Genitalia: other (left scrotal swelling, TTP, mildly improved from yesterday. 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
[2016-07-10 11:43] VITALS: BP 119/44; TEMP 98
[2016-07-10 11:51] VITALS: RESP 22
[2016-07-10 12:02] LABS: ABSOLUTE NRBC COUNT 0.02 10^3/uL (0-0.01); ADD DIFF? YES; ADD MORPH? NO; ADD SCAN? NO; ATYPICAL LYMPHOCYTE FLAG 20 (0-99); FRAGMENT RBC FLAG 0 (0-99); HEMATOCRIT 23.8 % (40.0-51.0); HEMOGLOBIN 7.4 g/dL (13.7-17.5); LEFT SHIFT FLG 0 (0-99); LIPEMIA HEMOLYSIS FLAG 80 (0-99); MEAN CELL HEMOGLOBIN 29.4 pg (27.9-34.1); MEAN CELL HEMOGLOBIN CONCENTR. 31.1 g/dL (32.4-36.7); MEAN CELL VOLUME 94.4 fL (81.5-99.8); MEAN PLATELET VOLUME 10.2 fL (8.7-11.7); NRBC-AUTO% 0.4 % (0.0-0.2); PLATELET CLUMPS FLAG 0 (0-99); PLATELET COUNT 216 10^3/uL (150-400); RED BLOOD CELL COUNT 2.52 10^6/uL (4.40-6.38); RED CELL DISTRIBUTION WIDTH 19.6 % (11.5-15.2)
[2016-07-10 12:31] LABS: ANION GAP 9 mEq/L (8-16); CARBON DIOXIDE 37 mEq/l (22-31); CHLORIDE 101 mEq/L (97-110); CREATININE 1.7 mg/dL (0.7-1.3); GLOMERULAR FILTRATION RATE 39; GLUCOSE 141 mg/dL (70-100); POTASSIUM 3.5 mEq/L (3.5-5.2); SODIUM 147 mEq/L (134-144)
[2016-07-10 12:43] LABS: PLATELET ESTIMATE ADEQUATE (ADEQ); POLYCHROMASIA 1+
[2016-07-10] MEDS: fentaNYL 50 MCG PATCH TD SCH (13:08)
[2016-07-10] MEDS: INSULIN GLARGINE 100 UNITS/ML SYRINGE SC SCH (13:11)
--- NOTE | 2016-07-10 13:26 | US ---
Testicular Sonogram Clinical Indications: Left testicular pain and swelling Technique: Scrotal contents were imaged with the high-resolution transducer. Color and pulsed Doppl er/duplex were recorded on each side. Findings: Right testis measures 3.6 x 2.4 x 3 cm and left testis measures 4.5 x 2.4 x 1.[address] stes are homogeneous in echogenicity without intratesticular masses. Duplex/Doppler signals are lacie l, without evidence of torsion or inflammation. No epididymal enlargement. No varicocele. Large comp mireya fluid collection in the left hemiscrotum displacing the testes posteriorly measuring 8.5 x 6.2 x 2.8 cm with internal debris. Impression: 1. No intratesticular masses. 2. No testicular torsion. 3. No definite epididymitis. 4. Large complex solid left hemiscrotum fluid collection with internal debris representing complex hy drocele, hematoma, or abscess.
--- NOTE | 2016-07-10 14:01 | WOCRNPDOC ---
WOCRN Advanced Assessment Note - Skin Integrity Problem, Advanced Assess Sacrum Pressure Injury Dressing Type: Black Vac Foam (x1), Wound Vac Dressing Description: Clean/Dry, Intact Exudate Amount: None Integumentary Issue Intervention: Dressing Changed Nena Wound Tissue: Erythema Nena Wound Swelling: None Wound Bed Color: Red Wound Bed Constitution: Granulation Tissue, Smooth Tissue, Subcutaneous Fat Wound Edges: Epithelizing Pressure Injury Stage: Stage 4 Skin Integrity Problem Comment: Superior portion of wound debrided at the bedside by Dr. Edmond to bleeding clean tissue. Wound edges draped after applying skin prep. Inferior edge covered with replicare hydrocolloid after applying mastisol. 1 piece of medium black foam applied to wound bed and bridged to right flank. Vac restarted at - 125 mm Hg continous suction with no leaks noted. Klarissa CORTES in room for care.
[2016-07-10 15:43] VITALS: PULSE 88; O2SAT 93
--- NOTE | 2016-07-10 16:28 | GDS ---
[f rep st] DISCHARGE SUMMARY DISCHARGE DIAGNOSES: 1. Gross hematuria due to previous bladder rupture and radiation cystitis. 2. History of a recent CABG complicated by a bladder rupture and peritonitis. 3. Anemia secondary to acute blood loss. 4. Atrial fibrillation. 5. History of severe tricuspid regurgitation treated by tricuspid valve angioplasty. 6. Previous urosepsis, on continued intravenous antibiotics. 7. Hypothyroidism. 8. Type 2 diabetes. 9. History of prostate cancer, status post radiation, with radiation cystitis. 10. Hypothyroidism. 11. Acute on chronic respiratory failure, with tracheostomy in place. 12. Klebsiella pneumoniae in sputum. 13. Scrotal fluid collection of uncertain etiology, possibly complex hydrocele. 14. Sacral decubitus ulcer present on admission. 15. Depression. 16. Temporal arteritis, on a small dose of chronic prednisone. HISTORY: This is an 80-year-old male with a complicated medical history. He underwent CABG x5 on . This was complicated by bladder rupture, peritonitis, urosepsis, ARDS, and required prolon ged mechanical ventilation. He was transferred over. Suprapubic catheter was placed at that time, an d he was transferred to LTAC. He then returned shortly afterwards with gross hematuria. CONSULTATIONS: 1. Urology. 2. Pulmonary Critical Care. HOSPITAL COURSE: 1. Gross hematuria. The patient's bladder was irrigated in the emergency room on admission. Then a 3-way Vargas was placed, and the belly was continually irrigated. Urology decided to take out the winters prapubic catheter, as well as the Vargas catheter, as this is thought to be irritating the radiation c ystitis that he has. This was removed 48 hours ago and since then, patient has been urinating. He d oes have some hematuria at this time, but has not had any evidence of obstruction. Urology feels nasir t it is okay for him to be discharged back to the long-term acute facility, and they want to see him back in 1 week. 2. Testicular fluid collection. This is not thought to be abscess. Urology is wanting a repeat ult rasound in 1 week, and then to follow up in their office. 3. Previous urosepsis. Patient has completing a course of IV Ancef. He did grow out Klebsiella at that time. He is due to finish this on 07/12/2016. 4. Klebsiella pneumoniae on sputum. This was found on expectorated sputum on 07/06/2016. He has no other symptoms of pneumonia. This is not sensitive to the cefazolin that he is on. He has had no w orsening respiratory symptoms since that culture. We have elected not to treat this with antibiotics . 5. Temporal arteritis, on a small dose of chronic prednisone. 6. Recent CABG and tricuspid valve replacement. 7. Acute respiratory failure. The patient does have a tracheostomy, and did have a little bit of fl uid overload initially, and has been diuresed some. 8. Sacral decubitus ulcer. This is quite painful, and patient is getting wound care. DISPOSITION: To long-term acute care center. FOLLOWUP INSTRUCTIONS: Patient to see Urology in 1 week, and to get a repeat ultrasound. I have discussed the case with Dr. Mckeon at [facility]. Greater than 30 minutes was spent on discharge. /[id number]/MODL
--- NOTE | 2016-07-10 16:40 | PDIAF ---
- Diagnosis Diagnosis: hematuria Code Status: Full Code - Medication Management Discharge Medications: Medications to Continue on Transfer Acetaminophen [Tylenol 650/20.3ML Oral Liq (*)] 325 - 650 mg TUBE Q4HRS PRN #0 udcup 07/02/16 [Last Taken Unknown] Amiodarone HCl [Pacerone (*)] 200 mg TUBE DAILY #5 tab 07/02/16 [Last Taken Unknown] Lansoprazole [PREVACID 30mg/10ml susp (Adult) (*)] 30 mg TUBE DAILY #0 udsyr 04/08 [Last Taken Unknown] Levothyroxine [Synthroid 25 mcg (*)] 25 mcg TUBE DAILY AT 6AM #0 tab 07/02/16 [ Last Taken Unknown] Melatonin [Melatonin 3 MG (*)] 3 mg TUBE HS #0 tab 07/02/16 [Last Taken Unknown] Neomy Sulf/Bacitrac Zn/Poly [Triple Antibiotic Oint tube (*)] 1 lenora TP DAILY PRN #0 oint 07/02/16 [Last Taken Unknown] Sodium Hypochlorite [Dakins 1/4 Strength] 1 ml TP BID #0 btl 07/02/16 [Last Taken Unknown] morphINE [morphINE 2mg/ml Inj (*)] 1 - 2 mg IVP Q1H PRN #0 syr 07/02/16 [Last Taken Unknown] predniSONE 2 mg TUBE DAILY #0 tab 07/02/16 [Last Taken Unknown] Insulin Lispro [Humalog] 0 - 10 unit SQ Q6H 07/04/16 [Last Taken Unknown] Ipratropium/Albuterol [Duoneb (*)] 3 ml IH Q4 07/04/16 [Last Taken Unknown] Ondansetron HCl Pf [Zofran 4 mg Inj (*)] 4 mg IV Q4 PRN 07/04/16 [Last Taken Unknown] Pravastatin Sodium 40 mg PO DAILY 07/04/16 [Last Taken Unknown] fentaNYL [Duragesic 50 MCG Patch (*)] 50 mcg TD Q72H 07/04/16 [Last Taken Unknown] Insulin Glargine [Lantus 100 UNITS/ML (*)] 20 units SC HS #0 ml 07/10/16 [Last Taken Unknown] buPROPion [Wellbutrin 75mg (*)] 75 mg PO TID #0 tab 07/10/16 [Last Taken Unknown ] ceFAZolin 1 GM/DEXTROSE [Ancef 1 gm (Premix)] 50 ml IV Q8H #14 bag 07/10/16 [ Last Taken Unknown] Jail Antibiotics: Ancef 1 g IV q.8 hours until 07/12/2016 Nozzleman Antibiotic Stop Date: 07/12/16 Discharge Medications: Refer to the Discharge Home Medication list for PRN reason. - Orders Services needed: Physical Therapy, Occupational Therapy, Speech Language Pathologist Diet Texture: Ice Chips Tube feeding: Start Nepro 1.8 goal of 45 ml/hr - Follow Up Care Current Providers and Referrals: William Sands MD [Medical Doctor] - follow up in 1 week Linda Recinos MD [Primary Care Provider] - As per Instructions
--- NOTE | 2016-07-10 19:10 | PCMIDPN ---
Assessment/Plan: Assessment/Plan: * K. pneumoniae bacteremia of urinary etiology: Completing 2 weeks of cefazolin which is due to end 07/12/16. * Shortness of breath: Sputum with cefazolin resistant K. pneumoniae. No fever or leukocytosis and CXR without overt pneumonia. Suspect colonization rather than pneumonia. Continue to observe without antibiotic therapy change to target cefazolin resistant K. pneumoniae. 07/10/16 19:07 07/10/16 19:10 Subjective: Patient complains of feeling "rotten". Shortness of breath without significant cough or sputum production. Objective: Vital Signs Temp Pulse Resp BP Pulse Ox 36.7 C 88 22 H 119/44 L 93 07/10/16 11:41 07/10/16 15:38 07/10/16 15:38 07/10/16 11:42 07/10/16 15:38 Laboratory Results 07/10/16 11:40 07/10/16 11:40 07/09/16 07/10/16 07/11/16 05:59 05:59 05:59 Intake Total 1833 2125 Output Total 750 0 Balance 1083 2125 Cefazolin (stop date = 07/12/16) - Physical Exam General Appearance: alert, no apparent distress EENT: No scleral icterus Respiratory: crackles (bibasilar) Cardiac/Chest: regular rate, rhythm Abdomen: non-tender, other (well healed surgical incision; suprapubic site without erythema), No distended ICD10 Worksheet Patient Problems: Problems Problem Status Diagnosed Acute blood loss anemia Acute Adenocarcinoma of prostate Acute CAD, multiple vessel Acute Chronic Disease Mgmt/Transitional Care Acute Fall Acute Gross hematuria Acute 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
[2016-07-10] MEDS ORDERED: INSULIN GLARGINE 100 UNITS/ML SYRINGE SC SCH (21:00)
== END 2016-07-10 17:04 | DRG 698 ==
LOC: EDUNIT# → INTOOBSV 22:46 → F2N 07-04 00:28 → OBSVTOIN 07-04 09:54 → F2N 07-06 11:55
PROVIDERS: ADMIT Internal Medicine; ATTEND Internal Medicine
DX: N30.41 Irradiation cystitis with hematuria (principal); L89.154 Pressure ulcer of sacral region, stage 4; D62 Acute posthemorrhagic anemia; N43.3 Hydrocele, unspecified; J96.11 Chronic respiratory failure with hypoxia; Z93.0 Tracheostomy status; Z87.01 Personal history of pneumonia (recurrent); I25.10 Atherosclerotic heart disease of native coronary artery without angina pectoris; Z95.1 Presence of aortocoronary bypass graft; Z95.5 Presence of coronary angioplasty implant and graft; E11.9 Type 2 diabetes mellitus without complications; Z79.4 Long term (current) use of insulin; E03.9 Hypothyroidism, unspecified; I10 Essential (primary) hypertension; E78.5 Hyperlipidemia, unspecified; Z85.46 Personal history of malignant neoplasm of prostate; Z92.3 Personal history of irradiation; I25.2 Old myocardial infarction; Z87.891 Personal history of nicotine dependence; M31.6 Other giant cell arteritis; Z79.52 Long term (current) use of systemic steroids; G47.33 Obstructive sleep apnea (adult) (pediatric); G89.29 Other chronic pain; I50.9 Heart failure, unspecified
CPT/HCPCS: 92523-GN; 92526-GN; 92610-GN; 96374; 97110-GP; 97116-GP; 97162-GP; 97166-GO; 97530-GO; 97530-GP; 97532-GN; 97535-GO; G8978-GP-CK; G8979-GO-CJ; G8979-GP-CI; G8980-GO-CK; G8987-GO-CL; G8988-GO-CJ; G8996-GN-CK; G8997-GN-CK; G8998-GN-CK; G9165-GN-CK; G9166-GN-CI; G9167-GN-CK; J0690; J1815; J2405; J2997; P9016